=== PATIENT | female | born 1975 | race Caucasian/White ===

== ENCOUNTER 2024-08-18 19:39 | Emergency (ER) | payer OTHER, SELFPAY ==
[2024-08-18 19:45] VITALS: BP 112/77
[2024-08-18 20:19] LABS: HCG, Serum Qualitative Screen Negative
[2024-08-18 20:22] LABS: ALT (SGPT) 14 U/L (0-35); AST (SGOT) 14 U/L (14-36); Albumin 4.2 g/dl (3.5-5.0); Alkaline Phosphatase 81 U/L (38-126); Blood Urea Nitrogen 14 mg/dl (7-17); Calcium 10.4 mg/dl (8.4-10.2); Carbon Dioxide 25 mmol/L (22-30); Chloride 104 mmol/L (98-107); Glucose 113 mg/dl (70-99); Lipase 70 U/L (23-300); Potassium 5.2 mmol/L (3.5-5.1); Sodium 137 mmol/L (135-145); Total Protein 7.3 g/dl (6.3-8.2); eGFR > 60.00
[2024-08-18 20:23] LABS: Hematocrit 48.6 % (37.0-47.0); Hemoglobin 16.2 g/dL (12.0-16.0); Mean Corp Hgb Conc. 33.3 g/dL (33.0-37.0); Mean Corpuscular Volume 91.9 fL (81.0-99.0); Nucleated Red Blood Cells % 0 %; Red Cell Dist. Width 14.0 % (11.5-14.5)
[2024-08-18 20:33] LABS: Platelet Count 693 10^3/uL (130-400)
[2024-08-18 22:04] VITALS: BP 107/71
[2024-08-18 22:05] VITALS: BMI 24.9
--- NOTE | 2024-08-18 22:06 | ED.GENMED ---
History of Present Illness
<Marci Zaldivar MD, Resident - Last Filed: 08/19/24 00:48>
General
Chief Complaint: Abdominal Pain
Source: patient
Exam Limitations: none
Time Seen by Provider: 08/18/24 21:20
Nursing documentation reviewed up to this point in time: agreed with
History of Present Illness
History of Present Illness:
Mrs. Rosey Strickland is a 48-year-old female who is presenting with abdominal pain with nausea vomiting diarrhea for 2 times over 3 weeks.
The first episode was 3 weeks ago, and the second episode was 1 day ago. Both episodes had 37 seconds of pain where she felt sharp like she was being twisted inside her abdomen. Her abdominal pain yesterday was preceded by a large meal on Friday.
She endorses feeling bloated.
She did note that she ate popcorn before both episodes of abdominal pain. She states that she has a first-degree family ember with Crohn's disease. She denies hematochezia and hematemesis.
She denies history of bleeding disorders. She denies having upper respiratory symptoms, fevers, or chills.
She does not drink alcohol. She endorses smoking.
Review of Systems
<Marci Zaldivar MD, Resident - Last Filed: 08/19/24 00:48>
Review of Systems
All Other Systems: ROS reviewed and negative except as documented in HPI and ROS
Constitutional: Reports no symptoms
Respiratory: Reports no symptoms
Cardiac: Reports no symptoms
ABD/GI: Reports abdominal pain, nausea, vomiting and diarrhea
: Reports no symptoms
Phy Exam
<Marci Zaldivar MD, Resident - Last Filed: 08/19/24 00:48>
Physical Exam
Physical Exam:
GI: Tenderness to palpation in the epigastrium and suprapubic area.
Negative Zendejas sign negative, negative McBurney's point, negative Rovsing sign.
Hyperactive bowel sounds
Heart: Normal rate and rhythm. Bilateral radial pulses 2+.
Lungs clear to auscultation bilaterally
General: Dry mucous membranes
Course
<Marci Zaldivar MD, Resident - Last Filed: 08/19/24 00:48>
Orders/Labs/Results
Orders:
Orders
08/18/24 19:48
IV Insert/Care/Rem.- Treatment PRN
Test Result ONCE
08/18/24 19:56
Complete Blood Count/With Diff Urgent
Comprehensive Metabolic Panel Urgent
HCG, Serum Qualitative Screen Urgent
Comment: Notify provider if positive test present
Lactic Acid Urgent
Lipase Urgent
08/18/24 22:13
CT Abd/Pel (IV only)-DH only Stat
Comment:
Reason For Exam: epigastr pain & n/v/d x 2; high bili, wbc, lactate
08/18/24 22:15
0.9% Sodium Chloride 1000 ml [Nss] 1,000 ml IV BOLUS
08/18/24 23:27
Urinalysis Reflex To Culture Urgent
Date Specimen was Collected: 08/18/24
Time Specimen was Collected: 22:18
Urine Microscopic Reflex Cult Urgent
08/19/24 00:39
Dicyclomine [Bentyl] 20 mg PO NOW STA
08/19/24 08:00
Nicotine [Nicoderm Transdermal] 14 mg TRANSDERM DAILY
Abnormal Lab Results
08/18/24 08/18/24
19:56 23:27
WBC 15.9 H 10^3/uL
(4.8-10.8)
Hgb 16.2 H g/dL
(12.0-16.0)
Hct 48.6 H %
(37.0-47.0)
Plt Count 693 H 10^3/uL
(130-400)
Abs Immat Gran (auto) 0.1 H 10^3/uL
(0-0.05)
Absolute Neuts (auto) 12.5 H 10^3/uL
(1.4-6.5)
Absolute Monos (auto) 1.0 H 10^3/uL
(0.1-0.6)
Neutrophils % 78.5 H %
(42.2-75.2)
Lymphocytes % 14.2 L %
(20.5-51.1)
Potassium 5.2 H mmol/L
(3.5-5.1)
Glucose 113 H mg/dl
(70-99)
Lactic Acid 3.4 H mmol/L
(0.7-2.0)
Calcium 10.4 H mg/dl
(8.4-10.2)
Total Bilirubin 1.5 H mg/dl
(0.2-1.3)
Urine Ketones 3+ A
(Negative)
Ur Occult Blood Reflex 1+ A
(Negative)
Urine Albumin (Reflex) 2+ A
(Neg - Trace)
08/18/24 19:56
08/18/24 19:56
Vital Signs
Initial and Last Documented VS:
Initial Vital Signs
Temp Pulse Resp BP Pulse Ox
98.6 F 109 20 112/77 99
08/18/24 19:45 08/18/24 19:45 08/18/24 19:45 08/18/24 19:45 08/18/24 19:45
Last Documented Vital Signs
Temp Pulse Resp BP Pulse Ox
98.6 F 109 20 105/56 95
08/18/24 19:45 08/18/24 19:45 08/18/24 19:45 08/19/24 00:00 08/19/24 00:30
<Justus Duarte, DO - Last Filed: 08/19/24 01:34>
Orders/Labs/Results
Orders:
Orders
08/18/24 19:48
IV Insert/Care/Rem.- Treatment PRN
Test Result ONCE
08/18/24 19:56
Complete Blood Count/With Diff Urgent
Comprehensive Metabolic Panel Urgent
HCG, Serum Qualitative Screen Urgent
Comment: Notify provider if positive test present
Lactic Acid Urgent
Lipase Urgent
08/18/24 22:13
CT Abd/Pel (IV only)-DH only Stat
Comment:
Reason For Exam: epigastr pain & n/v/d x 2; high bili, wbc, lactate
08/18/24 22:15
0.9% Sodium Chloride 1000 ml [Nss] 1,000 ml IV BOLUS
08/18/24 23:27
Urinalysis Reflex To Culture Urgent
Date Specimen was Collected: 08/18/24
Time Specimen was Collected: 22:18
Urine Microscopic Reflex Cult Urgent
08/19/24 00:39
Dicyclomine [Bentyl] 20 mg PO NOW STA
08/19/24 08:00
Nicotine [Nicoderm Transdermal] 14 mg TRANSDERM DAILY
Abnormal Lab Results
08/18/24 08/18/24
19:56 23:27
WBC 15.9 H 10^3/uL
(4.8-10.8)
Hgb 16.2 H g/dL
(12.0-16.0)
Hct 48.6 H %
(37.0-47.0)
Plt Count 693 H 10^3/uL
(130-400)
Abs Immat Gran (auto) 0.1 H 10^3/uL
(0-0.05)
Absolute Neuts (auto) 12.5 H 10^3/uL
(1.4-6.5)
Absolute Monos (auto) 1.0 H 10^3/uL
(0.1-0.6)
Neutrophils % 78.5 H %
(42.2-75.2)
Lymphocytes % 14.2 L %
(20.5-51.1)
Potassium 5.2 H mmol/L
(3.5-5.1)
Glucose 113 H mg/dl
(70-99)
Lactic Acid 3.4 H mmol/L
(0.7-2.0)
Calcium 10.4 H mg/dl
(8.4-10.2)
Total Bilirubin 1.5 H mg/dl
(0.2-1.3)
Urine Ketones 3+ A
(Negative)
Ur Occult Blood Reflex 1+ A
(Negative)
Urine Albumin (Reflex) 2+ A
(Neg - Trace)
08/18/24 19:56
08/18/24 19:56
Vital Signs
Initial and Last Documented VS:
Initial Vital Signs
Temp Pulse Resp BP Pulse Ox
98.6 F 109 20 112/77 99
08/18/24 19:45 08/18/24 19:45 08/18/24 19:45 08/18/24 19:45 08/18/24 19:45
Last Documented Vital Signs
Temp Pulse Resp BP Pulse Ox
98.6 F 109 20 105/56 95
08/18/24 19:45 08/18/24 19:45 08/18/24 19:45 08/19/24 00:00 08/19/24 00:30
<Marci Zaldivar MD, Resident - Last Filed: 08/19/24 00:48>
MDM/Problems Addressed
Differential Diagnosis Includes:
Gallstones and/or pancreatitis
Peptic ulcer disease
UTI
Renal stone
IBD
MDM/Problems Addressed:
CT abdomen/pelvis demonstrated severe acute Crohn's disease
CBC with elevated WBCs (15.9) and platelets
IV fluids, given mild hyperkalemia and emesis
Urinalysis
Consult GI
Patients states she prefers outpatient management due to starting a new job and having 3 children to take care of.
GI can accommodate patient's preference and will call patient to schedule follow-up soon.
<Marci Zaldivar MD, Resident - Last Filed: 08/19/24 00:48>
*Pulse Oximetry
SaO2: 99
Oxygen Mode of Delivery: Room air
Patient hypoxic: no
<Justus Duarte, DO - Last Filed: 08/19/24 01:34>
*Critical Care Note
Total Time (30-74mins, 75-104mins- exclusive of procedures): Not Applicable
ED Attending Note
<Marci Zaldivar MD, Resident - Last Filed: 08/19/24 00:48>
-
Portions of this chart may have been created with voice recognition software.� Occasional wrong word or��sound alike� substitutions may have occurred due to the inherent limitations of voice recognition software.
<Justus Duarte, DO - Last Filed: 08/19/24 01:34>
ED Attending Note
Patient seen and examined by attending physician: Yes
I performed a history and physical exam of patient and discussed management with resident, I reviewed resident's note and agree with documented findings and plan of care.: Yes
ED Attending Note:
Note:
CHIEF COMPLAINT(S)
Intermittent abdominal tightness and discomfort described as feeling like an 'Lao burn' for approximately the past month.
HISTORY OF PRESENT ILLNESS
The patient is a 48-year-old female presenting with a one-month history of intermittent abdominal tightness. The tightness occurs for five to six seconds and is described by the patient as feeling like an 'Lao burn.' She states that when this
sensation occurs, it is intense enough to provoke a strong reaction, likening it to wanting to 'punch everyone in the face to get the pain off.' The episodes are not associated with any fever or continuous vomiting, although she experiences vomiting
occasionally but it resolves after about an hour and is not constant. These episodes have been increasing, leading to fear about her condition as it had become more persistent, prompting her to seek medical attention today. The last episode occurred
approximately 50 minutes ago at the time of her consultation. She expresses concern about staying in the hospital due to recently starting a new job, but is open to following medical advice, particularly in regard to potential outpatient follow-up
with gastroenterology.
SOCIAL DETERMINANTS AFFECTING HEALTH
The patient reports concerns about staying in the hospital due to having recently started a new job, indicating possible employment-related stress affecting her healthcare decisions.
Disposition:
SUMMARY OF ENCOUNTER
The patient, a 48-year-old female, presented to the emergency department with a one-month history of intermittent abdominal tightness and discomfort described as feeling like an 'Lao burn' lasting for five to six seconds. She reported occasional
vomiting resolved within an hour and increasing frequency of these episodes, leading to a concern about her health. During the consultation, she was worried about hospitalization due to recently starting a new job but was open to outpatient
follow-up with gastroenterology. After assessment and discussion with the gastroenterology team, it was determined that the patient would be discharged with close outpatient follow-up advised. The plan was reviewed and agreed upon with the resident
doctor involved in her care.
DISPOSITION
Discharge.
MANAGEMENT OF THE PATIENTS CARE WAS DISCUSSED WITH
Discussion with gastroenterology.
PLAN
The patient will be discharged home with the recommendation for close follow-up with gastroenterology. She is advised to monitor her symptoms and seek immediate medical attention if the episodes worsen or new symptoms develop.
PATIENT EDUCATION AND COUNSELING
The patient was advised on the importance of following up with a cotton weigher for further evaluation of her symptoms. She was educated on monitoring her symptoms and was informed about when to seek immediate medical care.
FOLLOW-UP INSTRUCTIONS
Close follow-up with gastroenterology is advised. The patient is encouraged to schedule an appointment promptly.
MEDICAL DECISION MAKING
-Chronic conditions affecting care: Intermittent abdominal tightness and discomfort.
-Data:
Category 1
Consultation with gastroenterology initiated to discuss patients management.
-Category 3
Discussion of management with gastroenterology was conducted, leading to a discharge plan with outpatient follow-up.
Risk: Care significantly affected by Social Determinants of Health, specifically employment-related stress due to the recent start of a new job.
DIAGNOSIS
Abdominal pain, unspecified (R10.9)
Gastroesophageal reflux disease without esophagitis (K21.9) (considered given the symptom description)
Discharge Plan
Departure
Patient Disposition: Home (Routine Discharge)
Date of Disposition: 08/19/24
Time of Disposition: 00:17
Patient with high blood pressure during this ER visit?: No
Condition: Fair
Discharge Problem:
IBD (inflammatory bowel disease)
Instructions: Inflammatory Bowel Disease (DC), Quitting smoking - ED discharge instructions
Prescriptions:
New
nicotine 14 mg/24 hr patch 24 hour
1 patch transdermal DAILY 7 Days Qty: 14 0RF
dicyclomine 20 mg tablet
20 mg PO TID Qty: 20 0RF
Referrals:
Manuela Andrew MD [Active, Gastroenterology]
UNKNOWN - PT DOES,NOT KNOW [Family Provider]
Activity Restrictions/Additional Instructions:
Dear Ms. Rosey Grimm, you came to the ED with abdominal pain, nausea, vomiting, and diarrhea. The CAT scan showed signs of Crohn's disease.
We consulted gastroenterology. Dr. Manuela Andrew's office plans to call you to schedule a follow-up appointment soon. You may call [phone] to schedule.
Please return to the ED if you develop severe abdominal pain, vomiting, or diarrhea. Prescriptions for dicyclomine for the abdominal pain as well as a nicotine patch were sent to your pharmacy. It was a pleasure to be a part of your care team
Interventions
Interventions:
*Risk Screen - Suicide Last Done: 08/18/24 19:45
*General Assessment Last Done: 08/18/24 22:07
*Neglect/Abuse Screening Last Done: 08/18/24 19:45
*ED- Fall Risk Assessment Last Done: 08/18/24 22:07
*ED COVID-19 Vaccine History Last Done: 08/18/24 22:07
*Nursing Disposition Last Done: 08/19/24 01:01
PO-Tyqkra-Xwhqwgsutz Assessment Last Done: 08/18/24 22:07
Discharge Date and Time
Discharge Date/Time: 08/19/24 01:02
Print Language: VIETNAMESE
[2024-08-18] MEDS: NSS 1000 IV (22:20)
[2024-08-18 23:00] VITALS: BP 95/65
[2024-08-18 23:49] LABS: Urine Character Clear (Clear)
[2024-08-19] VITALS: BP 105/56
[2024-08-19] MEDS: BENTYL 20 MG PO (00:58)
[2024-08-19 01:08] LABS: Urine Squamous Cell >30 /LPF (Few)
[2024-08-19 01:10] LABS: Urine Red Blood Cell 0-2 /HPF (0-2); Urine White Cell None Seen /HPF (0-5)
== END 2024-08-19 01:02 | disposition home or self-care (01) ==
LOC: EMR 19:39
PROVIDERS: EMERGENCY PHYSICIAN Student in an Organized Health Care Education/Training Program
DX: K58.9 Irritable bowel syndrome, unspecified (principal); E87.20 Acidosis, unspecified; E87.5 Hyperkalemia; F17.200 Nicotine dependence, unspecified, uncomplicated; K21.9 Gastro-esophageal reflux disease without esophagitis
CPT/HCPCS: 99284; 96360; 74177; 80053; 81003; 81015; 83605; 83690; 84703; 85025; Q9967

== ENCOUNTER 2024-09-03 06:19 | Day surgery (SDC) | payer OTHER, SELFPAY | END 2024-09-03 13:36 | disposition home or self-care (01) | LOC: GI 06:19 | PROVIDERS: ATTENDING PHYSICIAN Internal Medicine Gastroenterology | DX: R93.3 Abnormal findings on diagnostic imaging of other parts of digestive tract (principal); R19.4 Change in bowel habit; K63.89 Other specified diseases of intestine; K62.89 Other specified diseases of anus and rectum; K52.89 Other specified noninfective gastroenteritis and colitis | CPT/HCPCS: 45380; 88305 ==

== ENCOUNTER 2024-10-01 01:57 | Inpatient (IN) | payer OTHER, SELFPAY ==
[2024-09-30 16:39] VITALS: BP 110/70
[2024-09-30 17:10] LABS: Hematocrit 46.8 % (37.0-47.0); Hemoglobin 16.2 g/dL (12.0-16.0); Mean Corp Hgb Conc. 34.6 g/dL (33.0-37.0); Mean Corpuscular Volume 90.9 fL (81.0-99.0); Nucleated Red Blood Cells % 0 %; Platelet Count 693 10^3/uL (130-400); Red Cell Dist. Width 13.2 % (11.5-14.5)
[2024-09-30 17:25] LABS: ALT (SGPT) 14 U/L (0-35); AST (SGOT) 15 U/L (14-36); Albumin 3.5 g/dl (3.5-5.0); Alkaline Phosphatase 109 U/L (38-126); Blood Urea Nitrogen 14 mg/dl (7-17); Calcium 9.4 mg/dl (8.4-10.2); Carbon Dioxide 27 mmol/L (22-30); Chloride 94 mmol/L (98-107); Glucose 112 mg/dl (70-99); Lipase 247 U/L (23-300); Potassium 3.5 mmol/L (3.5-5.1); Sodium 131 mmol/L (135-145); Total Protein 6.3 g/dl (6.3-8.2); eGFR > 60.00
[2024-09-30 17:30] LABS: HCG, Serum Qualitative Screen Negative
[2024-09-30 18:00] VITALS: BP 98/65
[2024-09-30 20:08] VITALS: BMI 24.3
--- NOTE | 2024-09-30 20:17 | ED.GENMED ---
History of Present Illness
General
Chief Complaint: Abdominal Pain
Time Seen by Provider: 09/30/24 20:05
History of Present Illness
History of Present Illness:
48-year-old female presents to the emergency department for evaluation of abdominal pain and intractable vomiting for the past several days. She was seen here in early August and diagnosed with inflammatory bowel disease by scan. She underwent
colonoscopy in late August that showed significant terminal ileitis. It seems that the working diagnosis is currently Crohn's disease and she was prescribed Solimene enemas which she is tolerating well. She states she has had vomiting and pain
waxing and waning since her initial diagnosis but over the past 3 to 4 days symptoms have dramatically worsened. Denies any bloody bowel movements at this time. No prior surgeries.
Review of Systems
Review of Systems
Allergies reviewed?: Yes
All Other Systems: ROS reviewed and negative except as documented in HPI and ROS
Phy Exam
Physical Exam
Physical Exam:
GEN: Ill-appearing, visibly in pain
Eyes: PERRLA, EOMs intact, no scleral icterus
HENT: NCAT, oral mucosa moist
Lungs: CTAB, no wheezes, rales, rhonchi, normal chest wall excursion
Cardiac: Tachycardic and regular
Abdomen: Protuberant and firm, moderately tender all throughout, no rebound tenderness
Neuro: AO x 3
MSK: No gross deformity or ecchymosis. No edema. No digital clubbing
Skin: No rashes, petechiae. Normal color, no pallor or jaundice.
Psych: Calm, cooperative, proper hygiene
Course
Orders/Labs/Results
Orders:
Orders
09/30/24 16:40
Test Result ONCE
09/30/24 16:47
C-Reactive Protein Urgent
Comment: ADD ON
Complete Blood Count/With Diff Urgent
Comprehensive Metabolic Panel Urgent
HCG, Serum Qualitative Screen Urgent
Lipase Urgent
09/30/24 20:16
HYDROmorphone [Dilaudid] 0.5 mg IV NOW STA
Iohexol [Omnipaque] See Protocol PO NOW STA
Lactated Ringers [Lr] 1,000 ml IV BOLUS
Metoclopramide [Reglan] 10 mg IV NOW STA
09/30/24 20:17
Add On- LAB Urgent
Tests Added?: CRP
CT Abd/pel W Iv And Oral Contr Urgent
Comment:
Reason For Exam: abd pain, vomiting, UC flare
09/30/24 22:49
Ondansetron Injectable [Zofran] 4 mg IV NOW STA
09/30/24 23:30
Lactic Acid Urgent
09/30/24 23:33
NG Tube [GI tube insertion- Treatment] ONCE
09/30/24 23:43
Lactated Ringers [Lr] 1,000 ml IV 125 mls/hr
Abnormal Lab Results
09/30/24
16:47
WBC 24.7 H 10^3/uL
(4.8-10.8)
Hgb 16.2 H g/dL
(12.0-16.0)
MCH 31.5 H pg
(27.0-31.0)
Plt Count 693 H 10^3/uL
(130-400)
Abs Immat Gran (auto) 0.1 H 10^3/uL
(0-0.05)
Absolute Neuts (auto) 19.6 H 10^3/uL
(1.4-6.5)
Absolute Lymphs (auto) 3.7 H 10^3/uL
(1.2-3.4)
Absolute Monos (auto) 1.2 H 10^3/uL
(0.1-0.6)
Neutrophils % 79.4 H %
(42.2-75.2)
Lymphocytes % 15.1 L %
(20.5-51.1)
Sodium 131 L mmol/L
(135-145)
Chloride 94 L mmol/L
(98-107)
Glucose 112 H mg/dl
(70-99)
09/30/24 16:47
09/30/24 16:47
Vital Signs
Initial and Last Documented VS:
Initial Vital Signs
Temp Pulse Resp BP Pulse Ox
97.6 F 125 16 110/70 97
09/30/24 16:39 09/30/24 16:39 09/30/24 16:39 09/30/24 16:39 09/30/24 16:39
Last Documented Vital Signs
Temp Pulse Resp BP Pulse Ox
97.6 F 120 16 98/65 92
09/30/24 16:39 10/01/24 00:00 10/01/24 00:00 09/30/24 18:00 10/01/24 00:00
MDM/Problems Addressed
MDM/Problems Addressed:
Imaging reveals small bowel obstruction with transition point at the terminal ileum concerning for stricture related to inflammatory bowel disease. Case discussed with general surgery who agrees with plan for aggressive IV hydration and NG tube
decompression. Will admit to the hospitalist service
*Pulse Oximetry
SaO2: 98
Oxygen Mode of Delivery: Room air
Patient hypoxic: no
*Critical Care Note
Total Time (30-74mins, 75-104mins- exclusive of procedures): Not Applicable
ED Attending Note
-
Portions of this chart may have been created with voice recognition software.� Occasional wrong word or��sound alike� substitutions may have occurred due to the inherent limitations of voice recognition software.
Discharge Plan
Departure
Patient Disposition: Admit
Date of Disposition: 09/30/24
Time of Disposition: 23:42
Admit to: Med/Surg
Presentation/result/management discussed w/ accepting MD/DO: Hospitalist
Discharge Problem:
Small bowel obstruction
Prescriptions:
No Action
nicotine 14 mg/24 hr patch 24 hour
1 patch transdermal DAILY 7 Days Qty: 14 0RF
dicyclomine 20 mg tablet
20 mg PO TID Qty: 20 0RF
Referrals:
Lynda Castro MD [Family Provider, Internal Medicine]
Interventions
Interventions:
*Risk Screen - Suicide Last Done: 09/30/24 16:42
*General Assessment Last Done: 09/30/24 20:08
*Neglect/Abuse Screening Last Done: 09/30/24 16:42
*ED- Fall Risk Assessment Last Done: 09/30/24 20:08
*ED COVID-19 Vaccine History Last Done: 09/30/24 20:08
PF-Qsatte-Tswemchohs Assessment Last Done: 09/30/24 20:08
Discharge Date and Time
Print Language: WOLOF
[2024-09-30] MEDS: LR 1000 IV ×2 (20:25→23:54)
[2024-09-30] MEDS: REGLAN 10 MG IV (20:26)
[2024-09-30] MEDS: DILAUDID 0.5 MG IV (20:26)
[2024-09-30] MEDS: OMNIPAQUE 50 ML PO (20:26)
[2024-09-30 21:35] LABS: C-Reactive Protein < 5.00 mg/L (0.0-10.00)
[2024-09-30] MEDS: ZOFRAN 4 MG IV (22:55)
--- NOTE | 2024-10-01 01:53 | HPS.HSE ---
Family Physician
-
Family Physician: Lynda Castro
Chief Complaint
-
Abd Pain, N/V
History of Present Illness
Patient is a 48y F with no prior PMH who presents to ED complaining of abdominal pain with N/V/D. Patient states that she has been having episodes of abdominal pain and N/V/D about once per month since January 2024. She was seen in the ED here
in August and CT scan showed evidence for terminal ileum inflammation. Patient followed up with GI and underwent colonoscopy on 09/03/24. This showed normal appearing TI at that time but an area of patchy erythema in in sigmoid / rectum. This was
biopsied and was consistent with inflammatory bowel disease. Patient states that she was prescribed enemas; however, she has taken only one and has been dealing with insurance / pharmacy benefit issues since.
Patient states that her symptoms have been progressively worse over the past 2 weeks. She reports intermittent, burning abdominal pain in the umbilical area. She has N/V daily. She has poor appetite / PO intake.
She does continued to pass stools - light in color, at times formed and at times loose. No bloody stools. No fevers / chills.
Patient presented to the ED this evening with abdominal pain and N/V.
At the time of my examination, patient is having foul-smelling emesis despite presence of NG tube with large amount of brownish drainage already in tank.
Patient reports no history of medical issues prior to these symptoms.
Medical History
Past Medical History
Past Medical History: Reports Other
Additional Past Medical History:
IBD
Past Surgical History: Reports None
Social History
Tobacco: Smoker (Current every day smoker.)
Alcohol: Occasional
Drug: None
Family History
Family History: Other (Sister / Grandmother: Crohn's disease)
Allergies / Home Medications
Allergies reflects when Allergies were last updated in [employer].
Home Medications with original date entered in [employer]
Allergy/Medication List:
Allergies
Allergy/AdvReac Type Severity Reaction Status Date / Time
No Known Allergies Allergy Unverified 08/18/24 19:45
Home Medications
dicyclomine 20 mg tablet 20 mg PO TID #20 tabs 08/19/24
nicotine 14 mg/24 hr daily transdermal patch 1 patch transdermal DAILY 7 days #14 ea 08/19/24
Review of Systems
-
History Source: Patient
A 12 point ROS was completed and negative except as noted: Yes
Constitutional: Denies Fever or Chills
Respiratory: Denies Cough or Trouble Breathing
Cardiac: Denies Chest Pain or Palpitations
Abdomen/GI: Reports Abdominal Pain, Nausea, Vomiting, Diarrhea and Anorexia; Denies Bloody Stools or Black Stools
: Denies Dysuria or Frequency
Musculoskeletal: Denies Joint Pain or Edema
Neurological: Denies Dizzy or Headache
Physical Exam
Vital Signs
Vital Signs
Temp Pulse Resp BP Pulse Ox
97.6 F 119 22 98/65 96
09/30/24 16:39 10/01/24 01:30 10/01/24 01:30 09/30/24 18:00 10/01/24 00:30
Physical Exam
General: Other (48y F in moderate distress due to abdominal pain and nausea.)
HEENT: Moist mucous membranes and Other (NG in place with large amount of feculent appearing material in canister.)
Respiratory: Clear; No Wheezes, Rales or Rhonchi
Cardiac: S1/S2 and Tachycardia; No Murmur
GI: Other (Abdomen is softly distended. Bowel sounds are present. Pos tender in mid-abdomen.)
Musculoskeletal: No Clubbing, No Cyanosis and No Edema
Neuro: AO x 3
Laboratory Results
-
09/30/24 16:47
09/30/24 16:47
Laboratory Results
Lactic Acid 1.1 mmol/L (0.7-2.0) 09/30/24 23:30
Total Bilirubin 0.8 mg/dl (0.2-1.3) 09/30/24 16:47
AST 15 U/L (14-36) 09/30/24 16:47
ALT 14 U/L (0-35) 09/30/24 16:47
Alkaline Phosphatase 109 U/L (38-126) 09/30/24 16:47
Lipase 247 U/L (23-300) 09/30/24 16:47
Impression/Plan
-
A/P: Patient is a 48y F with PMH significant for recent diagnosis of IBD who presents to ED complaining of N/V and abdominal pain.
SBO / Partial SBO
Inflammatory Bowel Disease
- Admit for further evaluation and treatment.
- CT scan in the ED this evening with small bowel inflammation in the RLQ with associated transition point / SBO.
- NG placed for decompression.
- Continue supportive care with pain control, antiemetics, IVFs, etc.
- Surgery consulted in the ED.
- GI evaluation for additional recommendations.
- Check stool studies to rule out infection - ? course of IV steroids pending those results.
Leukocytosis
- ? infectious versus stress response. Note similar elevation in platelet count as well.
- IVF support.
- Observe off of abx for now pending culture data, GI eval, etc.
DVT Prophylaxis: SCDs
Code Status: Full
[2024-10-01] MEDS: TORADOL 15 MG IV (02:14)
[2024-10-01 03:00] VITALS: BP 98/71
[2024-10-01 03:15] VITALS: BMI 22.7
[2024-10-01] MEDS: TORADOL 10 MG IV (03:48)
[2024-10-01] MEDS: ZOFRAN 4 MG IV ×2 (03:50→15:28)
[2024-10-01] MEDS: COMPAZINE 10 MG IV (05:54)
[2024-10-01 06:14] LABS: Hematocrit 45.2 % (37.0-47.0); Hemoglobin 15.9 g/dL (12.0-16.0); Mean Corp Hgb Conc. 35.2 g/dL (33.0-37.0); Mean Corpuscular Volume 87.6 fL (81.0-99.0); Platelet Count 653 10^3/uL (130-400); Red Cell Dist. Width 13.2 % (11.5-14.5)
[2024-10-01 06:30] LABS: Blood Urea Nitrogen 26 mg/dl (7-17); Calcium 8.6 mg/dl (8.4-10.2); Carbon Dioxide 24 mmol/L (22-30); Chloride 95 mmol/L (98-107); Estimated Creatinine Clearance 65 ml/min; Glucose 121 mg/dl (70-99); Potassium 3.6 mmol/L (3.5-5.1); Sodium 133 mmol/L (135-145); eGFR > 60.00
[2024-10-01] MEDS: VALIUM INJECTION 2 MG IV (06:40)
--- NOTE | 2024-10-01 06:47 | PTCARENOTE ---
pt is AOx3, abdomen is distended, tender, skin is mottled from use of heating pad. pt is complaining of n/v, unrelieved by zofran & compazine. Complaining of muscle spasms, spoke w anel gallardo, obtained labs and prn meds. See MAR.
--- NOTE | 2024-10-01 07:01 | W.PN.GS2 ---
Addendum entered and electronically signed by Ernesto Rodriguez MD 10/01/24 12:15:
This note will need to be rewritten and consult note format.
Original Note:
Today's Communication / Plan
-
NG tube in place
I/O monitor
Ringer lactate IV bolus administered.
Assessment / Plan
-
48-year-old F with prior PMH of terminal ileitis (inflammatory bowel disease )confirmed with colonoscopy on 09/03/2024 noncompliance (prescribed enema) presented with abdominal pain
# Abdominal pain secondary to partial small bowel obstruction:
Inflammatory bowel disease
- Currently patient on n.p.o.
- Vitals BP 98/71; TX 128, Tmax 98.6.
WBC-24.3--> 17.3; (due to dehydration/ stress-induced leukocytosis/ IBD)
-Hypotension, tachycardia, hemoglobin-15.9, platelet count-653 high indicates dehydration due to vomiting, diarrhea. IV fluids of Ringer's lactate bolus was given in a rate of 1000 mL/hr.
- NG tube output 500 mL (expected output).
- CT scan abdomen 09/30 impression: Inflammatory ileitis involving a long segment of the terminal ileum in the setting of Crohn's disease. Secondary small bowel obstruction with transition at the level of the inflamed ileum.
chest x-ray on 10/01/2024 mentioned NG tube tip in the distal esophagus, proximal to the GE junction.
-Recommended at least 10 cm advance of NG tube.
- Monitor I/O
-Follow up with GI for IBD management.
Subjective Data
-
Date of Service: October 01, 2024
Patient currently experiencing abdominal pain, nausea, vomiting, fatigue comparatively improving from the time of admission. Pt does not concern for fever, chills, dysuria. She passed flatus, no bowel movement currently. NG tube placed in ED.
Objective Data
-
Intake and Output
09/30/24 10/01/24 10/02/24
06:59 06:59 06:59
Intake Total 530 / 530
Output Total 1075 / 1075
Balance -545 / -545
Intake:
IV fluids (Total) 500 / 500
Amount instilled into GI Tube ( 30 / 30
Total)
Gastrostomy 30 / 30
Output:
Emesis 575 / 575
Gastrointestinal tube output ( 500 / 500
Total)
Gastrostomy 500 / 500
Other:
Number of approximated LARGE 1
amounts of urine
Vital Signs
Temp Pulse Resp BP Pulse Ox
97.6 F 128 18 98/71 99
10/01/24 03:00 10/01/24 03:00 10/01/24 03:00 10/01/24 03:00 10/01/24 03:00
Lab Results
10/01/24 05:28
10/01/24 05:28
Calcium 8.6 mg/dl (8.4-10.2) 10/01/24 05:28
Total Bilirubin 0.8 mg/dl (0.2-1.3) 09/30/24 16:47
AST 15 U/L (14-36) 09/30/24 16:47
ALT 14 U/L (0-35) 09/30/24 16:47
Alkaline Phosphatase 109 U/L (38-126) 09/30/24 16:47
Total Protein 6.3 g/dl (6.3-8.2) 09/30/24 16:47
Albumin 3.5 g/dl (3.5-5.0) 09/30/24 16:47
Physical Exam
-
General-mild distress(due to low blood pressure, abdominal pain)
HEENT: Moist mucous membranes and Other (NG in place with biliary and blood appearing material in canister.)
Respiratory: Clear; No Wheezes, Rales or Rhonchi
Cardiac: S1/S2 and Tachycardia; No Murmur
GI: Other (Abdomen is softly distended. Bowel sounds are present. Pos tender in mid-abdomen.)
Musculoskeletal: No Clubbing, No Cyanosis and No Edema
Neuro: AO x 3
Patient has a otero catheter: No
Patient has a central line: No
[2024-10-01 07:37] LABS: Magnesium 1.9 mg/dl (1.6-2.3)
--- NOTE | 2024-10-01 07:55 | W.PN.HOSP.TC ---
Today's Communication/Plan
-
Continue NPO.
NG tube.
Start Zosyn
Assessment / Plan
Assessment / Plan
Impression:
Patient is a 48y F with PMH significant for recent diagnosis of IBD who presents to ED complaining of N/V and abdominal pain, CT scan in the ED this evening with small bowel inflammation in the RLQ with associated transition point / SBO. Seen by
surgery status post NGT
Assessment/plan:
SBO / Partial SBO
Inflammatory Bowel Disease
- Patient admitted with abdominal pain, nausea, found.
- CT scan in the ED this evening with small bowel inflammation in the RLQ with associated transition point / SBO.
- Status post NGT
- Surgery consulted.
- GI consulted.
- Keep n.p.o.
Sepsis secondary to intra-abdominal
Patient may sepsis continues leukocytosis and tachycardia
Also patient also has thrombocytosis and elevated on hemoglobin level which could be contributed with dehydration and decreased oral intake.
Leukocytosis improved to 17.3.
Will add Zosyn
Pending cultures
Mild hyponatremia.
Secondary to decreased oral intake.
Continue IVF
CODE STATUS: Full code
DVT prophylaxis: SCDs
Diet:NPO
Family communication: Discussed with at
Disposition: Continue NPO.
NG tube.
Start Zosyn
Total time spent on today's encounter was 65 minutes which included time spent in counseling the patient/family regarding diagnosis and treatment plan as listed above, goals of care, and symptom management. Case was discussed with nursing staff,
specialists, and care coordinators/case management. All labs and imaging personally reviewed by me. Remainder the time spent in detailed review of previous records, lab data, imaging, and other medical provider documentation.
Anticipated Discharge: > 48 hours
Subjective/Interval History
-
Date of Service: October 01, 2024
Patient was sleepy, interval history taken from hospital bedside.
Patient had bowel movement.
Status post NG tube.
Objective Data
-
Labs:
Laboratory Results
10/01/24
05:28
WBC 17.3 H
Hgb 15.9
Hct 45.2
Plt Count 653 H
Sodium 133 L
Potassium 3.6
Chloride 95 L
Carbon Dioxide 24
BUN 26 H
Creatinine 0.9
Glucose 121 H
Calcium 8.6
Vital Signs:
Vital Signs
Temp Pulse Resp BP Pulse Ox
97.6 F 128 18 98/71 99
10/01/24 03:00 10/01/24 03:00 10/01/24 03:00 10/01/24 03:00 10/01/24 03:00
I&O
09/30/24 10/01/24 10/02/24
06:59 06:59 06:59
Intake Total 530 / 530
Output Total 1075 / 1075
Balance -545 / -545
Physical Exam
-
General: Well Developed, Well Nourished and Comfortable
HEENT: Normocephalic, Atraumatic, Moist Mucous Membranes, No Ptosis, PERRLA, Nose Appears Normal and Other (NG-tube)
Respiratory: Clear to Auscultation and Non Labored Respirations
Cardiac: Regular Rhythm and S1/S2
Breast: Deferred by me
GI: Soft, Normal Bowel Sounds and Tender
Genito-urinary: No Costovertebral Tender
Musculoskeletal: No Clubbing, No Cyanosis and No Edema
Skin: Warm
Neuro: Awake, Alert, Oriented, AO x 3 and No Motor Deficits
Psych: Calm
Data Reviewed
-
Diagnostic Radiology: Image personally visualized and interpreted and Report Reviewed by me
CT Scan: Image personally visualized and interpreted and Report Reviewed by me
Ultrasound: Image personally visualized and interpreted and Report Reviewed by me
MRI: Image personally visualized and interpreted and Report Reviewed by me
Medical Tests (Nuc Med, Echo etc): Image personally visualized and interpreted and Report Reviewed by me
Labs: Labs Reviewed by me
Old Records: Reviewed
[2024-10-01 08:15] VITALS: BP 108/74
[2024-10-01] MEDS: PROTONIX IV 40 MG IV (09:07)
[2024-10-01] MEDS: NSS (PRESERVATIVE FREE) 10 ML IV (09:07)
[2024-10-01] MEDS: LR 1000 IV ×3 (09:14→18:05)
--- NOTE | 2024-10-01 09:47 | CON.GI ---
Addendum entered and electronically signed by Tyler Blanchard MD 10/01/24 15:44:
I saw and evaluated the patient. I reviewed the resident�s note and agree with findings and plan as documented in the resident�s note.
48yo female recently dx'd with Crohn's presents with worsening abd pain, n/v. She has had worsening abd pain, diarrhea, leading to ER visit in August and CT at that time showed severe acute Crohn's involving multiple ileal SB loops in R abdomen
by distended fluid filled loops c/w 'skip lesions.' She declined admission to hospital due to insurance and f/u with GI as outpt. She underwent colonoscopy 09/03 that showed nodularity, ulcers in rectosigmoid bx moderate focal chronic
active colitis. TI was h spring to intubate due to narrow opening and tortuous colon so only very distal TI seen and normal. She was started on mesalamine enemas but had progressive abd pain, now n/v. CT shows inflammatory ileitis involving long
segment of terminal ileum with proximal SB loops diffusely dilated up to 4.8cm. NGT placed with drainage of dark fluid. CXR showed NGT in distal esophagus. Tube was advanced 10cm by RN and pt feeling better, fluid mobile web application developer
REC:
NPO, NGT, abx
She is feeling better after NGT was advanced
Monitor NG output
If stable and improving overnight, would like to start IV steroids to manage active Crohn's flare if ok with Surgery
Will need to discuss biologics as outpt
Check Hep B, TB tests in anticipation
Original Note:
Consultation
-
Date/Time Consultation Requested: 10/01/2024 02:53
Date/Time Consultation Performed: 10/01/2024 09:30
Requesting Provider: Austin Saez DO
Performing Provider: Kaleb Wallace DO (Resident); Tyler Blanchard MD
Reason for Consultation: SBO, IBD
Medical History
Chief Complaint / HPI
Chief Complaint: Abdominal Pain, Intractable Vomiting
History of Present Illness:
Rosey Strickland is a 48F with no significant PMHx who presented to the ED last night for abdominal pain and intractable vomiting. She has been experiencing episodes of abdominal pain intermittently since January of 2024 that is usually associated
nonbloody mucoid diarrhea. The abdominal pain is described as sharp and is mainly located in the middle of the abdomen. Patient endorses that these episodes started to become more frequent, and more severe over time. She did not seek medical
attention for this until approximately 6 weeks ago. At that time, the patient was seen in the ED where CT Abd/Pelv showed findings suggestive of Crohn's dz with severe mucosal thickening and luminal narrowing in the ileum. At the time she declined
hospital admission due to an insurance issue and agreed to outpatient follow up with GI ([facility]). She was discharged on dicyclomine in the interim. Patient was evaluated by Dr. Andrew in the outpatient setting and underwent colonoscopy on 09/03.
Colonoscopy revealed a tortuous and difficult to navigate colon. The colonoscope was not able to progress to the segment of ileum that was notable on CT scan, and the distal terminal ileum appeared okay. However, there were mucosal changes found in
rectum, rectosigmoid and sigmoid which were sent for biopsy and appeared consistent with an inflammatory process on histology.
Patient presented to the ED again last night with periumbilical abdominal pain, also associated with yellow, mucoid, nonbloody diarrhea, but this time also associated with intractable vomiting. Patient endorses daily pain and daily vomiting over the
past 3 weeks. Patient states that she vomited 9 times on the day of arrival. She endorses sometimes waking from sleep to vomit, but not always. Additionally, she denies postprandial vomiting, but also says she has not had much to eat.
Patient otherwise denies fevers, rectal bleeding, joint pains, visual changes, or rash.
ED COURSE
Abdomen was protruberant and firm, WBC 24.7, CT showing SBO with transition point at the terminal ilieum c/w stricture. Patient admitted, placed on NGT for decompression, and IV hydration.
Past Medical History
Past Medical History: None
Past Surgical History: None and Other (specifically denies any abdominal surgeries)
Social History
Tobacco: Former Smoker (approx 1/2 PPD x 30 years )
Alcohol: Occasional
Drug: None
Personal:
Living: With Family
Employment: Employed
Family History
Family History: Other (Sister Crohn's Dz; Grandmother Crohn's Dz; Denies family history of colon, stomach, liver, gallbladder, pancreatic or esophageal cancers)
Allergies / Home Medications
Allergy/AdvReac Type Severity Reaction Status Date / Time
No Known Allergies Allergy Unverified 08/18/24 19:45
�Medication �Instructions �Recorded
dicyclomine 20 mg tablet 20 mg PO TID #20 tabs 08/19/24
nicotine 14 mg/24 hr daily 1 patch transdermal DAILY 7 days 08/19/24
transdermal patch #14 ea
Review of Systems
-
History Source: Patient
All other systems: A 12 pt ROS was Negative except as stated above in HPI
Vital Signs
Temp Pulse Resp BP Pulse Ox
97.8 F 125 16 108/74 96
10/01/24 08:15 10/01/24 08:15 10/01/24 08:15 10/01/24 08:15 10/01/24 08:15
Physical Exam
Exam
General: No Apparent Distress
HEENT: Normocephalic and Anicteric
GI: Soft, Non Tender, Distended and Other (hyperactive bowel sounds)
Skin: Warm
Neuro: Awake
Psych: Calm
Results
WBC 17.3 10^3/uL (4.8-10.8) H 10/01/24 05:28
Hgb 15.9 g/dL (12.0-16.0) 10/01/24 05:28
Hct 45.2 % (37.0-47.0) 10/01/24 05:28
MCV 87.6 fL (81.0-99.0) 10/01/24 05:28
Plt Count 653 10^3/uL (130-400) H 10/01/24 05:28
Absolute Neuts (auto) 19.6 10^3/uL (1.4-6.5) H 09/30/24 16:47
Sodium 133 mmol/L (135-145) L 10/01/24 05:28
Potassium 3.6 mmol/L (3.5-5.1) 10/01/24 05:28
Chloride 95 mmol/L (98-107) L 10/01/24 05:28
Carbon Dioxide 24 mmol/L (22-30) 10/01/24 05:28
BUN 26 mg/dl (7-17) H 10/01/24 05:28
Creatinine 0.9 mg/dL (0.6-1.0) 10/01/24 05:28
Calcium 8.6 mg/dl (8.4-10.2) 10/01/24 05:28
Total Bilirubin 0.8 mg/dl (0.2-1.3) 09/30/24 16:47
AST 15 U/L (14-36) 09/30/24 16:47
ALT 14 U/L (0-35) 09/30/24 16:47
Alkaline Phosphatase 109 U/L (38-126) 09/30/24 16:47
Lipase 247 U/L (23-300) 09/30/24 16:47
Diagnostic Image Results:
CT Abdomen/Pelvis IV Only (08/18/24):
1. SEVERE ACUTE CROHN'S DISEASE involving MULTIPLE ILEAL SMALL BOWEL LOOPS in the right side of the abdomen with segments of severe mucosal thickening, mucosal hyperenhancement, and luminal narrowing by a distended fluid-filled loops
consistent with 'skip lesions.'
2. Mild mesenteric lymphadenopathy.
3. SEVERE DIFFUSE HEPATIC STEATOSIS.
4. Mild hepatomegaly.
5. Small amount of pelvic ascites.
CT Abdomen/Pelvis IV and Oral (09/30/24):
Inflammatory ileitis involving a long segment of the terminal ileum in the setting of Crohn's disease. Secondary small bowel obstruction with transition at the level of the inflamed ileum.
Prior GI Procedures:
Colonoscopy (09/03/24)
- Mildly nodular and altered vascular mucosa with few apthous ulcers
in the rectum, in the recto-sigmoid colon and in the sigmoid colon.
Biopsied.
- The examined portion of the ileum was normal. Was hard to intubate
the TI the ICV opening was narrow and colon was tortuous so only the
very distal part of TI was examined and appeared normal.
- The pattern of inflammation favors active inflammatory bowel disease over a self-limited
or infectious proctocolitis.
Assessment / Plan
-
Rosey Strickland is a 48F with a PMHx of recently diagnosed Crohn's Disease with ileal and possibly sigmoid colonic involvement who is presents with abdominal pain and intractable vomiting with SBO seen on CT with a transition point in the region of
prior documented stricturing disease.
We recommend continued conservative management of SBO with NGT to LCWS with IVF. If patient can be managed nonoperatively, she may benefit from a short course of steroids during this admission to alleviate inflammation. Otherwise we will continue to
consider care home management options for this patient's inflammatory bowel disease.
- Continue Bowel Rest
- NGT to LCWS, monitor outputs
- Continue ABx
- Consider steroid if patient is to be managed nonoperatively, appreciated surgery reccs
- Discuss keno terminal operator management options
-
-
Thank you for consultation and allowing me to participate in the patient's care. Please call the banking consultant GI physician during the after hours with any questions or concerns.
--- NOTE | 2024-10-01 10:04 | CM ---
Reviewed the chart notes and spoke with the patient and spouse at the bedside. Patient currently with NGT. The patient resides with her spouse and three children in a one story home with three steps to enter. The patient reports no DME/VN/SNF in
the past. The patient confirmed her pharmacy of choice is [facility]. CM continues to be available to patient/family and is monitoring medical plan for needs at discharge.
Plan: Discharge plans will depend on the patient's progress.
[2024-10-01 11:31] VITALS: BMI 22.7
--- NOTE | 2024-10-01 12:15 | W.PN.SURGUPD ---
Surgical Update
Surgical Update
I saw and examined the patient independently. Full consult note to be written by the resident later today, but I did review her documentation which was written as progress note and agree with the note, assessment and plan except where noted below.
Comment: This is a 48-year-old female who presents with a small bowel obstruction secondary to significant terminal ileitis/IBD flare. Exam reassuring.
Will continue nonoperative management of her SBO.
NG tube to low intermittent wall suction, n.p.o., IV fluids
She still remains tachycardic and hypotensive with a significant leukocytosis concerning for persistent hypovolemia. Will give a 1 L bolus now.
X-ray confirmed poor NG tube placement, will advance 10 cm.
Appreciate GI consult for management of her IBD flare.
General surgery will continue to follow with serial abdominal exams, hopefully she will not need surgery in this acute setting.
[2024-10-01] MEDS: ZOSYN 50 IV ×3 (12:27→23:57)
--- NOTE | 2024-10-01 13:07 | CON.GS ---
Consultation
-
Date/Time Consultation Performed: 10/01/24 0800
Medical History
-
Chief Complaint: abdominal pain/nausea
History of Present Illness:
Ms Strickland is a 48 yo female recently diagnosed with IBD in August with initial CT in the ED where she presented for abdominal pain with n/v/d notable for multiple ileal small bowel loops with segments of severe mucosal thickening, mucosal
hyperenhancement, and luminal narrowing by a distended fluid-filled loops consistent with 'skip lesions' consistent with Crohn's. She has had intermittent episodes since January last year. Outpatient colonoscopy on 09/03/24 with normal
appearing distal TI but the area was unable to be intubated well as the ICV was narrowed and the colon was tortuous. At that time an area of patchy erythema in in sigmoid / rectum was noted and biopsied with consistent with inflammatory bowel
disease. She was recently on vacation and has not yet had a follow up with GI since her colonoscopy but does note she was prescribed an enema (?mesalamine) which she has not been able to obtain d/t insurance issues. She presented again through the
ED last night with worsening abdominal pain with nausea and vomiting with some diarrhea as well. On exam, she has ongoing nausea with distention and generalized abdominal discomfort. NGT was placed overnight with 500ml of blood tinged output.
Past Medical History
Past Medical History: Other (IBD dx 08/2024)
Past Surgical History: None
Social History
Tobacco: Smoker
Alcohol: Occasional
Family History
Family History: Other (sister and gm with Crohn's)
Allergies / Home Medications
Allergy/AdvReac Type Severity Reaction Status Date / Time
No Known Allergies Allergy Unverified 08/18/24 19:45
�Medication �Instructions �Recorded �Confirmed �Type
dicyclomine 20 mg tablet 20 mg PO TID #20 tabs 08/19/24 10/01/24 Rx
nicotine 14 mg/24 hr daily 1 patch transdermal DAILY 7 days 08/19/24 10/01/24 Rx
transdermal patch #14 ea
Review of Systems
-
History Source: Patient
All other systems: Negative unless noted
A 10 point review of systems was completed, and was negative except as per HPI.
Physical Exam
Vital Signs
Temp Pulse Resp BP Pulse Ox
97.8 F 125 16 108/74 96
10/01/24 08:15 10/01/24 08:15 10/01/24 08:15 10/01/24 08:15 10/01/24 08:15
09/30/24 10/01/24 10/02/24
06:59 06:59 06:59
Actual Weight 58.145 kg
Body Mass Index (BMI) 22.7
Lab Results
10/01/24 05:28
10/01/24 05:28
WBC 17.3 10^3/uL (4.8-10.8) H 10/01/24 05:28
Hgb 15.9 g/dL (12.0-16.0) 10/01/24 05:28
Hct 45.2 % (37.0-47.0) 10/01/24 05:28
Plt Count 653 10^3/uL (130-400) H 10/01/24 05:28
Abs Immat Gran (auto) 0.1 10^3/uL (0-0.05) H 09/30/24 16:47
Neutrophils % 79.4 % (42.2-75.2) H 09/30/24 16:47
Physical Exam
General: Well Developed and Well Nourished
HEENT: Moist Mucous Membranes
Respiratory: Non Labored Respirations
GI: Soft, Tender (generlaized) and Distended
Skin: Warm
Neuro: Awake, Alert and AO x 3
Psych: Calm
Data Reviewed
-
CT Scan: Image Personally Visualized and interpreted, Report Reviewed by me, Discussed with Physician, Discussed with Nurse and Discussed with Patient
Labs: Labs Reviewed by me, Discussed with Physician, Discussed with Nurse and Discussed with Family
Old Records: Reviewed
Assessment / Plan
-
48 yo female with n/v/d and abdominal pain intermittently since January who was recently diagnosed with IBD last month presents with worsening abdominal pain, nausea and vomiting.
CT imaging evaluated with inflammatory ileitis noted involving a long segment of the terminal ileum consistent with Crohn's disease causing at least a partial SBO. Suspect Crohn's exacerbation/flare vs developing stricture. Tachycardic with low
normal BP's. Suspect secondary to hypovolemia. Improved with IVF bolus. Leukocytosis present, trending down with NGT decompression. CRP and ESR WNL.
Plan:
Continue NPO with NGT decompression
NGT advanced by 10cm after CXR
Continue PPI for GI ppx
Consult to GI pending for management of IBD
Continue IVF, additional bolus given at time of exam
Start Lovenox for VTE ppx
No plans for emergent surgery today, will follow for improvement with medical management/NGT decompression
[2024-10-01 15:30] VITALS: BP 101/65
[2024-10-01] MEDS: LOVENOX 40 MG SC (18:05)
[2024-10-01] MEDS: LR IV (22:28)
[2024-10-01 23:23] VITALS: BP 98/53
[2024-10-02] MEDS: CHLORASEPTIC/SORE THROAT SPRAY 1 SPRAY PO (00:01)
[2024-10-02] MEDS: LR 1000 IV ×3 (02:15→21:16)
[2024-10-02] MEDS: ZOSYN 50 IV ×4 (05:22→23:54)
[2024-10-02 06:25] LABS: Hematocrit 38.4 % (37.0-47.0); Hemoglobin 13.2 g/dL (12.0-16.0); Mean Corp Hgb Conc. 34.4 g/dL (33.0-37.0); Mean Corpuscular Volume 89.5 fL (81.0-99.0); Platelet Count 499 10^3/uL (130-400); Red Cell Dist. Width 13.3 % (11.5-14.5)
[2024-10-02 06:32] LABS: Blood Urea Nitrogen 28 mg/dl (7-17); Calcium 7.7 mg/dl (8.4-10.2); Carbon Dioxide 32 mmol/L (22-30); Chloride 93 mmol/L (98-107); Estimated Creatinine Clearance 73 ml/min; Glucose 99 mg/dl (70-99); Potassium 2.9 mmol/L (3.5-5.1); Sodium 132 mmol/L (135-145); eGFR > 60.00
[2024-10-02] MEDS: KCL 270 MEQ IV ×2 (07:16→12:43)
[2024-10-02 07:35] VITALS: BP 95/57
[2024-10-02 08:07] LABS: Magnesium 2.0 mg/dl (1.6-2.3)
--- NOTE | 2024-10-02 09:15 | W.PN.GI.CBS2 ---
Today's Communication / Plan
-
.
Assessment / Plan
-
Rosey Strickland is a 48F with a PMHx of recently diagnosed Crohn's Disease (possibly stricturing type?) with ileal and sigmoid colonic involvement who presented with abdominal pain and intractable vomiting diagnosed with SBO as seen on CT with a
transition point in the region of prior documented stricturing disease (terminal ileum).
We recommend continued conservative management of SBO with NGT to LCWS with IVF. Consider surgical recommendations. With the patient's clinical improvement, continue to monitor Otherwise we will continue to consider half-way management options for
this patient's inflammatory bowel disease.
- Continue Bowel Rest and NGT, monitor outputs; with clinical improvement, consider removal of NG with advancement to CLD once output < 500mL/day and patient having BM/flatus.
- Continue ABx for now. WBCs downtrending.
- Hypochloremic hypokalemic metabolic alkalosis; electrolyte repletion per primary team.
- With clinical improvement, patient would benefit from steroid tx for Crohn's flare prior to initiating longer term treatments in the outpatient setting.
- Discuss parts counterman management options
- Close outpatient follow up
Total Time Spent with Patient (in minutes): 21
Subjective
Subjective
Date of Service: October 02, 2024
Patient seen and examined while resting comfortably in bed. Patient states that she is feeling much better. Notes that she has not vomited since yesterday AM. She denies abdominal pain currently. She is still hooked up to [facility], cannister was
changed approximately 12 hours ago, and contains 250mL of sales professional brown liquid when compared to yesterday. Patient currently tolerating ice chips.
Objective
Data Reviewed
Laboratory Data:
Laboratory Results
10/02/24 05:53
10/02/24 05:53
Laboratory Results
Phosphorus 3.9 mg/dl (2.5-4.5) 10/02/24 05:53
Magnesium 2.0 mg/dl (1.6-2.3) 10/02/24 05:53
Total Bilirubin 0.8 mg/dl (0.2-1.3) 09/30/24 16:47
AST 15 U/L (14-36) 09/30/24 16:47
ALT 14 U/L (0-35) 09/30/24 16:47
Alkaline Phosphatase 109 U/L (38-126) 09/30/24 16:47
Lipase 247 U/L (23-300) 09/30/24 16:47
Vital Signs and I&O:
Vital Signs
Temp Pulse Resp BP Pulse Ox
98 F 117 16 95/57 94
10/02/24 07:35 10/02/24 07:35 10/02/24 07:35 10/02/24 07:35 10/02/24 07:35
I&O
10/01/24 10/02/24 10/03/24
06:59 06:59 06:59
Intake Total 530 / 530 4530 / 4530
Output Total 1075 / 1075 1999
Balance -545 / -545 2530 / 2530
Physical Exam
Physical Exam
HEENT: Anicteric
GI: Soft, Non Distended, Non Tender and Normal Bowel Sounds
[2024-10-02] MEDS: PROTONIX IV 40 MG IV (09:18)
[2024-10-02] MEDS: NSS (PRESERVATIVE FREE) 10 ML IV (09:18)
--- NOTE | 2024-10-02 11:10 | W.PN.GI.CBS2 ---
Today's Communication / Plan
-
NGT management per Surgery. SBO resolved, passing liquid BMs
Will start IV solumedrol 20mg q8
Will need eventual initiation of biologics as outpt. Hep B/TB tests ordered in anticipation
Assessment / Plan
-
Rosey Strickland is a 48F with a PMHx of recently diagnosed Crohn's Disease (possibly stricturing type?) with ileal and sigmoid colonic involvement who presented with abdominal pain and intractable vomiting diagnosed with SBO as seen on CT with a
transition point in the region of prior documented stricturing disease (terminal ileum).
10/01/24 CT AP- Inflammatory ileitis involving a long segment of the terminal ileum in the setting of Crohn's disease. Secondary small bowel obstruction with transition at the level of the inflamed ileum.
Impression:
SBO
ileocolonic Crohn's disease
Subjective
Subjective
Date of Service: October 02, 2024
Pt passed 4 liquid stools overnight. Feels much better. Denies abd pain. NGT draining light colored bile
Objective
Data Reviewed
Laboratory Data:
Laboratory Results
10/02/24 05:53
10/02/24 05:53
Laboratory Results
Phosphorus 3.9 mg/dl (2.5-4.5) 10/02/24 05:53
Magnesium 2.0 mg/dl (1.6-2.3) 10/02/24 05:53
Total Bilirubin 0.8 mg/dl (0.2-1.3) 09/30/24 16:47
AST 15 U/L (14-36) 09/30/24 16:47
ALT 14 U/L (0-35) 09/30/24 16:47
Alkaline Phosphatase 109 U/L (38-126) 09/30/24 16:47
Lipase 247 U/L (23-300) 09/30/24 16:47
Vital Signs and I&O:
Vital Signs
Temp Pulse Resp BP Pulse Ox
98 F 117 16 95/57 94
10/02/24 07:35 10/02/24 07:35 10/02/24 07:35 10/02/24 07:35 10/02/24 07:35
I&O
10/01/24 10/02/24 10/03/24
06:59 06:59 06:59
Intake Total 530 / 530 4530 / 4530 250 / 250
Output Total 1075 / 1075 1999
Balance -545 / -545 2530 / 2530 250 / 250
Physical Exam
Physical Exam
GI: Soft, Non Distended and Non Tender
--- NOTE | 2024-10-02 11:43 | W.PN.HOSP.TC ---
Today's Communication/Plan
-
Continue NPO.
start steroid as per GI
Cont Zosyn
Assessment / Plan
Assessment / Plan
Impression:
Patient is a 48y F with PMH significant for recent diagnosis of IBD who presents to ED complaining of N/V and abdominal pain, CT scan in the ED this evening with small bowel inflammation in the RLQ with associated transition point / SBO. Seen by
surgery status post NGT
Seen by GI, started on steroid
Assessment/plan:
SBO / Partial SBO
Inflammatory Bowel Disease
- Patient admitted with abdominal pain, nausea, found.
- CT scan in the ED this evening with small bowel inflammation in the RLQ with associated transition point / SBO.
- Status post NGT
- Surgery consulted.
- GI consulted recommend to start steroid
- N.p.o., but overall abdominal pain
Sepsis secondary to intra-abdominal source
Patient may sepsis continues leukocytosis and tachycardia
Also patient also has thrombocytosis and elevated on hemoglobin level which could be contributed with dehydration and decreased oral intake.
Leukocytosis improved
Continue Zosyn
Pending cultures
Mild hyponatremia.
Secondary to decreased oral intake.
Continue IVF
CODE STATUS: Full code
DVT prophylaxis: SCDs
Diet:NPO
Family communication: Discussed with at bedside
Disposition: Continue NPO.
start steroid as per GI
Cont Zosyn
Total time spent on today's encounter was 65 minutes which included time spent in counseling the patient/family regarding diagnosis and treatment plan as listed above, goals of care, and symptom management. Case was discussed with nursing staff,
specialists, and care coordinators/case management. All labs and imaging personally reviewed by me. Remainder the time spent in detailed review of previous records, lab data, imaging, and other medical provider documentation.
Anticipated Discharge: > 48 hours
Subjective/Interval History
-
Date of Service: October 02, 2024
Patient seen and examined at bedside, overall improving, denies any chest pain or shortness of breath, NG tube.
Objective Data
-
Labs:
Laboratory Results
10/02/24
05:53
WBC 14.5 H
Hgb 13.2
Hct 38.4
Plt Count 499 H D
Sodium 132 L
Potassium 2.9 L
Chloride 93 L
Carbon Dioxide 32 H
BUN 28 H
Creatinine 0.8
Glucose 99
Calcium 7.7 L
Vital Signs:
Vital Signs
Temp Pulse Resp BP Pulse Ox
98 F 117 16 95/57 94
10/02/24 07:35 10/02/24 07:35 10/02/24 07:35 10/02/24 07:35 10/02/24 07:35
I&O
10/01/24 10/02/24 10/03/24
06:59 06:59 06:59
Intake Total 530 / 530 4530 / 4530 250 / 250
Output Total 1075 / 1075 1999 / 1999
Balance -545 / -545 2530 / 2530 250 / 250
Physical Exam
-
General: Well Developed, Well Nourished and Comfortable
HEENT: Normocephalic, Atraumatic, Moist Mucous Membranes, No Ptosis, PERRLA, Nose Appears Normal and Other (NG-tube)
Respiratory: Clear to Auscultation and Non Labored Respirations
Cardiac: Regular Rhythm and S1/S2
Breast: Deferred by me
GI: Soft, Normal Bowel Sounds and Tender
Genito-urinary: No Costovertebral Tender
Musculoskeletal: No Clubbing, No Cyanosis and No Edema
Skin: Warm
Neuro: Awake, Alert, Oriented, AO x 3 and No Motor Deficits
Psych: Calm
[2024-10-02] MEDS: SOLU-MEDROL PF 20 MG IV ×2 (12:33→20:08)
--- NOTE | 2024-10-02 15:27 | W.PN.GS2 ---
Today's Communication / Plan
-
clamp trial of NGT
Assessment / Plan
-
48 yo female with n/v/d and abdominal pain intermittently since January who was recently diagnosed with IBD last month presents with worsening abdominal pain, nausea and vomiting.
CT imaging evaluated with inflammatory ileitis noted involving a long segment of the terminal ileum consistent with Crohn's disease causing at least a partial SBO. Suspect Crohn's exacerbation/flare vs less likely a developing stricture.
Still with tachycardia and low normal BP's
Emesis last night, but currently nausea resolved. 2L NGT output over 24h
+BM early this am, feeling much better overall
Plan:
Continue NPO
Clamp trial of NGT for the next 24h, return to suction if nausea recurs
Appreciate GI eval, ok for steroids from surgical standpoint
Continue PPI for GI ppx
Continue IVF
Lovenox for VTE ppx
No plans for emergent surgery at this point, will follow for continued improvement with medical management of IBD
Subjective Data
-
Date of Service: October 02, 2024
Pt seen and examined at bedside with Dr. Montaño. Reports marked improvement today from yesterday. Had some liquid bm's and passed some flatus. Denies n/v. Denies pain.
Objective Data
-
Intake and Output
10/01/24 10/02/24 10/03/24
06:59 06:59 06:59
Intake Total 530 / 530 4530 / 4530 590 / 590
Output Total 1075 / 1075 1999 / 1999
Balance -545 / -545 2530 / 2530 590 / 590
Intake:
Oral fluids 120 / 120
IV fluids (Total) 500 / 500 4150 / 4150
IV piggybacks 200 / 200 590 / 590
Amount instilled into GI Tube ( 30 / 30 60 / 60
Total)
Gastrostomy 30 / 30
[place] Sump 60 / 60
Output:
Emesis 575 / 575
Gastrointestinal tube output ( 500 / 500 1999 / 1999
Total)
Gastrostomy 500 / 500
[place] Sump 1999
Other:
Number of approximated MODERATE 1
amounts of urine
Number of approximated LARGE 1 1 2
amounts of urine
Number of immeasurable emeses? 1
Vital Signs
Temp Pulse Resp BP Pulse Ox
98 F 117 16 95/57 94
10/02/24 07:35 10/02/24 07:35 10/02/24 07:35 10/02/24 07:35 10/02/24 07:35
Lab Results
10/02/24 05:53
10/02/24 05:53
Calcium 7.7 mg/dl (8.4-10.2) L 10/02/24 05:53
Phosphorus 3.9 mg/dl (2.5-4.5) 10/02/24 05:53
Magnesium 2.0 mg/dl (1.6-2.3) 10/02/24 05:53
Total Bilirubin 0.8 mg/dl (0.2-1.3) 09/30/24 16:47
AST 15 U/L (14-36) 09/30/24 16:47
ALT 14 U/L (0-35) 09/30/24 16:47
Alkaline Phosphatase 109 U/L (38-126) 09/30/24 16:47
Total Protein 6.3 g/dl (6.3-8.2) 09/30/24 16:47
Albumin 3.5 g/dl (3.5-5.0) 09/30/24 16:47
Physical Exam
-
NAD
ABD soft, nd, nt
NGT with light bilious outputs
[2024-10-02 15:30] VITALS: BP 102/58
[2024-10-02] MEDS: LOVENOX 40 MG SC (17:29)
[2024-10-02 20:44] LABS: Hepatitis B Surface Antigen Negative (Negative)
[2024-10-02] MEDS: SOLU-MEDROL PF IV (21:04)
[2024-10-03 00:05] VITALS: BP 87/67
[2024-10-03 00:07] VITALS: BP 85/65
--- NOTE | 2024-10-03 03:37 | PTCARENOTE ---
0010: BP automatic and manual readings reported to marv Velasco. Patient asymptomatic, no complaints. IVF LR at 150mL/hr as ordered. No new orders at this time.
[2024-10-03] MEDS: LR IV ×2 (04:38→04:39)
[2024-10-03] MEDS: LR 1000 IV ×3 (04:57→19:57)
[2024-10-03] MEDS: SOLU-MEDROL PF 20 MG IV ×3 (04:58→20:00)
[2024-10-03] MEDS: ZOSYN 50 IV (05:00)
[2024-10-03 07:28] LABS: Blood Urea Nitrogen 8 mg/dl (7-17); Calcium 7.5 mg/dl (8.4-10.2); Carbon Dioxide 27 mmol/L (22-30); Chloride 98 mmol/L (98-107); Estimated Creatinine Clearance 97 ml/min; Glucose 75 mg/dl (70-99); Magnesium 2.0 mg/dl (1.6-2.3); Potassium 3.2 mmol/L (3.5-5.1); Sodium 132 mmol/L (135-145); eGFR > 60.00
[2024-10-03 07:49] LABS: Hematocrit 30.6 % (37.0-47.0); Hemoglobin 10.4 g/dL (12.0-16.0); Mean Corp Hgb Conc. 34.0 g/dL (33.0-37.0); Mean Corpuscular Volume 92.7 fL (81.0-99.0); Platelet Count 379 10^3/uL (130-400); Red Cell Dist. Width 13.0 % (11.5-14.5)
[2024-10-03 08:00] VITALS: BP 85/52
[2024-10-03] MEDS: PROTONIX IV 40 MG IV (08:42)
[2024-10-03] MEDS: NSS (PRESERVATIVE FREE) 10 ML IV (08:43)
[2024-10-03 09:00] VITALS: BP 83/56
--- NOTE | 2024-10-03 10:44 | W.PN.HOSP.TC ---
Today's Communication/Plan
-
NG tube removed
CLD
Dc zosyn
Assessment / Plan
Assessment / Plan
Impression:
Patient is a 48y F with PMH significant for recent diagnosis of IBD who presents to ED complaining of N/V and abdominal pain, CT scan in the ED this evening with small bowel inflammation in the RLQ with associated transition point / SBO. Seen by
surgery status post NGT
Seen by GI, started on steroid
Overall improving, NG tube removed, start clear liquid
Assessment/plan:
SBO / Partial SBO
Inflammatory Bowel Disease
- Patient admitted with abdominal pain, nausea, found.
- CT scan in the ED this evening with small bowel inflammation in the RLQ with associated transition point / SBO.
- Status post NGT
- Surgery consulted.
- GI consulted recommend to start steroid
- N.p.o., but overall abdominal pain
10/03
Overall improving, NG tube removed, start clear liquid
Sepsis secondary to intra-abdominal source
Patient may sepsis continues leukocytosis and tachycardia
Also patient also has thrombocytosis and elevated on hemoglobin level which could be contributed with dehydration and decreased oral intake.
Leukocytosis improved
Continue Zosyn
10/03
Leukocytosis improved, no evidence of infection and no fever
Will watch off antibiotic
Mild hyponatremia.
Secondary to decreased oral intake.
Continue IVF
Hypokalemia.
Replace and continue to monitor
CODE STATUS: Full code
DVT prophylaxis: SCDs
Diet:clear
Family communication: Discussed with at bedside
Disposition:
NG tube removed
CLD
Dc zosyn
Total time spent on today's encounter was 65 minutes which included time spent in counseling the patient/family regarding diagnosis and treatment plan as listed above, goals of care, and symptom management. Case was discussed with nursing staff,
specialists, and care coordinators/case management. All labs and imaging personally reviewed by me. Remainder the time spent in detailed review of previous records, lab data, imaging, and other medical provider documentation.
Anticipated Discharge: Within 24 hours
Subjective/Interval History
-
Date of Service: October 03, 2024
Patient seen and examined at bedside, denies any chest pain or shortness of breath, no abdominal pain, no nausea, no vomiting, no diarrhea or constipation.
Objective Data
-
Labs:
Laboratory Results
10/03/24
06:42
WBC 8.4
Hgb 10.4 L D
Hct 30.6 L
Plt Count 379 D
Sodium 132 L
Potassium 3.2 L
Chloride 98
Carbon Dioxide 27
BUN 8
Creatinine 0.6
Glucose 75
Calcium 7.5 L
Vital Signs:
Vital Signs
Temp Pulse Resp BP Pulse Ox
98.9 F 88 18 83/56 95
10/03/24 08:00 10/03/24 09:00 10/03/24 08:00 10/03/24 09:00 10/03/24 08:00
I&O
10/02/24 10/03/24 10/04/24
06:59 06:59 06:59
Intake Total 4620 / 4620 1645 / 1645
Output Total 2450 / 2450 50 / 50
Balance 2170 / 2170 1595 / 1595
Physical Exam
-
General: Well Developed, Well Nourished and Comfortable
HEENT: Normocephalic, Atraumatic, Moist Mucous Membranes, No Ptosis, PERRLA, Nose Appears Normal and Other (NG-tube)
Respiratory: Clear to Auscultation and Non Labored Respirations
Cardiac: Regular Rhythm and S1/S2
Breast: Deferred by me
GI: Soft, Normal Bowel Sounds and Tender
Genito-urinary: No Costovertebral Tender
Musculoskeletal: No Clubbing, No Cyanosis and No Edema
Skin: Warm
Neuro: Awake, Alert, Oriented, AO x 3 and No Motor Deficits
Psych: Calm
--- NOTE | 2024-10-03 10:53 | W.PN.GI.CBS2 ---
Today's Communication / Plan
-
Clears ordered for today
Cont IV solumedrol 20mg q8
Change to Prednisone 40mg daily tomorrow
If continues to improve, advance to low residue diet tomorrow and d/c on prednisone taper
F/U with Dr Lorrie LIVINGSTON to discuss biologics
Assessment / Plan
-
Rosey Strickland is a 48F with a PMHx of recently diagnosed Crohn's Disease (possibly stricturing type?) with ileal and sigmoid colonic involvement who presented with abdominal pain and intractable vomiting diagnosed with SBO as seen on CT with a
transition point in the region of prior documented stricturing disease (terminal ileum).
10/01/24 CT AP- Inflammatory ileitis involving a long segment of the terminal ileum in the setting of Crohn's disease. Secondary small bowel obstruction with transition at the level of the inflamed ileum.
Impression:
SBO
ileocolonic Crohn's disease
Subjective
Subjective
Date of Service: October 03, 2024
Feels much better. Passing BM, mostly liquid but some form. Denies abd pain. NGT removed.
Objective
Data Reviewed
Laboratory Data:
Laboratory Results
10/03/24 06:42
10/03/24 06:42
Laboratory Results
Phosphorus 3.9 mg/dl (2.5-4.5) 10/02/24 05:53
Magnesium 2.0 mg/dl (1.6-2.3) 10/03/24 06:42
Total Bilirubin 0.8 mg/dl (0.2-1.3) 09/30/24 16:47
AST 15 U/L (14-36) 09/30/24 16:47
ALT 14 U/L (0-35) 09/30/24 16:47
Alkaline Phosphatase 109 U/L (38-126) 09/30/24 16:47
Lipase 247 U/L (23-300) 09/30/24 16:47
Vital Signs and I&O:
Vital Signs
Temp Pulse Resp BP Pulse Ox
98.9 F 88 18 83/56 95
10/03/24 08:00 10/03/24 09:00 10/03/24 08:00 10/03/24 09:00 10/03/24 10:51
I&O
10/02/24 10/03/24 10/04/24
06:59 06:59 06:59
Intake Total 4620 / 4620 1645 / 1645
Output Total 2450 / 2450 50 / 50
Balance 2170 / 2170 1595 / 1595
Physical Exam
Physical Exam
GI: Soft, Non Distended and Non Tender
[2024-10-03] MEDS: KLOR-CON 40 MEQ PO (11:40)
--- NOTE | 2024-10-03 13:10 | W.PN.GS2 ---
Addendum entered and electronically signed by Darvin Montaño MD 10/03/24 13:26:
I saw and examined the patient.
The CLUBHOUSE MANAGER's note was reviewed and I agree with the note.
Comment: Improved. Minimally distended on exam, nt. Passed clamp trial. Start cld, diet advancement per GI. Pls call with ?s
Original Note:
Today's Communication / Plan
-
d/c ngt and start clears
Assessment / Plan
-
48 yo female with n/v/d and abdominal pain intermittently since January who was recently diagnosed with IBD last month presents with worsening abdominal pain, nausea and vomiting.
CT imaging evaluated with inflammatory ileitis noted involving a long segment of the terminal ileum consistent with Crohn's disease causing at least a partial SBO. Suspect Crohn's exacerbation/flare vs less likely a developing stricture.
Tachycardia resolved, still with some low normal BP's
Emesis last night, but currently nausea resolved. 2L NGT output over 24h
+BM early this am, feeling much better overall
Plan:
Tolerated 24h clamp trial of NGT, removed at bedside
Trial of clear liquids
Appreciate GI, she is on steroid taper and improving. OP f/u for biologics
Continue PPI for GI ppx
Continue IVF
Lovenox for VTE ppx
No plans for surgery at this point, improving with steroids. Surgery to follow peripherally, please call with questions/concerns
Subjective Data
-
Date of Service: October 03, 2024
Pt seen and examined at bedside this am. Denies n/v. Feels markedly improving. Passing flatus and some liquid stools.
Objective Data
-
Intake and Output
10/02/24 10/03/24 10/04/24
06:59 06:59 06:59
Intake Total 4620 / 4620 1645 / 1645
Output Total 2450 / 2450 50 / 50
Balance 2170 / 2170 1595 / 1595
Intake:
Oral fluids 120 / 120
IV fluids (Total) 4150 / 4150 875 / 875
IV piggybacks 200 / 200 740 / 740
Amount instilled into GI Tube ( 150 / 150 30 / 30
Total)
[place] Sump 150 / 150 30 / 30
Output:
Gastrointestinal tube output ( 2450 / 2450 50 / 50
Total)
[place] Sump 2450 / 2450 50 / 50
Other:
Number of approximated MODERATE 1 1
amounts of urine
Number of approximated LARGE 1 2
amounts of urine
Number of immeasurable emeses? 1
Vital Signs
Temp Pulse Resp BP Pulse Ox
98.9 F 88 18 83/56 95
10/03/24 08:00 10/03/24 09:00 10/03/24 08:00 10/03/24 09:00 10/03/24 10:51
Lab Results
10/03/24 06:42
10/03/24 06:42
Calcium 7.5 mg/dl (8.4-10.2) L 10/03/24 06:42
Phosphorus 3.9 mg/dl (2.5-4.5) 10/02/24 05:53
Magnesium 2.0 mg/dl (1.6-2.3) 10/03/24 06:42
Total Bilirubin 0.8 mg/dl (0.2-1.3) 09/30/24 16:47
AST 15 U/L (14-36) 09/30/24 16:47
ALT 14 U/L (0-35) 09/30/24 16:47
Alkaline Phosphatase 109 U/L (38-126) 09/30/24 16:47
Total Protein 6.3 g/dl (6.3-8.2) 09/30/24 16:47
Albumin 3.5 g/dl (3.5-5.0) 09/30/24 16:47
Physical Exam
-
NAD
ABD soft, mild distention, nt
NGT clamped
[2024-10-03 16:13] VITALS: BP 89/56
[2024-10-03] MEDS: LOVENOX 40 MG SC (18:01)
[2024-10-03 23:36] VITALS: BP 85/51
[2024-10-04] MEDS: LR 1000 IV (02:55)
[2024-10-04 07:35] VITALS: BP 88/60
[2024-10-04] MEDS: DELTASONE 40 MG PO (07:50)
[2024-10-04] MEDS: PROTONIX IV 40 MG IV (07:51)
[2024-10-04] MEDS: NSS (PRESERVATIVE FREE) 10 ML IV (07:51)
[2024-10-04 08:19] LABS: Hematocrit 31.5 % (37.0-47.0); Hemoglobin 10.3 g/dL (12.0-16.0); Mean Corp Hgb Conc. 32.7 g/dL (33.0-37.0); Mean Corpuscular Volume 93.8 fL (81.0-99.0); Platelet Count 389 10^3/uL (130-400); Red Cell Dist. Width 12.9 % (11.5-14.5)
[2024-10-04 08:43] LABS: Blood Urea Nitrogen < 2 mg/dl (7-17); Calcium 7.8 mg/dl (8.4-10.2); Carbon Dioxide 29 mmol/L (22-30); Chloride 107 mmol/L (98-107); Estimated Creatinine Clearance 97 ml/min; Glucose 99 mg/dl (70-99); Potassium 3.6 mmol/L (3.5-5.1); Sodium 135 mmol/L (135-145); eGFR > 60.00
--- NOTE | 2024-10-04 08:57 | W.PN.GI.CBS2 ---
Today's Communication / Plan
-
Advance to low residue diet
If tolerates, OK for d/c
Continue prednisone taper after d/c- 40mg x 1 week, 30mg x 1 week, 20mg x 1 week, 10mg x 1 week
F/u with Dr Andrew to discuss biologics
Assessment / Plan
-
Rosey Strickland is a 48F with a PMHx of recently diagnosed Crohn's Disease (possibly stricturing type?) with ileal and sigmoid colonic involvement who presented with abdominal pain and intractable vomiting diagnosed with SBO as seen on CT with a
transition point in the region of prior documented stricturing disease (terminal ileum).
10/01/24 CT AP- Inflammatory ileitis involving a long segment of the terminal ileum in the setting of Crohn's disease. Secondary small bowel obstruction with transition at the level of the inflamed ileum.
Impression:
SBO
ileocolonic Crohn's disease
Subjective
Subjective
Date of Service: October 04, 2024
Feeling well. Denies abd pain. BMs starting to show some form
Objective
Data Reviewed
Laboratory Data:
Laboratory Results
10/04/24 07:15
10/04/24 07:15
Laboratory Results
Phosphorus 3.9 mg/dl (2.5-4.5) 10/02/24 05:53
Magnesium 2.0 mg/dl (1.6-2.3) 10/03/24 06:42
Total Bilirubin 0.8 mg/dl (0.2-1.3) 09/30/24 16:47
AST 15 U/L (14-36) 09/30/24 16:47
ALT 14 U/L (0-35) 09/30/24 16:47
Alkaline Phosphatase 109 U/L (38-126) 09/30/24 16:47
Lipase 247 U/L (23-300) 09/30/24 16:47
Vital Signs and I&O:
Vital Signs
Temp Pulse Resp BP Pulse Ox
98.1 F 64 16 88/60 98
10/04/24 07:35 10/04/24 07:35 10/04/24 07:35 10/04/24 07:35 10/04/24 07:35
I&O
10/03/24 10/04/24 10/05/24
06:59 06:59 06:59
Intake Total 1645 / 1645
Output Total 50 / 50
Balance 1595 / 1595
Physical Exam
Physical Exam
GI: Soft, Non Distended and Non Tender
[2024-10-04 12:49] VITALS: BP 88/57
--- NOTE | 2024-10-04 13:19 | W.PN.HOSP.TC ---
Today's Communication/Plan
-
Discharge planning
Assessment / Plan
Assessment / Plan
Physical exam:
General: Well Developed, Well Nourished and No Apparent Distress
HEENT: Normocephalic, Atraumatic and Moist Mucous Membranes
Respiratory: Clear to Auscultation; Negative Wheezes, Rales or Rhonchi
Cardiac: Regular Rhythm and S1/S2
GI: Soft, Nontender and Nondistended
Musculoskeletal: No Clubbing, No Cyanosis and No Edema
Neuro: Awake, Alert and Oriented
Psych: Calm
A/P:
Impression:
Patient is a 48y F with PMH significant for recent diagnosis of IBD who presents to ED complaining of N/V and abdominal pain, CT scan in the ED this evening with small bowel inflammation in the RLQ with associated transition point / SBO. Seen by
surgery status post NGT
Seen by GI, started on steroid
Overall improving, NG tube removed, start clear liquid
Assessment/plan:
SBO / Partial SBO
Inflammatory Bowel Disease
- Patient admitted with abdominal pain, nausea, found.
- CT scan in the ED this evening with small bowel inflammation in the RLQ with associated transition point / SBO.
- Status post NGT
- Surgery consulted.
- GI consulted recommend to start steroid
- N.p.o., but overall abdominal pain
10/03
Overall improving, NG tube removed, start clear liquid
10/04
Advance to low residue diet. GI cleared her for discharge. On oral steroids and follow-up with GI as outpatient
Sepsis secondary to intra-abdominal source
Patient may sepsis continues leukocytosis and tachycardia
Also patient also has thrombocytosis and elevated on hemoglobin level which could be contributed with dehydration and decreased oral intake.
Leukocytosis improved
Continue Zosyn
10/03
Leukocytosis improved, no evidence of infection and no fever
Will watch off antibiotic
Mild hyponatremia.
Secondary to decreased oral intake.
Continue IVF
Hypokalemia.
Replace and continue to monitor
CODE STATUS: Full code
DVT prophylaxis: SCDs
Anticipated Discharge: Today
Subjective/Interval History
-
Date of Service: October 04, 2024
Feeling better overall. Tolerating diet. Blood pressure low but asymptomatic and typically runs low.
Objective Data
-
Labs:
Laboratory Results
10/04/24
07:15
WBC 11.4 H
Hgb 10.3 L
Hct 31.5 L
Plt Count 389
Sodium 135
Potassium 3.6
Chloride 107
Carbon Dioxide 29
BUN < 2 L
Creatinine 0.5 L
Glucose 99
Calcium 7.8 L
Vital Signs:
Vital Signs
Temp Pulse Resp BP Pulse Ox
98.5 F 70 16 88/57 97
10/04/24 12:49 10/04/24 12:49 10/04/24 12:49 10/04/24 12:49 10/04/24 12:49
I&O
10/03/24 10/04/24 10/05/24
06:59 06:59 06:59
Intake Total 1645 / 1645 780 / 780
Output Total 50 / 50
Balance 1595 / 1595 780 / 780
--- NOTE | 2024-10-04 13:24 | W.DCSUMMARY ---
Addendum entered and electronically signed by Enoc Bhatia MD 10/13/24 14:19:
Sepsis, POA, resolved
Original Note:
Discharge Summary
Discharge Data
Date of Admission: 10/01/24
Date of Discharge: 10/04/24
Total time spent discharging patient (in min): 35
-
Pending Results: No
Hospital Course
Patient 48-year-old female with history of chron's disease came into the hospital with abdominal pain nausea and vomiting. GI and surgery consulted. Patient had evidence of small bowel obstruction or inflammatory ileitis and there were concerns
for developing strictures and she was kept n.p.o., PPI, IV fluids, NG tube. Initial concerns for sepsis so antibiotics were initiated as well but subsequently discontinued. Patient did well with conservative treatment. She was able to start diet
and tolerated well. She was on IV steroids and this was switched to oral steroids with a slow taper as outpatient with close follow-up with GI as outpatient. GI also recommended discussed with her machine sole leveler regarding biological use.
Otherwise, patient is hemodynamically stable afebrile and tolerating diet. GI and surgery cleared her for discharge. She will be discharged in stable condition today.
Discharge duration: 35 minutes
Discharge Plan
-
Patient Disposition: Home (Routine Discharge)
Discharge Diagnosis/Procedures: Small bowel obstruction. Crohn's flare.
Diet: Low Residue
Activity: As tolerated
Blood Work: Please PCP to order CBC, BMP within 1 week
Stand Alone Forms: Return to Work
Referrals:
Manuela Andrew MD [Active, Gastroenterology] - in one to two weeks
Lynda Castro MD [Family Provider, Internal Medicine]
Prescriptions:
New
prednisone 20 mg tablet
40 mg PO DAILY Qty: 35 0RF
Rx Instructions:
40 mg for 1 week, 30 mg for 1 week, 20 mg for 1 week and 10 mg for 1 week.
Continued
nicotine 14 mg/24 hr patch 24 hour
1 patch transdermal DAILY 7 Days Qty: 14 0RF
dicyclomine 20 mg tablet
20 mg PO TID
Discharge Orders:
Discharge Patient (As Directed); Ordered 10/04/24
Ordered By: Enoc Bhatia
Discharge Date and Time
Discharge Date/Time: 10/04/24 15:59
Print Language: PERSIAN
--- NOTE | 2024-10-04 14:53 | CM ---
CM reviewed chart and noted dc order
No dc needs noted
Discharge Disposition- home, no needs
[2024-10-04 15:06] VITALS: BP 94/53
--- NOTE | 2024-10-12 11:23 | PN.CDI ---
CDI
- -
CDI:
Physician Documentation Request
Admit Date: 10/01/24 01:57
Dear Doctor Jannette,
Patient admitted for SBO with Crohn's flare.
10/04 Hospitalist PN: 'Sepsis secondary to intra-abdominal source, Patient may sepsis continues leukocytosis and tachycardia'
DC Summary: 'Initial concerns for sepsis so antibiotics were initiated as well but subsequently discontinued. Patient did well with conservative treatment.'
Laboratory Tests
09/30/24
16:47
WBC 24.7 H
09/30/24
16:39 09/30/24
20:14 09/30/24
20:30
Pulse 125 167 121
09/30/24
18:00 09/30/24
21:00 09/30/24
21:30
Resp Rate 22 23 24
Please clarify which of the following most accurately describes the status of the patient's infection:
Sepsis, POA, resolved
- Systemic manifestations of infection, with 2 or more SIRS criteria which include:
- Fever >100.9 degrees F or hypothermia < 96.8 degrees F
- Leukocytosis - WBC > 12,000 or leukopenia - WBC < 4,000 or > 10% bands
- Tachycardia > 90 beats per minute
- Tachypnea - RR > 20 breaths per minute or PaCO2 , 32mmHg
Source: Merck Manual 2012
- Indicate the known or suspected organism
- Indicate the known or suspected underlying infection, such as UTI, pneumonia or cellulitis
- Indicate if a suspected bacterial infection of unknown source
- Indicate if associated with an implanted device such as a F/C, PICC line, orthopedic hardware, etc.
SIRS of noninfectious origin
Other
Unable to Determine
Use of terms such as suspected, likely, concern for, or probable (associated with a specific diagnosis that is being evaluated, monitored, or treated as if it exists) are acceptable and can be coded in the inpatient setting, when documented at the
time of discharge.
Thank you,
Rosaura Bruno RN, BSN
CDI Specialist
Available via [place] text
Please use your independent medical judgment in providing your response.
== END 2024-10-04 15:59 | disposition home or self-care (01) | DRG 872 ==
LOC: 2 SOUTH 01:57
PROVIDERS: Emergency Medicine; General Practice; Physician Assistant; Registered Nurse; ADMITTING PHYSICIAN Hospitalist; ATTENDING PHYSICIAN Hospitalist; CONSULT PHYSICIAN Specialist; CONSULT PHYSICIAN Surgery; EMERGENCY PHYSICIAN Emergency Medicine; FAMILY PHYSICIAN Internal Medicine
DX: A41.9 Sepsis, unspecified organism (principal); K50.012 Crohn's disease of small intestine with intestinal obstruction; R18.8 Other ascites; F17.200 Nicotine dependence, unspecified, uncomplicated; E86.1 Hypovolemia; Z79.899 Other long term (current) drug therapy; Z59.71 Insufficient health insurance coverage
CPT/HCPCS: 43752; 71045; 74177; 80048; 80053; 83605; 83690; 83735; 84100; 84703; 85025; 85027; 85652; 86140; 86480; 86704; 86706; 87045; 87046; 87340; 87427; 96361; 96374; 96375; 99285; Q9967

== ENCOUNTER → 2024-10-21 18:05 | Outpatient (REF) | payer OTHER, SELFPAY | LOC: WDC 18:05 | PROVIDERS: ATTENDING PHYSICIAN Hospitalist | DX: Z12.31 Encounter for screening mammogram for malignant neoplasm of breast (principal) | CPT/HCPCS: 77063; 77067 ==

== ENCOUNTER 2024-10-25 22:02 | Inpatient (IN) | payer OTHER, SELFPAY ==
[2024-10-25] VITALS (7 sets, daily range): BP systolic 85–95; BP diastolic 60–65; BMI 23.8; BMI 23.6
[2024-10-25 16:49] LABS: Hematocrit 40.5 % (37.0-47.0); Hemoglobin 14.3 g/dL (12.0-16.0); Mean Corp Hgb Conc. 35.3 g/dL (33.0-37.0); Mean Corpuscular Volume 88.0 fL (81.0-99.0); Nucleated Red Blood Cells % 0.2 %; Platelet Count 484 10^3/uL (130-400); Red Cell Dist. Width 12.7 % (11.5-14.5)
[2024-10-25 17:01] LABS: HCG, Serum Qualitative Screen Negative
--- NOTE | 2024-10-25 17:06 | ED.GENMED ---
History of Present Illness
General
Chief Complaint: Abdominal Symptoms
Source: patient
Exam Limitations: none
Time Seen by Provider: 10/25/24 16:52
Nursing documentation reviewed up to this point in time: agreed with
History of Present Illness
History of Present Illness:
Note:
CHIEF COMPLAINT(S)
Abdominal pain for one and a half months.
HISTORY OF PRESENT ILLNESS
The patient is a 48-year-old female with a significant history of ulcerative colitis. She has been experiencing abdominal pain for the last month and a half. Initially, she underwent a CT scan, which revealed ulcerations, indicative of colitis. The
pain is described as severe at times, with a sensation of hardness in the abdominal area and accompanying swelling in the feet. The patient reported using a heating pad for relief, which has potentially led to skin damage due to prolonged use. She
denies experiencing vomiting but indicates swelling in the legs and feet, which has persisted for a few days.
She mentions past experience with needing an NG tube and expresses concerns about potential bowel obstruction. The patient is currently scheduled to undergo a CT scan of the abdomen and pelvis with contrast to rule out obstruction or other
complications related to her ulcerative colitis. The patients pain has localized episodes, but she does not describe it as unbearable at present.
SOCIAL HISTORY
The patient quit consuming alcohol seven years ago upon becoming with her youngest child. She is a mother of three children, aged 17, 16, and 7.
PHYSICAL EXAM
General: Alert, no acute distress.
Skin: Warm, dry. Evidence of skin changes possibly due to heating pad use.
Head: Normocephalic, atraumatic.
Neck: Supple, trachea midline.
Eye Ears, Nose, Mouth, and Throat: Oral mucosa moist.
Cardiovascular: Normal peripheral perfusion. Presence of edema noted in lower extremities.
Respiratory: Respirations are non-labored.
Gastrointestinal: Abdomen is noted to be firm., distended, lenticular rash on abdomen, pt says from heating pad use
Back: Normal range of motion, Normal alignment.
Musculoskeletal: Normal range of motion, normal strength.
Neurological: Alert and oriented to person, place, time, and situation, No focal neurological deficit observed.
Psychiatric: Cooperative, appropriate mood and affect.
PROBLEM LIST
Acute problem:
- Abdominal pain with suspected bowel obstruction due to ulcerative colitis.
PLAN
- Schedule a CT scan of the abdomen and pelvis with contrast to assess for bowel obstruction or other complications.
- Perform laboratory tests as appropriate to evaluate the current condition.
- Monitor symptoms and provide supportive care as necessary during hospital stay.
- Educate patient on avoiding prolonged use of heat pads due to risk of skin damage and mares.
DIFFERENTIAL DIAGNOSIS
The Differential Diagnosis includes, in no particular order and is not limited to:
1. Bowel obstruction
2. Exacerbation of ulcerative colitis
3. Gastrointestinal perforation
4. Intestinal ischemia
5. Inflammatory bowel disease
6. Adhesion from previous surgeries
7. Diverticulitis
8. Gastroenteritis
9. Colonic malignancy
10. Abdominal aortic aneurysm
SUMMARY OF ENCOUNTER
The patient, a 48-year-old female, with a significant history of ulcerative colitis, presented with abdominal pain persisting for a month and a half. Initial CT scan findings suggested ulcerations, consistent with colitis, and the current symptoms
raised concerns for a bowel obstruction. She expressed a history of needing an NG tube and voiced concerns about obstruction potentially related to her condition. The patients abdominal pain was accompanied by swelling in her feet, and she utilized
a heating pad, which led to skin changes. Management included intravenous fluid administration and plans for placement of an NG tube. The severity of symptoms and clinical findings prompted admission for further evaluation and management.
DISPOSITION
Admit.
MANAGEMENT OF THE PATIENTS CARE WAS DISCUSSED WITH
Consulted with general surgery, who advised the placement of an NG tube.
PLAN
Admit the patient for continued evaluation and management of suspected small bowel obstruction and other potential complications arising from ulcerative colitis. Begin hyponatremia repletion with intravenous fluids. Monitor closely in the hospital
setting and proceed with surgical consultations as necessary.
MEDICATION RECONCILIATION
Intravenous fluids administered for repletion of hyponatremia.
MEDICAL DECISION MAKING
- Number and Complexity of Problems Addressed: Chronic conditions affecting care including a history of ulcerative colitis and symptoms suggesting a bowel obstruction. Differential diagnosis includes: bowel obstruction, exacerbation of ulcerative
colitis, gastrointestinal perforation, intestinal ischemia, inflammatory bowel disease, adhesion from previous surgeries, diverticulitis, gastroenteritis, colonic malignancy, abdominal aortic aneurysm.
- Data:
Category 1:
Radiology: Initial CT scan showed ulcerations indicative of colitis.
Category 3:
Discussion of management with general surgery regarding care and placement of NG tube.
-Risk: Hyponatremia management with intravenous fluids, and the decision to place an NG tube due to potential bowel obstruction indicate moderate to high risk of complications if not managed appropriately.
DIAGNOSIS
1. Hyponatremia (ICD-10: E87.1)
2. Small bowel obstruction (ICD-10: K56.609)
3. Crohns
Phy Exam
Physical Exam
Physical Exam:
.
Course
Orders/Labs/Results
Orders:
Orders
10/25/24 16:21
Test Result ONCE
10/25/24 16:31
Complete Blood Count/With Diff Urgent
Comprehensive Metabolic Panel Urgent
HCG, Serum Qualitative Screen Urgent
Comment: Notify provider if positive test present
Lipase Urgent
Serum Osmolality Urgent
Comment: ADD ON
10/25/24 17:05
CT Abd/pel W Iv And Oral Contr Urgent
Comment:
Reason For Exam: diffuse abd pain, distension, ulc colitis
Iohexol [Omnipaque] See Protocol PO NOW STA
10/25/24 18:00
0.9% Sodium Chloride 1000 ml [Nss] 1,000 ml IV BOLUS
10/25/24 18:20
Add On- LAB Urgent
Tests Added?: serum osmolality
10/25/24 20:22
Osmolality, Random Urine Urgent
Date Specimen was Collected: 10/25/24
Time Specimen was Collected: 20:18
Urine Sodium Urgent
Date Specimen was Collected: 10/25/24
Time Specimen was Collected: 20:18
Abnormal Lab Results
10/25/24 10/25/24
16:31 20:22
MCH 31.1 H pg
(27.0-31.0)
Plt Count 484 H 10^3/uL
(130-400)
Absolute Lymphs (auto) 4.1 H 10^3/uL
(1.2-3.4)
Sodium 124 L mmol/L
(135-145)
Potassium 3.3 L mmol/L
(3.5-5.1)
Chloride 96 L mmol/L
(98-107)
Creatinine 0.5 L mg/dL
(0.6-1.0)
Serum Osmolality 261 L mOsm/kg
(275-300)
Calcium 7.8 L mg/dl
(8.4-10.2)
AST 112 H U/L
(14-36)
ALT 214 H U/L
(0-35)
Total Protein 4.9 L g/dl
(6.3-8.2)
Albumin 2.5 L g/dl
(3.5-5.0)
Urine Osmolality 166 L mOsm/kg
(300-900)
10/25/24 16:31
10/25/24 16:31
Vital Signs
Initial and Last Documented VS:
Initial Vital Signs
Temp Pulse Resp BP Pulse Ox
98.2 F 123 18 95/63 97
10/25/24 16:18 10/25/24 16:18 10/25/24 16:18 10/25/24 16:18 10/25/24 16:18
Last Documented Vital Signs
Temp Pulse Resp BP Pulse Ox
98.2 F 97 16 87/61 100
10/25/24 16:18 10/25/24 19:00 10/25/24 19:00 10/25/24 19:00 10/25/24 19:00
*Pulse Oximetry
SaO2: 97
Patient hypoxic: no
*Critical Care Note
Total Time (30-74mins, 75-104mins- exclusive of procedures): Not Applicable
ED Attending Note
-
Portions of this chart may have been created with voice recognition software.� Occasional wrong word or��sound alike� substitutions may have occurred due to the inherent limitations of voice recognition software.
Discharge Plan
Departure
Patient Disposition: Admit
Date of Disposition: 10/25/24
Time of Disposition: 20:37
Admit to: Telemetry
Presentation/result/management discussed w/ accepting MD/DO: Hospitalist
Patient with high blood pressure during this ER visit?: No
Condition: Fair
Discharge Problem:
Small bowel obstruction, Acute hyponatremia, Crohn disease
Prescriptions:
No Action
nicotine 14 mg/24 hr patch 24 hour
1 patch transdermal DAILY 7 Days Qty: 14 0RF
dicyclomine 20 mg tablet
20 mg PO TID
prednisone 20 mg tablet
40 mg PO DAILY Qty: 35 0RF
Rx Instructions:
40 mg for 1 week, 30 mg for 1 week, 20 mg for 1 week and 10 mg for 1 week.
Referrals:
UNKNOWN - PT DOES,NOT KNOW [Unknown Provider]
Interventions
Interventions:
*Risk Screen - Suicide Last Done: 10/25/24 17:44
*General Assessment Last Done: 10/25/24 17:44
*Neglect/Abuse Screening Last Done: 10/25/24 17:44
*ED- Fall Risk Assessment Last Done: 10/25/24 17:44
*ED COVID-19 Vaccine History Last Done: 10/25/24 17:44
PF-Felmxj-Ooldppvgou Assessment Last Done: 10/25/24 18:44
Discharge Date and Time
Print Language: UZBEK
[2024-10-25 17:07] LABS: ALT (SGPT) 214 U/L (0-35); AST (SGOT) 112 U/L (14-36); Albumin 2.5 g/dl (3.5-5.0); Alkaline Phosphatase 91 U/L (38-126); Blood Urea Nitrogen 9 mg/dl (7-17); Calcium 7.8 mg/dl (8.4-10.2); Carbon Dioxide 25 mmol/L (22-30); Chloride 96 mmol/L (98-107); Glucose 98 mg/dl (70-99); Lipase 294 U/L (23-300); Potassium 3.3 mmol/L (3.5-5.1); Sodium 124 mmol/L (135-145); Total Protein 4.9 g/dl (6.3-8.2); eGFR > 60.00
[2024-10-25] MEDS: OMNIPAQUE 50 ML PO (17:42)
[2024-10-25] MEDS: NSS 1000 IV ×2 (18:08→21:04)
--- NOTE | 2024-10-25 20:50 | HPS.HSE ---
Family Physician
-
Family Physician: Felicia Cunningham MD
Chief Complaint
-
abdominal pain
History of Present Illness
Patient is a 48-year-old female with past medical history significant for Crohn's disease/ulcerative colitis who presented to [facility] ED for evaluation after seeing GI provider. Patient reports she was seeing GI for follow up post last admission and
discharge, while there her provider was concerned regarding hardened abdomen and requested she come to ED for evaluation. Patient reports that she has had abdominal pain and hard abdomen for greater than a week. She reports daily BMs, last one this
morning was soft and of normal size. She denies any fever, chills, cough, shortness of breath, chest pain, constipation, diarrhea or urinary symptoms.
Medical History
Past Medical History
Past Medical History: Reports Other
Additional Past Medical History:
Crohn's disease/ulcerative colitis
IBD
Past Surgical History: Reports None
Social History
Tobacco: Smoker (Current every day smoker. currently approximately 2 cigarettes per day)
Alcohol: Occasional
Drug: None
Family History
Family History: Other (Sister / Grandmother: Crohn's disease)
Allergies / Home Medications
Allergies reflects when Allergies were last updated in [employer].
Home Medications with original date entered in [employer]
Allergy/Medication List:
Allergies
Allergy/AdvReac Type Severity Reaction Status Date / Time
No Known Allergies Allergy Unverified 08/18/24 19:45
Home Medications
prednisone 20 mg tablet 10 mg PO DAILY 10/25/24
Review of Systems
-
History Source: Patient
Constitutional: Reports No Symptoms
EENT: Reports No Symptoms
Respiratory: Reports No Symptoms
Cardiac: Reports No Symptoms
Abdomen/GI: Reports Abdominal Pain, Nausea, Vomiting and Other (poor appetite ); Denies Diarrhea, Constipated, Bloody Stools or Black Stools
: Reports No Symptoms
Musculoskeletal: Reports No Symptoms
Skin: Reports No Symptoms
Neurological: Reports No Symptoms
Endocrine: Reports No Symptoms
Hematologic/Lymphatic: Reports No Symptoms
Psych: Reports No Symptoms
Physical Exam
Vital Signs
Vital Signs
Temp Pulse Resp BP Pulse Ox
98.2 F 97 16 87/61 100
10/25/24 16:18 10/25/24 19:00 10/25/24 19:00 10/25/24 19:00 10/25/24 19:00
Physical Exam
General: Well Developed, Well Nourished, No Apparent Distress and Conversant
HEENT: NormoCephalic, Moist mucous membranes and Atraumatic
Respiratory: Wheezes (inspiratory ) and Non Labored Respirations
Cardiac: S1/S2, Regular Rhythm and Peripheral Edema; No Murmur, Rub or Gallop
Breast: Deferred by me
GI: Tender and Distended; No Normal Bowel Sounds
Rectal: Deferred by Provider
Genito-urinary: Deferred by me
Musculoskeletal: No Clubbing and No Cyanosis
Skin: Warm; No Rash
Neuro: Awake, AO x 3 and Nonfocal/grossly intact
Hematologic/Lymphatic: No Lymphadenopathy
Psych: Calm and Intact Judgment/Insight
Laboratory Results
-
10/25/24 16:31
10/25/24 16:31
Laboratory Results
Total Bilirubin 0.7 mg/dl (0.2-1.3) 10/25/24 16:31
AST 112 U/L (14-36) H 10/25/24 16:31
ALT 214 U/L (0-35) H 10/25/24 16:31
Alkaline Phosphatase 91 U/L (38-126) 10/25/24 16:31
Lipase 294 U/L (23-300) 10/25/24 16:31
Data Reviewed
-
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
inflammatory bowel disease. Mild abdominopelvic ascites. Severe hepatic steatosis.)
Lab Data: Labs Reviewed by me (Na+ 124, K+ 3.3, serum osmo 261, Ca+ 7.8 (corrected to 8.8), AST 112, ALT 214, urine osmo 166, urine Na+ <5)
Impression/Plan
-
IMPRESSION/PLAN:
#small bowel obstruction
#Crohn's disease
#ulcerative colitis
K+ 3.3, Ca+ 7.8 (corrected to 8.8), AST 112, ALT 214,
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
known inflammatory bowel disease.
Mild abdominopelvic ascites.
Severe hepatic steatosis.
- Admit to med/surg
- Consult surgery
- Consult GI
- NGT
- NPO
- IVF D5NS 125cc/hr
#hyponatremia
Na+ 124, serum osmo 261, urine osmo 166, urine Na+ <5
- IVF
- repeat Na+ level at 2300
- Consult Nephrology
Code status: full code
DVT prophylaxis: SCDs
--- NOTE | 2024-10-25 21:32 | W.PN.UPDATE ---
Update Note
Progress Note Update
Patient seen in conjunction with [employer]. I agree with the findings and physical. I concur with assessment and plan listed otherwise.
This is a 48-year-old female with past medical history of Crohn's disease who was recently admitted to the hospital last month for small bowel obstruction that was conservatively managed with NG decompression and was started on IV steroids and
discharged on a steroid taper to follow-up with PMD when presented to the emergency department after visiting GI clinic for worsening small bowel obstruction.
Patient reports that she has been tolerating liquids and soft foods since her discharge and has continued to do so although she has minimal appetite and reports decreased oral intake. She has been sustaining himself with mostly clear liquids. She
reports that she has daily or almost daily bowel movements that are semiformed to solid but no large stools. She has not had any nausea or vomiting. She reports increasing abdominal distention and some abdominal discomfort but denies any sharp
pain. She has not noticed any bloody bowel movements, mucus containing bowel movements or diarrhea. She was seen in GI clinic today and noticed to have significantly firm abdomen with concern for worsening bowel obstruction and so was sent to the
ED.
Patient herself denies any other complaints.
In the ED she was afebrile blood pressure was 86/60 with a pulse of 99 and she was satting 98% on room air. CBC was unremarkable. Electrolytes notable for a sodium of 124 potassium of 3.3. Serum was hyposmolar. Urine sodium was less than 5,
urine osmolarity was 160. CT scan shows a high-grade small bowel obstruction secondary to a long segment of narrowing of the terminal ileum most suggestive of stricture from chronic inflammatory ileitis.
Assessment and plan
Patient with recurrent small bowel obstruction likely on the basis of small bowel terminal ileitis and stricture secondary to inflammatory bowel disease. She is hemodynamically stable although generally has low blood pressures. Picture complicated
by hyponatremia and hypokalemia.
- Admit to MedSurg
- N.p.o.
- Pain control and antiemetics
- NG tube decompression
- GI consultation
- surgery consultation
Hyponatremia - Hypovolemic hyponatremia suspected given presentation and labs.
- 2 L NS in E D
- continue d5 NS + potassium supplementation
- repeat serum sodium in 4 hours
- nephrology consulted and notified
DVT PPX - lovenox sq
Code status - Full Code
[2024-10-25] MEDS: D5/0.9% with KCL 40 MEQ 1000 IV (23:38)
[2024-10-26 00:53] LABS: Sodium 128 mmol/L (135-145)
[2024-10-26 03:00] VITALS: BP 98/64
--- NOTE | 2024-10-26 03:07 | TRANSFER ---
Pt transferred to 3W from ED via stretcher. Pt ambulated to hospital bed. AAOx3, oriented to room, call dunn within reach, plan of care ongoing.
[2024-10-26] MEDS: ZOFRAN 4 MG IV (05:36)
[2024-10-26 07:15] VITALS: BP 95/64
[2024-10-26] MEDS: D5/0.9% with KCL 40 MEQ 1000 IV (09:13)
[2024-10-26 09:21] LABS: Hematocrit 40.0 % (37.0-47.0); Hemoglobin 13.6 g/dL (12.0-16.0); Mean Corp Hgb Conc. 34.0 g/dL (33.0-37.0); Mean Corpuscular Volume 89.1 fL (81.0-99.0); Platelet Count 452 10^3/uL (130-400); Red Cell Dist. Width 12.8 % (11.5-14.5)
[2024-10-26 09:52] LABS: Blood Urea Nitrogen 11 mg/dl (7-17); Calcium 7.9 mg/dl (8.4-10.2); Carbon Dioxide 25 mmol/L (22-30); Chloride 102 mmol/L (98-107); Estimated Creatinine Clearance 97 ml/min; Glucose 90 mg/dl (70-99); Potassium 3.8 mmol/L (3.5-5.1); Sodium 129 mmol/L (135-145); eGFR > 60.00
--- NOTE | 2024-10-26 09:59 | CON.GS ---
Medical History
-
Chief Complaint: Abdominal pain, nausea
History of Present Illness:
Patient is a 48 yo F with a PMH notable for recently diagnosed Crohn's who presents with worsening abdominal pain and nausea. As noted in prior documentation she has had intermittent episodes of abdominal discomfort and nausea dating back to
January 2024. She was evaluated as an outpatient by GI and underwent a colonoscopy in 08/2024 which was concerning for IBD. She was then admitted to from 09/30 to 10/04 for management of a partial SBO related to a Crohn's flare. She was treated
with steroids at that time with improvement in her symptoms. Approximately 1 week after discharge she was advanced to a low residue diet which she had been tolerating. She is currently on a steroid taper, and has yet to start any further biologic
medication. She recently saw GI as an outpatient. She reports abdominal discomfort and nausea developing over the past week. No episodes of vomiting. She notes improvement after placement of the NGT. She reports passing flatus and last bowel
movement yesterday.
Past Medical History
Past Medical History: Other (Crohn's disease)
Past Surgical History: None
Social History
Tobacco: Smoker
Alcohol: Occasional
Drug: None
Personal:
Living: With Family
Employment: Employed
Family History
Family History: Other (Sister and grandmother with IBD)
Allergies / Home Medications
Allergy/AdvReac Type Severity Reaction Status Date / Time
No Known Allergies Allergy Unverified 08/18/24 19:45
�Medication �Instructions �Recorded �Confirmed �Type
prednisone 20 mg tablet 10 mg PO DAILY Anti-Inflammatory 10/25/24 10/25/24 History
Review of Systems
-
A 10 point review of systems was completed, and was negative except as per HPI.
Physical Exam
Vital Signs
Temp Pulse Resp BP Pulse Ox
98.5 F 60 15 95/64 100
10/26/24 07:15 10/26/24 07:15 10/26/24 07:15 10/26/24 07:15 10/26/24 07:15
10/25/24 10/26/24 10/27/24
06:59 06:59 06:59
Actual Weight 60.441 kg
Body Mass Index (BMI) 23.6
Lab Results
10/26/24 08:41
10/26/24 08:41
WBC 9.4 10^3/uL (4.8-10.8) 10/26/24 08:41
Hgb 13.6 g/dL (12.0-16.0) 10/26/24 08:41
Hct 40.0 % (37.0-47.0) 10/26/24 08:41
Plt Count 452 10^3/uL (130-400) H 10/26/24 08:41
Abs Immat Gran (auto) 0.0 10^3/uL (0-0.05) 10/25/24 16:31
Neutrophils % 47.7 % (42.2-75.2) 10/25/24 16:31
Physical Exam
General: Well Developed, Well Nourished and No Apparent Distress
HEENT: Normocephalic, Anicteric and Other (NGT with echevarria output)
GI: Soft, Tender (Mild diffusely), Distended (Tympanitic) and Other (Non-peritoneal)
Musculoskeletal: No Edema
Skin: Warm and Dry
Neuro: Nonfocal/Grossly Intact
Data Reviewed
-
CT Scan: Image Personally Visualized and interpreted and Report Reviewed by me
Labs: Labs Reviewed by me
Old Records: Reviewed
Assessment / Plan
-
Patient is a 48 yo F p/w Crohn's related SBO
Symptoms worsen while tapering down on steroids and off of any biologic medication. Recommend GI consult for further evaluation and management. Indication for surgical intervention for this episode pending GI evaluation. Role of surgical
intervention for IBD was reviewed - patient well versed given her sisters history. Recommend continued NGT decompression. Plan for a abdominal x-ray today to assess small bowel dilation as well as potential passage of contrast. All questions
answered.
-- NPO, NGT decompression
-- GI consult
-- X-ray abdomen
-- Role/indication for surgical intervention pending above
--- NOTE | 2024-10-26 10:37 | CON.GI ---
Addendum entered and electronically signed by Tyler Blanchard MD 10/26/24 14:02:
I saw and examined the patient.
The PLATE FINISHER or PA's note was reviewed and I agree with the note.
Comment: 48yo female recently dx'd with SB/colonic Crohn's and admitted last month with SBO. Treated with NGT decompression and steroids and dc'd on taper. Did OK until last week or two when she dropped down to 20mg dose. Having bloating and mild
discomfort. Saw Dr Andrew in office yesterday and sent to ER. CT shows SBO with long segment of narrowing TI suggestive of chornic inflammatory ileitis. Had colonoscopy, unable to deeply cannulate TI, mild disease in colon. Was being set up
for biologics prior to this admission
REC:
Start IV solumedrol 20mg IV q8
Continue NGT decompression - about 500cc bilious fluid drained and she is feeling better
Await bowel function
Surgery following. If fails medical rx, discuss OR
If responding, can consider starting remicade while in hospital vs skyrizi as outpt (original plan)
Will follow
Addendum entered and electronically signed by BRENDEN Lugo 10/26/24 11:52:
Pt also with elevated LFT's and albumin 2.5 will repeat LFT's on todays labs
Original Note:
Consultation
-
Date/Time Consultation Requested: 10/25/24 2130
Date/Time Consultation Performed: 10/25/24 1030
Requesting Provider: BRENDEN Cormier
Performing Provider: BRENDEN Soto, Tyler Blanchard MD
Reason for Consultation: abdominal pain
Medical History
Chief Complaint / HPI
Chief Complaint: abdominal pain
History of Present Illness:
Rosey is a 48-year-old female with family history of Crohn's disease-sister and grandmom, infectious ileitis vs Crohns ileitis 08/2024, PSBO 09/2024 with office follow up 10/[address] Escobar. Per office noted she initially had symptoms of
abdominal pain and diarrhea with nausea vomiting in August went to the emergency room and was diagnosed with ileitis and was recommended admission but she decided to go home and follow-up as outpatient and was seen her in consultation in August and
she subsequently had a colonoscopy on 09/03/2024 which showed a few aphthous ulcers in the rectosigmoid colon and also TI was hard to intubate but the examined part of the terminal ileum appeared normal and the plan was to repeat imaging in 2 to 3
months with CTE or MRE and if she still had persistent inflammation or if she had ongoing symptoms to start her on Biologics. At that point of time her symptoms had resolved after course of antibiotics. She then started having symptoms of abdominal
pain with nausea vomiting and was admitted in September and was diagnosed with ileitis with small bowel obstruction and was treated with IV steroids and NGT decompression and� was also given antibiotics which were stopped and pt was treated with
steroid taper. She states she was feeling well but when waters tapered from Prednisone 40mg to 30mg for the past 1 week she is starting to have abdominal pain again and abdominal distention and has been able to have soft diet but has had minimal oral
intake for the past few days prior to admission. On admission repeat CT with concern for high grade obstruction with long segment of narrowing at TI. 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
hepatic steatosis.
In review with patient she admits to feeling better with NGT placement with 500+ since admission to 3rd floor. She admits to abdominal distention, wt loss over last few weeks and increased GERD but denies issue with diarrhea, rectal bleeding.
or feeling of constipation with stools daily. Recent hepatitis and TB testing were noted negative, CRP <5, ESR 8 in September. Pt was also on Rowasa prior to admission.
Past Medical History
Past Medical History: Other (newly diagnosed crohn's disease )
Social History
Tobacco: Smoker
Alcohol: None
Drug: None
Personal:
Living: With Family
Employment: Employed
Family History
Family History: Other (sister and grandmother with crohns disease )
Allergies / Home Medications
Allergy/AdvReac Type Severity Reaction Status Date / Time
No Known Allergies Allergy Unverified 08/18/24 19:45
�Medication �Instructions �Recorded
prednisone 20 mg tablet 10 mg PO DAILY Anti-Inflammatory 10/25/24
Review of Systems
-
History Source: Patient
Constitutional: Reports Weight Loss
EENT: Reports No Symptoms
Respiratory: Reports No Symptoms
Abdomen/GI: Reports Nausea and Other (bloating with distention, abdominal rash from prior use of heating pad )
: Reports No Symptoms
Musculoskeletal: Reports No Symptoms
Skin: Reports Rash (abdominal with prior use of heating pad )
Neurological: Reports Weakness
Endocrine: Reports No Symptoms
Hematologic/Lymphatic: Reports No Symptoms
Vital Signs
Temp Pulse Resp BP Pulse Ox
98.5 F 60 15 95/64 100
10/26/24 07:15 10/26/24 07:15 10/26/24 07:15 10/26/24 07:15 10/26/24 07:15
Physical Exam
Exam
General: Well Developed, Well Nourished and No Apparent Distress
HEENT: Normocephalic
Respiratory: Clear
Cardiac: Regular Rhythm
GI: Soft, Tender (minimal ) and Distended (with some tympanic )
Musculoskeletal: No Clubbing and No Cyanosis
Skin: Warm, Dry and Rash (abdominal rash from ? heating pad in past )
Neuro: Alert and AO x 3
Psych: Calm
Results
WBC 9.4 10^3/uL (4.8-10.8) 10/26/24 08:41
Hgb 13.6 g/dL (12.0-16.0) 10/26/24 08:41
Hct 40.0 % (37.0-47.0) 10/26/24 08:41
MCV 89.1 fL (81.0-99.0) 10/26/24 08:41
Plt Count 452 10^3/uL (130-400) H 10/26/24 08:41
Absolute Neuts (auto) 4.4 10^3/uL (1.4-6.5) 10/25/24 16:31
Sodium 129 mmol/L (135-145) L 10/26/24 08:41
Potassium 3.8 mmol/L (3.5-5.1) 10/26/24 08:41
Chloride 102 mmol/L (98-107) 10/26/24 08:41
Carbon Dioxide 25 mmol/L (22-30) 10/26/24 08:41
BUN 11 mg/dl (7-17) 10/26/24 08:41
Creatinine 0.5 mg/dL (0.6-1.0) L 10/26/24 08:41
Calcium 7.9 mg/dl (8.4-10.2) L 10/26/24 08:41
Total Bilirubin 0.7 mg/dl (0.2-1.3) 10/25/24 16:31
AST 112 U/L (14-36) H 10/25/24 16:31
ALT 214 U/L (0-35) H 10/25/24 16:31
Alkaline Phosphatase 91 U/L (38-126) 10/25/24 16:31
Lipase 294 U/L (23-300) 10/25/24 16:31
Diagnostic Image Results:
09/30/2024 CT abdomen and pelvis inflammatory ileitis involving a long segment of the TI in the setting of Crohn's disease with secondary small bowel obstruction with transition at the level of the inflamed ileum
08/18/2024 CT abdomen and pelvis with IV contrast severe possible acute Crohn's disease involving multiple ileal small bowel loops in the right side of the abdomen with segments of severe mucosal thickening mucosal hyperenhancement and luminal
narrowing by distended fluid-filled loops consistent with skip lesions, mild mesenteric lymphadenopathy, severe diffuse hepatic steatosis, mild hepatomegaly, small amount of pelvic ascites.
Prior GI Procedures:
EGD: none
09/03/2024 colonoscopy few aphthous ulcers in the rectum,�rectosigmoid colon and sigmoid colon - biopsies focal chronic active colitis moderate no dysplasia favors IBD, hard to intubate the TI so limited exam but the distal most part of the TI
appeared normal
Assessment / Plan
-
Rosey is a 48-year-old female with family history of Crohn's disease-sister and grandmom, infectious ileitis vs Crohns ileitis 08/2024, PSBO 09/2024 with office follow up 10/[address] Escobar. Per office noted she initially had symptoms of
abdominal pain and diarrhea with nausea vomiting in August went to the emergency room and was diagnosed with ileitis and was recommended admission but she decided to go home and follow-up as outpatient and was seen her in consultation in August and
she subsequently had a colonoscopy on 09/03/2024 which showed a few aphthous ulcers in the rectosigmoid colon and also TI was hard to intubate but the examined part of the terminal ileum appeared normal and the plan was to repeat imaging in 2 to 3
months with CTE or MRE and if she still had persistent inflammation or if she had ongoing symptoms to start her on Biologics. At that point of time her symptoms had resolved after course of antibiotics. She then started having symptoms of abdominal
pain with nausea vomiting and was admitted in September and was diagnosed with ileitis with small bowel obstruction and was treated with IV steroids and NGT decompression and� was also given antibiotics which were stopped and pt was treated with
steroid taper. She states she was feeling well but when waters tapered from Prednisone 40mg to 30mg for the past 1 week she is starting to have abdominal pain again and abdominal distention and has been able to have soft diet but has had minimal oral
intake for the past few days prior to admission. On admission repeat CT with concern for high grade obstruction with long segment of narrowing at TI. 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
hepatic steatosis.
-recurrent admission for concern for long segment of narrowing at TI with concern for stricture from inflammatory ileitis
-hx crohns disease- newly diagnosed noted TI disease and also rectal aphthous ulcer on rowasa prior to admission
-family hx IBD sister and grandmother
-tobacco abuse
-abdominal rash- ? from prior use of heating pad in past
-thrombocytosis
PLAN:
etiology of distention with concern for recurrent obstruction on basis crohns with stricturing disease vs other
appreciate surgical input await reading of repeat X ray but appears with continued distention
cont NGT decompression - has drained 500 + since admission to 3 rd floor
ok for ice chips and I asked nursing to deduct from total output
will review with Dr. Blanchard and Dr. Farias for adding steroids -- pt with some improvement initially on high dose but recurrent symptoms with taper
pt was on Rowasa prior to admission with rectal ulceration may need to restart pending surgical plan
eventual start of biologic therapy recent TB and hepatitis neg
will add Lovenox as high risk for DVT with active IBD
office was working on [employer] approval
-
-
Thank you for consultation and allowing me to participate in the patient's care. Please call the director of collections and archives GI physician during the after hours with any questions or concerns.
[2024-10-26 11:00] VITALS: BP 84/55
--- NOTE | 2024-10-26 11:31 | W.PN.HOSP.TC ---
Today's Communication/Plan
-
Continue with NG tube decompression and IV fluids.
Serial abdominal x-rays and abdominal exam.
Await GI input. Surgery following.
Assessment / Plan
Assessment / Plan
Assessment and plan
Abdominal pain with distension
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 No
transition point noted. Abdominal pain is resolved and feeling better. Still with abdominal distention and plain x-ray showing bowel distention-official report pending.
Patient with recurrent small bowel obstruction likely on the basis of small bowel terminal ileitis and stricture secondary to inflammatory bowel disease. .
- Continue with NG tube decompression.
- Continue with pain control and antiemetics. Continue with IV fluids.
- NG tube decompression
- GI and surgery consulted.
Hyponatremia - Hypovolemic hyponatremia suspected given presentation and labs.
- urine sodium less than 5 suggestive of prerenal state. Continue with IV fluids. Improving sodium noted.
DVT PPX - lovenox sq
Code status - Full Code
Anticipated Discharge: > 48 hours
Subjective/Interval History
-
Date of Service: October 26, 2024
Abdominal pain is resolved. She still feels distended with her abdomen. No nausea. In fact she feels hungry. Has not passed any gas. NG tube in place.
Denies fever chills.
Denies any shortness of breath.
Objective Data
-
Labs:
Laboratory Results
10/26/24 10/26/24
00:20 08:41
WBC 9.4
Hgb 13.6
Hct 40.0
Plt Count 452 H
Sodium 128 L 129 L
Potassium 3.8
Chloride 102
Carbon Dioxide 25
BUN 11
Creatinine 0.5 L
Glucose 90
Calcium 7.9 L
Vital Signs:
Vital Signs
Temp Pulse Resp BP Pulse Ox
98.3 F 99 15 84/55 99
10/26/24 11:00 10/26/24 11:00 10/26/24 11:00 10/26/24 11:00 10/26/24 11:00
Physical Exam
-
General: Comfortable
Respiratory: Non Labored Respirations; Negative Accessory Resp Muscle Use
Cardiac: Regular Rhythm, S1/S2 and Tachycardic
GI: Soft, Tender and Distended; Negative Normal Bowel Sounds (Hyperactive)
Neuro: AO x 3
Psych: Calm
Data Reviewed
-
Labs: Labs Reviewed by me
[2024-10-26] MEDS: D5/0.45%NSS with KCL 10 MEQ 1000 IV (12:17)
--- NOTE | 2024-10-26 12:28 | PTCARENOTE ---
Pt noted with persistent hypotension - the last being 84/55. Pt is asymptomatic. Denies dizziness upon standing. MD notified and aware at this time. Plan of care ongoing.
[2024-10-26 13:05] LABS: ALT (SGPT) 198 U/L (0-35); AST (SGOT) 78 U/L (14-36); Albumin 2.2 g/dl (3.5-5.0); Alkaline Phosphatase 83 U/L (38-126); Total Protein 4.5 g/dl (6.3-8.2)
[2024-10-26 13:07] LABS: C-Reactive Protein < 5.00 mg/L (0.0-10.00)
[2024-10-26] MEDS: SOLU-MEDROL PF 20 MG IV ×2 (14:01→21:39)
--- NOTE | 2024-10-26 14:11 | W.CON.NEPH ---
Consultation
-
Date/Time Consultation Requested: October 25, 2024 at 1700
Date/Time Consultation Performed: October 26, 2024 at 2 PM
Requesting Provider: Dennis Lay
Performing Provider: Dr. Osborne
Reason for Consultation: Hyponatremia
Medical History
-
Chief Complaint: Hyponatremia
History of Present Illness:
48 yo F with a PMH notable for recently diagnosed Crohn's who presents with worsening abdominal pain and nausea.
She was evaluated as an outpatient by GI and underwent a colonoscopy in 08/2024 which was concerning for IBD. She was then admitted to from 09/30 to 10/04 for management of a partial SBO related to a Crohn's flare. She was treated with steroids at
that time with improvement in her symptoms.
She reports abdominal discomfort and nausea developing over the past week. She is found to have SBO with NG tube placed currently with improvement
Renal consultation for sodium of 124 urine sodium less than 5
Social History
Tobacco: Smoker
Family History
Family History: Not Pertinent
Allergies / Home Medications
Allergy/AdvReac Type Severity Reaction Status Date / Time
No Known Allergies Allergy Unverified 08/18/24 19:45
�Medication �Instructions �Recorded �Confirmed �Type
prednisone 20 mg tablet 10 mg PO DAILY Anti-Inflammatory 10/25/24 10/25/24 History
Review of Systems
-
Abdominal discomfort nausea no vomiting
All other systems: Negative unless noted
Physical Exam
Vital Signs
Vital Signs
Temp Pulse Resp BP Pulse Ox
98.3 F 99 15 84/55 99
10/26/24 11:00 10/26/24 11:00 10/26/24 11:00 10/26/24 11:00 10/26/24 11:00
Lab Results
WBC 9.4 10^3/uL (4.8-10.8) 10/26/24 08:41
RBC 4.49 10^6/uL (4.20-5.40) 10/26/24 08:41
Hgb 13.6 g/dL (12.0-16.0) 10/26/24 08:41
Hct 40.0 % (37.0-47.0) 10/26/24 08:41
Plt Count 452 10^3/uL (130-400) H 10/26/24 08:41
Sodium 129 mmol/L (135-145) L 10/26/24 08:41
Potassium 3.8 mmol/L (3.5-5.1) 10/26/24 08:41
Chloride 102 mmol/L (98-107) 10/26/24 08:41
Carbon Dioxide 25 mmol/L (22-30) 10/26/24 08:41
BUN 11 mg/dl (7-17) 10/26/24 08:41
Creatinine 0.5 mg/dL (0.6-1.0) L 10/26/24 08:41
eGFR > 60.00 10/26/24 08:41
Glucose 90 mg/dl (70-99) 10/26/24 08:41
Calcium 7.9 mg/dl (8.4-10.2) L 10/26/24 08:41
Albumin 2.2 g/dl (3.5-5.0) L 10/26/24 08:41
Physical Exam
General no acute distress
HEENT no cephalic atraumatic extraocular muscle intact no scleral icterus no JVD neck supple
lungs clear to auscultation bilateral
heart regular S1-S2 positive
abdomen decreased breath
extremities no edema pulses present bilateral
Neurologically nonfocal alert and oriented x 3
Skin no lesions no abrasions no petechiae
Psych normal affect no bizarre behavior
Data Reviewed
-
Radiology: Image Personally Visualized and interpreted
CT Scan: Image Personally Visualized and interpreted
Labs: Labs Reviewed by me, Discussed with Physician, Discussed with Nurse, Discussed with Patient and Discussed with Family
Assessment/Plan
-
48 yo F with a PMH notable for recently diagnosed Crohn's who presents with worsening abdominal pain and nausea.
She was evaluated as an outpatient by GI and underwent a colonoscopy in 08/2024 which was concerning for IBD. She was then admitted to from 09/30 to 10/04 for management of a partial SBO related to a Crohn's flare. She was treated with steroids at
that time with improvement in her symptoms.
She reports abdominal discomfort and nausea developing over the past week. She is found to have SBO with NG tube placed currently with improvement
Renal consultation for sodium of 124 urine sodium less than 5
Impression
Hyponatremia 124 hypovolemic secondary to SBO nausea vomit
Crohn disease with SBO
Hypokalemia
Plan
Sodium improved to 129 with IV fluid
NG tube decompression
Surgery and GI noted
IV steroids
Will change half-normal saline to normal saline at 75 cc
Potassium stable at 3.8. Can supplement with riders as needed
[2024-10-26] MEDS: NSS 1000 IV (14:39)
[2024-10-26 15:22] VITALS: BP 85/54
--- NOTE | 2024-10-26 16:22 | CM ---
CM met with pt bedside
Pt resides with her spouse and 3 children ( 7, 16, 17 y/o) in [facility] with 3 [address]
Pt is indep withe deepthi ADLs, denies use of DMEs, works remotely from home
Denies financial insecurities
Rx coverage through her [employer] health insurance plan
PCP- Felicia Cunningham
Rx- [facility]
SBO/NGT decompression
Surgery and GI following currently for medical management
CM will continue to follow for dc planning
Discharge Disposition- anticipate, home no needs
[2024-10-26 16:41] VITALS: BMI 23.6
[2024-10-26] MEDS: LOVENOX 40 MG SC (17:14)
[2024-10-26 19:49] VITALS: BP 85/55
[2024-10-26 23:11] VITALS: BP 102/63
[2024-10-27] MEDS: NSS 1000 IV ×2 (02:44→13:19)
--- NOTE | 2024-10-27 03:17 | DOWNTIME ---
There was a [employer] Downtime on 10/27/2024 from 0100 to 10/27/2024 at 0215. Downtime documentation of patient's care, including medication administrations, has been reconciled in the electronic record per guidelines. Refer to the
patient's paper chart under the miscellaneous tab to see printed paper medication records and downtime forms.
[2024-10-27] MEDS: ZOFRAN 4 MG IV (05:18)
[2024-10-27] MEDS: SOLU-MEDROL PF 20 MG IV ×3 (05:18→21:40)
[2024-10-27 07:08] VITALS: BP 99/65
[2024-10-27 08:15] LABS: Hematocrit 36.7 % (37.0-47.0); Hemoglobin 12.8 g/dL (12.0-16.0); Mean Corp Hgb Conc. 34.9 g/dL (33.0-37.0); Mean Corpuscular Volume 90.0 fL (81.0-99.0); Platelet Count 429 10^3/uL (130-400); Red Cell Dist. Width 12.8 % (11.5-14.5)
[2024-10-27 09:08] LABS: Blood Urea Nitrogen 13 mg/dl (7-17); Calcium 7.5 mg/dl (8.4-10.2); Carbon Dioxide 26 mmol/L (22-30); Chloride 101 mmol/L (98-107); Estimated Creatinine Clearance 97 ml/min; Glucose 83 mg/dl (70-99); Potassium 3.7 mmol/L (3.5-5.1); Sodium 130 mmol/L (135-145); eGFR > 60.00
[2024-10-27 10:45] VITALS: BP 88/58
--- NOTE | 2024-10-27 11:01 | W.PN.GS2 ---
Today's Communication / Plan
-
Clamp trial
Assessment / Plan
-
48F with SBO 2/2 Crohn's flare, resolving
Clinically improved with less pain and passing liquid stools
Plan for NGT clamp trial today
All other care as per primary team
Subjective Data
-
Date of Service: October 27, 2024
Feeling much better, passing loose stools, denies n/v
Objective Data
-
Intake and Output
10/26/24 10/27/24 10/28/24
06:59 06:59 06:59
Intake Total 1680 / 1680
Output Total 1820 / 1820
Balance -140 / -140
Intake:
Oral fluids 1680 / 1680
Output:
Gastrointestinal tube output ( 1020 / 1020
Total)
[place] Sump 1020 / 1020
Urine, Voided 800 / 800
Other:
Number of approximated MODERATE 1
amounts of urine
Vital Signs
Temp Pulse Resp BP Pulse Ox
97.9 F 105 16 88/58 96
10/27/24 07:08 10/27/24 10:45 10/27/24 07:08 10/27/24 10:45 10/27/24 09:10
Lab Results
10/27/24 07:35
10/27/24 07:35
Calcium 7.5 mg/dl (8.4-10.2) L 10/27/24 07:35
Total Bilirubin 0.6 mg/dl (0.2-1.3) 10/26/24 08:41
Direct Bilirubin 0.3 mg/dl (0.0-0.4) 10/26/24 08:41
AST 78 U/L (14-36) H 10/26/24 08:41
ALT 198 U/L (0-35) H 10/26/24 08:41
Alkaline Phosphatase 83 U/L (38-126) 10/26/24 08:41
Total Protein 4.5 g/dl (6.3-8.2) L 10/26/24 08:41
Albumin 2.2 g/dl (3.5-5.0) L 10/26/24 08:41
Physical Exam
-
Gen: NAD
Abd: soft, mildly distended, nt
Patient has a otero catheter: No
Patient has a central line: No
--- NOTE | 2024-10-27 11:11 | CM ---
Met with patient at bedside
per note Plan for NGT clamp trial today
PLAN: home, no needs anticipated when stable
--- NOTE | 2024-10-27 12:04 | W.PN.GI.CBS2 ---
Today's Communication / Plan
-
Continue IV steroids- solumedrol 20mg IV q8
NGT clamping trial
Advance diet as able
If does well, can d/c on slower steroid taper until Skyrizi can be started
If improving but slowly, could consider inpt remicade instead of skyrizi
If fails to improve, surgery
Sed rate amd CRP are normal. Her stricture may be chronic and may not respond to medical therapy. We will see.
Assessment / Plan
-
Rosey is a 48-year-old female with family history of Crohn's disease-sister and grandmom, infectious ileitis vs Crohns ileitis 08/2024, PSBO 09/2024 with office follow up 10/[address] Escobar. Per office noted she initially had symptoms of
abdominal pain and diarrhea with nausea vomiting in August went to the emergency room and was diagnosed with ileitis and was recommended admission but she decided to go home and follow-up as outpatient and was seen her in consultation in August and
she subsequently had a colonoscopy on 09/03/2024 which showed a few aphthous ulcers in the rectosigmoid colon and also TI was hard to intubate but the examined part of the terminal ileum appeared normal and the plan was to repeat imaging in 2 to 3
months with CTE or MRE and if she still had persistent inflammation or if she had ongoing symptoms to start her on Biologics. At that point of time her symptoms had resolved after course of antibiotics. She then started having symptoms of abdominal
pain with nausea vomiting and was admitted in September and was diagnosed with ileitis with small bowel obstruction and was treated with IV steroids and NGT decompression and� was also given antibiotics which were stopped and pt was treated with
steroid taper. She states she was feeling well but when waters tapered from Prednisone 40mg to 30mg for the past 1 week she is starting to have abdominal pain again and abdominal distention and has been able to have soft diet but has had minimal oral
intake for the past few days prior to admission. On admission repeat CT with concern for high grade obstruction with long segment of narrowing at TI. 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
hepatic steatosis.
Impression:
SBO due to ileal Crohns with inflammatory stricture in distal ileum
-recurrent admission for concern for long segment of narrowing at TI with concern for stricture from inflammatory ileitis
-hx crohns disease- newly diagnosed noted TI disease and also rectal aphthous ulcer on rowasa prior to admission
-family hx IBD sister and grandmother
-tobacco abuse
-abdominal rash- ? from prior use of heating pad in past
-thrombocytosis
PLAN:
Subjective
Subjective
Date of Service: October 27, 2024
NGT clamped this am by Surgery. Tolerating. Passing liquid stools. Denies abd pain. Still distended but improved
Objective
Data Reviewed
Laboratory Data:
Laboratory Results
10/27/24 07:35
10/27/24 07:35
Laboratory Results
Total Bilirubin 0.6 mg/dl (0.2-1.3) 10/26/24 08:41
AST 78 U/L (14-36) H 10/26/24 08:41
ALT 198 U/L (0-35) H 10/26/24 08:41
Alkaline Phosphatase 83 U/L (38-126) 10/26/24 08:41
Lipase 294 U/L (23-300) 10/25/24 16:31
Vital Signs and I&O:
Vital Signs
Temp Pulse Resp BP Pulse Ox
97.9 F 105 16 88/58 96
10/27/24 07:08 10/27/24 10:45 10/27/24 07:08 10/27/24 10:45 10/27/24 09:10
I&O
10/26/24 10/27/24 10/28/24
06:59 06:59 06:59
Intake Total 1680 / 1680
Output Total 1820 / 1820
Balance -140 / -140
Physical Exam
Physical Exam
GI: Soft, Distended (mild) and Non Tender
--- NOTE | 2024-10-27 12:57 | W.PN.HOSP.TC ---
Today's Communication/Plan
-
Continue with IV steroids.
Fluid bolus*1
Assessment / Plan
Assessment / Plan
Assessment and plan
Abdominal pain with distension
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 No
transition point noted. Abdominal pain is resolved and feeling better. Still with abdominal distention and plain x-ray showing bowel distention-official report pending.
Patient with recurrent small bowel obstruction likely on the basis of small bowel terminal ileitis and stricture secondary to inflammatory bowel disease. .
- Continue with NG tube clamping trail
- Continue with pain control and antiemetics. Continue with IV fluids.
- GI and surgery input noted - started on high dose steroids
Hyponatremia - Hypovolemic hyponatremia suspected given presentation and labs.
- urine sodium less than 5 suggestive of prerenal state. Continue with IV fluids. Improving sodium noted. Renal following
Hypotension - BP reading below SBP<90's at times -asymptomatic-will give a bolus fluid and see blood pressure changes. Doubt adrenal insufficiency as she is on high-dose of steroids. Check a TSH.
DVT PPX - lovenox sq
Code status - Full Code
Anticipated Discharge: > 48 hours
Subjective/Interval History
-
Date of Service: October 27, 2024
Feeling hungry.
Denies nausea vomiting.
Abdominal feels less bloated but no pain.
Having loose stools.
No fever or chills.
Objective Data
-
Labs:
Laboratory Results
10/27/24
07:35
WBC 8.5
Hgb 12.8
Hct 36.7 L
Plt Count 429 H
Sodium 130 L
Potassium 3.7
Chloride 101
Carbon Dioxide 26
BUN 13
Creatinine 0.5 L
Glucose 83
Calcium 7.5 L
Vital Signs:
Vital Signs
Temp Pulse Resp BP Pulse Ox
97.9 F 105 16 88/58 96
10/27/24 07:08 10/27/24 10:45 10/27/24 07:08 10/27/24 10:45 10/27/24 09:10
I&O
10/26/24 10/27/24 10/28/24
06:59 06:59 06:59
Intake Total 1680 / 1680
Output Total 1820 / 1820
Balance -140 / -140
Physical Exam
-
General: Comfortable
Respiratory: Non Labored Respirations; Negative Accessory Resp Muscle Use
Cardiac: Regular Rhythm and S1/S2; Negative Tachycardic
GI: Soft, Nontender and Distended (mild); Negative Normal Bowel Sounds (hypoactive)
Neuro: AO x 3
Psych: Calm
Data Reviewed
-
Labs: Labs Reviewed by me
[2024-10-27] MEDS: NSS 250 IV (13:19)
[2024-10-27 13:25] VITALS: BP 95/61
[2024-10-27 14:25] VITALS: BP 100/61
--- NOTE | 2024-10-27 15:07 | W.PN.NEPH.PH ---
Today's Communication / Plan
-
IVF
Assessment/Plan
-
48 yo F with a PMH notable for recently diagnosed Crohn's who presents with worsening abdominal pain and nausea.
She was evaluated as an outpatient by GI and underwent a colonoscopy in 08/2024 which was concerning for IBD. She was then admitted to from 09/30 to 10/04 for management of a partial SBO related to a Crohn's flare. She was treated with steroids at
that time with improvement in her symptoms.
She reports abdominal discomfort and nausea developing over the past week. She is found to have SBO with NG tube placed currently with improvement
Renal consultation for sodium of 124 urine sodium less than 5
Impression
Hyponatremia 124 hypovolemic secondary to SBO nausea vomit
Crohn disease with SBO
Hypokalemia
Plan
follow BMP
continue iVF, increase rate, isotonic
-
-
Date of Service: October 27, 2024
CC / HPI / ROS
-
Chief Complaint:
hyponatremia
History of Present Illness:
Na up to 130
BP stable
some diarrhea
NGT capped
Review of Sytems:
no CP/SOB
Labs
-
Labs:
WBC 8.5 10^3/uL (4.8-10.8) 10/27/24 07:35
RBC 4.08 10^6/uL (4.20-5.40) L 10/27/24 07:35
Hgb 12.8 g/dL (12.0-16.0) 10/27/24 07:35
Hct 36.7 % (37.0-47.0) L 10/27/24 07:35
Plt Count 429 10^3/uL (130-400) H 10/27/24 07:35
Sodium 130 mmol/L (135-145) L 10/27/24 07:35
Potassium 3.7 mmol/L (3.5-5.1) 10/27/24 07:35
Chloride 101 mmol/L (98-107) 10/27/24 07:35
Carbon Dioxide 26 mmol/L (22-30) 10/27/24 07:35
BUN 13 mg/dl (7-17) 10/27/24 07:35
Creatinine 0.5 mg/dL (0.6-1.0) L 10/27/24 07:35
eGFR > 60.00 10/27/24 07:35
Glucose 83 mg/dl (70-99) 10/27/24 07:35
Calcium 7.5 mg/dl (8.4-10.2) L 10/27/24 07:35
Albumin 2.2 g/dl (3.5-5.0) L 10/26/24 08:41
Physical Exam
-
Vital Signs:
Vital Signs
Temp Pulse Resp BP Pulse Ox
98.1 F 104 16 100/61 99
10/27/24 14:25 10/27/24 14:25 10/27/24 14:25 10/27/24 14:25 10/27/24 14:25
Cardiovascular:: Regular rate and rhythm
Respiratory:: Bilateral: Coarse
Lung Excursion:: Normal
Abdomen:: Nontender and Soft
Bowel Sounds:: Normal
Extremity Edema:: None: Bilateral:
--- NOTE | 2024-10-27 16:17 | PTCARENOTE ---
New order received this AM for NG tube clamp trial to pull back on tube for residual at 1600. Pull tube if residual <100 cc. Residual 25 cc at 1600. Findings reported to Surgery with recommendations to pull NG tube and start CLD. Tube pulled at
1615. Clear liquid diet init. Pt reports no nausea all shift. No pain or nausea after tube discontinuation. Plan of care ongoing.
[2024-10-27] MEDS: LOVENOX 40 MG SC (17:16)
--- NOTE | 2024-10-27 17:58 | PTCARENOTE ---
Patient currently tolerating clear liquid diet. No nausea/vomiting reported. Plan of care ongoing.
[2024-10-27] MEDS: NSS (PRESERVATIVE FREE) 8 ML IV (21:38)
[2024-10-27] MEDS: PEPCID 20 MG IV (21:40)
[2024-10-27 23:00] VITALS: BP 91/57
[2024-10-28] VITALS (7 sets, daily range): BP systolic 73–90; BP diastolic 33–64; PULSE 98–114
[2024-10-28] MEDS: NSS 1000 IV ×3 (01:24→20:16)
[2024-10-28] MEDS: SOLU-MEDROL PF 20 MG IV ×2 (06:10→15:29)
[2024-10-28 07:36] LABS: Blood Urea Nitrogen 10 mg/dl (7-17); Calcium 7.4 mg/dl (8.4-10.2); Carbon Dioxide 24 mmol/L (22-30); Chloride 106 mmol/L (98-107); Estimated Creatinine Clearance 97 ml/min; Glucose 75 mg/dl (70-99); Potassium 3.8 mmol/L (3.5-5.1); Sodium 130 mmol/L (135-145); eGFR > 60.00
[2024-10-28 08:30] LABS: TSH 1.88 uIU/ml (0.47-4.68)
--- NOTE | 2024-10-28 09:26 | W.PN.GS2 ---
Today's Communication / Plan
-
`
Assessment / Plan
-
Assessment: 48-year-old female admitted with small bowel obstruction in the setting of recent diagnosis of Crohn's disease and tapering steroids
Subjective improvement with NGT decompression and bowel rest on admission with returning GI function
There is still significant distention on examination
Agree with GI in the setting of normal CRP, ESR and normal white blood cell count without shift this may be more of a fibrotic than inflammatory stricture
Albumin 2.5 on admission
Plan: Okay to continue with liquid diet today to allow for more potential improvement with anti-inflammatory effects of acute steroids, but cautioned patient to go slow with small portions scattered throughout the day.
Okay for Ensure supplement as well.
Image with small bowel follow-through tomorrow, 10/29/2024 for evaluation of small bowel transit time
If there are persistent signs of high-grade obstruction on SBFT then will have further discussions regarding consideration of surgical management
Discussed treatment plan with patient, any of her questions were addressed
Discussed with hospitalist and agile qa tester
Subjective Data
-
Date of Service: October 28, 2024
Patient seen and examined.
She states that she is feeling better with relief of abdominal pain and pressure since admission.
Passing flatus on occasion and has had some loose bowel movements.
Tolerating clear liquids without nausea or vomiting but still feels intermittent gas cramps.
Objective Data
-
Intake and Output
10/27/24 10/28/24 10/29/24
06:59 06:59 06:59
Intake Total 1680 / 1680 960 / 960
Output Total 1820 / 1820
Balance -140 / -140 960 / 960
Intake:
Oral fluids 1680 / 1680 960 / 960
Output:
Gastrointestinal tube output ( 1020 / 1020
Total)
Bloomer Sump 1020 / 1020
Urine, Voided 800 / 800
Other:
Number of approximated MODERATE 1 4
amounts of urine
Vital Signs
Temp Pulse Resp BP Pulse Ox
98.0 F 98 18 88/62 96
10/28/24 07:00 10/28/24 07:00 10/28/24 07:00 10/28/24 07:40 10/28/24 07:00
Lab Results
10/27/24 07:35
10/28/24 06:48
Calcium 7.4 mg/dl (8.4-10.2) L 10/28/24 06:48
Total Bilirubin 0.6 mg/dl (0.2-1.3) 10/26/24 08:41
Direct Bilirubin 0.3 mg/dl (0.0-0.4) 10/26/24 08:41
AST 78 U/L (14-36) H 10/26/24 08:41
ALT 198 U/L (0-35) H 10/26/24 08:41
Alkaline Phosphatase 83 U/L (38-126) 10/26/24 08:41
Total Protein 4.5 g/dl (6.3-8.2) L 10/26/24 08:41
Albumin 2.2 g/dl (3.5-5.0) L 10/26/24 08:41
Physical Exam
-
NAD AAO x 3
Abdomen is soft but quite distended. Tympany on percussion. Minimal tenderness on palpation. No rebound rigidity or guarding.
borborygmi noted during examination
--- NOTE | 2024-10-28 10:01 | W.PN.NEPH.PH ---
Today's Communication / Plan
-
IVF
Assessment/Plan
-
48 yo F with a PMH notable for recently diagnosed Crohn's who presents with worsening abdominal pain and nausea.
She was evaluated as an outpatient by GI and underwent a colonoscopy in 08/2024 which was concerning for IBD. She was then admitted to from 09/30 to 10/04 for management of a partial SBO related to a Crohn's flare. She was treated with steroids at
that time with improvement in her symptoms.
She reports abdominal discomfort and nausea developing over the past week. She is found to have SBO with NG tube placed currently with improvement
Renal consultation for sodium of 124 urine sodium less than 5
Impression
Crohn disease with SBO
Hypokalemia
hyponatremia
Plan
follow BMP
continue IVF 100ml/hr
check orthostatics
-
-
Date of Service: October 28, 2024
CC / HPI / ROS
-
Chief Complaint:
hyponatremia
History of Present Illness:
Na up to 130 stable
BP stable but low
some diarrhea still
eating clears
Review of Sytems:
no CP/SOB
Labs
-
Labs:
WBC 8.5 10^3/uL (4.8-10.8) 10/27/24 07:35
RBC 4.08 10^6/uL (4.20-5.40) L 10/27/24 07:35
Hgb 12.8 g/dL (12.0-16.0) 10/27/24 07:35
Hct 36.7 % (37.0-47.0) L 10/27/24 07:35
Plt Count 429 10^3/uL (130-400) H 10/27/24 07:35
Sodium 130 mmol/L (135-145) L 10/28/24 06:48
Potassium 3.8 mmol/L (3.5-5.1) 10/28/24 06:48
Chloride 106 mmol/L (98-107) 10/28/24 06:48
Carbon Dioxide 24 mmol/L (22-30) 10/28/24 06:48
BUN 10 mg/dl (7-17) 10/28/24 06:48
Creatinine 0.5 mg/dL (0.6-1.0) L 10/28/24 06:48
eGFR > 60.00 10/28/24 06:48
Glucose 75 mg/dl (70-99) 10/28/24 06:48
Calcium 7.4 mg/dl (8.4-10.2) L 10/28/24 06:48
Albumin 2.2 g/dl (3.5-5.0) L 10/26/24 08:41
Physical Exam
-
Vital Signs:
Vital Signs
Temp Pulse Resp BP Pulse Ox
98.0 F 98 18 88/62 96
10/28/24 07:00 10/28/24 07:00 10/28/24 07:00 10/28/24 07:40 10/28/24 07:00
Cardiovascular:: Regular rate and rhythm
Respiratory:: Bilateral: CTA
Lung Excursion:: Normal
Abdomen:: Nontender and Soft
Bowel Sounds:: Normal
Extremity Edema:: None: Bilateral:
--- NOTE | 2024-10-28 10:11 | W.PN.HOSP.TC ---
Today's Communication/Plan
-
Continue with liquid diet and follow tolerance. Small bowel follow-through tentatively in the next day or so.
Continue with IV fluids
Assessment / Plan
Assessment / Plan
Assessment and plan
Abdominal pain with distension
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 No
transition point noted. Abdominal pain is resolved and feeling better.
Patient with recurrent small bowel obstruction likely on the basis of small bowel terminal ileitis and stricture secondary to inflammatory bowel disease. .
- NG tube is out and she is on full liquid diet. Will follow oral intake tolerance and likely get a small bowel follow-through study depending.
- Continue with pain control and antiemetics. Continue with IV fluids.
- GI and surgery input noted - started on high dose steroids
Hyponatremia - Hypovolemic hyponatremia suspected given presentation and labs.
- urine sodium less than 5 suggestive of prerenal state. Continue with IV fluids. Improving sodium noted. Renal following
Hypotension - BP reading below SBP<90's at times -asymptomatic-Doubt adrenal insufficiency as she is on high-dose of steroids. Normal TSH. Blood pressure did go up yesterday afternoon to systolic 100s with a fluid bolus. I see large output from NG
tube yesterday. Continue with IV fluids consider increasing dose. Check urine sodium again.
DVT PPX - lovenox sq
Discussed with the general surgery and GI today.
Code status - Full Code
Anticipated Discharge: > 48 hours
Subjective/Interval History
-
Date of Service: October 28, 2024
No abdominal pain or nausea. Tolerating liquid diet. She feels a knot like sensation in her epigastric area.
Denies shortness of breath. No fever or chills. No lightheadedness.
Did not see much difference with herself with a fluid bolus yesterday.
Objective Data
-
Labs:
Laboratory Results
10/28/24
06:48
Sodium 130 L
Potassium 3.8
Chloride 106
Carbon Dioxide 24
BUN 10
Creatinine 0.5 L
Glucose 75
Calcium 7.4 L
Vital Signs:
Vital Signs
Temp Pulse Resp BP Pulse Ox
98.0 F 98 18 88/62 96
10/28/24 07:00 10/28/24 07:00 10/28/24 07:00 10/28/24 07:40 10/28/24 07:00
I&O
10/27/24 10/28/24 10/29/24
06:59 06:59 06:59
Intake Total 1680 / 1680 960 / 960
Output Total 1820 / 1820
Balance -140 / -140 960 / 960
Physical Exam
-
General: Comfortable
Respiratory: Non Labored Respirations; Negative Accessory Resp Muscle Use
Cardiac: Regular Rhythm, S1/S2 and Tachycardic
GI: Soft, Nontender, Normal Bowel Sounds and Distended
Neuro: AO x 3
Data Reviewed
-
Labs: Labs Reviewed by me
--- NOTE | 2024-10-28 10:19 | W.PN.GI.CBS2 ---
Addendum entered and electronically signed by Tyler Blanchard MD 10/28/24 11:03:
I saw and examined the patient.
The TRUCK HEADLIGHT ASSEMBLER or PA's note was reviewed and I agree with the note.
Comment: NGT removed. Passing liquid stools with some small formed
ABD softly distended, nontender
REC:
Continue IV steroids- solumedrol 20mg IV q8
Agree with Surgical recommendation for SBFT for more objective assessment of response to medical rx
If responding, then plan biologics- either Skyrizi as outpt after d/c vs Remicade inpatient. Our office has submitted for Skyrizi, awaiting approval
If not respponding, then may need to proceed with surgery. Her normal sed rate and CRP may suggest chronic stricture rather than acute inflammatory stricture
Original Note:
Today's Communication / Plan
-
Etiology of distention with concern for SBO from newly diagnosed crohns disease-- inflammatory vs stricturing disease
inflammatory markers normal
appreciate surgical recommendations
NGT out 10/27
tolerating clear diet this am and no vomiting overnight
cont clear diet then NPO in AM for SBFT
pending SB results discussed need for low residue diet on discharge if surgical intervention not needed
reviewed with GI office pt awaiting approval from [facility] infusion for Skyrizi vs can consider IP Remicade if surgery not needed this admission
discussed IBD preventative clinic with patient for family member
Assessment / Plan
-
Rosey is a 48-year-old female with family history of Crohn's disease-sister and grandmom, infectious ileitis vs Crohns ileitis 08/2024, PSBO 09/2024 with office follow up 10/[address] Escobar. Per office noted she initially had symptoms of
abdominal pain and diarrhea with nausea vomiting in August went to the emergency room and was diagnosed with ileitis and was recommended admission but she decided to go home and follow-up as outpatient and was seen her in consultation in August and
she subsequently had a colonoscopy on 09/03/2024 which showed a few aphthous ulcers in the rectosigmoid colon and also TI was hard to intubate but the examined part of the terminal ileum appeared normal and the plan was to repeat imaging in 2 to 3
months with CTE or MRE and if she still had persistent inflammation or if she had ongoing symptoms to start her on Biologics. At that point of time her symptoms had resolved after course of antibiotics. She then started having symptoms of abdominal
pain with nausea vomiting and was admitted in September and was diagnosed with ileitis with small bowel obstruction and was treated with IV steroids and NGT decompression and� was also given antibiotics which were stopped and pt was treated with
steroid taper. She states she was feeling well but when waters tapered from Prednisone 40mg to 30mg for the past 1 week she is starting to have abdominal pain again and abdominal distention and has been able to have soft diet but has had minimal oral
intake for the past few days prior to admission. On admission repeat CT with concern for high grade obstruction with long segment of narrowing at TI. 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
hepatic steatosis.
Impression:
SBO due to ileal Crohns with inflammatory stricture in distal ileum
-recurrent admission for concern for long segment of narrowing at TI with concern for stricture from inflammatory ileitis
-hx crohns disease- newly diagnosed noted TI disease and also rectal aphthous ulcer on rowasa prior to admission
-family hx IBD sister and grandmother
-tobacco abuse
-abdominal rash- ? from prior use of heating pad in past
-thrombocytosis
PLAN:
Etiology of distention with concern for SBO from newly diagnosed crohns disease-- inflammatory vs stricturing disease
inflammatory markers normal
appreciate surgical recommendations
NGT out 10/27
tolerating clear diet this am and no vomiting overnight
cont clear diet then NPO in AM for SBFT
pending SB results discussed need for low residue diet on discharge if surgical intervention not needed
reviewed with GI office pt awaiting approval from [facility] infusion for Skyrizi vs can consider IP Remicade if surgery not needed this admission
discussed IBD preventative clinic with patient for family member
Subjective
Subjective
Date of Service: October 28, 2024
10/27 brown stools tolerating liquid diet since NGT out yesterday
Objective
Data Reviewed
Laboratory Data:
Laboratory Results
10/27/24 07:35
10/28/24 06:48
Laboratory Results
Total Bilirubin 0.6 mg/dl (0.2-1.3) 10/26/24 08:41
AST 78 U/L (14-36) H 10/26/24 08:41
ALT 198 U/L (0-35) H 10/26/24 08:41
Alkaline Phosphatase 83 U/L (38-126) 10/26/24 08:41
Lipase 294 U/L (23-300) 10/25/24 16:31
Vital Signs and I&O:
Vital Signs
Temp Pulse Resp BP Pulse Ox
98.0 F 98 18 88/62 96
10/28/24 07:00 10/28/24 07:00 10/28/24 07:00 10/28/24 07:40 10/28/24 07:00
I&O
10/27/24 10/28/24 10/29/24
06:59 06:59 06:59
Intake Total 1680 / 1680 960 / 960
Output Total 1820 / 1820
Balance -140 / -140 960 / 960
Physical Exam
Physical Exam
HEENT: Anicteric and Moist mucous membranes
Cardiology: Normal Sinus Rhythm
Pulmonary: Clear
GI: Soft, Distended and Non Tender
Extremities: No Edema
Neuro: Non Focal
--- NOTE | 2024-10-28 11:07 | CM ---
Patient seen at bedside
NGT out
recommendation for SBFT
PLAN: home, no needs anticipated, CM to continue to follow
[2024-10-28] MEDS: ZOFRAN 4 MG IV (17:26)
[2024-10-28] MEDS: LOVENOX 40 MG SC (17:27)
--- NOTE | 2024-10-28 19:16 | W.PN.UPDATE ---
Addendum entered and electronically signed by Fabián Conway MD 10/28/24 20:33:
Mottled appearance abd evolving during examination
Original Note:
Update Note
Progress Note Update
Cross Coverage Update:
48F hx Crohn's here for SBO, patient was doing well NG tube recently removed
Cross coverage Called to patient's bedside d/t severe abd pain nausea lightheadedness after starting liquid diet
Abd distended, absent bowel sounds, diffusely tender, during assessment abd becoming increasingly mottled appearance, patient tachy, worsening mental status, hypotensive systolic 90s
Concern for Evolving Septic shock d/t Bowel Perforation
Rapid Response called patient to be transferred to ICU, Drying Oven Tender Marielena requested
Strict NPO
once IV Dilaudid 0.5 mg and once IV Compazine given for pain and nausea, not much improvement noted
IVF bolus 500 cc
Levophed prn MAP<65
NGT re-ordered for decompression
repeat lab work including lactic acid
Empiric Zosyn, two sets blood cultures
Stat Abd X-ray obtained, imaging results texted to publication designer surgeon and case reviewed, patient planned for Urgent OR surgical exploration
discussed with patient, patient's HUMBERTO Landry, Rapid Response Team, publication designer Surgeon, and Drying Oven Tender
[2024-10-28] MEDS: DILAUDID 0.5 MG IV ×2 (19:25→19:49)
[2024-10-28] MEDS: NSS 500 IV (19:25)
[2024-10-28] MEDS: COMPAZINE 5 MG IV (19:27)
[2024-10-28 19:32] LABS: Glucose - Point of Care 127 mg/dl (70-99)
[2024-10-28 19:55] LABS: Hematocrit 39.5 % (37.0-47.0); Hemoglobin 13.3 g/dL (12.0-16.0); Mean Corp Hgb Conc. 33.7 g/dL (33.0-37.0); Mean Corpuscular Volume 91.2 fL (81.0-99.0); Platelet Count 362 10^3/uL (130-400); Red Cell Dist. Width 13.0 % (11.5-14.5)
--- NOTE | 2024-10-28 19:59 | RR ---
Pt began having severe abdominal pain and screaming out. Pt needed assistance from bathroom to bed. Pt explained pain as severe and sharp throughout her abdomen. Dr. Conway made aware via TT. Upon exam by MD, patient began to have more severe pain
not relieved by IV pain medication. At this point, a rapid response was called. 500 NS bolus and Compazine given in addition to pain medication.
[2024-10-28 20:03] LABS: INR 1.09; PT 14.6 Sec (11.4-14.6)
[2024-10-28] MEDS: ZOSYN 50 IV (20:05)
[2024-10-28 20:12] LABS: ALT (SGPT) 144 U/L (0-35); AST (SGOT) 74 U/L (14-36); Albumin 2.0 g/dl (3.5-5.0); Alkaline Phosphatase 67 U/L (38-126); Blood Urea Nitrogen 6 mg/dl (7-17); Calcium 7.9 mg/dl (8.4-10.2); Carbon Dioxide 17 mmol/L (22-30); Chloride 107 mmol/L (98-107); Estimated Creatinine Clearance 97 ml/min; Glucose 142 mg/dl (70-99); Potassium 4.1 mmol/L (3.5-5.1); Sodium 129 mmol/L (135-145); Total Protein 4.5 g/dl (6.3-8.2); eGFR > 60.00
[2024-10-28] MEDS: PEPCID 20 MG IV (20:13)
[2024-10-28] MEDS: NSS (PRESERVATIVE FREE) 8 ML IV (20:13)
[2024-10-28] MEDS: LEVOPHED 250 IV (20:14)
[2024-10-28 20:16] LABS: Troponin I < 0.012 ng/ml
--- NOTE | 2024-10-28 20:30 | W.SUR.PREOP ---
Pre-Operative Surgical Note
-
I have examined this patient prior to the performance of the scheduled procedure.
The patient's condition is unchanged from the time of the current History and
Physical and the patient is able to undergo the scheduled procedure.
--- NOTE | 2024-10-28 20:51 | PTCARENOTE ---
Patient having severe abdominal pain start of shift with spouse by bedside. Rapid Response was called. Patient had NG tube placed, report given to OR. Surgeon in to see patient. Patient transferred to OR by ICU nurses off unit approximately 2042.
Patient remained alert and oriented throughout rapid response.
--- NOTE | 2024-10-28 21:20 | RR ---
A Rapid Response was called on this patient, please see Rapid Response form.
--- NOTE | 2024-10-28 22:29 | W.PN.SURGUPD ---
Surgical Update
Surgical Update
This is a 48-year-old female known to the surgical service for longstanding terminal ileitis since subsequent small bowel obstructions secondary to Crohn disease and fibrotic stricture. I was paged by hospitalist regarding acute change in clinical
status with worsening abdominal pain, tachycardia and hypotension as well as mottling of her abdominal wall.
X-ray reviewed with hyperenhancement of the small bowel concerning for free air.
I mobilized the OR team and had the care team placed an NG tube. We also informed the ICU about the patient's likely arrival postoperatively.
N.p.o., IV fluids, IV antibiotics.
When I arrived the patient was an extremis with peritonitis and guarding the NG tube was in place with minimal output.
Patient to OR for urgent exploration, possible small bowel resection, likely open abdomen, prolonged ventilation. Cody updated as well.
Risks/Benefits/Alternatives, expected postoperative course and possible complications (bleeding, infection, injury to surrounding structures, acute/chronic pain) discussed at length. Patient wishes to proceed with surgery. All questions answered.
Consent obtained.
[2024-10-28 22:32] LABS: APTT 28.3 Sec (23.4-35.0)
--- NOTE | 2024-10-28 22:34 | W.IMMPOSTOP ---
Surgical Immed Post Op Note
-
Primary Surgeon: Ernesto Rodriguez MD
Assisting Surgeon: None
Pre-op Diagnosis: Perforated viscus
Post-op Diagnosis: Same
Procedure Performed:
1. Exploratory laparotomy
2. Abdominal washout
3. Small bowel resection, left in discontinuity
4. Open abdomen, ABThera VAC placed
Anesthesia Type: General
Specimen / Cultures: Small bowel
Estimated Blood Loss: 11 cc
Complications: None
Operative Findings: The patient was laid supine on the operating table, due to the urgency of the case before induction, an atrial line was placed as well as a Post catheter. General endotracheal intubation was achieved and the abdomen was prepped
and draped in the usual fashion. A vertical periumbilical midline incision was made and the abdomen was entered safely. She had a prior supraumbilical hernia which was used as our entry point. We encountered significant amount of succus
immediately as well as a perforation of the small bowel which was controlled with Kellys both proximally and distally. A large Johnson wound retractor was placed to protect the skin and the abdomen was thoroughly suctioned. There was roughly 2 L of
enteric succus in the abdomen in all 4 quadrants. The bowel appeared purple and dusky consistent with a patient on high-dose pressors thus I elected not to perform small bowel anastomosis at this time. Mesenteric defects were made in the small
bowel mesentery surrounding the perforation and a limited small bowel resection was performed. This was passed off as specimen. The intervening mesentery was taken with LigaSure device however there was still bleeding from the cut edges which was
oversewn with 2-0 Vicryl sutures. I did run the bowel both proximally and distally and found no other pathology other than some severe tortuosity in the terminal ileum consistent with her known fibrotic stricture. The abdomen was thoroughly washed
out with 4 L of warm saline in all 4 quadrants until clear. The NG tube was noted to be in good position. An ABThera wound VAC was introduced and cut to size and secured in place in the usual fashion. This concluded the procedure. Counts were
correct x 2
POST OP PLAN:
Imaging: None
Labs: Routine AM
Diet: N.p.o., given the likelihood of prolonged ileus will consider TPN once the patient stabilizes from a hemodynamic perspective
Analgesia: Per ICU
Neuro/vascular checks: Per unit protocol
AC/AP: Hold Therapeutic AC, Ok for DVT PPx
Activity: N/A
Wound/Incisions/Drains: ABThera VAC to -125 mg Hg
Abx: Zosyn will plan a 7-day course.
Dispo: ICU. Will plan to take the patient back in 24 to 48 hours pending hemodynamic stability for possible anastomosis. Given her fibrotic stricture in the terminal ileum she will likely need an ileocecectomy at least.
Cody updated in person in the ICU waiting area. All questions answered. He understands that her prognosis is quite guarded at this time.
[2024-10-28 22:39] LABS: Glucose - Point of Care 153 mg/dl (70-99)
[2024-10-28 22:50] LABS: B.E. -8.0 mmol/L; HCO3 16.9 mmol/L (21-28); O2 Saturation % 96.3 % (94-98); PCO2 32 mmHg (32-35); PO2 109 mmHg (83-108); Potassium 3.1 mMOL/L (3.5-5.1); Sodium 128 mMOL/L (136-145)
[2024-10-28 22:57] LABS: Magnesium 1.7 mg/dl (1.6-2.3)
[2024-10-28] MEDS: LR 500 IV (22:58)
[2024-10-28] MEDS: ALBUMIN 5% 250 IV (22:59)
[2024-10-28] MEDS: SOLU-MEDROL PF IV (23:00)
[2024-10-28] MEDS: SODIUM BICARBONATE 50 MEQ IV ×2 (23:01→23:38)
[2024-10-28] MEDS: LR 1000 IV (23:01)
[2024-10-28 23:03] LABS: APTT 35.6 Sec (23.4-35.0)
[2024-10-28] MEDS: CALCIUM CHLORIDE 10% SYRINGE 60 MG IV (23:11)
[2024-10-28] MEDS: KCL 100 IV (23:12)
[2024-10-28 23:13] LABS: Hematocrit 34.4 % (37.0-47.0); Hemoglobin 11.5 g/dL (12.0-16.0); Mean Corp Hgb Conc. 33.4 g/dL (33.0-37.0); Mean Corpuscular Volume 92.0 fL (81.0-99.0); Platelet Count 223 10^3/uL (130-400); Red Cell Dist. Width 13.0 % (11.5-14.5)
[2024-10-28] MEDS: SUBLIMAZE 25 MCG IV ×2 (23:20→23:37)
[2024-10-28 23:21] LABS: ALT (SGPT) 82 U/L (0-35); AST (SGOT) 62 U/L (14-36); Albumin 1.1 g/dl (3.5-5.0); Alkaline Phosphatase 69 U/L (38-126); Blood Urea Nitrogen 7 mg/dl (7-17); Calcium 7.4 mg/dl (8.4-10.2); Carbon Dioxide 17 mmol/L (22-30); Chloride 108 mmol/L (98-107); Estimated Creatinine Clearance 97 ml/min; Glucose 154 mg/dl (70-99); Magnesium 2.2 mg/dl (1.6-2.3); Potassium 3.3 mmol/L (3.5-5.1); Sodium 129 mmol/L (135-145); Total Protein 2.8 g/dl (6.3-8.2); eGFR > 60.00
[2024-10-28] MEDS: SUBLIMAZE 100 IV (23:44)
[2024-10-28] MEDS: SODIUM BICARBONATE 1150 MEQ IV (23:54)
[2024-10-29] VITALS (13 sets, daily range): BP systolic 84–97; BP diastolic 27–66; BMI 27.6
[2024-10-29] MEDS: DIPRIVAN 100 IV ×4 (00:12→19:18)
[2024-10-29 01:01] LABS: Fibrinogen 116 MG/DL (199-459)
[2024-10-29 01:04] LABS: B.E. -6.2 mmol/L; HCO3 17.9 mmol/L (21-28); O2 Saturation % 96.6 % (94-98); PCO2 31 mmHg (32-35); PO2 108 mmHg (83-108); Potassium 3.5 mMOL/L (3.5-5.1); Sodium 128 mMOL/L (136-145)
[2024-10-29] MEDS: LEVOPHED 250 IV ×2 (01:14→03:41)
[2024-10-29] MEDS: PITRESSIN 100 IV ×3 (01:15→19:19)
[2024-10-29] MEDS: ZOSYN 50 IV ×4 (01:37→19:19)
[2024-10-29 01:39] LABS: Triglycerides 47 mg/dl (10-149)
[2024-10-29] MEDS: ALBUMIN 5% 250 IV (02:28)
[2024-10-29] MEDS: NEO-SYNEPHRINE 250 IV ×2 (03:41→10:44)
[2024-10-29 04:31] LABS: Hematocrit 35.3 % (37.0-47.0); Hemoglobin 11.9 g/dL (12.0-16.0); Mean Corp Hgb Conc. 33.7 g/dL (33.0-37.0); Mean Corpuscular Volume 90.5 fL (81.0-99.0); Platelet Count 195 10^3/uL (130-400); Red Cell Dist. Width 13.0 % (11.5-14.5)
[2024-10-29 04:33] LABS: Glucose - Point of Care 177 mg/dl (70-99)
--- NOTE | 2024-10-29 04:44 | PTCARENOTE ---
This RN responded to rapid response on 3W around 7pm. Patient with acute excruciating pain 10/10 rigid abdomen and guarding. Abdomen distended, mottled, pain untouched by dilaudid. Labs were sent and resulted. SBP 70s. Levophed started, abdominal
xray confirmed 'free air'. NGT placed and patient taken STAT to OR for exlap. Spouse updated.
Post Op remained intubated in ICU. Immediate post op, SBP 50-60 on 3 pressors. Epi attempted to wean off by adding Avtar 2/2 heart rate 140s. Epi off for majority of shift. Pt remains on levo/vaso/avtar titrating to MAP goal 65. Pt also received Bicarb
pushes along with bicarb gtt, calcium chloride, KCl, albuminX2, 1L LR bolus.
Pt currently intubated/sedated on propofol/fentanyl. Pt arouses to voice, follows commands, easily redirected.Afebrile, 97.[address] 117, MAP goals achieved with 3 pressors, currently titrating down avtar. Art line zero'd. AM labs sent and pending,
trending lactics. #7 ETT 24@lip (right). AC 40%/20/450/5. 100% sat, clear to auscultation. #18 [place] to right nare, LIWS draining light pink minimal output overnight. Abdomen open, in discontinuity with abthera vac placed to -125mmHg intra-op. 800CC
serosang output since application. Post for critical I&Os, dark yellow adequate urine. Abdomen remains mottled, soft. Will monitor closely. Mom and spouse updated.
[2024-10-29] MEDS: LR 500 IV (05:13)
[2024-10-29] MEDS: LEVOPHED 258 MG IV ×5 (05:14→23:35)
[2024-10-29 05:30] LABS: Blood Urea Nitrogen 8 mg/dl (7-17); Calcium 7.8 mg/dl (8.4-10.2); Carbon Dioxide 18 mmol/L (22-30); Chloride 106 mmol/L (98-107); Estimated Creatinine Clearance 97 ml/min; Glucose 178 mg/dl (70-99); Potassium 3.9 mmol/L (3.5-5.1); Sodium 130 mmol/L (135-145); eGFR > 60.00
[2024-10-29 05:40] LABS: Magnesium 1.9 mg/dl (1.6-2.3)
[2024-10-29] MEDS: LR 1000 IV ×2 (05:52→19:18)
[2024-10-29] MEDS: NOVOLOG FLEXPEN-LOW RESISTANCE 1 UNITS SC (06:07)
[2024-10-29] MEDS: KCL 50 IV (06:12)
[2024-10-29 06:17] LABS: Glucose - Point of Care 170 mg/dl (70-99)
[2024-10-29] MEDS: SOLU-CORTEF 1 MG IV ×2 (06:28→11:13)
[2024-10-29] MEDS: FLEXBUMIN 100 IV ×3 (06:35→22:58)
--- NOTE | 2024-10-29 07:23 | CON.INTV ---
Addendum entered and electronically signed by Erika Wright MD 10/29/24 16:38:
Follow-up ABG reviewed, developing respiratory alkalosis
- Bicarb fluids have since been discontinued
-Low respiratory rate to 16 from 20, continue current tidal volume. Recheck arterial blood gas in about an hour.
Original Note:
Consultation
Consultation Request
Date/Time Consultation Requested: 10/28/2024
Date/Time Consultation Performed: 10/29/2024
Medical History
-
Chief Complaint: Abdominal pain
History of Present Illness:
Patient is a 48-year-old female who is critically ill and currently intubated, sedated and mechanically ventilated. History primarily obtained from records as well as discussion with other providers. Reportedly patient has history of Crohn's
disease with terminal ileitis with recurrent small bowel obstruction in the past. She was admitted to the hospital on 10/25 with similar complaints of abdominal pain concerning for small bowel obstruction. Patient was evaluated by GI and general
surgery service and currently was being managed conservatively. On 10/28, patient developed worsening abdominal pain and reported mottling of abdominal skin. Patient also developed hypotension. Stat abdominal x-ray was concerning for perforation
with intraperitoneal air. General surgery reviewed the films and patient was emergently taken to OR and had a laparotomy. Patient noted to have small bowel perforation. Patient had abdominal washout, small bowel resection and then was transferred
to ICU with open abdomen with VAC in place. Patient had been in severe shock on mechanical ventilation, multiple pressors. Ball Shagger consult was requested for further input.
Past Medical History
Past Medical History: Reports Other
Additional Past Medical History:
Crohn's disease/ulcerative colitis
IBD
Past Surgical History: Reports None
Social History
Tobacco: Smoker (Current every day smoker. currently approximately 2 cigarettes per day)
Alcohol: Occasional
Drug: None
Family History
Family History: Other (Sister / Grandmother: Crohn's disease)
Allergies / Home Medications
Allergies
Allergy/AdvReac Type Severity Reaction Status Date / Time
No Known Allergies Allergy Unverified 08/18/24 19:45
Home Medications
�Medication �Instructions �Recorded �Confirmed �Last Taken �Type
prednisone 20 mg tablet 10 mg PO .TAPER Anti-Inflammatory 10/25/24 10/28/24 Unknown History
Review of Systems
-
Unable to Obtain full review of systems at this time due to: Patient Intubation
Vitals / Labs / Diagnostic Testing
Vital Signs
Temp Pulse Resp BP Pulse Ox
97.6 F 113 20 91/39 100
10/29/24 04:00 10/29/24 06:30 10/29/24 06:30 10/29/24 06:00 10/29/24 04:00
Lab Data
10/29/24 04:08
Laboratory Results
10/28/24 10/28/24 10/28/24
19:46 22:25 22:42
PT 14.6 Cancelled
INR 1.09 Cancelled
APTT 28.3 35.6 H
pH 7.33 L
pCO2 32
pO2 109 H
HCO3 16.9 L
O2 Delivery Level
10/29/24 10/29/24
00:49 09:00
PT
INR
APTT
pH 7.37 Cancelled
pCO2 31 L Cancelled
pO2 108 Cancelled
HCO3 17.9 L Cancelled
O2 Delivery Level Cancelled
Diagnostic Testing:
Physical Exam
-
HEENT: Other (Pale conjunctiva)
Cardiovascular: S1/S2 (Tachycardia)
Respiratory: Non-Labored Respirations
GI: Other (Wound VAC in place, distended but not rigid abdomen)
Neurology: Other (Currently sedated)
Skin: Warm
General: Comfortable
Assessment
-
#1. Shock, septic in the setting of perforated gut
- Patient is critically ill, currently on 3 pressors vasopressin, norepinephrine and phenylephrine
- S/p 5 L fluid resuscitation over last 24 hours, continue bicarb drip, s/p bicarb pushes
- Continue broad-spectrum antibiotics vancomycin and Zosyn, continue stress dose steroids hydrocortisone 50 mg IV every 6 hours
- Give additional albumin, 50 g total, 25% in the setting of severe hypoalbuminemia and persistent shock with suspected intravascular hypovolemia
- Continue mechanical ventilation, follow-up serial lactate, check ABG and CMP every 6 hours
#2. Lactic acidosis
- Related to severe shock and perforated gut
- S/p expiratory laparotomy 10/28, currently open abdomen
- Continue volume resuscitation, pressor support, steroids and albumin, serial ABGs and lactate
- Continue bicarb containing fluids for now
- Follow-up lactate still above 5, discussed with nephrology service. Will continue to follow lab work closely, might need renal replacement therapy
#3. Acute surgical abdomen with small bowel perforation (10/28)
- S/p exploratory laparotomy, abdominal washout, small bowel resection, currently open abdomen, VAC in place
- Surgery service on case
- Patient continues to be critically ill
#4. Acute respiratory failure, ventilator dependent
- Related to severe underlying metabolic acidosis and postop
- Continue mechanical ventilation, volume assist-control. 450/20/40%/5, current pO2 of 108, PF ratio more than 200.
- Continue sedation with propofol and fentanyl, daily x-ray, serial ABG
#5. H/o Crohn's disease with terminal ileitis, fibrotic stricture
- Initial presentation with small bowel obstruction due to inflammatory strictures in distal ileum
- Had been on Solu-Medrol IV, currently on hydrocortisone stress dose 50 mg IV every 6 hours
- Gastroenterology and GI service on case
#6. Hyponatemia
- Mild, continue to monitor for now
Other medical diagnoses:
- Rectal aphthous ulcer
- H/o Smoking
- Hepatic steatosis
DVT prophylaxis. Subcu Lovenox
GI prophylaxis. IV Protonix
Updated family at bedside
Critical Care time 68 mins -- The patient is admitted for acute critical illness for the treatment of vital organ failure and/or prevention of further life-threatening conditions. Total care includes time spent in review of history, physical exam,
medications, hemodynamic/ventilator parameters, laboratory data, imaging and discussion with house staff, pharmacy, respiratory therapy, departmental secretary, and nursing.
Data:
KUB 10/2024: Concern for intraperitoneal free air, but limited by the portable supine technique.
CT A/P 10/2024: High-grade small bowel obstruction secondary to a long segment of narrowing of the terminal ileum, most suggestive of a stricture from a chronic inflammatory ileitis in the setting of the patient's known inflammatory bowel disease.
Mild abdominopelvic ascites.
Severe hepatic steatosis.
Colonoscopy 08/2024: Mildly nodular and altered vascular mucosa with few apthous ulcers
in the rectum, in the recto-sigmoid colon and in the sigmoid colon.
Biopsied.
- The examined portion of the ileum was normal. Was hard to intubate
the TI the ICV opening was narrow and colon was tortuous so only the
very distal part of TI was examined and appeared normal.
[2024-10-29] MEDS: PROTONIX IV 40 MG IV (08:26)
[2024-10-29] MEDS: NSS (PRESERVATIVE FREE) IV (08:27)
[2024-10-29] MEDS: NSS (PRESERVATIVE FREE) 10 ML IV (08:27)
[2024-10-29] MEDS: PEPCID IV (08:35)
[2024-10-29] MEDS: SUBLIMAZE 100 IV ×2 (09:00→18:03)
--- NOTE | 2024-10-29 09:11 | W.PN.HOSP.TC ---
Today's Communication/Plan
-
Continue with IV Zosyn
Consult ID for the need of antifungal coverage
Consult hematology for possible DIC, abdominal purpura
Continue with vasopressors.
Continue with vent support.
Assessment / Plan
Assessment / Plan
Intestinal perforation secondary to stricturing ileal disease from Crohn's disease
Patient admitted with small bowel obstructive symptoms and last night progressed to bowel perforation.
Status post emergent abdominal surgery including excision of perforated segment, abdominal washout. Abdomen open for staged procedure. Abdominal VAC in situ.
Admission CT A/P High-grade small bowel obstruction secondary to a long segment of narrowing of the terminal ileum, most suggestive of a stricture from a chronic inflammatory ileitis in the setting of the patient's known inflammatory bowel disease.
No transition point noted.
-Continue postop care per general surgery. Follow-up further intestinal resection and closure of abdomen pending
- Currently NPO. Would probably require TPN.
- Continue with IV fluids.
- Continue with empirical antibiotic Zosyn. Will discuss with ID re: antifungal coverage which probably is not required as this is small bowel perforation. Consult ID
- Continue the pain regimen
- Hold therapeutic doses of steroids. Continue with stress dose steroids.
- IBD treatments after recovery per GI
Clinical shock with lactic acidosis-suspect septic . Continue with pressors and wean as able for MAP more than equal to 65. Follow I&O's and urine output.
Low fibrinogen levels-probably represents acute DIC. No thrombocytopenia noted. H&H is stable. No obvious external bleeding. Treat the underlying cause that sepsis and follow-up. But will obtain hematology evaluation due to the acute skin
changes noted on abdomen yesterday. She still has some faint purpuric changes on the abdomen.? Check protein C levels
Transaminitis acute mild elevation noted-continue to follow for now.
Hyponatremia - Hypovolemic hyponatremia suspected given presentation and labs.
- urine sodium less than 5 suggestive of prerenal state. Continue with IV fluids. Improving sodium noted. Renal following
DVT PPX -subcu heparin when okay from surgical standpoint
Discussed with the and mother at bedside-with perforation, sepsis, shock on multiple pressors prognosis is guarded.
Discussed with OFFICE WORKFORCE PLANNER
Code status - Full Code
Total Critical Care Time____40_ minutes. I was immediately available to the patient and staff. I personally examined, reviewed labs, diagnostic images/reports, interpretations, treatment plans, discussed patient care with other providers and
family or caregivers (if patient is unable to make decisions), entered orders as appropriate and documented the medical record.
Portions of this chart may have been created with voice recognition software. Occasional wrong word or 'sound alike' substitutions may have occurred due to the inherent limitations of voice recognition software.
Anticipated Discharge: > 48 hours
Subjective/Interval History
-
Date of Service: October 29, 2024
Last night events noted.
Patient had acute abdomen with a bowel perforation needing emergent surgery. Currently in ICU, sedated and vented.
Occasionally opens eyes. Family at bedside including and mother.
Requiring multiple pressors.
Objective Data
-
Labs:
Laboratory Results
10/28/24 10/28/24 10/28/24
19:46 22:25 22:42
WBC 3.3 L
Hgb 11.5 L
Hct 34.4 L
Plt Count 223 D
PT Cancelled
INR Cancelled
APTT 28.3 35.6 H
HCO3 16.9 L
Sodium 129 L
Potassium 3.3 L
Chloride 108 H
Carbon Dioxide 17 L
BUN 7
Creatinine 0.5 L
Glucose 154 H
Calcium 7.4 L
Total Bilirubin 1.0
AST 62 H
ALT 82 H
Alkaline Phosphatase 69
10/29/24 10/29/24 10/29/24
00:49 04:08 09:00
WBC 5.2
Hgb 11.9 L
Hct 35.3 L
Plt Count 195
PT
INR
APTT
HCO3 17.9 L Cancelled
Sodium 130 L
Potassium 3.9
Chloride 106
Carbon Dioxide 18 L
BUN 8
Creatinine 0.6
Glucose 178 H
Calcium 7.8 L
Total Bilirubin
AST
ALT
Alkaline Phosphatase
10/29/24 10/29/24 10/29/24
10:00 16:00 22:00
WBC
Hgb
Hct
Plt Count
PT
INR
APTT
HCO3 Pending Pending Pending
Sodium Pending Pending Pending
Potassium Pending Pending Pending
Chloride Pending Pending Pending
Carbon Dioxide Pending Pending Pending
BUN Pending Pending Pending
Creatinine Pending Pending Pending
Glucose Pending Pending Pending
Calcium Pending Pending Pending
Total Bilirubin Pending Pending Pending
AST Pending Pending Pending
ALT Pending Pending Pending
Alkaline Phosphatase Pending Pending Pending
Vital Signs:
Vital Signs
Temp Pulse Resp BP Pulse Ox
98.3 F 117 20 86/55 100
10/29/24 07:24 10/29/24 08:00 10/29/24 08:00 10/29/24 08:00 10/29/24 08:00
I&O
10/28/24 10/29/24 10/30/24
06:59 06:59 06:59
Intake Total 960 / 960 5705.9 / 5900.1 544.4 / 544.4
Output Total 2125 / 2162.5 75.0 / 75.0
Balance 960 / 960 3580.9 / 3737.6 469.4 / 469.4
Physical Exam
-
General: No Apparent Distress and Intubated
Respiratory: Clear to Auscultation (Anteriorly) and Non Labored Respirations; Negative Accessory Resp Muscle Use
Cardiac: Regular Rhythm, S1/S2 and Tachycardic
GI: Soft and Other (wound VAC on open abdomen noted); Negative Normal Bowel Sounds
Neuro: Sedated
Psych: Calm
Data Reviewed
-
Labs: Labs Reviewed by me
--- NOTE | 2024-10-29 09:18 | PTCARENOTE ---
Rec'd care of patient at 0700. Patient intubated and sedated on Fent/Prop gtts. Patient opening eyes and nodding head appropriately. PERRLA; +2mm. MAEx4. ST on tele. Rate in the 100-120's. Levo/Vaso/Avtar infusing through RIJ TLC for MAP>65. Right
radial colton leveled and zeroed. Correlating with bp cuff. Trace anasarca. +doppler pulses. #7.0 ett, 24 cm @ the lip. Vent settings: A/C 20/450/5/40%. Lung sounds cta. Absent BS. Abdomen distended. Wound vac in place. NGT to LIWS. Post in place
for critical I/O. Urine output slowing down; systems software engineer notified. Additional bag of Albumin ordered and infusing. Repeat labs ordered for 1000. Patient's and mother at bedside.
--- NOTE | 2024-10-29 09:39 | W.PN.ANS.POP ---
Anesthesia Post Operative
- Anesthesia Post Op Note
Vital Signs Stable-See Nursing Note: Yes
Airway Patent: Yes
Adequate Pain Control: Yes
Change in Mental Status: No
Current Postoperative Nausea & Vomiting: No
Anesthesia Complications: No
General Anesthetic Recall: No
Unplanned Admission: No
Post Op Hydration Adequate: Yes
[2024-10-29 10:16] LABS: B.E. -2.9 mmol/L; HCO3 19.4 mmol/L (21-28); O2 Saturation % 97.2 % (94-98); PCO2 26 mmHg (32-35); PO2 181 mmHg (83-108)
[2024-10-29] MEDS: SUBLIMAZE 50 MCG IV ×4 (10:18→21:23)
[2024-10-29 10:25] LABS: AST (SGOT) 28 U/L (14-36); Albumin 2.2 g/dl (3.5-5.0); Alkaline Phosphatase 30 U/L (38-126); Blood Urea Nitrogen 9 mg/dl (7-17); Calcium 8.0 mg/dl (8.4-10.2); Carbon Dioxide 21 mmol/L (22-30); Chloride 106 mmol/L (98-107); Estimated Creatinine Clearance 97 ml/min; Glucose 118 mg/dl (70-99); Potassium 3.8 mmol/L (3.5-5.1); Sodium 131 mmol/L (135-145); Total Protein 3.6 g/dl (6.3-8.2); eGFR > 60.00
--- NOTE | 2024-10-29 10:28 | W.PN.NEPH.PH ---
Today's Communication / Plan
-
Continue supportive care pending blood work likely will need PRECISION DEVICES INSPECTOR/TESTER today
Assessment/Plan
-
48 yo F with a PMH notable for recently diagnosed Crohn's who presents with worsening abdominal pain and nausea.
She was evaluated as an outpatient by GI and underwent a colonoscopy in 08/2024 which was concerning for IBD. She was then admitted to from 09/30 to 10/04 for management of a partial SBO related to a Crohn's flare. She was treated with steroids at
that time with improvement in her symptoms.
She reports abdominal discomfort and nausea developing over the past week. She is found to have SBO with NG tube placed currently with improvement
Renal consultation for sodium of 124 urine sodium less than 5
Impression
Crohn disease with SBO
Hypokalemia
hyponatremia
Perforated viscus acute septic shock
Plan
Pressor support
Patient is oliguric
Mechanical ventilation
Status post SBO resection 10/28 for acute abdominal pain and perforated viscus
Discussed with family and critical care team
Prognosis guarded as patient may require renal replacement therapy in the form of CVVHD
Will await repeat blood work and reevaluate

75 minutes total critical care time
-
-
Date of Service: October 29, 2024
CC / HPI / ROS
-
Chief Complaint:
hyponatremia
History of Present Illness:
Na up to 130 stable
Status post SBO resection perforated viscus
Septic shock
Review of Sytems:
Intubated
Oliguric
Labs
-
Labs:
WBC 5.2 10^3/uL (4.8-10.8) 10/29/24 04:08
RBC 3.90 10^6/uL (4.20-5.40) L 10/29/24 04:08
Hgb 11.9 g/dL (12.0-16.0) L 10/29/24 04:08
Hct 35.3 % (37.0-47.0) L 10/29/24 04:08
Plt Count 195 10^3/uL (130-400) 10/29/24 04:08
eGFR > 60.00 10/29/24 09:57
Phosphorus 2.9 mg/dl (2.5-4.5) 10/29/24 00:49
Physical Exam
-
Vital Signs:
Vital Signs
Temp Pulse Resp BP Pulse Ox
98.3 F 99 20 91/65 100
10/29/24 07:24 10/29/24 10:00 10/29/24 10:00 10/29/24 10:00 10/29/24 08:00
[2024-10-29 10:31] LABS: INR 1.78; PT 20.9 Sec (11.4-14.6)
[2024-10-29 10:32] LABS: APTT 50.0 Sec (23.4-35.0)
[2024-10-29 10:34] LABS: D-Dimer 0.82 ug/mlFEU (0.00-0.50)
[2024-10-29 10:37] LABS: ALT (SGPT) 49 U/L (0-35); Fibrinogen 161 MG/DL (199-459)
--- NOTE | 2024-10-29 10:44 | W.PN.GS2 ---
Today's Communication / Plan
-
`
Assessment / Plan
-
Assessment: 48-year-old female admitted with recurrent small bowel obstruction in the setting of recent diagnosis of Crohn's disease and tapering steroids
Postop day #1 emergent ex lap, washout, small bowel resection and placement of ABThera temporary abdominal closure device
For perforated ileum proximal to site of obstruction/Crohn's disease
Perforated viscus with septic shock and multisystem organ failure
Plan: Continue ongoing IV fluid resuscitation and vasopressors for blood pressure support
N.p.o., NG tube decompression (no medications via NG tube)
ABThera temporary abdominal closure device in place and functioning
Zosyn for empiric coverage of small bowel perforation
Nephrology following for possible need of CRRT
Reviewed operative procedure with patient's mother at bedside. We discussed the need for reoperation likely over the course of the next 24 to 48 hours as secondary to the severity of the patient's acute illness small bowel is in discontinuity with
stapled off ends. Timing of next operative procedure pending patient's stability. May require more than 1 preoperative procedure as well.
Multiple specialist assistance with postoperative care appreciated
Subjective Data
-
Date of Service: October 29, 2024
Patient seen and examined. Mother at bedside.
Nursing at bedside.
Patient remains intubated, sedated but appropriately responsive
Objective Data
-
Intake and Output
10/28/24 10/29/24 10/30/24
06:59 06:59 06:59
Intake Total 960 / 960 5705.9 / 5900.1 953.2 / 953.2
Output Total 2125 / 2162.5 135.0 / 135.0
Balance 960 / 960 3580.9 / 3737.6 818.2 / 818.2
Intake:
Oral fluids 960 / 960 1200 / 1200 0 / 0
IV fluids (Total) 2205.9 / 2400.1 803.2 / 803.2
BICARB GTT 525 / 600 300 / 300
EPINEPHRINE 37.5 / 37.5
FENTANYL 72.5 / 82.5 40 / 40
LEVOPHED 1017 / 1073.3 225.2 / 225.2
ANTHONY (PHENYLEPHRINE) 366 / 396 150 / 150
PROPOFOL 79.9 / 90.8 40.0 / 40.0
VASOPRESSIN 108 / 120 48 / 48
IV piggybacks 2300 / 2300 50 / 50
Blood Products 100 / 100
Albumin 25% 100 / 100
Output:
Drain Output (Total) 1000 / 1000
Middle Abdomen Wound Vac 1000 / 1000
Gastrointestinal tube output ( 75 / 75
Total)
[place] Sump 75 / 75
Urine, Otero 1050 / 1087.5 135.0 / 135.0
Other:
How many times incontinent 5
MODERATE amount urine
Number of approximated MODERATE 4
amounts of urine
Vital Signs
Temp Pulse Resp BP Pulse Ox
98.3 F 99 20 91/65 100
10/29/24 07:24 10/29/24 10:00 10/29/24 10:00 10/29/24 10:00 10/29/24 08:00
Lab Results
10/29/24 04:08
Calcium 8.0 mg/dl (8.4-10.2) L 10/29/24 09:57
Phosphorus 2.9 mg/dl (2.5-4.5) 10/29/24 00:49
Magnesium 1.9 mg/dl (1.6-2.3) 10/29/24 00:49
Total Bilirubin 1.3 mg/dl (0.2-1.3) 10/29/24 09:57
Direct Bilirubin 0.9 mg/dl (0.0-0.4) H 10/28/24 22:42
AST 28 U/L (14-36) 10/29/24 09:57
ALT 49 U/L (0-35) H 10/29/24 09:57
Alkaline Phosphatase 30 U/L (38-126) L 10/29/24 09:57
Total Protein 3.6 g/dl (6.3-8.2) L D 10/29/24 09:57
Albumin 2.2 g/dl (3.5-5.0) L 10/29/24 09:57
Physical Exam
-
Intubated, sedated
Abdomen: Softly distended, ABThera wound VAC in place, mild tenderness on palpation
NG tube
Otero
Patient has a otero catheter: Yes
Patient has a central line: Yes
--- NOTE | 2024-10-29 10:48 | CON.ONC ---
Documented by User: BRENDEN Blair 10/29/24 12:18
Consultation
-
Date Consultation Requested: 10/29/24
Date Consultation Performed: 10/29/24
Requesting Provider: Dr. Paco Bains
Performing Provider: Dr. Lonnie Berg
Reason for Consultation: hypofibrinogen
Impression
Impression
a/w laparotomy, washout, small bowel resection for perforation
hypofibrinogenemia -unlikely DIC with normal platlets
SBO
Crohns
mild normocytic anemia
Plan
Plan
critically ill in ICU VDRF, on pressors -management per critical care
transfuse cryo If bleeding with a fibrinogen <150 discussed with critical care
continue to monitor DIC panel
monitor for bleeding
Patient History
History of Present Illness
48 yo F with Crohn's who presented 10/25/2024 with worsening abdominal pain and nausea. She was evaluated as an outpatient by GI and underwent a colonoscopy in 08/2024 which was concerning for IBD. She was then admitted to from 09/30 to 10/04 for
management of a partial SBO related to a Crohn's flare. She was treated with steroids at that time with improvement in her symptoms. She reports abdominal discomfort and nausea developing over the past week. She is found to have SBO with NG tube
placed currently with improvement. She was readmitted and underwent urgent laparotomy, washout, small bowel resection for perforation.
VDRF, hypotensive, afebrile
Past-Medical/Surgical History
PMH IBS, crohns
PSH laparotomy, washout, small bowel resection
Social current every day smoker, denies etoh or recreational drugs.
Family sister/grandmother crohns disease
Patient Medication
�Medication �Instructions �Recorded �Confirmed �Last Taken �Type
prednisone 20 mg tablet 10 mg PO .TAPER Anti-Inflammatory 10/25/24 10/28/24 Unknown History
Active Medications
Generic Name Dose Route Start Last Admin
Trade Name Freq PRN Reason Stop Dose Admin
Dextrose 12.5 grams 10/29/24 10:00
Dextrose 50% (0.5 Grams/Ml) 50 Ml Syringe IV 11/26/24 09:59
[id number] PRN
hypoglycemia
Protocol
Fentanyl Citrate 50 mcg 10/28/24 22:29 10/29/24 10:18
Fentanyl (50 Mcg/Ml) 100 Mcg/2 Ml Ampul IV 11/11/24 22:28 50 mcg
[id number] PRN Administration
see protocol
Protocol
Glucagon 1 mg 10/29/24 10:00
Glucagon 1 Mg Vial IM 11/26/24 09:59
PRN PRN
hypoglycemia - no IV access
Protocol
Heparin Sodium 5,000 units 10/29/24 16:00
Heparin 5,000 Units/Ml 1 Ml Vial SC 11/26/24 15:59
Q8 TOMASZ
Piperacillin Sod/Tazobactam Sod 3.375 gram in 50 mls @ 100 mls/hr 10/28/24 20:00 10/29/24 08:20
Zosyn IV 50 mls
Q6H TOMASZ Administration
Phenylephrine HCl 50 mg in 250 mls @ 0 mls/hr 10/28/24 22:45 10/29/24 10:44
Avtar-Synephrine IV 250 mls
PER PROTOCOL TOMASZ Administration
Protocol
Per Protocol
Vasopressin 20 units in 100 mls @ 0 mls/hr 10/28/24 23:15 10/29/24 01:15
Pitressin IV 100 mls
PER PROTOCOL TOMASZ Administration
Protocol
Per Protocol
Fentanyl Citrate 1,000 mcg in 100 mls @ 0 mls/hr 10/28/24 23:45 10/29/24 09:00
Sublimaze IV 100 mls
PER PROTOCOL TOMASZ Administration
Protocol
Per Protocol
Sodium Bicarbonate 150 meq/ 1,150 mls @ 75 mls/hr 10/28/24 23:45 10/28/24 23:54
Sterile Water IV 10/29/24 15:04 1,150 mls
.[id number] TOMASZ Administration
Propofol 1,000,000 mcg in 100 mls @ 0 mls/hr 10/29/24 00:15 10/29/24 05:52
Diprivan IV 100 mls
PER PROTOCOL TOMASZ Administration
Protocol
Per Protocol
Norepinephrine Bitartrate 8 mg 258 mls @ 0 mls/hr 10/29/24 04:15 10/29/24 10:44
/ Sodium Chloride IV 258 mls
PER PROTOCOL TOMASZ Administration
Protocol
Per Protocol
Lactated Ringer's 1,000 mls @ 100 mls/hr 10/29/24 06:00 10/29/24 05:52
Lr IV 1,000 mls
.Q10H TOMASZ Administration
Hydrocortisone Sodium 1 mls @ 120 mls/hr 10/29/24 06:00 10/29/24 06:28
Succinate 50 mg/ Device IV 11/26/24 05:59 1 mls
Q6 TOMASZ Administration
As Directed
Insulin Aspart 0 units 10/29/24 06:00 10/29/24 06:07
Insulin Aspart Low Resistance 300 Units/3 Ml Pen.Injctr SC 11/26/24 05:59 1 units
Q6 TOMASZ Administration
Protocol
Ketorolac Tromethamine 15 mg 10/28/24 19:13
Ketorolac 15 Mg/Ml Injection IV 11/02/24 19:12
Q6HPRN PRN
moderate severe pain
Methylprednisolone Sodium Succinate 20 mg 10/26/24 14:00 10/28/24 23:00
Methylprednisolone Pf 40 Mg/Ml Vial IV 11/23/24 13:59 Not Given
On Hold: 10/29/24 05:18 Q8H TOMASZ
Ondansetron HCl 4 mg 10/28/24 16:53 10/28/24 17:26
Ondansetron 4 Mg/2 Ml Vial IV 11/25/24 16:52 4 mg
Q6HPRN PRN Administration
nausea/vomiting
Ondansetron HCl 4 mg 10/28/24 20:54
Ondansetron 4 Mg/2 Ml Vial IV 10/29/24 20:54
PACU-ONCEPRN PRN
nausea/vomiting
Pantoprazole Sodium 40 mg 10/29/24 08:00 10/29/24 08:26
Pantoprazole Sodium 40 Mg/10 Ml Vial IV 11/26/24 07:59 40 mg
DAILY TOMASZ Administration
Polyethylene Glycol 17 grams 10/29/24 08:00
Polyethylene Glycol Powder 17 Grams Packet TUBE 11/26/24 07:59
On Hold: 10/29/24 08:00 DAILY TOMASZ
Prochlorperazine Edisylate 5 mg 10/28/24 20:54
Prochlorperazine 10 Mg/2 Ml Vial IV 10/29/24 20:54
PACU-ONCEPRN PRN
nausea/vomiting
Sodium Chloride 0 flush 10/25/24 23:00
Sodium Chloride 0.9% (Flush) Syringe IV 11/22/24 22:59
PER PROTOCOL TOMASZ
Sodium Chloride 8 ml 10/28/24 20:00 10/29/24 08:27
Nss 8 Ml IV 11/25/24 19:59 Not Given
BID TOMASZ
Sodium Chloride 10 ml 10/29/24 08:00 10/29/24 08:27
Sodium Chloride 0.9% (Preservative Free) 10 Ml Vial IV 11/26/24 07:59 10 ml
DAILY TOMASZ Administration
Review of Systems
-
Unable to obtain full review of systems at this time due to: Patient Intubation
Physical Exam
-
HEENT: Moist Mucous Membranes; Negative Jaundice
Pulmonary: Other (VDRF)
GI: Other (abdomen open with wound vac -gross blood noted in wound vac)
Extremities: Pulses Present; Negative Edema
Skin: Warm
Labs
Lab Results
WBC 5.2 10^3/uL (4.8-10.8) 10/29/24 04:08
RBC 3.90 10^6/uL (4.20-5.40) L 10/29/24 04:08
Hgb 11.9 g/dL (12.0-16.0) L 10/29/24 04:08
Hct 35.3 % (37.0-47.0) L 10/29/24 04:08
MCV 90.5 fL (81.0-99.0) 10/29/24 04:08
MCH 30.5 pg (27.0-31.0) 10/29/24 04:08
MCHC 33.7 g/dL (33.0-37.0) 10/29/24 04:08
RDW 13.0 % (11.5-14.5) 10/29/24 04:08
Plt Count 195 10^3/uL (130-400) 10/29/24 04:08
MPV 10.5 fL (7.4-10.4) H 10/29/24 04:08
Abs Immat Gran (auto) 0.0 10^3/uL (0-0.05) 10/25/24 16:31
Absolute Neuts (auto) 4.4 10^3/uL (1.4-6.5) 10/25/24 16:31
Absolute Lymphs (auto) 4.1 10^3/uL (1.2-3.4) H 10/25/24 16:31
Absolute Monos (auto) 0.6 10^3/uL (0.1-0.6) 10/25/24 16:31
Absolute Eos (auto) 0.1 10^3/uL (0-0.7) 10/25/24 16:31
Absolute Basos (auto) 0.0 10^3/uL (0-0.2) 10/25/24 16:31
Immature Gran % 0.3 % (0-0.5) 10/25/24 16:31
Neutrophils % 47.7 % (42.2-75.2) 10/25/24 16:31
Lymphocytes % 44.1 % (20.5-51.1) 10/25/24 16:31
Monocytes % 6.1 % (1.7-9.3) 10/25/24 16:31
Eosinophils % 1.5 % (0-6) 10/25/24 16:31
Basophils % 0.3 % (0-2) 10/25/24 16:31
Creatinine 0.6 mg/dL (0.6-1.0) 10/29/24 09:57
Vital Signs
Vital Signs
Temp Pulse Resp BP Pulse Ox
98.3 F 99 20 91/65 100
10/29/24 07:24 10/29/24 10:00 10/29/24 10:00 10/29/24 10:00 10/29/24 08:00

Documented by User: Lonnie Berg MD 10/29/24 14:13
Plan
Plan
critically ill in ICU VDRF, on pressors -management per critical care
transfuse cryo If bleeding with a fibrinogen <150 discussed with critical care
continue to monitor DIC panel
monitor for bleeding
Hematology Addendum:
Patient seen and evaluated and agree w/ SUPERVISOR [employer] note and plan as outlined
-bleeding in ICU - w/ hypofibrinogenemia
-repeat fibrinogen 161 today
-consider cryoprecipitate if fibrinogen drops below 150 and bleeding persists
-follow coags/ CBC
will continue to follow with you
[2024-10-29] MEDS: NOVOLOG FLEXPEN-LOW RESISTANCE SC ×3 (11:25→23:34)
[2024-10-29 11:37] LABS: Glucose - Point of Care 107 mg/dl (70-99)
--- NOTE | 2024-10-29 11:39 | PTCARENOTE ---
Patient anxious; seeking husbands attention and thrashing arms. Dyssynchronous with ventilator. Propofol increased. Patient resting comfortably. Urine output <30 cc/hr. Possible CRRT per Denitrator. Abdominal vac container filled; changed. No
other changes. Fent/Prop/Levo/Vaso/Avtar/Bicarb/LR infusing.
--- NOTE | 2024-10-29 13:03 | W.PN.GI.CBS2 ---
Today's Communication / Plan
-
supportive care
Assessment / Plan
-
Pt with high grade obstruction/perforation from SB stricture
plan:
supportive care
antibiotics
surgery following
hold steroids (have been on hold)
Subjective
Subjective
Date of Service: October 29, 2024
Pt on vent, sedated s/p urgent ex-lap, washout/surgery for bowel perf
Objective
Data Reviewed
Laboratory Data:
Laboratory Results
10/29/24 04:08
Laboratory Results
PT 20.9 Sec (11.4-14.6) H 10/29/24 09:57
INR 1.78 10/29/24 09:57
APTT 50.0 Sec (23.4-35.0) H 10/29/24 09:57
Phosphorus 2.9 mg/dl (2.5-4.5) 10/29/24 00:49
Magnesium 1.9 mg/dl (1.6-2.3) 10/29/24 00:49
Total Bilirubin 1.3 mg/dl (0.2-1.3) 10/29/24 09:57
AST 28 U/L (14-36) 10/29/24 09:57
ALT 49 U/L (0-35) H 10/29/24 09:57
Alkaline Phosphatase 30 U/L (38-126) L 10/29/24 09:57
Lipase 294 U/L (23-300) 10/25/24 16:31
Vital Signs and I&O:
Vital Signs
Temp Pulse Resp BP Pulse Ox
98.6 F 108 20 90/59 100
10/29/24 11:31 10/29/24 12:15 10/29/24 12:15 10/29/24 12:00 10/29/24 12:00
I&O
10/28/24 10/29/24 10/30/24
06:59 06:59 06:59
Intake Total 960 / 960 5705.9 / 5900.1 1566.3 / 1566.3
Output Total 2125 / 2162.5 1095.0 / 1095.0
Balance 960 / 960 3580.9 / 3737.6 471.3 / 471.3
Physical Exam
Physical Exam
GI: Other (mottled skin (noted prior), abd closure vac)
Neuro: Other (sedated)
--- NOTE | 2024-10-29 13:34 | CON.ID ---
Consultation
-
Date/Time Consultation Requested: October 29, 2024 0929
Date/Time Consultation Performed: October 29, 2024 1335
Requesting Provider: Dr. Paco Bains
Performing Provider: Dr. Patricia Issa
Reason for Consultation: Perforated bowel; ?need for antifungal
Chief Complaint / Past History
Chief Complaint
Abdominal pain
History of Present Illness
48-year-old female with newly diagnosed Crohn's disease complicated by ileal stricture and small bowel obstruction which was conservatively managed last month who presented to the ED From GI office on October 25 complaining of several days of
abdominal pain and increase firm abdominal distention. In ED, CT a/p showed high grade SBO due to long stricture of terminal ileum. She was initially managed conservatively with NGT. 10/28 NGT removed and she was started on liquid diet. Later in
the afternoon, she c/o severe abd pain with mottling on abdomen. Patient hypotensive. AXR showed free air. She was taken to the OR emergently s/p ex-lap abdominal washout of succus, small bowel resection without anastomosis. Post-op patient
remains intubated, in septic shock on 3 pressors. Lactic acid 5.8. Blood culture with E. coli. Currently on Zosyn.
Past History
Additional Past Medical History:
Crohn's disease
Allergy History:
No Known Allergies Allergy (Unverified 08/18/24 19:45)
Medications Reviewed: Yes
Current Antibiotics:
Zosyn d2
Social History
Tobacco: Smoker
Alcohol: None
Drug: None
Personal:
Living: With Family
Family History
Family History: Other (Crohn's disease)
Review of Systems
Review of Systems
Unable to obtain as patient currently intubated.
Vital Signs
Temp Pulse Resp BP Pulse Ox
98.6 F 105 20 90/59 100
10/29/24 11:31 10/29/24 13:15 10/29/24 13:15 10/29/24 12:00 10/29/24 12:00
Physical Exam
Physical Exam
Constitutional: Acutely Ill
Eyes: No Conjunctival Hemorrhage and Sclera Anicteric
Cardiovascular: S1/S2 (Tachycardic)
Pulmonary: Clear
Gastrointestinal: Soft, Tender and Decreased Bowel Sounds
Genito-Urinary: Post and Clear Urine
Extremities: Negative Edema
Skin: Negative Rash
Lab / Diagnostic Study Results
10/29/24 04:08
Abs Immat Gran (auto) 0.0 10^3/uL (0-0.05) 10/25/24 16:31
Absolute Neuts (auto) 4.4 10^3/uL (1.4-6.5) 10/25/24 16:31
Absolute Lymphs (auto) 4.1 10^3/uL (1.2-3.4) H 10/25/24 16:31
Absolute Monos (auto) 0.6 10^3/uL (0.1-0.6) 10/25/24 16:31
Absolute Basos (auto) 0.0 10^3/uL (0-0.2) 10/25/24 16:31
Immature Gran % 0.3 % (0-0.5) 10/25/24 16:31
Neutrophils % 47.7 % (42.2-75.2) 10/25/24 16:31
Lymphocytes % 44.1 % (20.5-51.1) 10/25/24 16:31
Monocytes % 6.1 % (1.7-9.3) 10/25/24 16:
Eosinophils % 1.5 % (0-6) 10/25/24 16:31
Basophils % 0.3 % (0-2) 10/25/24 16:31
ESR 11 mm/hour (0-20) 10/26/24 08:41
PT 20.9 Sec (11.4-14.6) H 10/29/24 09:57
INR 1.78 10/29/24 09:57
Lactic Acid 4.6 mmol/L (0.7-2.0) H* 10/29/24 09:57
C-Reactive Protein < 5.00 mg/L (0.0-10.00) 10/26/24 08:41
Microbiology Results
Micro:
10/28/24 20:16 Blood Culture - Preliminary
Blood/Venous Escherichia coli
Gram Stain - Preliminary
10/28/24 AXR: Concern for intraperitoneal free air, but limited by the portable supine technique.
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
Assessment / Plan
# Recent new dx Crohn's with long ileal stricture and SBO
# Perforated small bowel with peritonitis
# E. coli bacteremia from abd source
# Septic shock on 3 pressors
# VDRF
- 10/28 s/p ex-lap abd washout, SBR wo anastomosis
- Continue Zosyn (d2).
- Empiric antifungal therapy is not indicated at this time.
- Continue ICU support.
--- NOTE | 2024-10-29 14:41 | CM ---
Intubated and sedated, S/P emergency explor lap with washout, will need additional surgery, IV/steroids, AB and Vasopressin, Possibly will need CRRT. Discharge POC: TBD.
[2024-10-29] MEDS: HEPARIN 5000 UNITS SC ×2 (15:31→23:30)
--- NOTE | 2024-10-29 15:40 | PTCARENOTE ---
Echo in progress.
--- NOTE | 2024-10-29 15:42 | W.PN.UPDATE ---
Update Note
Progress Note Update
updated at bedside of renal prognosis stating there is some improvement with urine output and pressor needs. No solar photovoltaic crew lead needed at this time. all questions answered. spoke with ICU team in follow up. agree with LR and serial labs
[2024-10-29 16:22] LABS: B.E. -2.5 mmol/L; HCO3 19.2 mmol/L (21-28); O2 Saturation % 97.3 % (94-98); PCO2 24 mmHg (32-35); PO2 164 mmHg (83-108)
[2024-10-29 16:29] LABS: Hematocrit 30.9 % (37.0-47.0); Hemoglobin 10.7 g/dL (12.0-16.0); Mean Corp Hgb Conc. 34.6 g/dL (33.0-37.0); Mean Corpuscular Volume 89.0 fL (81.0-99.0); Platelet Count 116 10^3/uL (130-400); Red Cell Dist. Width 13.0 % (11.5-14.5)
--- NOTE | 2024-10-29 16:44 | PTCARENOTE ---
Systems reviewed. Sedation and pain medication titrated for RASS/CPOT (see worklist). Weaning Avtar as tolerated. +1 anasarca. Lung sounds coarse throughout. ABG resulted; rate decreased to 16. Abdomen more distended than prior assessments;
Behavioral Health Rn aware. Abdominal closure device remains to suction with serosanguineous output. NGT remains to LIWS with scant output. Urine output 30-50 cc/hr. CHG bath provided. Sacrum blanchable red; protective foam applied. No other changes.
[2024-10-29 16:59] LABS: ALT (SGPT) 40 U/L (0-35); AST (SGOT) 32 U/L (14-36); Albumin 2.1 g/dl (3.5-5.0); Alkaline Phosphatase 28 U/L (38-126); Blood Urea Nitrogen 8 mg/dl (7-17); Calcium 7.4 mg/dl (8.4-10.2); Carbon Dioxide 21 mmol/L (22-30); Chloride 106 mmol/L (98-107); Estimated Creatinine Clearance 83 ml/min; Glucose 87 mg/dl (70-99); Potassium 3.5 mmol/L (3.5-5.1); Sodium 130 mmol/L (135-145); Total Protein 3.4 g/dl (6.3-8.2); eGFR > 60.00
[2024-10-29] MEDS: SOLU-CORTEF 50 MG IV ×2 (17:27→23:32)
[2024-10-29 17:46] LABS: Nucleated Red Blood Cells % 0.1 %
[2024-10-29 17:49] LABS: Glucose - Point of Care 79 mg/dl (70-99)
[2024-10-29 17:54] LABS: B.E. -2.9 mmol/L; HCO3 19.9 mmol/L (21-28); O2 Saturation % 97.1 % (94-98); PCO2 28 mmHg (32-35); PO2 172 mmHg (83-108)
--- NOTE | 2024-10-29 20:00 | PTCARENOTE ---
assumed care, pt intubated and sedated,follows commands, nods head appropriately @ x's, PERRLA 2, B/L wrist restraints, anxious c oral care nodding that she didn't want it done, Sinus tach on the monitor, weak pulses, +2 GA and +2 LE, B/L scds, #7
ETT 22cm @ the lip, RT @ bedside and adjusted to 24cm, diminished c no secretions when suctioned, AC 16/420/5/40%, no BS, abd distended, mottled and soft to touch, wound vac dressing dry and intact c serosanguineous output, R NGT 55cm to LIS c clear
pink output, Post c anisa output, skin per worklist, R TL IJ, 20G RAC, 20G L hand, Levo, vaso, avtar, fent and prop gtts per worklist, Avtar weaned off @ 2100, LR 100ml/hr, @ bedside updated and emotional support provided, safe environment
maintained, otherwise refer to documentation.
[2024-10-29 20:40] LABS: Absolute Neutrophils -Man Diff 12.7 10^3/uL (1.4-6.5)
[2024-10-29 20:41] LABS: Platelets Checked Yes
[2024-10-29 20:44] LABS: Normal RBC Morphology No
[2024-10-29 20:45] LABS: Acanthocytes 3+; Hypochromasia 1+; Total Cells Counted 100
[2024-10-29] MEDS: NSS 1000 IV (21:02)
[2024-10-29 22:01] LABS: B.E. -5.4 mmol/L; HCO3 18.4 mmol/L (21-28); O2 Saturation % 96.5 % (94-98); PCO2 29 mmHg (32-35); PO2 199 mmHg (83-108)
[2024-10-29 22:05] LABS: O2 Therapy %Oxygen/Room Air Ven
[2024-10-29 22:25] LABS: ALT (SGPT) 41 U/L (0-35); AST (SGOT) 37 U/L (14-36); Albumin 1.6 g/dl (3.5-5.0); Alkaline Phosphatase 22 U/L (38-126); Blood Urea Nitrogen 8 mg/dl (7-17); Calcium 6.5 mg/dl (8.4-10.2); Carbon Dioxide 20 mmol/L (22-30); Chloride 108 mmol/L (98-107); Estimated Creatinine Clearance 95 ml/min; Glucose 62 mg/dl (70-99); Potassium 3.5 mmol/L (3.5-5.1); Sodium 130 mmol/L (135-145); Total Protein 2.9 g/dl (6.3-8.2); eGFR > 60.00
[2024-10-29] MEDS: DEXTROSE 50% SYRINGE 25 GRAMS IV (22:50)
[2024-10-29] MEDS: CALCIUM GLUCONATE 290 MG IV (23:02)
[2024-10-29 23:20] LABS: Glucose - Point of Care 149 mg/dl (70-99)
[2024-10-30] VITALS (20 sets, daily range): BP systolic 87–112; BP diastolic 55–66; BMI 28.1
--- NOTE | 2024-10-30 00:17 | PTCARENOTE ---
systems reviewed, oliguric ASSISTANT FOOTBALL COACH notified and liter bolus of NS given, labs sent BG 62 ASSISTANT FOOTBALL COACH notified, amp of dextrose given per order, 15 min recheck BG 149 protocol followed, Calcium and albumin repleted, gtts per worklist, RT called to bedside ETT
migrated to 22cm, RT advanced back to 24cm, pt maintained volumes and sats 100%, otherwise refer to documentation.
[2024-10-30] MEDS: ZOSYN 50 IV ×4 (01:06→20:30)
[2024-10-30] MEDS: SUBLIMAZE 100 IV ×4 (01:10→22:50)
[2024-10-30 01:19] LABS: Glucose - Point of Care 92 mg/dl (70-99)
[2024-10-30] MEDS: LR 1000 IV (02:52)
[2024-10-30] MEDS: PITRESSIN 100 IV ×3 (02:52→22:51)
[2024-10-30] MEDS: DIPRIVAN 100 IV ×3 (02:53→16:46)
[2024-10-30 03:02] LABS: Glucose - Point of Care 82 mg/dl (70-99)
[2024-10-30 04:04] LABS: B.E. -5.9 mmol/L; HCO3 18.0 mmol/L (21-28); O2 Saturation % 97.4 % (94-98); PCO2 29 mmHg (32-35); PO2 192 mmHg (83-108)
--- NOTE | 2024-10-30 04:10 | PTCARENOTE ---
systems reviewed, labs sent, CHG bath, ABTHERA vac changed, weight obtained, NEEDLE LOOM OPERATOR HELPER made aware of sugars trending down, gtts per worklist, otherwise refer to documentation.
[2024-10-30 04:25] LABS: INR 2.43; PT 26.5 Sec (11.4-14.6)
[2024-10-30 04:26] LABS: APTT 57.8 Sec (23.4-35.0); Fibrinogen 268 MG/DL (199-459)
[2024-10-30 04:39] LABS: ALT (SGPT) 41 U/L (0-35); AST (SGOT) 35 U/L (14-36); Albumin 2.2 g/dl (3.5-5.0); Alkaline Phosphatase 28 U/L (38-126); Blood Urea Nitrogen 8 mg/dl (7-17); Calcium 7.9 mg/dl (8.4-10.2); Carbon Dioxide 20 mmol/L (22-30); Chloride 106 mmol/L (98-107); Estimated Creatinine Clearance 95 ml/min; Glucose 79 mg/dl (70-99); Magnesium 1.5 mg/dl (1.6-2.3); Potassium 3.7 mmol/L (3.5-5.1); Sodium 132 mmol/L (135-145); Total Protein 3.5 g/dl (6.3-8.2); eGFR > 60.00
[2024-10-30 04:42] LABS: Hematocrit 28.0 % (37.0-47.0); Hemoglobin 9.6 g/dL (12.0-16.0); Mean Corp Hgb Conc. 34.3 g/dL (33.0-37.0); Mean Corpuscular Volume 90.3 fL (81.0-99.0); Platelet Count 68 10^3/uL (130-400); Red Cell Dist. Width 13.2 % (11.5-14.5)
[2024-10-30] MEDS: NOVOLOG FLEXPEN-LOW RESISTANCE SC ×4 (05:08→23:13)
[2024-10-30] MEDS: SOLU-CORTEF 50 MG IV ×4 (05:08→23:13)
[2024-10-30 05:17] LABS: Glucose - Point of Care 74 mg/dl (70-99)
[2024-10-30] MEDS: FLEXBUMIN 100 IV (05:17)
[2024-10-30] MEDS: MAGNESIUM SULFATE 50 IV ×2 (05:18→13:13)
[2024-10-30] MEDS: KCL 160 MEQ IV (05:21)
[2024-10-30] MEDS: LEVOPHED 258 MG IV ×3 (05:23→22:51)
[2024-10-30] MEDS: NSS (PRESERVATIVE FREE) 10 ML IV (07:23)
[2024-10-30] MEDS: HEPARIN 5000 UNITS SC (07:23)
[2024-10-30] MEDS: PROTONIX IV 40 MG IV (07:24)
--- NOTE | 2024-10-30 07:38 | PTCARENOTE ---
Rec'd care of patient at 0700. Patient remains intubated and sedated on Fent/Prop. Patient arousable to verbal stimuli. Pupils equal and reactive; +2mm. MAEx4. Anxious; music turned on and emotional support provided. NSR/ST, rate in the 80-100's.
Leov/Vaso infusing through RIJ for MAP>65. Right radial colton zeroed; correlating with bp cuff. +3 anasarca. #7.0 ett, 24 cm @ the lip. A/C 16/420/5/40%. Lung sounds coarse/diminished. Absent BS. Abdomen soft, distended. Abdominal closure device
intact; serosanguineous output. NGT to DYLAN. Sejal in place for critical I/O. Anu output. at bedside. All questions answered. See worklist for full assessment and care.
--- NOTE | 2024-10-30 08:06 | W.PN.INTV ---
Today's Communication / Plan
Recommendations
- Lower vasopressin 0.03
- Discontinue LR, monitor input and output closely
- Additional 50 g albumin given, replacing calcium, magnesium and potassium
- Serial labs, platelet count
- Vitamin K 10 mg IV x 1
- Follow-up coagulation panel in a.m.
Assessment
-
Patient is a 48-year-old female who is critically ill and currently intubated, sedated and mechanically ventilated. History primarily obtained from records as well as discussion with other providers. Reportedly patient has history of Crohn's
disease with terminal ileitis with recurrent small bowel obstruction in the past. She was admitted to the hospital on 10/25 with similar complaints of abdominal pain concerning for small bowel obstruction. Patient was evaluated by GI and general
surgery service and currently was being managed conservatively. On 10/28, patient developed worsening abdominal pain and reported mottling of abdominal skin. Patient also developed hypotension. Stat abdominal x-ray was concerning for perforation
with intraperitoneal air. General surgery reviewed the films and patient was emergently taken to OR and had a laparotomy. Patient noted to have small bowel perforation. Patient had abdominal washout, small bowel resection and then was transferred
to ICU with open abdomen with VAC in place. Patient had been in severe shock on mechanical ventilation, multiple pressors. Alarm Field Technician consult was requested for further input.
10/30 overview: Patient currently intubated, sedated and mechanically ventilated. Current infusions propofol at 30, fentanyl at 150, LR running at 100, vasopressin 0.04, Levophed down to 20. Patient is off phenylephrine now. ABG 7.40/29/192 on
volume control 420/16/40%/5. Current MAP of 79, saturating 96%. Increasing anasarca, decreasing pressor requirement.
#1. Shock, septic in the setting of perforated gut
- Patient continues to be critically ill, gradually improving. Decreasing pressor requirement, down to 2 pressors now.
- Off bicarb infusion now, developing anasarca, discontinue Ringer lactate infusion
- Continue broad-spectrum antibiotics vancomycin and Zosyn, continue stress dose steroids hydrocortisone 50 mg IV every 6 hours
- S/p additional albumin 50 g, 25%
- Continue mechanical ventilation, follow-up serial lactate, check ABG and CMP every 8 hours
#2. Lactic acidosis
- Related to severe shock and perforated gut
- S/p expiratory laparotomy 10/28, currently open abdomen
- Continue volume resuscitation, pressor support, steroids and albumin, serial ABGs and lactate
- Considering improving lactate and decreasing acidosis, bicarb infusion has been stopped
#3. Acute surgical abdomen with small bowel perforation (10/28)
- S/p exploratory laparotomy, abdominal washout, small bowel resection, currently open abdomen, VAC in place
- Surgery service on case
- Anticipate return to OR in next 24 hours
#4. Acute respiratory failure, ventilator dependent
- Related to severe underlying metabolic acidosis and postop
- Continue mechanical ventilation, volume assist-control. 420/16/40%/5, blood gas 7.40/29/192
- Continue sedation with propofol and fentanyl, daily x-ray, serial ABG
#5. H/o Crohn's disease with terminal ileitis, fibrotic stricture
- Initial presentation with small bowel obstruction due to inflammatory strictures in distal ileum
- Had been on Solu-Medrol IV, currently on hydrocortisone stress dose 50 mg IV every 6 hours
- Gastroenterology and GI service on case
#6. Hyponatemia
- Mild, continue to monitor for now
- Replaced IV magnesium, IV calcium and IV potassium. Serial labs
#7. Coagulopathy
- Platelet count drifting down, INR up. Fibrinogen has been stable, not consistent with DIC
- Vitamin K 10 mg IV x 1. Continue to monitor platelet count
- If platelet count drops below 50, will hold heparin, patient at high risk of DVT with underlying IBD
- Serial blood count
Other medical diagnoses:
- Rectal aphthous ulcer
- H/o Smoking
- Hepatic steatosis
DVT prophylaxis. Subcu Lovenox
GI prophylaxis. IV Protonix
Updated family at bedside
Critical Care time 68 mins -- The patient is admitted for acute critical illness for the treatment of vital organ failure and/or prevention of further life-threatening conditions. Total care includes time spent in review of history, physical exam,
medications, hemodynamic/ventilator parameters, laboratory data, imaging and discussion with house staff, pharmacy, respiratory therapy, health support specialist, and nursing.
Data:
KUB 10/2024: Concern for intraperitoneal free air, but limited by the portable supine technique.
CT A/P 10/2024: High-grade small bowel obstruction secondary to a long segment of narrowing of the terminal ileum, most suggestive of a stricture from a chronic inflammatory ileitis in the setting of the patient's known inflammatory bowel disease.
Mild abdominopelvic ascites.
Severe hepatic steatosis.
Colonoscopy 08/2024: Mildly nodular and altered vascular mucosa with few apthous ulcers
in the rectum, in the recto-sigmoid colon and in the sigmoid colon.
Biopsied.
- The examined portion of the ileum was normal. Was hard to intubate
the TI the ICV opening was narrow and colon was tortuous so only the
very distal part of TI was examined and appeared normal.
Subjective Dataa
Subjective Data
Date of Service:
Date of Service: October 30, 2024
Subjective:
Patient currently intubated, mechanically ventilated and sedated
Review of Systems
General: Unobtainable - Sedation
Objective Data
Data Reviewed
Vital Signs / I&O / Oxygen:
Vital Signs
Temp Pulse Resp BP Pulse Ox
97.7 F 99 16 100/59 100
10/30/24 03:53 10/30/24 07:08 10/30/24 07:08 10/30/24 07:08 10/30/24 08:00
Intake and Output
10/29/24 10/30/24 10/31/24
06:59 06:59 06:59
Intake Total 5705.9 / 5900.1 7270.5 / 7525.9 255.4 / 255.4
Output Total 2125 / 2162.5 2658.0 / 2718.0 60 / 60
Balance 3580.9 / 3737.6 4612.5 / 4807.9 195.4 / 195.4
SaO2 [A/C] 100
SaO2 100
Physical Exam
General: Comfortable and Other
HEENT: Other (Mild conjunctival pallor)
Cardiovascular: S1-S2 and Peripheral Edema
Respiratory: Clear and Non-Labored Respirations
GI: Distended
Neurology: Other (Sedated, wakes up with little stimulation)
Skin: Warm
Labs/Micro/Reports
Lab Data
10/30/24 03:57
Laboratory Results
10/29/24 10/29/24 10/29/24
09:57 09:57 09:57
PT 20.9 H Cancelled
INR 1.78 Cancelled
APTT 50.0 H
pH
pCO2
pO2
HCO3
O2 Delivery Level
10/29/24 10/29/24 10/29/24
09:57 16:14 17:38
PT
INR
APTT Cancelled
pH 7.48 H 7.51 H 7.46 H
pCO2 26 L 24 L 28 L
pO2 181 H 164 H 172 H
HCO3 19.4 L 19.2 L 19.9 L
O2 Delivery Level
10/29/24 10/30/24 10/30/24
21:53 03:57 04:00
PT 26.5 H
INR 2.43
APTT 57.8 H
pH 7.41 7.40 Cancelled
pCO2 29 L 29 L Cancelled
pO2 199 H 192 H Cancelled
HCO3 18.4 L 18.0 L Cancelled
O2 Delivery Level %oxygen/room air michela Cancelled
Microbiology
10/28/24 20:16 Blood/Venous Blood Culture - Preliminary
Positive culture in progress
10/28/24 20:16 Blood/Venous Gram Stain - Preliminary
10/28/24 20:16 Blood/Venous Blood Culture - Preliminary
Escherichia coli
10/28/24 20:16 Blood/Venous Gram Stain - Preliminary
--- NOTE | 2024-10-30 08:07 | W.PN.ID1 ---
Date of Service
Date of Service: October 30, 2024
Today's Communication
Continue antibiotics.
Assessment / Plan
# Recent new dx Crohn's with long ileal stricture and SBO
# Perforated small bowel with peritonitis
# E. coli bacteremia from abd source
# Septic shock on 3 pressors
# VDRF
# Leukocytosis
# Thrombocytopenia; likely secondary to sepsis
# Lactic acidosis
Recommendations:
- 10/28 s/p ex-lap abd washout, SBR w/o anastomosis, placement of temporary ABThera closure
- Continue Zosyn (d#3).
- Empiric antifungal therapy is not indicated at this time.
- Await further susceptibility data from positive blood culture
- Continue ICU support.
Patient remains critically ill, on multiple pressors, vent dependent in ICU.
����������������������������������������������������������
Chief Complaint
-: Clinical Sepsis
Subjective / Review of Systems
Patient seen and examined. Remains on vent at this time. Remains on pressors, although being weaned.
Vital Signs / Physical Exam
Vital Signs
Vital Signs
Temp Pulse Resp BP Pulse Ox
97.7 F 90 16 100/59 100
10/30/24 03:53 10/30/24 08:00 10/30/24 08:00 10/30/24 07:08 10/30/24 08:00
Physical Exam
Constitutional: Acutely Ill and Toxic
Head: Normocephalic and Other (ET tube in place. NG tube in place)
Eyes: Sclera Anicteric
Cardiovascular: S1/S2; Negative S3/S4
Pulmonary: Other (On vent)
Gastrointestinal: Soft, Distended and Decreased Bowel Sounds
Extremities: Edema; Negative Cyanosis or Erythema
Wound: Other (Abdominal wound with ABThera temporary abdominal closure device in place.)
Neurological: Other (Responsive to voice and touch. Somnolent)
Psychological: Calm
Objective Data
Lab Data
Lab Results
10/30/24 03:57
ESR 11 mm/hour (0-20) 10/26/24 08:41
PT 26.5 Sec (11.4-14.6) H 10/30/24 03:57
INR 2.43 10/30/24 03:57
APTT 57.8 Sec (23.4-35.0) H 10/30/24 03:57
Estimated Creat Clear Cancelled 10/30/24 04:00
Lactic Acid 3.1 mmol/L (0.7-2.0) H 10/30/24 03:59
Total Bilirubin Cancelled 10/30/24 04:00
AST Cancelled 10/30/24 04:00
ALT Cancelled 10/30/24 04:00
Alkaline Phosphatase Cancelled 10/30/24 04:00
C-Reactive Protein < 5.00 mg/L (0.0-10.00) 10/26/24 08:41
Most recent labs reviewed.
Micro Results:
10/28/24 20:16 Blood Culture - Preliminary
Blood/Venous Positive culture in progress
Gram Stain - Preliminary
10/28/24 20:16 Blood Culture - Preliminary
Blood/Venous Escherichia coli
Gram Stain - Preliminary
10/28/24 AXR: Concern for intraperitoneal free air, but limited by the portable supine technique.
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
Care Review
Plan reviewed with: Physician (Critical Care)
[2024-10-30] MEDS: DEXTROSE 50% SYRINGE 12.5 GRAMS IV (08:30)
[2024-10-30 08:39] LABS: Glucose - Point of Care 52 mg/dl (70-99)
--- NOTE | 2024-10-30 08:41 | PTCARENOTE ---
Addendum entered by Vanita Wright RN 10/30/24 08:57:
Repeat level- 107.
Addendum entered by Vanita Wright RN 10/30/24 08:53:
D10W*
Original Note:
Patient's glucose level observed to be trending down. Glucose level 52. Timber Appraiser notified. Amp of D50 administered. Orders for D5W placed.
--- NOTE | 2024-10-30 08:47 | W.PN.HOSP.TC ---
Today's Communication/Plan
-
Continue with vasopressors and wean as able
Continue with empirical antibiotics
Follow coagulation profile- If plans were over would consider FFP; patient's status post vitamin K.
Check hepatitis B DNA levels
Assessment / Plan
Assessment / Plan
Intestinal perforation secondary to stricturing ileal disease from Crohn's disease
Patient admitted with small bowel obstructive symptoms and progressed to bowel perforation.
Status post emergent abdominal surgery including excision of perforated segment, abdominal washout. Abdomen open for staged procedure. Abdominal VAC in situ.
Admission CT A/P High-grade small bowel obstruction secondary to a long segment of narrowing of the terminal ileum, most suggestive of a stricture from a chronic inflammatory ileitis in the setting of the patient's known inflammatory bowel disease.
No transition point noted.
-Continue postop care per general surgery. Follow-up further intestinal resection and closure of abdomen pending-tentatively today
- Currently NPO. Would probably require TPN.
- Continue with IV fluids.
- Continue with empirical antibiotic Zosyn. ID following
- Continue the pain regimen
- Hold therapeutic doses of steroids. Continue with stress dose steroids.
- IBD treatments after recovery per GI
Clinical shock with lactic acidosis-suspect septic . Continue with pressors and wean as able for MAP more than equal to 65. Follow I&O's and urine output. Wean pressors as able
E. coli bacteremia from abdominal source-continue with Zosyn
Low fibrinogen levels-felt less likely DIC per hematology with normal platelets at onset. Hematology input noted. Fibrinogen level normal today.
Abdominal wall discoloration-apparently this was noted before. Discussed with GI PSYCHOLOGY TECHNICIAN who has documented this in the chart apparently patient was using heat pad and noticed skin changes after that at home. Not a case of purpura.
Coagulopathy-elevated INR and PTT noted. Fibrinogen normal. Status post vitamin K. Follow INR and PTT.
Thrombocytopenia-drop in platelets noted-patient currently septic which could be 1 of explanation. Continue to follow closely. If less than 50,000 will hold Lovenox and do sequential teds.
Transaminitis acute mild elevation noted-continue to follow for now.
Positive total anti-HBc-no anti-HBs or anti-HBc Ag noted. Would normally suggest chronic HBV but also could be false positive. Check hepatitis B DNA levels
Hyponatremia - Hypovolemic hyponatremia suspected on admission given presentation and labs.
Continue with IV fluids and follow
Hypomagnesemia-replete
Hypocalcemia-replete
DVT PPX -subcu heparin when okay from surgical standpoint
Discussed with the and mother at bedside-with perforation, sepsis, shock on multiple pressors prognosis is guarded.
Discussed with DIGITAL MARKETING PROGRAM MANAGER
Code status - Full Code
Total Critical Care Time____35_ minutes. I was immediately available to the patient and staff. I personally examined, reviewed labs, diagnostic images/reports, interpretations, treatment plans, discussed patient care with other providers and
family or caregivers (if patient is unable to make decisions), entered orders as appropriate and documented the medical record.
Portions of this chart may have been created with voice recognition software. Occasional wrong word or 'sound alike' substitutions may have occurred due to the inherent limitations of voice recognition software.
Anticipated Discharge: > 48 hours
Subjective/Interval History
-
Date of Service: October 30, 2024
Sedated on vent.
RN at bedside-coming down on pressors. Tentatively for OR today.
Objective Data
-
Labs:
Laboratory Results
10/29/24 10/29/24 10/30/24
09:57 21:53 03:57
WBC 23.5 H
Hgb 9.6 L
Hct 28.0 L
Plt Count 68 L D
PT Cancelled 26.5 H
INR Cancelled 2.43
APTT Cancelled 57.8 H
HCO3 18.4 L 18.0 L
Sodium 130 L 132 L
Potassium 3.5 3.7
Chloride 108 H 106
Carbon Dioxide 20 L 20 L
BUN 8 8
Creatinine 0.7 0.7
Glucose 62 L 79
Calcium 6.5 L* 7.9 L
Total Bilirubin 1.3 1.8 H
AST 37 H 35
ALT 41 H 41 H
Alkaline Phosphatase 22 L 28 L
10/30/24 10/30/24 10/30/24
04:00 12:00 12:00
WBC
Hgb
Hct
Plt Count
PT
INR
APTT
HCO3 Cancelled Cancelled Pending
Sodium Cancelled Cancelled
Potassium Cancelled
Chloride Cancelled
Carbon Dioxide Cancelled
BUN Cancelled
Creatinine Cancelled
Glucose Cancelled
Calcium Cancelled
Total Bilirubin Cancelled
AST Cancelled
ALT Cancelled
Alkaline Phosphatase Cancelled
10/30/24 10/30/24 10/30/24
12: 12:00 12:00
WBC
Hgb
Hct
Plt Count
PT
INR
APTT
HCO3
Sodium Pending
Potassium Cancelled Pending
Chloride Cancelled Pending
Carbon Dioxide Cancelled
BUN
Creatinine
Glucose
Calcium
Total Bilirubin
AST
ALT
Alkaline Phosphatase
10/30/24 10/30/24 10/30/24
12: 12:00 12:00
WBC
Hgb
Hct
Plt Count
PT
INR
APTT
HCO3
Sodium
Potassium
Chloride
Carbon Dioxide Pending
BUN Cancelled Pending
Creatinine Cancelled Pending
Glucose Cancelled
Calcium
Total Bilirubin
AST
ALT
Alkaline Phosphatase
10/30/24 10/30/24 10/30/24
12: 12:00 18:00
WBC
Hgb
Hct
Plt Count
PT
INR
APTT
HCO3 Cancelled
Sodium Cancelled
Potassium Cancelled
Chloride Cancelled
Carbon Dioxide Cancelled
BUN Cancelled
Creatinine Cancelled
Glucose Pending Cancelled
Calcium Cancelled Pending Cancelled
Total Bilirubin Pending
AST Pending
ALT Pending
Alkaline Phosphatase Pending
10/30/24
20:00
WBC Pending
Hgb Pending
Hct Pending
Plt Count Pending
PT
INR
APTT
HCO3 Pending
Sodium Pending
Potassium Pending
Chloride Pending
Carbon Dioxide Pending
BUN Pending
Creatinine Pending
Glucose Pending
Calcium Pending
Total Bilirubin Pending
AST Pending
ALT Pending
Alkaline Phosphatase Pending
Vital Signs:
Vital Signs
Temp Pulse Resp BP Pulse Ox
98.8 F 90 16 100/59 100
10/30/24 08:21 10/30/24 08:00 10/30/24 08:00 10/30/24 07:08 10/30/24 08:10
I&O
10/29/24 10/30/24 10/31/24
06:59 06:59 06:59
Intake Total 5705.9 / 5900.1 7270.5 / 7525.9 327.8 / 327.8
Output Total 2125 / 2162.5 2658.0 / 2718.0 160 / 160
Balance 3580.9 / 3737.6 4612.5 / 4807.9 167.8 / 167.8
Review of Systems
-
Unable to obtain full review of systems at this time due to: Patient Intubation
Physical Exam
-
General: No Apparent Distress
Respiratory: Clear to Auscultation (Anteriorly) and Non Labored Respirations; Negative Accessory Resp Muscle Use
Cardiac: Regular Rhythm, S1/S2 and Tachycardic
GI: Soft and Other (Abdominal VAC in place); Negative Normal Bowel Sounds
Musculoskeletal: No Edema
Neuro: Sedated
Psych: Calm
Data Reviewed
-
Labs: Labs Reviewed by me
[2024-10-30 09:08] LABS: Glucose - Point of Care 107 mg/dl (70-99)
[2024-10-30] MEDS: D10W 500 IV ×2 (09:12→23:09)
[2024-10-30] MEDS: AQUAMEPHYTON 51 MG IV (09:13)
--- NOTE | 2024-10-30 09:37 | PTCARENOTE ---
Vitamin K administered as ordered.
[2024-10-30 11:48] LABS: Glucose - Point of Care 133 mg/dl (70-99)
--- NOTE | 2024-10-30 11:52 | PTCARENOTE ---
Systems reviewed. No major changes from prior assessment. Weaning Levophed as tolerated. Repeat labs sent.
[2024-10-30 11:55] LABS: B.E. -2.5 mmol/L; HCO3 20.9 mmol/L (21-28); O2 Saturation % 96.8 % (94-98); PCO2 30 mmHg (32-35); PO2 182 mmHg (83-108)
[2024-10-30 11:57] LABS: O2 Therapy VENT
[2024-10-30 12:08] LABS: ALT (SGPT) 36 U/L (0-35); AST (SGOT) 26 U/L (14-36); Albumin 2.2 g/dl (3.5-5.0); Alkaline Phosphatase 29 U/L (38-126); Blood Urea Nitrogen 6 mg/dl (7-17); Calcium 7.5 mg/dl (8.4-10.2); Carbon Dioxide 22 mmol/L (22-30); Chloride 107 mmol/L (98-107); Estimated Creatinine Clearance 95 ml/min; Glucose 119 mg/dl (70-99); Magnesium 1.8 mg/dl (1.6-2.3); Potassium 3.2 mmol/L (3.5-5.1); Sodium 132 mmol/L (135-145); Total Protein 3.4 g/dl (6.3-8.2); eGFR > 60.00
--- NOTE | 2024-10-30 12:20 | W.PN.ONC ---
Today's Communication / Plan
-
Clinical picture is c/w DIC in the setting of sepsis/bacteremia/bowel perf/surgery
Would give FFP if going to OR; Vit K unlikely to correct coags
Transfuse platelets to goal >50K if going to OR, >10K otherwise
Monitor coags, fibrinogen (would give cryoppt if fibringogen < 150)
Recs shared w/ security screener and on-call surgeon via [employer]
Impression
Impression
sepsis
SB perf, s/p, washout, small bowel resection for perforation
E coli bacteremia
coagulopathy, thrombocytopenia -- c/w DIC
VDRF
Crohns
mild normocytic anemia
Plan
Plan
Clinical picture is c/w DIC in the setting of sepsis/bacteremia/bowel perf/surgery
Would give FFP if going to OR; Vit K unlikely to correct coags
Transfuse platelets to goal >50K if going to OR, >10K otherwise
Monitor coags, fibrinogen (would give cryoppt if fibringogen < 150)
Recs shared w/ security screener and on-call surgeon via [employer]
Subjective/Objective
Subjective/Objective
Patient sedated, intubated. Per RN, doing much better today, pressors are being weaned.
Vital Signs:
Vital Signs
Temp Pulse Resp BP Pulse Ox
98.7 F 79 16 87/62 100
10/30/24 11:19 10/30/24 12:00 10/30/24 12:00 10/30/24 12:00 10/30/24 12:00
Lab Results:
Laboratory Data
WBC 23.5 10^3/uL (4.8-10.8) H 10/30/24 03:57
Hgb 9.6 g/dL (12.0-16.0) L 10/30/24 03:57
Plt Count 68 10^3/uL (130-400) L D 10/30/24 03:57
PT 26.5 Sec (11.4-14.6) H 10/30/24 03:57
INR 2.43 10/30/24 03:57
APTT 57.8 Sec (23.4-35.0) H 10/30/24 03:57
eGFR Cancelled 10/30/24 18:00
--- NOTE | 2024-10-30 12:22 | W.PN.GS2 ---
Today's Communication / Plan
-
OR scheduled for tomorrow
-- Continue ongoing IV fluid resuscitation and vasopressors for blood pressure support. She continues on 2 pressors although they are being weaned.
-- N.p.o., NG tube decompression (no medications via NG tube)
-- Continue antibiotics
-- Thrombocytopenia - continue to monitor and hold heparin. Might need platelet transfusion for surgery.
-- Fibrinogen stable but INR is increasing. Will give FFP today and repeat labs in preparation for surgery in am.
I called and reviewed with her , all questions answered.
Assessment / Plan
-
Assessment: 48-year-old female admitted with recurrent small bowel obstruction in the setting of recent diagnosis of Crohn's disease and tapering steroids
Postop day #2 emergent ex lap, washout, small bowel resection and placement of ABThera temporary abdominal closure device
For perforated ileum proximal to site of obstruction/Crohn's disease
Perforated viscus with septic shock and multisystem organ failure
Plan: Continue ongoing IV fluid resuscitation and vasopressors for blood pressure support. She continues on 2 pressors although they are being weaned.
N.p.o., NG tube decompression (no medications via NG tube)
ABThera temporary abdominal closure device in place and functioning
Zosyn for empiric coverage of small bowel perforation
Nephrology following for possible need of CRRT
Thrombocytopenia - continue to monitor and hold heparin. Might need platelet transfusion for surgery.
Fibrinogen stable but INR is increasing. Will give FFP today and repeat labs in preparation for surgery in am.
I reviewed her care with her and the plan is for surgery tomorrow am depending upon her stability. I reviewed the case with Dr. Wiley.
Multiple specialist assistance with postoperative care appreciated
Subjective Data
-
Date of Service: October 30, 2024
Patient seen and examined. and nursting at bedside.
Patient remains intubated, sedated but appropriately responsive
Objective Data
-
Intake and Output
10/29/24 10/30/24 10/31/24
06:59 06:59 06:59
Intake Total 5705.9 / 5900.1 7270.5 / 7525.9 786.6 / 786.6
Output Total 2125 / 2162.5 2658.0 / 2718.0 450 / 450
Balance 3580.9 / 3737.6 4612.5 / 4807.9 336.6 / 336.6
Intake:
Oral fluids 1200 / 1200 0 / 0 0 / 0
IV fluids (Total) 2205.9 / 2400.1 6120.5 / 6295.9 625.6 / 625.6
BICARB GTT 525 / 600 525 / 525
D10w 500 ml @ 30 mls/hr IV . 120 / 120
[id number] TOMASZ Rx#:[id number]
EPINEPHRINE 37.5 / 37.5
FENTANYL 72.5 / 82.5 325.0 / 340.0 90 / 90
LEVOPHED 1017 / 1073.3 1268.5 / 1306.0 193.2 / 193.2
Lr 1,000 ml @ 100 mls/hr IV . 1999 100 / 100
Q10H TOMASZ Rx#:[id number]
ANTHONY (PHENYLEPHRINE) 366 / 396 420 / 420
NS bolus 1000 / 1000
PROPOFOL 79.9 / 90.8 294.0 / 304.9 65.4 / 65.4
VASOPRESSIN 108 / 120 288 / 300 57 / 57
IV piggybacks 2300 / 2300 700 / 750 101 / 101
Amount instilled into GI Tube ( 150 / 180 60 / 60
Total)
Letcher Sump 150 / 180 60 / 60
Blood Products 300 / 300
Albumin 25% 300 / 300
Output:
Drain Output (Total) 1000 / 1000 1900 / 1900
Middle Abdomen Wound Vac 1000 / 1000 1900 / 190
Gastrointestinal tube output ( 75 / 75 50 / 50
Total)
Letcher Sump 75 / 75 50 / 50
Urine, Otero 1050 / 1087.5 708.0 / 768.0 450 / 450
Other:
How many times incontinent 5
MODERATE amount urine
Vital Signs
Temp Pulse Resp BP Pulse Ox
98.7 F 79 16 87/62 100
10/30/24 11:19 10/30/24 12:00 10/30/24 12:00 10/30/24 12:00 10/30/24 12:00
Calcium Cancelled 10/30/24 18:00
Phosphorus 2.9 mg/dl (2.5-4.5) 10/29/24 00:49
Magnesium 1.8 mg/dl (1.6-2.3) 10/30/24 11:36
Total Bilirubin 2.0 mg/dl (0.2-1.3) H 10/30/24 11:36
Direct Bilirubin 0.9 mg/dl (0.0-0.4) H 10/28/24 22:42
AST 26 U/L (14-36) 10/30/24 11:36
ALT 36 U/L (0-35) H 10/30/24 11:36
Alkaline Phosphatase 29 U/L (38-126) L 10/30/24 11:36
Total Protein 3.4 g/dl (6.3-8.2) L 10/30/24 11:36
Albumin 2.2 g/dl (3.5-5.0) L 10/30/24 11:36
Physical Exam
-
Patient has a otero catheter: Yes
Patient has a central line: Yes
[2024-10-30] MEDS: KCL 100 IV ×2 (12:51→21:42)
--- NOTE | 2024-10-30 12:54 | PTCARENOTE ---
Lab results discussed with Organ Fixer. KCl and Mag repletion ordered. FFP orders placed in preparation for OR in am.
--- NOTE | 2024-10-30 14:43 | PTCARENOTE ---
1st unit of FFP transfusing. VSS.
[2024-10-30] MEDS: HEPARIN SC ×2 (15:07→23:12)
--- NOTE | 2024-10-30 16:00 | W.PN.NEPH.PH ---
Today's Communication / Plan
-
Continue albumin urine supportive care
Assessment/Plan
-
48 yo F with a PMH notable for recently diagnosed Crohn's who presents with worsening abdominal pain and nausea.
She was evaluated as an outpatient by GI and underwent a colonoscopy in 08/2024 which was concerning for IBD. She was then admitted to from 09/30 to 10/04 for management of a partial SBO related to a Crohn's flare. She was treated with steroids at
that time with improvement in her symptoms.
She reports abdominal discomfort and nausea developing over the past week. She is found to have SBO with NG tube placed currently with improvement
Renal consultation for sodium of 124 urine sodium less than 5
Impression
Crohn disease with SBO
Hypokalemia
hyponatremia
Perforated viscus acute septic shock
Plan
Mechanical ventilation
Status post SBO resection 10/28 for acute abdominal pain and perforated viscus
Kidney function remained stable she is nonoliguric
Remains on pressor support
IV fluids on hold
she is anasarcic with hypoalbuminemia but will hold on
Any diuresis at this time as she has very low intravascular volume and agree with continuing albumin

33minutes total critical care time
-
-
Date of Service: October 30, 2024
CC / HPI / ROS
-
Chief Complaint:
hyponatremia
History of Present Illness:
Na up to 130 stable
Status post SBO resection perforated viscus
Septic shock
Review of Sytems:
Intubated
Oliguric
Labs
-
Labs:
eGFR Cancelled 10/30/24 18:00
Phosphorus 2.9 mg/dl (2.5-4.5) 10/29/24 00:49
Physical Exam
-
Vital Signs:
Vital Signs
Temp Pulse Resp BP Pulse Ox
98.2 F 71 16 98/58 100
10/30/24 15:36 10/30/24 15:36 10/30/24 15:36 10/30/24 15:36 10/30/24 15:36
Respiratory:: Bilateral: Coarse
Lung Excursion:: Normal
Bowel Sounds:: Normal
Extremity Edema:: +3: Bilateral:
Post Catheter: Yes
[2024-10-30 17:28] LABS: Glucose - Point of Care 133 mg/dl (70-99)
--- NOTE | 2024-10-30 20:00 | PTCARENOTE ---
assumed care, pt intubated and sedated, follows commands, nods head appropriately, denies pain, RASS -2, PERRLA 2, B/L wrist restraints, Sinus on the monitor, weak pulses, +3 GA and +3 LE, B/L scds, #7 ETT 22cm @ the lip, RT notified, diminished and
coarse throughout, AC 16/420/5/40%, no BS, abd distended, mottled and soft to touch, wound vac dressing dry and intact c serous output, R NGT 55cm to LIS c clear output, Post c anisa output, skin per worklist, R TL IJ, 20G RAC, 20G L hand, Levo,
vaso, fent and prop gtts per worklist, D10W 30ml/hr, @ bedside updated and emotional support provided, safe environment maintained, otherwise refer to documentation.
[2024-10-30 20:13] LABS: B.E. -0.8 mmol/L; HCO3 22.1 mmol/L (21-28); O2 Saturation % 97.3 % (94-98); PCO2 29 mmHg (32-35); PO2 168 mmHg (83-108)
[2024-10-30 20:23] LABS: INR 1.27; PT 16.2 Sec (11.4-14.6)
[2024-10-30 20:28] LABS: ALT (SGPT) 32 U/L (0-35); AST (SGOT) 24 U/L (14-36); Albumin 2.5 g/dl (3.5-5.0); Alkaline Phosphatase 57 U/L (38-126); Blood Urea Nitrogen 7 mg/dl (7-17); Calcium 8.0 mg/dl (8.4-10.2); Carbon Dioxide 22 mmol/L (22-30); Chloride 106 mmol/L (98-107); Estimated Creatinine Clearance 111 ml/min; Glucose 129 mg/dl (70-99); Potassium 3.3 mmol/L (3.5-5.1); Sodium 132 mmol/L (135-145); Total Protein 4.2 g/dl (6.3-8.2); eGFR > 60.00
[2024-10-30 20:42] LABS: Hematocrit 23.2 % (37.0-47.0); Hemoglobin 8.0 g/dL (12.0-16.0); Mean Corp Hgb Conc. 34.5 g/dL (33.0-37.0); Mean Corpuscular Volume 89.6 fL (81.0-99.0); Nucleated Red Blood Cells % 0 %; Platelet Count 37 10^3/uL (130-400); Red Cell Dist. Width 13.4 % (11.5-14.5)
--- NOTE | 2024-10-30 22:04 | PTCARENOTE ---
Labs sent, TT and communicated concerns to CARDIOPULMONARY SUPERVISOR, plts 38 CARDIOPULMONARY SUPERVISOR ordered a unit of plts transfused per TAR, 2 units also ordered by CARDIOPULMONARY SUPERVISOR by request of Dr. Ramirez to be held for OR tomorrow, K repleted, otherwise refer to documentation.
[2024-10-30 23:28] LABS: Glucose - Point of Care 136 mg/dl (70-99)
--- NOTE | 2024-10-31 | PTCARENOTE ---
systems reviewed, Heparin held per MD order, gtts per worklist, ETT migrated to 22cm, RT called and advanced to 24cm, otherwise refer to documentation.
[2024-10-31] MEDS: ZOSYN 50 IV ×2 (01:29→07:35)
[2024-10-31] MEDS: DIPRIVAN 100 IV ×3 (01:35→20:33)
[2024-10-31] MEDS: NSS 500 IV (02:30)
[2024-10-31] MEDS: SUBLIMAZE 50 MCG IV (03:47)
[2024-10-31 04:04] LABS: B.E. -4.0 mmol/L; HCO3 20.7 mmol/L (21-28); O2 Saturation % 95.5 % (94-98); PCO2 35 mmHg (32-35); PO2 72 mmHg (83-108)
[2024-10-31 04:12] VITALS: BMI 29.4
--- NOTE | 2024-10-31 04:13 | PTCARENOTE ---
systems reviewed, labs sent, chg bath, during turn SpO2 dropped to low 80's, 100% on vent and pt sats quickly recovered, thick echevarria secretions from ETT, CPOT 3 treated per APR, with oral care pt biting down on tube, weight obtained, with turn abthera
vac output changed to a serosanguineous from previously documented output, canister changed on wound vac, pt oliguric 15ml/hr EYEGLASS LENS GENERATOR notified 500ml NS bolus per order, otherwise refer to documentation
[2024-10-31 04:15] LABS: INR 1.23; PT 15.8 Sec (11.4-14.6)
[2024-10-31 04:16] LABS: APTT 37.9 Sec (23.4-35.0); Fibrinogen 416 MG/DL (199-459)
[2024-10-31 04:29] LABS: Hematocrit 24.9 % (37.0-47.0); Hemoglobin 8.4 g/dL (12.0-16.0); Mean Corp Hgb Conc. 33.7 g/dL (33.0-37.0); Mean Corpuscular Volume 91.2 fL (81.0-99.0); Nucleated Red Blood Cells % 0 %; Platelet Count 44 10^3/uL (130-400); Red Cell Dist. Width 13.6 % (11.5-14.5)
[2024-10-31 04:36] LABS: ALT (SGPT) 30 U/L (0-35); AST (SGOT) 20 U/L (14-36); Albumin 2.3 g/dl (3.5-5.0); Alkaline Phosphatase 71 U/L (38-126); Blood Urea Nitrogen 8 mg/dl (7-17); Calcium 7.4 mg/dl (8.4-10.2); Carbon Dioxide 23 mmol/L (22-30); Chloride 107 mmol/L (98-107); Estimated Creatinine Clearance 114 ml/min; Glucose 113 mg/dl (70-99); Potassium 3.6 mmol/L (3.5-5.1); Sodium 133 mmol/L (135-145); Total Protein 3.9 g/dl (6.3-8.2); eGFR > 60.00
[2024-10-31 04:37] LABS: Magnesium 1.9 mg/dl (1.6-2.3)
[2024-10-31 05:27] LABS: Glucose - Point of Care 115 mg/dl (70-99)
[2024-10-31] MEDS: SOLU-CORTEF 50 MG IV ×4 (05:30→22:56)
[2024-10-31] MEDS: NOVOLOG FLEXPEN-LOW RESISTANCE SC ×4 (05:30→23:46)
[2024-10-31] MEDS: FLEXBUMIN 100 IV (05:37)
[2024-10-31] MEDS: POTASSIUM PHOSPHATE 259.0909 MEQ IV (05:40)
[2024-10-31 05:58] VITALS: BP 104/58
[2024-10-31] MEDS: SUBLIMAZE 100 IV ×3 (06:13→22:59)
[2024-10-31 06:21] VITALS: BP 102/60
[2024-10-31 06:35] VITALS: BP 103/61
[2024-10-31] MEDS: HEPARIN SC (07:00)
[2024-10-31 07:13] VITALS: BP 100/67
[2024-10-31] MEDS: NSS (PRESERVATIVE FREE) 10 ML IV (07:35)
[2024-10-31] MEDS: PROTONIX IV 40 MG IV (07:36)
--- NOTE | 2024-10-31 07:55 | W.PN.ID1 ---
Date of Service
Date of Service: October 31, 2024
Today's Communication
Continue antibiotics. Broaden empirically to meropenem while further cultures are pending.
Assessment / Plan
# Recent new dx Crohn's with long ileal stricture and SBO
# Perforated small bowel with peritonitis
# E. coli bacteremia from abd source
# Septic shock on pressors
# VDRF
# Leukocytosis
- trending up
# Thrombocytopenia
- likely secondary to sepsis
# Lactic acidosis
Recommendations:
- 10/28 s/p ex-lap abd washout, SBR w/o anastomosis, placement of temporary ABThera closure
- Broaden antibiotics empirically to meropenem while further cultures and susceptibility are pending.
- Repeat blood cultures today. Check intraoperative cultures if possible.
- Await further susceptibility data from positive blood culture
- Continue ICU support.
- Patient for return to the OR this a.m.
Patient remains critically ill, on multiple pressors, vent dependent in ICU.
����������������������������������������������������������
Chief Complaint
-: Clinical Sepsis and Other (Perforated viscus)
Subjective / Review of Systems
Patient seen and examined. Remains critically ill in intensive care unit at this time. Pressors being weaned and now down to 2. For OR this morning.
Vital Signs / Physical Exam
Vital Signs
Vital Signs
Temp Pulse Resp BP Pulse Ox
98.3 F 73 16 100/67 100
10/31/24 07:28 10/31/24 07:30 10/31/24 07:30 10/31/24 07:13 10/31/24 07:30
Physical Exam
Constitutional: Acutely Ill and Toxic
Head: Normocephalic and Other (ET tube in place. NG tube in place)
Eyes: Sclera Anicteric
Cardiovascular: S1/S2; Negative S3/S4
Pulmonary: Other (On vent)
Gastrointestinal: Soft, Distended and Decreased Bowel Sounds
Extremities: Edema; Negative Cyanosis or Erythema
Wound: Other (Abdominal wound with ABThera temporary abdominal closure device in place.)
Neurological: Other (Sedated.)
Objective Data
Lab Data
Lab Results
10/31/24 03:57
10/31/24 03:57
ESR 11 mm/hour (0-20) 10/26/24 08:41
PT 15.8 Sec (11.4-14.6) H 10/31/24 03:57
INR 1.23 10/31/24 03:57
APTT 37.9 Sec (23.4-35.0) H 10/31/24 03:57
Estimated Creat Clear 114 ml/min 10/31/24 03:57
Lactic Acid 2.1 mmol/L (0.7-2.0) H 10/30/24 20:06
Total Bilirubin 2.1 mg/dl (0.2-1.3) H 10/31/24 03:57
AST 20 U/L (14-36) 10/31/24 03:57
ALT 30 U/L (0-35) 10/31/24 03:57
Alkaline Phosphatase 71 U/L (38-126) 10/31/24 03:57
C-Reactive Protein < 5.00 mg/L (0.0-10.00) 10/26/24 08:41
Most recent labs reviewed.
Micro Results:
10/28/24 20:16 Blood Culture - Preliminary
Blood/Venous Positive culture in progress
Gram Stain - Preliminary
10/28/24 20:16 Blood Culture - Preliminary
Blood/Venous Escherichia coli
Gram Stain - Preliminary
Imaging:
10/28/24 AXR: Concern for intraperitoneal free air, but limited by the portable supine technique.
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
Care Review
Plan reviewed with: Physician (Critical Care)
--- NOTE | 2024-10-31 08:37 | PTCARENOTE ---
Rec'd care of patient at 0700. Intubated and sedated on Fent/Prop. Arousable to verbal stimuli. Pupils equal and reactive; +2mm. MAEx4. NSR; rate in the 70-80's. Right radial colton zeroed and correlating with bp cuff. Levo and Vaso infusing through
RIJ. Generalized anasarca. +Doppler pulses. #7.0 ett, 24cm @ lip. A/C 16/420/5/40%. Pulse ox 96%. Lung sounds coarse, rhonchi. Diminished in b/l base. Thick, echevarria secretions suctioned from ett. Absent BS. Abdomen distended, mottled in appearance.
Abdominal closure intact on and functioning. NGT to LIWS. Clear output. Post in place for critical I/O. Output improved; 30-45 cc/hr. Per Dr Wilkes, 2 units PRBCs, 2 units FFP and 1 unit Plts placed on hold for OR. HIT panel sent.
Patient transported to OR at 0830.
Per request of ID, Meropenem dose obtained and sent to OR.
--- NOTE | 2024-10-31 10:04 | W.PN.INTV ---
Today's Communication / Plan
Recommendations
- Hold subcu heparin when platelet count below 50,000
- Follow-up ABG and serial electrolytes
- SAT/SBT beginning on 11/01
- Follow-up chest x-ray in a.m
- Consideration for TPN in coming days if enteral nutrition not started
Assessment
-
Patient is a 48-year-old female who is critically ill and currently intubated, sedated and mechanically ventilated. History primarily obtained from records as well as discussion with other providers. Reportedly patient has history of Crohn's
disease with terminal ileitis with recurrent small bowel obstruction in the past. She was admitted to the hospital on 10/25 with similar complaints of abdominal pain concerning for small bowel obstruction. Patient was evaluated by GI and general
surgery service and currently was being managed conservatively. On 10/28, patient developed worsening abdominal pain and reported mottling of abdominal skin. Patient also developed hypotension. Stat abdominal x-ray was concerning for perforation
with intraperitoneal air. General surgery reviewed the films and patient was emergently taken to OR and had a laparotomy. Patient noted to have small bowel perforation. Patient had abdominal washout, small bowel resection and then was transferred
to ICU with open abdomen with VAC in place. Patient had been in severe shock on mechanical ventilation, multiple pressors. Cell Repairer consult was requested for further input.
10/31 overview: Patient currently intubated, sedated and mechanically ventilated. 7.30 8/35/72, on volume assist-control 420/16/40%/5. Current MAP of 85%, saturating 100%. Current infusions Levophed at 10, vasopressin at 0.03. Propofol and
fentanyl infusing. Also infusing D10. NG currently to suction. Worsening anasarca noted.
#1. Shock, septic in the setting of perforated gut
- Patient continues to be critically ill, gradually improving. Decreasing pressor requirement, down to 2 pressors now, Levophed at 10 and vasopressin at 0.03
- Off bicarb infusion now, developing anasarca, off Ringer lactate infusion
- Continue broad-spectrum antibiotic. Had been on vancomycin and Zosyn, now switched to meropenem, continue stress dose steroids hydrocortisone 50 mg IV every 6 hours
- 10/30 S/p additional albumin 50 g, 25%
- Continue mechanical ventilation, follow-up serial ABG
#2. Lactic acidosis
- Related to severe shock and perforated gut
- S/p expiratory laparotomy 10/28, currently open abdomen
- Responded to volume resuscitation, pressor support, steroids and IV albumin. Lactate down to 2.1 now
- Off bicarb infusion now considering improved acidosis and lactate
#3. Acute surgical abdomen with small bowel perforation (10/28)
- S/p exploratory laparotomy, abdominal washout, small bowel resection, currently open abdomen, VAC in place
- Surgery service on case
- Returning to the OR on 10/31.
#4. Acute respiratory failure, ventilator dependent
- Related to severe underlying metabolic acidosis and postop
- Continue mechanical ventilation, volume assist-control. 420/16/40%/5
- Continue sedation with propofol and fentanyl, daily x-ray, serial ABG
#5. H/o Crohn's disease with terminal ileitis, fibrotic stricture
- Initial presentation with small bowel obstruction due to inflammatory strictures in distal ileum
- Had been on Solu-Medrol IV, currently on hydrocortisone stress dose 50 mg IV every 6 hours now
- Gastroenterology and GI service on case
- If enteral nutrition not started in coming days, will consider TPN
#6. Hyponatemia
- Mild, continue to monitor for now
- Replaced IV magnesium, IV calcium and IV potassium. Serial labs
#7. Coagulopathy
- Platelet count drifting down, INR up. Fibrinogen has been stable
- S/p vitamin K, platelet infusions, fresh frozen plasma.
- Check HIT panel, hold subcu heparin considering platelet count is below 50,000
Other medical diagnoses:
- Rectal aphthous ulcer
- H/o Smoking
- Hepatic steatosis
DVT prophylaxis. Subcu Lovenox
GI prophylaxis. IV Protonix
Updated family at bedside
Critical Care time 48 mins -- The patient is admitted for acute critical illness for the treatment of vital organ failure and/or prevention of further life-threatening conditions. Total care includes time spent in review of history, physical exam,
medications, hemodynamic/ventilator parameters, laboratory data, imaging and discussion with house staff, pharmacy, respiratory therapy, fish cutter, and nursing.
Data:
KUB 10/2024: Concern for intraperitoneal free air, but limited by the portable supine technique.
CT A/P 10/2024: High-grade small bowel obstruction secondary to a long segment of narrowing of the terminal ileum, most suggestive of a stricture from a chronic inflammatory ileitis in the setting of the patient's known inflammatory bowel disease.
Mild abdominopelvic ascites.
Severe hepatic steatosis.
Colonoscopy 08/2024: Mildly nodular and altered vascular mucosa with few apthous ulcers
in the rectum, in the recto-sigmoid colon and in the sigmoid colon.
Biopsied.
- The examined portion of the ileum was normal. Was hard to intubate
the TI the ICV opening was narrow and colon was tortuous so only the
very distal part of TI was examined and appeared normal.
Subjective Dataa
Subjective Data
Date of Service:
Date of Service: October 31, 2024
Subjective:
Patient currently intubated, mechanically ventilated and sedated.
Review of Systems
General: Unobtainable - Sedation
Objective Data
Data Reviewed
Vital Signs / I&O / Oxygen:
Vital Signs
Temp Pulse Resp BP Pulse Ox
98.3 F 77 15 100/67 100
10/31/24 07:28 10/31/24 08:30 10/31/24 08:30 10/31/24 07:13 10/31/24 08:30
Intake and Output
10/30/24 10/31/24 11/01/24
06:59 06:59 06:59
Intake Total 7270.5 / 7525.9 5667.7 / 5996.4 527.4 / 527.4
Output Total 2658.0 / 2718.0 1175 / 1220 75 / 75
Balance 4612.5 / 4807.9 4492.7 / 4776.4 452.4 / 452.4
SaO2 [A/C] 98
SaO2 100
Physical Exam
General: Comfortable and Other
HEENT: Other (Mild conjunctival pallor)
Cardiovascular: S1-S2 and Peripheral Edema (Worsening pedal edema, 3+ bilaterally now)
Respiratory: Clear and Non-Labored Respirations
GI: Distended
Neurology: Other (Sedated, wakes up with little stimulation)
Skin: Warm
Labs/Micro/Reports
Lab Data
10/31/24 03:57
10/31/24 03:57
Laboratory Results
10/30/24 10/30/24 10/31/24
11:36 20:06 03:57
PT 16.2 H 15.8 H
INR 1.27 1.23
APTT 37.9 H
pH 7.45 7.49 H 7.38
pCO2 30 L 29 L 35
pO2 182 H 168 H 72 L
HCO3 20.9 L 22.1 20.7 L
O2 Delivery Level Vent
Microbiology
10/28/24 20:16 Blood/Venous Blood Culture - Preliminary
Escherichia coli
10/28/24 20:16 Blood/Venous Gram Stain - Preliminary
10/28/24 20:16 Blood/Venous Blood Culture - Preliminary
Positive culture in progress
10/28/24 20:16 Blood/Venous Gram Stain - Preliminary
--- NOTE | 2024-10-31 10:20 | W.IMMPOSTOP ---
Surgical Immed Post Op Note
-
Primary Surgeon: Ernesto Rodriguez MD
Assisting Surgeon: Sahil Fong MD
Pre-op Diagnosis: Perforated viscus, bowel in discontinuity
Post-op Diagnosis: Perforated viscus, bowel in discontinuity, ischemic bowel
Procedure Performed:
1. Exploratory laparotomy
2. Intra-abdominal washout
3. Small bowel resection
4. End ileostomy
Anesthesia Type: General
Specimen / Cultures:
1. Abdominal fluid for culture
2. Small bowel
Estimated Blood Loss: 23 cc
Complications: None
Operative Findings: ABThera VAC removed. There was some murky fluid in the pelvis which was sent for culture. The abdomen was washed out with 2 L of saline but there was no significant residual contamination. Inspection of the bowel
redemonstrated her terminal ileum is quite inflamed and tortuous leading to a fairly normal colon. This end of the staple line was oversewn with a running 3-0 silk. We then turned our attention to the proximal bowel which looked partially ischemic
for about 25 cm which was resected with a single fire of a 80 purple staple load on the WILLEM. The intervening mesentery was divided using a LigaSure device. There was additional bleeding from the base of the mesentery due to its thickness which was
oversewn with Vicryl sutures. Patient was noted to be fairly coagulopathic during procedure but received 2 units of platelets preoperatively, 1 unit of platelets as well as 1 unit of PRBCs and 2 units of FFP intraoperatively. Though the mesentery
was slightly foreshortened we are able to bring it through an aperture in the left upper quadrant without tension. The ostomy was wrapped with Seprafilm and 2 pieces were placed in the abdomen to prevent adhesions. After confirming hemostasis,
which certainly improved after blood product infusion the abdomen was closed with a running 0 PDS suture on a CT 2 needle anchored at each apex and run towards the middle and tied together. The skin was then loosely approximated and covered with a
Mepilex dressing. The ostomy was then matured/brooked in the usual fashion. Overall the patient tolerated the procedure well and her pressor requirements decreased throughout the course of the case. She was transported back to the ICU intubated
and sedated, her prognosis still remains guarded. Dr. Fong provided invaluable assistance during the case providing tension counter tension, helping expose the abdomen as well as maturing the ostomy all in a timely fashion in this critically ill
and coagulopathic patient.
POST OP PLAN:
Imaging: None
Labs: Routine AM
Diet: N.p.o., NG tube to low intermittent wall suction. Expected ileus. Will start TPN.
Analgesia: Tylenol 650mg q6 Kurt, Dilaudid 0.5mg q2h PRN
Neuro/vascular checks: Per unit protocol
AC/AP: Hold Therapeutic AC, Ok for DVT PPx, SCDs
Activity: Per ICU
Wound/Incisions/Drains: Routine stoma care
Abx: Continue antibiotics per ID. Follow-up abdominal fluid cultures
Dispo: ICU. updated.
[2024-10-31 11:15] VITALS: BP 100/69
[2024-10-31] MEDS: MERREM IV (11:21)
[2024-10-31] MEDS: PITRESSIN 100 IV (11:23)
--- NOTE | 2024-10-31 11:37 | PTCARENOTE ---
Rec'd patient directly from OR. Patient remains intubated. Sedated on Fent/Prop. VSS. Afebrile. NSR on tele. Rate in the 60's. Levo/Vaso infusing. Levophed weaned to 4mcg/min in OR. Right radial colton transduced and zeroed. Inspiratory wheeze
auscultated. RT aware. Large amount of thick, echevarria secretions suctioned from ett. Vent settings unchanged. Abdominal dressing c/d/i. Ileostomy with scant serosanguineous drainage. Coloring and distention improved from assessment prior to OR.
[2024-10-31 11:45] LABS: Glucose - Point of Care 129 mg/dl (70-99)
--- NOTE | 2024-10-31 12:49 | PTCARENOTE ---
Chief Information Security Officer at bedside. Plan discussed. Vaso off. Repeat labs at 1600.
--- NOTE | 2024-10-31 12:51 | W.PN.NEPH.PH ---
Today's Communication / Plan
-
Continue supportive care
Considering diuretics in the next 24 hours
Assessment/Plan
-
48 yo F with a PMH notable for recently diagnosed Crohn's who presents with worsening abdominal pain and nausea.
She was evaluated as an outpatient by GI and underwent a colonoscopy in 08/2024 which was concerning for IBD. She was then admitted to from 09/30 to 10/04 for management of a partial SBO related to a Crohn's flare. She was treated with steroids at
that time with improvement in her symptoms.
She reports abdominal discomfort and nausea developing over the past week. She is found to have SBO with NG tube placed currently with improvement
Renal consultation for sodium of 124 urine sodium less than 5
Impression
Crohn disease with SBO
Hypokalemia
hyponatremia
Perforated viscus acute septic shock
DIC
Plan
Mechanical ventilation
Status post SBO resection 10/28 for acute abdominal pain and perforated viscus
10/31 status post washout and ileostomy creation
Kidney function remained stable she is nonoliguric
Remains on pressor support but last
she is anasarcic with hypoalbuminemia but will hold on
Any diuresis at this time as she has very low intravascular volume
Gained 15 kg since admission so we will need to start diuresing in the next 24 or 48 hours
Discussed with family at bedside

33minutes total critical care time
-
-
Date of Service: October 31, 2024
CC / HPI / ROS
-
Chief Complaint:
hyponatremia
History of Present Illness:
Na up to 130 stable
Status post SBO resection perforated viscus
Septic shock
Review of Sytems:
Intubated
Oliguric
Labs
-
Labs:
eGFR > 60.00 10/31/24 03:57
Phosphorus 2.0 mg/dl (2.5-4.5) L 10/31/24 03:57
Physical Exam
-
Vital Signs:
Vital Signs
Temp Pulse Resp BP Pulse Ox
97.4 F 64 16 100/69 100
10/31/24 11:33 10/31/24 12:45 10/31/24 12:45 10/31/24 11:15 10/31/24 12:25
[2024-10-31] MEDS: LEVOPHED 258 MG IV (13:50)
[2024-10-31] MEDS: MERREM 100 MG IV ×2 (15:57→22:56)
--- NOTE | 2024-10-31 16:08 | PTCARENOTE ---
Sedation weaned. Patient resting calmly. RASS -1 to 0. Urine output 825 over past two hours. Output clear, yellow. No other changes. Vaso remains off. Levophed @ 5mcg/min.
[2024-10-31 16:31] LABS: B.E. 1.8 mmol/L; HCO3 25.6 mmol/L (21-28); O2 Saturation % 96.7 % (94-98); PCO2 36 mmHg (32-35); PO2 86 mmHg (83-108)
[2024-10-31 16:46] LABS: Hematocrit 25.4 % (37.0-47.0); Hemoglobin 8.6 g/dL (12.0-16.0); Mean Corp Hgb Conc. 33.9 g/dL (33.0-37.0); Mean Corpuscular Volume 89.4 fL (81.0-99.0); Platelet Count 46 10^3/uL (130-400); Red Cell Dist. Width 13.9 % (11.5-14.5)
[2024-10-31 16:49] LABS: ALT (SGPT) 25 U/L (0-35); AST (SGOT) 17 U/L (14-36); Albumin 2.4 g/dl (3.5-5.0); Alkaline Phosphatase 61 U/L (38-126); Blood Urea Nitrogen 7 mg/dl (7-17); Calcium 7.4 mg/dl (8.4-10.2); Carbon Dioxide 24 mmol/L (22-30); Chloride 110 mmol/L (98-107); Estimated Creatinine Clearance 114 ml/min; Glucose 112 mg/dl (70-99); Potassium 3.1 mmol/L (3.5-5.1); Sodium 137 mmol/L (135-145); Total Protein 4.2 g/dl (6.3-8.2); eGFR > 60.00
[2024-10-31] MEDS: KCL 100 IV (17:23)
--- NOTE | 2024-10-31 17:35 | W.PN.HOSP.TC ---
Today's Communication/Plan
-
Wean pressors as able
Continue with empirical antibiotics
Continue with IV fluids.
Follow coagulation profile
Assessment / Plan
Assessment / Plan
Intestinal perforation secondary to stricturing ileal disease from Crohn's disease
Patient admitted with small bowel obstructive symptoms and progressed to bowel perforation.
Status post emergent abdominal surgery including excision of perforated segment, abdominal washout.
Status post OR today-had a washout, bowel resection and end ileostomy.
-Continue postop care per general surgery.
- Currently NPO. Would probably require TPN.
- Continue with IV fluids.
- Continue with empirical antibiotic Zosyn. ID following
- Continue the pain regimen
- Hold therapeutic doses of steroids. Continue with stress dose steroids.
- IBD treatments after recovery per GI
Clinical shock with lactic acidosis-suspect septic . Continue with pressors and wean as able for MAP more than equal to 65. Improved urine output. Currently on 1 pressor.
E. coli bacteremia from abdominal source-continue with Zosyn
Vent dependent respiratory failure-
Intubated at the time of bowel perforation and emergent surgery.
Stable on 40% FiO2.
Wean protocol once hemodynamically stable.
Low fibrinogen levels-felt likely DIC per hematologyet. Hematology input noted. Fibrinogen level normal now. Status post FFP.
Abdominal wall discoloration-apparently this was noted before. Discussed with GI LEAD GENERATION REPRESENTATIVE who has documented this in the chart apparently patient was using heat pad and noticed skin changes after that at home. Not a case of purpura.
Coagulopathy-elevated INR and PTT noted. Fibrinogen normal. Status post vitamin K. Follow INR and PTT.
Thrombocytopenia-low but stable postop. Continue to follow.
Transaminitis acute mild elevation noted-continue to follow for now.
Positive total anti-HBc-no anti-HBs or anti-HBc Ag noted. Would normally suggest chronic HBV but also could be false positive. Check hepatitis B DNA levels
Hyponatremia - Hypovolemic hyponatremia-normalized
Hypomagnesemia-replete
Hypocalcemia-replete
DVT PPX -subcu heparin when okay from surgical standpoint
Discussed with the and mother at bedside-with perforation, sepsis, shock on multiple pressors prognosis is guarded.
Discussed with BOARD OF EDUCATION SECRETARY
Code status - Full Code
Discussed with at bedside
Total time spent on today's encounter was 52 minutes which included time spent in counseling the patient/family regarding diagnosis and treatment plan as listed above, goals of care, and symptom management. Case was discussed with nursing staff,
specialists, and care coordinators/case management. All labs and imaging personally reviewed by me. Remainder the time spent in detailed review of previous records, lab data, imaging, and other medical provider documentation.
Portions of this chart may have been created with voice recognition software. Occasional wrong word or 'sound alike' substitutions may have occurred due to the inherent limitations of voice recognition software.
Anticipated Discharge: > 48 hours
Subjective/Interval History
-
Date of Service: October 31, 2024
Back from OR now has ileostomy
Patient on sedation. Eyes slightly open but does not follow commands.
Improving urine output and now just on 1 pressor
Objective Data
-
Labs:
Laboratory Results
10/31/24
16:24
WBC 21.0 H
Hgb 8.6 L
Hct 25.4 L
Plt Count 46 L
HCO3 25.6
Sodium 137
Potassium 3.1 L
Chloride 110 H
Carbon Dioxide 24
BUN 7
Creatinine 0.4 L
Glucose 112 H
Calcium 7.4 L
Total Bilirubin 2.2 H
AST 17
ALT 25
Alkaline Phosphatase 61
Vital Signs:
Vital Signs
Temp Pulse Resp BP Pulse Ox
98.1 F 89 16 100/69 99
10/31/24 16:42 10/31/24 17:30 10/31/24 17:30 10/31/24 11:15 10/31/24 17:30
I&O
10/30/24 10/31/24 11/01/24
06:59 06:59 06:59
Intake Total 7270.5 / 7525.9 5667.7 / 5996.4 1022.2 / 1022.2
Output Total 2658.0 / 2718.0 1175 / 1220 1610 / 1610
Balance 4612.5 / 4807.9 4492.7 / 4776.4 -587.8 / -587.8
Review of Systems
-
Unable to obtain full review of systems at this time due to: Patient Intubation
Physical Exam
-
General: No Apparent Distress
Respiratory: Clear to Auscultation (Anteriorly) and Non Labored Respirations; Negative Accessory Resp Muscle Use
Cardiac: Regular Rhythm and S1/S2; Negative Tachycardic
GI: Soft and Ostomy; Negative Normal Bowel Sounds
Neuro: Sedated
Psych: Calm
Data Reviewed
-
Labs: Labs Reviewed by me
[2024-10-31 17:40] LABS: Nucleated Red Blood Cells % 0 %
[2024-10-31 17:41] LABS: Glucose - Point of Care 109 mg/dl (70-99)
--- NOTE | 2024-10-31 17:43 | PTCARENOTE ---
K 3.1; orders for repletion obtained.
--- NOTE | 2024-10-31 20:00 | PTCARENOTE ---
Rec'd pt intubated/sedated on Fent/Prop gtts titrating to clinical endpoints. Pt arouses to verbal stimuli, follows commands, DE PAZ, pupils equal/reactive, protective reflexes intact. Afebrile, NSR on monitor. BP goals met with Levophed. D10 infusion
for previous low blood sugars, currently WNL. Monitoring q6h. K repletion infusing, will repeat labs at midnight. Pulses via doppler, +3 anasarca. IV lines flushed/patent, arterial line zeroed. #7 ett 24 at lip. AC 40%/16/420/5 lungs diminished, sat
98%. Suctioning for thin echevarria secretions. Mouth care done. NGT right nare LIWS, draining clear green output. Abdomen soft/edematous. Closed in OR on previous shift, post op dressing saturated with serous fluid. MANIFEST CLERK [place] at bedside. Dressing
removed, wet to dry over 2 open areas, otherwise cosmo covered in clean dry gauze & medipore tape. Will continue to keep area dry. Abdomen remains mildly mottled, with noted improvement over last few shifts. Ileostomy on left with red budded
stoma, minimal output. Post for critical I&Os, no urimeter. Pt autodiuresing, 250-300 clear yellow urine hourly. Skin as documented. Will monitor. updated on plan of care.
[2024-10-31 20:23] VITALS: BP 88/66
[2024-10-31] MEDS: D10W 500 IV (23:01)
[2024-10-31 23:35] LABS: Glucose - Point of Care 110 mg/dl (70-99)
[2024-10-31 23:55] LABS: Blood Urea Nitrogen 6 mg/dl (7-17); Calcium 8.0 mg/dl (8.4-10.2); Carbon Dioxide 25 mmol/L (22-30); Chloride 115 mmol/L (98-107); Estimated Creatinine Clearance 114 ml/min; Glucose 110 mg/dl (70-99); Potassium 3.6 mmol/L (3.5-5.1); Sodium 142 mmol/L (135-145); eGFR > 60.00
[2024-11-01] VITALS (40 sets, daily range): BP systolic 72–113; BP diastolic 52–90; BMI 28.8
--- NOTE | 2024-11-01 00:05 | PTCARENOTE ---
Assessment overall unchanged. 0 drainage noted to NGT to LIWS at this time. Labs resulted, new order noted to repleat potassium. Patient observed with comfort at this time. Will continue to monitor patient closely.
[2024-11-01] MEDS: KCL 100 IV ×2 (00:15→06:16)
--- NOTE | 2024-11-01 03:19 | PTCARENOTE ---
Patient continues with Levo, Fentanyl, D10W gtts. Hygiene provided, patient tolerated well. Post cath continues to drain moderate to large amounts of clear, yellow urine. Midline drsg c/d/i. Will continue to monitor patient closely.
[2024-11-01 04:56] LABS: Glucose - Point of Care 111 mg/dl (70-99)
[2024-11-01] MEDS: DIPRIVAN 100 IV (05:06)
[2024-11-01] MEDS: SOLU-CORTEF 50 MG IV ×3 (05:06→18:04)
[2024-11-01] MEDS: NOVOLOG FLEXPEN-LOW RESISTANCE SC ×3 (05:06→18:04)
[2024-11-01 05:11] LABS: B.E. 1.9 mmol/L; HCO3 24.7 mmol/L (21-28); O2 Saturation % 96.9 % (94-98); PCO2 31 mmHg (32-35); PO2 98 mmHg (83-108)
[2024-11-01 05:18] LABS: Hematocrit 26.6 % (37.0-47.0); Hemoglobin 9.1 g/dL (12.0-16.0); Mean Corp Hgb Conc. 34.2 g/dL (33.0-37.0); Mean Corpuscular Volume 89.3 fL (81.0-99.0); Red Cell Dist. Width 14.1 % (11.5-14.5)
[2024-11-01 05:19] LABS: INR 1.06; PT 14.1 Sec (11.4-14.6)
[2024-11-01 05:20] LABS: APTT 30.4 Sec (23.4-35.0)
[2024-11-01 05:42] LABS: Nucleated Red Blood Cells % 0 %; Platelet Count 32 10^3/uL (130-400)
[2024-11-01 05:52] LABS: ALT (SGPT) 24 U/L (0-35); AST (SGOT) 15 U/L (14-36); Albumin 2.3 g/dl (3.5-5.0); Alkaline Phosphatase 73 U/L (38-126); Blood Urea Nitrogen 5 mg/dl (7-17); Calcium 7.8 mg/dl (8.4-10.2); Carbon Dioxide 25 mmol/L (22-30); Chloride 116 mmol/L (98-107); Estimated Creatinine Clearance 114 ml/min; Glucose 113 mg/dl (70-99); Magnesium 1.9 mg/dl (1.6-2.3); Potassium 3.8 mmol/L (3.5-5.1); Sodium 143 mmol/L (135-145); Total Protein 4.1 g/dl (6.3-8.2); Triglycerides 147 mg/dl (10-149); eGFR > 60.00
--- NOTE | 2024-11-01 07:20 | W.PN.HOSP.TC ---
Today's Communication/Plan
-
IV antibiotics and antifungals. Postop care. TPN
Assessment / Plan
Assessment / Plan
Physical exam:
General: Acutely ill
HEENT: Normocephalic, Atraumatic and dry mucous Membranes
Respiratory: Clear to Auscultation; Negative Wheezes, Rales or Rhonchi
Cardiac: Regular Rhythm and S1/S2
GI: Postop findings. Ostomy in place.
Musculoskeletal: No Clubbing, No Cyanosis and No Edema
Neuro: Lethargic, respond to verbal stimuli, generalized weakness.
A/P:
Septic shock due to perforated small bowel with peritonitis and E. coli bacteremia in the setting of Chron's:
Continue IV meropenem
Added IV micafungin
Yeast growing in cultures
Continue pressors and wean as tolerated
On stress doses of steroids, hydrocortisone 50 mg every 6 hours
TPN initiated
Coagulopathy due to DIC from sepsis:
Hold NSAIDs
Consider cryoprecipitate if bleeding and fibrinogen less than 15
Consider platelet transfusion if platelet count in the 10K range
Other medical problems:
Acute respiratory failure, status post extubated
Hyponatremia, resolved
Leukocytosis
Anemia
Thrombocytopenia
Hypoalbuminemia
Hypophosphatemia
Hyperbilirubinemia
Chronic hypotension
Elevated LFTs
Hepatic steatosis
Lactic acidosis
DVT prophylaxis:
SCDs
CODE STATUS:
Full code
Total Critical Care Time__45___ minutes. I was immediately available to the patient and staff. I personally examined, reviewed labs, diagnostic images/reports, interpretations, treatment plans, discussed patient care with other providers and
family or caregivers (if patient is unable to make decisions), entered orders as appropriate and documented the medical record.
Anticipated Discharge: > 48 hours
Subjective/Interval History
-
Date of Service: November 01, 2024
Patient extubated today. Remains critically ill. Patient seen and examined.
Objective Data
-
Labs:
Laboratory Results
10/31/24 11/01/24 11/01/24
23:26 04:57 12:00
WBC 22.9 H
Hgb 9.1 L
Hct 26.6 L
Plt Count 32 L D
PT 14.1
INR 1.06
APTT 30.4
HCO3 24.7
Sodium 142 143 Pending
Potassium 3.6 3.8 Pending
Chloride 115 H 116 H Pending
Carbon Dioxide 25 25 Pending
BUN 6 L 5 L Pending
Creatinine 0.3 L 0.3 L Pending
Glucose 110 H 113 H Pending
Calcium 8.0 L 7.8 L Pending
Total Bilirubin 2.2 H
AST 15
ALT 24
Alkaline Phosphatase 73
Vital Signs:
Vital Signs
Temp Pulse Resp BP Pulse Ox
98.5 F 77 16 86/60 99
11/01/24 07:19 11/01/24 06:30 11/01/24 06:30 11/01/24 01:22 11/01/24 06:30
I&O
10/31/24 11/01/24 11/02/24
06:59 06:59 06:59
Intake Total 5667.7 / 5996.4 1621.6 / 1667.0 45.4 / 45.4
Output Total 1175 / 1220 4315 / 4375 60 / 60
Balance 4492.7 / 4776.4 -2693.4 / -2708.0 -14.6 / -14.6
--- NOTE | 2024-11-01 07:23 | PTCARENOTE ---
assumed care 0700.
Remains intubated/sedated --> see flow sheets for further titration details.
Hemodynamically stable, monitoring devices zero'd/ in place.
updated bedside.
See assessment flowsheet for further details.
--- NOTE | 2024-11-01 08:09 | W.PN.NEPH.PH ---
Today's Communication / Plan
-
lytes and GFR stable
We will sign off
Assessment/Plan
-
48 yo F with a H notable for recently diagnosed Crohn's who presents with worsening abdominal pain and nausea.
She was evaluated as an outpatient by GI and underwent a colonoscopy in 08/2024 which was concerning for IBD. She was then admitted to from 09/30 to 10/04 for management of a partial SBO related to a Crohn's flare. She was treated with steroids at
that time with improvement in her symptoms.
She reports abdominal discomfort and nausea developing over the past week. She is found to have SBO with NG tube placed currently with improvement
Renal consultation for sodium of 124 urine sodium less than 5
Impression
Crohn disease with SBO
Hypokalemia
hyponatremia
Perforated viscus acute septic shock
DIC
Plan
Mechanical ventilation
Status post SBO resection 10/28 for acute abdominal pain and perforated viscus
10/31 status post washout and ileostomy creation
Kidney function remained stable she is nonoliguric
Remains on pressor support but last
lytes stable
she is anasarcic with hypoalbuminemia but will hold on
Any diuresis at this time as she has very low intravascular volume
No new recommendation
Will sign off

33minutes total critical care time
-
-
Date of Service: November 01, 2024
CC / HPI / ROS
-
Chief Complaint:
hyponatremia
History of Present Illness:
Na up to 143 stable
Status post SBO resection perforated viscus
Septic shock
Hemodynamically unstable
Review of Sytems:
Intubated
Nonoliguric 4 L via Post
Labs
-
Labs:
WBC 22.9 10^3/uL (4.8-10.8) H 11/01/24 04:57
RBC 2.98 10^6/uL (4.20-5.40) L 11/01/24 04:57
Hgb 9.1 g/dL (12.0-16.0) L 11/01/24 04:57
Hct 26.6 % (37.0-47.0) L 11/01/24 04:57
Plt Count 32 10^3/uL (130-400) L D 11/01/24 04:57
eGFR > 60.00 11/01/24 04:57
Phosphorus 1.7 mg/dl (2.5-4.5) L 11/01/24 04:57
Albumin 2.3 g/dl (3.5-5.0) L 11/01/24 04:57
Physical Exam
-
Vital Signs:
Vital Signs
Temp Pulse Resp BP Pulse Ox
98.5 F 77 16 86/60 100
11/01/24 07:19 11/01/24 06:30 11/01/24 06:30 11/01/24 01:22 11/01/24 08:00
Cardiovascular:: Regular rate and rhythm (tachy)
Respiratory:: Bilateral: Coarse
Lung Excursion:: Normal
Abdomen:: Tender
Bowel Sounds:: Decreased
Extremity Edema:: +1: Bilateral:
Post Catheter: Yes
[2024-11-01] MEDS: MERREM 100 MG IV ×2 (08:14→16:53)
[2024-11-01] MEDS: NSS (PRESERVATIVE FREE) 10 ML IV (08:14)
[2024-11-01] MEDS: PROTONIX IV 40 MG IV (08:15)
--- NOTE | 2024-11-01 08:18 | W.PN.ONC2 ---
Today's Communication / Plan
-
critically ill, management per ICU
signicant other at bedside during visit provided updates and questions answered
Impression
Impression
sepsis
SB perf, s/p, washout, small bowel resection for perforation
E coli bacteremia
coagulopathy, thrombocytopenia -- c/w DIC
VDRF
Crohns
mild normocytic anemia
Plan
Plan
Clinical picture is c/w DIC in the setting of sepsis/bacteremia/bowel perf/surgery
Vit K unlikely to correct coags
Transfuse platelets to goal >50K if going to OR, >10K otherwise
Monitor coags, fibrinogen (would give cryoppt if fibringogen < 150)
Subjective/Objective
Subjective
critically ill
Vital Signs:
Vital Signs
Temp Pulse Resp BP Pulse Ox
98.5 F 77 16 86/60 100
11/01/24 07:19 11/01/24 06:30 11/01/24 06:30 11/01/24 01:22 11/01/24 08:00
Lab Results:
Laboratory Data
WBC 22.9 10^3/uL (4.8-10.8) H 11/01/24 04:57
Hgb 9.1 g/dL (12.0-16.0) L 11/01/24 04:57
Plt Count 32 10^3/uL (130-400) L D 11/01/24 04:57
PT 14.1 Sec (11.4-14.6) 11/01/24 04:57
INR 1.06 11/01/24 04:57
APTT 30.4 Sec (23.4-35.0) 11/01/24 04:57
eGFR > 60.00 11/01/24 04:57
Physical Exam
HEENT: Moist Mucous Membranes; Negative Jaundice
Pulmonary: (VDRF)
GI: abdomen with gauze dressing CDI
Extremities: Pulses Present
Skin: Warm
--- NOTE | 2024-11-01 08:27 | W.PN.INTV ---
Today's Communication / Plan
Recommendations
Extubated today to nasal cannula
Starting TPN
Postoperative management as per surgery
Recheck lactate tomorrow to assure it is <2 mmol/L
Continue weaning down Levophed while keeping MAP >65
Aspiration precautions
Goal SpO2 >90-94%
Monitor platelet count and hold HSQ until plt levels >50k
Daily CXR --> may need additional diuresis as small bilateral pleural effusions with mild pulmonary edema seen on bedside US today (11/01/2024)
Assessment
-
Patient is a 48-year-old female who is critically ill and currently intubated, sedated and mechanically ventilated. History primarily obtained from records as well as discussion with other providers. Reportedly patient has history of Crohn's
disease with terminal ileitis with recurrent small bowel obstruction in the past. She was admitted to the hospital on 10/25 with similar complaints of abdominal pain concerning for small bowel obstruction. Patient was evaluated by GI and general
surgery service and currently was being managed conservatively. On 10/28, patient developed worsening abdominal pain and reported mottling of abdominal skin. Patient also developed hypotension. Stat abdominal x-ray was concerning for perforation
with intraperitoneal air. General surgery reviewed the films and patient was emergently taken to OR and had a laparotomy. Patient noted to have small bowel perforation. Patient had abdominal washout, small bowel resection and then was transferred
to ICU with open abdomen with VAC in place. Patient had been in severe shock on mechanical ventilation, multiple pressors. Accounts Payable Technician consult was requested for further input.
#1. Shock, septic in the setting of perforated gut
- Patient continues to be critically ill, gradually improving.
- Continue weaning down levophed, keeping MAP>65
- Continue stress dose steroids, adjusting to 50 mg IV q8hr tomorrow
- Off bicarb infusion now, developing anasarca, off Ringer lactate infusion
- Diuresed this AM prior toe extubation --> continue to diurese over next few days
- Continue broad-spectrum antibiotics per ID --> currently on meropenem; ID to add micafungin today
#2. Lactic acidosis
- Related to severe shock and perforated gut
- s/p ex lap with abdominal washout and small bowel resection, initially left in discontinuity with open abdomen on 10/28/2024 --> ex lap with repeat abdominal washout with small bowel resection and end ileostomy performed on 10/31/2024 and abdomen
closed
- Continue trending lactate levels until <2 mmol/L
- Trend serum HCO3 levels --> now normalized as of 10/30
#3. Acute surgical abdomen with small bowel perforation (10/28)
- s/p ex lap with abdominal washout and small bowel resection, initially left in discontinuity with open abdomen on 10/28/2024 --> ex lap with repeat abdominal washout with small bowel resection and end ileostomy performed on 10/31/2024 and abdomen
closed
- Continue with postoperative management as per surgery
- Keep NPO
- Start TPN today
- While patient is NPO, continue to monitor blood sugars with goal 140�180; patient is currently on D10 W given recent hypoglycemia; currently D10W is at 15 cc/hour; will try to wean this off today
#4. Acute respiratory failure, ventilator dependent --> extubated today (11/01/2024)
- Extubated to nasal cannula; patient was diuresed prior to extubation
- Serial imaging with repeat CXR tomorrow
- Continue diuresis if needed
- Titrate supplemental O2 flow rate as needed to keep SpO2 >90-94%
- Aspiration precautions, keeping HOB >30-45�
#5. H/o Crohn's disease with terminal ileitis, fibrotic stricture
- Initial presentation with small bowel obstruction due to inflammatory strictures in distal ileum
- Had been on Solu-Medrol IV, currently on hydrocortisone stress dose 50 mg IV every 6 hours now --> weaning down steroids tomorrow to 50mg IV q8hr
- Gastroenterology and GI service on case
- Starting TPN
- Pt will likely need a biologic to be started by GI as an outpatient
#6. Hyponatremia --> now resolved
- Continue to monitor BMP daily
#7. Coagulopathy
- Platelet count drifting down, INR up. Fibrinogen has been stable
- S/p vitamin K on 10/30/2024, s/p platelet infusions, fresh frozen plasma.
- Check HIT panel (pending), hold subcu heparin considering platelet count is below 50,000
Other medical diagnoses:
- Rectal aphthous ulcer
- H/o Smoking
- Hepatic steatosis
DVT prophylaxis. SCDs
GI prophylaxis. IV Protonix
Updated family at bedside
Continue with ICU level of care for this critically ill patient
Critical care statement: A total of 38 minutes of critical care time was provided for this patient today. This includes management of unstable vital signs, evaluation of the patient at bedside, reviewing the patient�s pertinent medical records
including radiographs, microbiology, laboratory evaluations, and��discussion with primary team, consultants, pharmacy, nutrition, physical therapy, case management, charge nurse, critical care nursing, and respiratory therapy.
Data:
KUB 10/2024: Concern for intraperitoneal free air, but limited by the portable supine technique.
CT A/P 10/2024: High-grade small bowel obstruction secondary to a long segment of narrowing of the terminal ileum, most suggestive of a stricture from a chronic inflammatory ileitis in the setting of the patient's known inflammatory bowel disease.
Mild abdominopelvic ascites.
Severe hepatic steatosis.
Colonoscopy 08/2024: Mildly nodular and altered vascular mucosa with few apthous ulcers
in the rectum, in the recto-sigmoid colon and in the sigmoid colon.
Biopsied.
- The examined portion of the ileum was normal. Was hard to intubate
the TI the ICV opening was narrow and colon was tortuous so only the
very distal part of TI was examined and appeared normal.
Subjective Dataa
Subjective Data
Date of Service:
Date of Service: November 01, 2024
Chief Complaint: Accounts Payable Technician Follow Up
Subjective:
Patient seen and evaluated this morning. Placed onto an SBT wean, tolerated well. Diuresed given small bilateral pleural effusions. Bedside US performed by me showing small bilateral pleural effusions (R>L) with mild pulmonary edema. Pt
extubated and is doing well - current heart rate 116 with SpO2 98% on 2 L/min. BP 101/79 on levophed at 4mcg/min. Patient's is at bedside. All questions were answered. On D10 W at 15cc/hr.
Review of Systems
General: Other (Negative unless mentioned above)
Objective Data
Data Reviewed
Vital Signs / I&O / Oxygen:
Vital Signs
Temp Pulse Resp BP Pulse Ox
98.5 F 101 13 104/79 99
11/01/24 07:19 11/01/24 08:31 11/01/24 08:31 11/01/24 08:30 11/01/24 08:31
Intake and Output
10/31/24 11/01/24 11/02/24
06:59 06:59 06:59
Intake Total 5667.7 / 5996.4 1621.6 / 1667.0 198.0 / 198.0
Output Total 1175 / 1220 4315 / 4375 200 / 200
Balance 4492.7 / 4776.4 -2693.4 / -2708.0 -2.0 / -2.0
SaO2 [CPAP] 99
SaO2 [A/C] 100
SaO2 99
Physical Exam
General: Respiratory Distress and Comfortable
HEENT: Normocephalic, Anicteric and Other (Mild conjunctival pallor)
Cardiovascular: S1-S2 and Peripheral Edema (+3 lower extremity pitting edema bilaterally)
Respiratory: Wheeze (negative), Crackles (bibasilar), Rhonchi (negative), Non-Labored Respirations and Stridor (negative)
GI: Soft, Distended and Tender (Diffusely tender (mild) upon palpation)
Neurology: Awake and Alert
Skin: Warm, Dry and Cyanosis (negative)
Labs/Micro/Reports
Lab Data
11/01/24 04:57
Laboratory Results
10/31/24 11/01/24
16:24 04:57
PT 14.1
INR 1.06
APTT 30.4
pH 7.46 H 7.51 H
pCO2 36 H 31 L
pO2 86 98
HCO3 25.6 24.7
O2 Delivery Level
Microbiology
10/28/24 20:16 Blood/Venous Blood Culture - Preliminary
Positive culture in progress
10/28/24 20:16 Blood/Venous Gram Stain - Preliminary
10/31/24 09:20 Abdomen Gram Stain - Preliminary
10/28/24 20:16 Blood/Venous Blood Culture - Preliminary
Escherichia coli
10/28/24 20:16 Blood/Venous Gram Stain - Preliminary
--- NOTE | 2024-11-01 08:28 | W.PN.GI.CBS2 ---
Addendum entered and electronically signed by Mary Bauer MD 11/01/24 13:36:
I saw and examined the patient.
The CLIENT STRATEGIST or PA's note was reviewed and I agree with the note.
Comment:
Pt s/p surgery yesterday with James Alcala. coming down only on 1 pressor
arousable, extubated
impression:
SB perforation from high grade stricture in setting of crohns
plan:
management per surgery
antibiotics/TPN
treatment for crohns will be made after acute surgical issues resolved
Dr. Andrew aware of clinical course and should be notified when pt is stable for d/c
stress dose steroids can be weaned per surgery.
no inpatient treatment at this point will sign off.
Addendum entered and electronically signed by BRENDEN Lugo 11/01/24 09:03:
Pt remain on hydrocortisone 50mg Q6 hours. Reviewed with surgical team ok to continued as needed but will need wean. Will review with Dr. Bauer.
Original Note:
Today's Communication / Plan
-
Pt with high grade obstruction/perforation from SB stricture
cont supportive care per medical and surgical team
antibiotics per ID/pressors as needed
return to OR 10/31 as noted
GI plan for eventual OP biologic therapy when recovered -- updated GI staff working on biologic coverage
support given to patient and spouse at bedside-- all questions answered
Assessment / Plan
-
Rosey is a 48-year-old female with family history of Crohn's disease-sister and grandmom, infectious ileitis vs Crohns ileitis 08/2024, PSBO 09/2024 with office follow up 10/[address] Andrew. colonoscopy on 09/03/2024 which showed a few aphthous
ulcers in the rectosigmoid colon and also TI was hard to intubate but the examined part of the terminal ileum appeared normal and the plan was to repeat imaging in 2 to 3 months with CTE or MRE and if she still had persistent inflammation or if she
had ongoing symptoms to start her on Biologics. She was in process of setting up OP biologic therapy and presents back to [place] 10/25 from GI office with worsening distention with steroid wean from prednisone 40mg to 30mg. On admission repeat
CT with concern for high grade obstruction with long segment of narrowing at TI. suggest stricture from inflammatory ileitis with IBD, mild abdominopelvic ascites and severe hepatic steatosis. She was treated with IV steroid and NGT decompression
and with surgical team follow. Night prior to SBFT testing pt developed increased pain, tachycardia and follow up imaging with free air. 10/28 s/p emergent ex lap, washout, small bowel resection and placement of ABThera temporary abdominal closure
deviceFor perforated ileum proximal to site of obstruction/Crohn's disease. She returned to OR 10/31 with exp lap, abd wash out, SB resection and end ileostomy. She continued to recover in ER.
Impression:
Intestinal perforation 10/28 secondary to stricturing ileal disease from Crohn's disease
recurrent SBO due to ileal Crohns with inflammatory stricture in distal ileum
leukocytosis/sepsis with perforation/ecoli bacteremia
lactic acidosis
coagulopathy-thrombocytopenia
hypotension requiring pressors
VDRF
-hx crohns disease- newly diagnosed noted TI disease and also rectal aphthous ulcer on rowasa prior to admission
-family hx IBD sister and grandmother
-tobacco abuse
-abdominal rash- ? from prior use of heating pad in past
-hyponatremia on admission
steatosis per imaging
PLAN:
Pt with high grade obstruction/perforation from SB stricture
cont supportive care per medical and surgical team
antibiotics per ID/pressors as needed
return to OR 10/31 as noted
GI plan for eventual OP biologic therapy when recovered -- updated GI staff working on biologic coverage
support given to patient and spouse at bedside-- all questions answered
Subjective
Subjective
Date of Service: November 01, 2024
dark stool with some dark blood in ostomy, NPO some eye opening and occasionl nod to questions, spouse at bedside for support
Objective
Data Reviewed
Laboratory Data:
Laboratory Results
11/01/24 04:57
Laboratory Results
PT 14.1 Sec (11.4-14.6) 11/01/24 04:57
INR 1.06 11/01/24 04:57
APTT 30.4 Sec (23.4-35.0) 11/01/24 04:57
Phosphorus 1.7 mg/dl (2.5-4.5) L 11/01/24 04:57
Magnesium 1.9 mg/dl (1.6-2.3) 11/01/24 04:57
Total Bilirubin 2.2 mg/dl (0.2-1.3) H 11/01/24 04:57
AST 15 U/L (14-36) 11/01/24 04:57
ALT 24 U/L (0-35) 11/01/24 04:57
Alkaline Phosphatase 73 U/L (38-126) 11/01/24 04:57
Lipase 294 U/L (23-300) 10/25/24 16:31
Vital Signs and I&O:
Vital Signs
Temp Pulse Resp BP Pulse Ox
98.5 F 77 16 86/60 100
11/01/24 07:19 11/01/24 06:30 11/01/24 06:30 11/01/24 01:22 11/01/24 08:00
I&O
10/31/24 11/01/24 11/02/24
06:59 06:59 06:59
Intake Total 5667.7 / 5996.4 1621.6 / 1667.0 45.4 / 45.4
Output Total 1175 / 1220 4315 / 4375 60 / 60
Balance 4492.7 / 4776.4 -2693.4 / -2708.0 -14.6 / -14.6
Physical Exam
Physical Exam
HEENT: Other (minimal jaundice )
Cardiology: Normal Sinus Rhythm
Pulmonary: Clear
GI: Soft, Distended, Tender (minimal with limited exam with sedation) and Other (abdominal dressing dry and intact, stool and dark blood in ostomy )
Neuro: Other (sedated with eye opening )
[2024-11-01] MEDS: LASIX 20 MG IV (09:45)
[2024-11-01] MEDS: MYCAMINE 105 MG IV (11:02)
[2024-11-01] MEDS: LEVOPHED 258 MG IV (11:03)
--- NOTE | 2024-11-01 11:15 | PTCARENOTE ---
round notes
- Extubated successfully.
- Arterial line removed.
- Discussion w. Surg to add TPN. --> rec's to be placed by dietary.
- Heparin DVT on hold.
- D10 trial off.
- Attempt to get OOB.
-Rplt phos.
[2024-11-01 11:52] LABS: Glucose - Point of Care 130 mg/dl (70-99)
[2024-11-01] MEDS: OFIRMEV 100 IV ×2 (11:53→18:05)
[2024-11-01] MEDS: SODIUM PHOSPHATE 255 MEQ IV (11:54)
[2024-11-01 12:03] LABS: ALT (SGPT) 26 U/L (0-35); AST (SGOT) 15 U/L (14-36); Albumin 2.3 g/dl (3.5-5.0); Alkaline Phosphatase 85 U/L (38-126); Blood Urea Nitrogen 6 mg/dl (7-17); Calcium 8.1 mg/dl (8.4-10.2); Carbon Dioxide 28 mmol/L (22-30); Chloride 116 mmol/L (98-107); Estimated Creatinine Clearance 113 ml/min; Glucose 124 mg/dl (70-99); Magnesium 1.8 mg/dl (1.6-2.3); Potassium 3.8 mmol/L (3.5-5.1); Sodium 144 mmol/L (135-145); Total Protein 4.3 g/dl (6.3-8.2); Triglycerides 144 mg/dl (10-149); eGFR > 60.00
--- NOTE | 2024-11-01 12:12 | W.PN.ONC2 ---
Today's Communication / Plan
-
Management per ICU
Monitor coags
Impression
Impression
# Sepsis
# SB perf, s/p, washout, small bowel resection for perforation
# E coli bacteremia
# coagulopathy, thrombocytopenia-consistent with DIC. Platelet count 32, which decreased to 46 yesterday -likely due to medications including micafungin and meropenem.
Crohns disease
Mild normocytic anemia
Plan
Plan
Clinical picture is consistent with DIC in the setting of sepsis/bacteremia/bowel perf/surgery
Vitamin K unlikely to correct coags
Transfuse platelets to goal >50K if going to OR, >10K otherwise
Monitor coags, fibrinogen (would give cryoppt if fibringogen < 150)
Subjective/Objective
Subjective
Patient extubated today. She makes a 'thumbs up' when asked how she is feeling. states she is doing better than before. There was slight bleeding coming from the IV site, but states it is likely due to her moving around after being
extubated. No other bleeding.
Vital Signs:
Vital Signs
Temp Pulse Resp BP Pulse Ox
98.8 F 115 16 97/79 98
11/01/24 11:35 11/01/24 11:00 11/01/24 11:00 11/01/24 11:00 11/01/24 11:00
Lab Results:
Laboratory Data
WBC 22.9 10^3/uL (4.8-10.8) H 11/01/24 04:57
Hgb 9.1 g/dL (12.0-16.0) L 11/01/24 04:57
Plt Count 32 10^3/uL (130-400) L D 11/01/24 04:57
PT 14.1 Sec (11.4-14.6) 11/01/24 04:57
INR 1.06 11/01/24 04:57
APTT 30.4 Sec (23.4-35.0) 11/01/24 04:57
eGFR > 60.00 11/01/24 11:28
Physical Exam
HEENT: Moist Mucous Membranes
Cardiology: Normal Sinus Rhythm
Pulmonary: Clear
GI: Soft, Distended and No Organomegaly
Extremities: Pulses Present
Neuro: Other (Slightly sedated)
--- NOTE | 2024-11-01 12:48 | W.PN.ID1 ---
Date of Service
Date of Service: November 01, 2024
Today's Communication
Add micafungin to meropenem.
Assessment / Plan
# Recent new dx Crohn's with long ileal stricture and SBO
# Perforated small bowel with peritonitis
# E. coli bacteremia from abd source
# Septic shock weaning pressor
# VDRF
# Leukocytosis - trending up, on steroid
# Thrombocytopenia - likely secondary to sepsis/DIC
Recommendations:
-Repeat bcx pending
- 10/28 s/p ex-lap abd washout, SBR w/o anastomosis, placement of temporary ABThera closure
- 10/31 s/p ex-lap abd washout, SBR, end ileosotmy
OR cx yeast
- Add [id number] IV q24.
- Continue meropenem pending final OR cx data
- Continue ICU support.
Patient remains critically ill, on multiple pressors, vent dependent in ICU.
����������������������������������������������������������
Chief Complaint
-: Clinical Sepsis and Other (Perforated viscus)
Subjective / Review of Systems
at bedside.
Pt reports no pain today.
Vital Signs / Physical Exam
Vital Signs
Vital Signs
Temp Pulse Resp BP Pulse Ox
98.8 F 115 16 97/79 98
11/01/24 11:35 11/01/24 11:00 11/01/24 11:00 11/01/24 11:00 11/01/24 11:00
Physical Exam
Constitutional: No Acute Distress and Comfortable
Eyes: Sclera Anicteric
Cardiovascular: S1/S2 (Tachycardic)
Pulmonary: Clear (anteriorly)
Gastrointestinal: Soft and Non Distended
Genito-Urinary: Post and Clear Urine
Extremities: Negative Edema
Neurological: Awake
Objective Data
Lab Data
Lab Results
11/01/24 04:57
ESR 11 mm/hour (0-20) 10/26/24 08:41
PT 14.1 Sec (11.4-14.6) 11/01/24 04:57
INR 1.06 11/01/24 04:57
APTT 30.4 Sec (23.4-35.0) 11/01/24 04:57
Estimated Creat Clear 113 ml/min 11/01/24 11:28
Lactic Acid 2.1 mmol/L (0.7-2.0) H 10/30/24 20:06
Total Bilirubin 2.4 mg/dl (0.2-1.3) H 11/01/24 11:28
AST 15 U/L (14-36) 11/01/24 11:28
ALT 26 U/L (0-35) 11/01/24 11:28
Alkaline Phosphatase 85 U/L (38-126) 11/01/24 11:28
C-Reactive Protein < 5.00 mg/L (0.0-10.00) 10/26/24 08:41
Most recent labs reviewed.
Micro Results:
10/28/24 20:16 Blood Culture - Preliminary
Blood/Venous Positive culture in progress
Gram Stain - Preliminary
10/31/24 09:20 Wound Culture - Preliminary
Abdomen Yeast
Gram Stain - Preliminary
10/31/24 12:45 Blood Culture - Pending
Blood/Venous
10/31/24 12:45 Blood Culture - Pending
Blood/Venous
10/31/24 09:00 Anaerobic Culture - Pending
Abdomen
10/28/24 20:16 Blood Culture - Preliminary
Blood/Venous Escherichia coli
Gram Stain - Preliminary
Imaging:
10/28/24 AXR: Concern for intraperitoneal free air, but limited by the portable supine technique.
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
--- NOTE | 2024-11-01 13:35 | WOUNDNOTE ---
[facility] RN note: Patient's stoma pink. Ostomy appliance intact. s/p bowel surgery yesterday with end Ileostomy. Skin on heels blanchable red. Sacrum dull red, blanchable. Sacral shaped silicone border foam changed on sacrum. Protective heel foam
dressings changed. Ostomy supplies left at bedside (Berta wafer # [id number], Maikel seals and [place] pouch # [id number]). visits daily and is interested in learning ostomy care. Will plan appliance change or Friday. Heels off bed with
pillows. Patient turned to R semi side lying position with help from HUMBERTO Lopez.
--- NOTE | 2024-11-01 15:02 | WOUNDNOTE ---
[facility] RN note: Notified [employer] via [employer] of vac [employer] rental pump stop bill date as of 10/31/24 and garbage pick up man (work order #[id number]).
--- NOTE | 2024-11-01 15:23 | PTCARENOTE ---
No change in patient assessment.
--- NOTE | 2024-11-01 15:55 | CM ---
POD#1 explor lap, intra-abdominal washout, Small bowel resection, ileostomy. IV/steroids/AB, TPN. Discharge POC: TBD.
--- NOTE | 2024-11-01 16:01 | CM ---
POD#1 explor lap, intra-abdominal washout, Small bowel resection, ileostomy. IV/steroids/AB, Parenteral nutrition. Discharge POC: TBD.
--- NOTE | 2024-11-01 16:26 | PTCARENOTE ---
Attempted to get pt. OOB, HR 170s, returned to bed patient sitter aware.
[2024-11-01 17:28] LABS: Glucose - Point of Care 121 mg/dl (70-99)
--- NOTE | 2024-11-01 17:35 | W.PN.GS2 ---
Today's Communication / Plan
-
Will start TPN today, expect a very prolonged ileus
Assessment / Plan
-
Assessment: 48-year-old female admitted with recurrent small bowel obstruction in the setting of recent diagnosis of Crohn's disease and tapering steroids. Her hospital course was complicated by septic shock and multiorgan failure secondary to a
perforated viscus for which she was taken emergently to the OR on 10/28/2024 for a small bowel resection, washout and left in discontinuity. She was taken back on 10/31/2024 for an ex lap, further small bowel resection and end ileostomy with
abdominal wall closure.
Plan:
Wean pressors as able
Coagulopathy/DIC picture, platelets low. Transfuse as necessary, H and H stable
Okay for stress dose steroids
N.p.o., NG tube to low intermittent wall suction. Okay for meds via NG tube.
Will start TPN today, expect a very prolonged ileus
Routine ostomy care
Dressing to come down on postoperative day 5
Continue empiric antibiotics, follow-up intraoperative cultures. Micafungin added. She is at high risk for a surgical site infection
SCDs
PT OT, out of bed and ambulate as able.
PPI
Keep Otero, strict I's and O's
Appreciate GI, ID, heme, nephrology and radio electrician services
Time Spent
Total Time Spent with Patient (in minutes): 20
Subjective Data
-
Date of Service: November 01, 2024
Patient extubated. Responding appropriately to commands. Appears uncomfortable.
Objective Data
-
Intake and Output
10/31/24 11/01/24 11/02/24
06:59 06:59 06:59
Intake Total 5667.7 / 5996.4 1621.6 / 1667.0 442.0 / 442.0
Output Total 1175 / 1220 4315 / 4375 3810 / 3810
Balance 4492.7 / 4776.4 -2693.4 / -2708.0 -3368.0 / -3368.0
Intake:
Oral fluids 0 / 0 0 / 0 0 / 0
IV fluids (Total) 2599.7 / 2668.4 1021.6 / 1067.0 142.0 / 142.0
D10w 500 ml @ 15 mls/hr IV . 540 / 555 330 / 345 60 / 60
Q24H TOMASZ Rx#:[id number]
FENTANYL 360 / 375 245 / 255 10 / 10
LEVOPHED 619.1 / 637.9 253.3 / 264.6 62.9 / 62.9
Lr 1,000 ml @ 100 mls/hr IV . 100 / 100
Q10H TOMASZ Rx#:[id number]
NS bolus 500 / 500
PROPOFOL 261.6 / 272.5 157.3 / 166.4 9.1 / 9.1
VASOPRESSIN 219 / 228 36 / 36
IV piggybacks 451 / 711 510 / 510 300 / 300
Amount instilled into GI Tube ( 150 / 150 90 / 90
Total)
Dav[place] Sump 150 / 150 90 / 90
Blood Products 898 / 898
Albumin 25% 100 / 100
Fresh frozen plasma 218 / 218
Platelets 580 / 580
Blood Product Amount Infused ( 1569 / 1569
mL)
Ffp24 Divided Unit Part 1 Unit 218 /
[id number]
Ffp24 Divided Unit Part 2 Unit 218 / 218
[id number]
Ffp24 Divided Unit Part 2 Unit 220 / 220
[id number]
Fresh Frozen Plasma 24 Hours 333 / 333
Unit [id number]
Pathogen Redu Plt Leukored 378 / 378
Unit [id number]
Pathogen Redu Plt Leukored 202 / 202
Unit [id number]
Output:
Gastrointestinal tube output ( 200 / 200 75 / 75
Total)
Davy Sump 200 / 200 75 / 75
Urine, Otero 975 / 1020 4240 / 4300 3800 / 3800
Vital Signs
Temp Pulse Resp BP Pulse Ox
97.7 F 133 24 104/81 96
11/01/24 15:11 11/01/24 16:30 11/01/24 16:30 11/01/24 16:30 11/01/24 16:00
Lab Results
11/01/24 04:57
Calcium 8.1 mg/dl (8.4-10.2) L 11/01/24 11:28
Phosphorus 1.9 mg/dl (2.5-4.5) L 11/01/24 11:28
Magnesium 1.8 mg/dl (1.6-2.3) 11/01/24 11:28
Total Bilirubin 2.4 mg/dl (0.2-1.3) H 11/01/24 11:28
Direct Bilirubin 0.9 mg/dl (0.0-0.4) H 10/28/24 22:42
AST 15 U/L (14-36) 11/01/24 11:28
ALT 26 U/L (0-35) 11/01/24 11:28
Alkaline Phosphatase 85 U/L (38-126) 11/01/24 11:28
Total Protein 4.3 g/dl (6.3-8.2) L 11/01/24 11:28
Albumin 2.3 g/dl (3.5-5.0) L 11/01/24 11:28
Physical Exam
-
GENERAL/NEURO: Awake, Alert, looks uncomfortable
CHEST: Unlabored breathing on nasal cannula
ABDOMEN: Soft, Non-Tender, Non-Distended, ostomy is pink patent and productive of dark bloody output. Incisional dressing in place
EXTREMITIES: warm, well perfused, no jaundice, no cyanosis, no edema
Patient has a otero catheter: Yes
Patient has a central line: Yes
[2024-11-01] MEDS: Parenteral Nutrition, Central 920 IV (21:51)
--- NOTE | 2024-11-01 23:02 | PTCARENOTE ---
Late entry: assumed care of pt at 1900. Pt is A/O x1-2 to person and intermittently to place, needs to be reoriented to time and situation. Able to follow commands. Soft spoken speech noted. No c/o pain or nausea. Received pt on 2mcg/min of Levophed
which was turned off at 2145, so far pt has been maintaining MAP >65. TPN started this evening. At around 2145 pt noted to have inadvertently pulled out her NGT. [place] Text sent to Dr. Rodriguez to make him aware, ok to keep NGT out for now. ST 110s on
monitor, maintaining SpO2 93-94% on RA. Assessment as documented in nursing shift assessment flowsheet. CHG cloth bath done and linens changed.
[2024-11-01 23:14] LABS: Blood Urea Nitrogen 9 mg/dl (7-17); Calcium 7.6 mg/dl (8.4-10.2); Carbon Dioxide 29 mmol/L (22-30); Chloride 114 mmol/L (98-107); Estimated Creatinine Clearance 113 ml/min; Glucose 116 mg/dl (70-99); Potassium 3.4 mmol/L (3.5-5.1); Sodium 143 mmol/L (135-145); eGFR > 60.00
[2024-11-02] VITALS (25 sets, daily range): BP systolic 88–121; BP diastolic 66–86; PULSE 107–128; O2SAT 97; BMI 28.3
[2024-11-02] MEDS: NOVOLOG FLEXPEN-LOW RESISTANCE SC ×3 (00:07→17:28)
[2024-11-02 00:08] LABS: Glucose - Point of Care 128 mg/dl (70-99)
[2024-11-02] MEDS: OFIRMEV 100 IV ×2 (00:11→05:58)
[2024-11-02] MEDS: MERREM 100 MG IV ×4 (00:11→23:45)
[2024-11-02] MEDS: KCL 100 IV (00:12)
[2024-11-02] MEDS: SOLU-CORTEF 50 MG IV ×4 (00:12→23:46)
--- NOTE | 2024-11-02 00:41 | PTCARENOTE ---
Addendum entered by Soco Joseph RN 11/02/24 00:46:
K+ 3.4 on labs drawn at 2235, 40mEq rider ordered/administered, see EMAR.
Original Note:
Midnight assessment unchanged. Remains off Levophed. ST 110s on monitor. Ileostomy putting out brown liquid stool. Abd dressing C/D/I. Pt resting with eyes closed, went home for the night.
[2024-11-02 05:02] LABS: Hematocrit 26.3 % (37.0-47.0); Hemoglobin 8.9 g/dL (12.0-16.0); Mean Corp Hgb Conc. 33.8 g/dL (33.0-37.0); Mean Corpuscular Volume 92.0 fL (81.0-99.0); Platelet Count 23 10^3/uL (130-400); Red Cell Dist. Width 14.2 % (11.5-14.5)
[2024-11-02 05:05] LABS: APTT 30.4 Sec (23.4-35.0); INR 1.16; PT 15.1 Sec (11.4-14.6)
[2024-11-02 05:06] LABS: Fibrinogen 306 MG/DL (199-459)
[2024-11-02 05:08] LABS: Blood Urea Nitrogen 10 mg/dl (7-17); Calcium 7.8 mg/dl (8.4-10.2); Carbon Dioxide 30 mmol/L (22-30); Chloride 115 mmol/L (98-107); Estimated Creatinine Clearance 112 ml/min; Glucose 143 mg/dl (70-99); Magnesium 1.9 mg/dl (1.6-2.3); Potassium 4.0 mmol/L (3.5-5.1); Sodium 144 mmol/L (135-145); eGFR > 60.00
--- NOTE | 2024-11-02 05:13 | PTCARENOTE ---
[address] 100s-110s on monitor. Remains off pressors.
--- NOTE | 2024-11-02 06:15 | PTCARENOTE ---
I.S. given to patient, instructed her how to use, pt unable to move the indicator on the I.S./get any amount of volume. Had patient demonstrate the slow inhalation without the I.S. and she did it correctly but at this point was too weak to do the
I.S. effectively. Left on bedside table, encouraged pt to use throughout the day while she is awake, 10x per hour ideally.
--- NOTE | 2024-11-02 07:41 | W.PN.INTV ---
Today's Communication / Plan
Recommendations
Diurese
Serial CXR
Continue TPN
Defer diet to surgery
MAP >65
Aspiration precautions
Goal SpO2 >90-94%
Monitor platelet count and transfuse if needed to keep >10-20k; if bleeding or procedure pending then would transfuse to keep >50k
Patient is stable for downgrade out of ICU to IMU. Pulmonary service will continue to follow along.
Assessment
-
Patient is a 48-year-old female who is critically ill and currently intubated, sedated and mechanically ventilated. History primarily obtained from records as well as discussion with other providers. Reportedly patient has history of Crohn's
disease with terminal ileitis with recurrent small bowel obstruction in the past. She was admitted to the hospital on 10/25 with similar complaints of abdominal pain concerning for small bowel obstruction. Patient was evaluated by GI and general
surgery service and currently was being managed conservatively. On 10/28, patient developed worsening abdominal pain and reported mottling of abdominal skin. Patient also developed hypotension. Stat abdominal x-ray was concerning for perforation
with intraperitoneal air. General surgery reviewed the films and patient was emergently taken to OR and had a laparotomy. Patient noted to have small bowel perforation. Patient had abdominal washout, small bowel resection and then was transferred
to ICU with open abdomen with VAC in place. Patient had been in severe shock on mechanical ventilation, multiple pressors. Teletype Telegrapher consult was requested for further input.
#1. Shock, septic in the setting of perforated gut - shock state resolved since 11/01/2024
- Patient has made marked improvements, now extubated and off vasopressors
- Keep MAP>65
- Continue weaning down stress dose steroids with goal to off in next few days
- Off bicarb infusion now, developed anasarca, off Ringer lactate infusion
- Diuresed yesterday AM prior to extubation --> continue to diurese over next few days
- Serial CXR and check/trend BNP
- Continue broad-spectrum antibiotics per ID --> currently on meropenem and ID added micafungin on 11/01
#2. Lactic acidosis
- Now normalized
- Was previously elevated due to severe shock and perforated gut
- s/p ex lap with abdominal washout and small bowel resection, initially left in discontinuity with open abdomen on 10/28/2024 --> ex lap with repeat abdominal washout with small bowel resection and end ileostomy performed on 10/31/2024 and abdomen
closed
#3. Acute surgical abdomen with small bowel perforation (10/28)
- s/p ex lap with abdominal washout and small bowel resection, initially left in discontinuity with open abdomen on 10/28/2024 --> ex lap with repeat abdominal washout with small bowel resection and end ileostomy performed on 10/31/2024 and abdomen
closed
- Continue with postoperative management as per surgery
- Diet as per surgery
- Started TPN on 11/01
- Monitor blood sugars with goal 140�180; patient previously required D10W due to hypoglycemia ---> D10W weaned off on 11/01
#4. Acute respiratory failure, ventilator dependent --> extubated on 11/01/2024
- Extubated to nasal cannula; patient was diuresed prior to extubation
- Serial imaging
- Continue diuresis if needed
- Keep SpO2 >90-94%
- Aspiration precautions, keeping HOB >30-45�
- Encourage incentive spirometer use q1hr while awake
- PT/OT will be needed as pt becomes tachycardic to 130-140s with physical exertion (i.e., getting out of bed and standing up to walk)
#5. H/o Crohn's disease with terminal ileitis, fibrotic stricture
- Initial presentation with small bowel obstruction due to inflammatory strictures in distal ileum
- Had been on Solu-Medrol IV, currently on hydrocortisone stress dose --> being weaned to off over next few days
- Gastroenterology and GI service on case
- TPN
- Pt will likely need a biologic to be started by GI as an outpatient
#6. Hyponatremia --> now resolved
- Continue to monitor BMP daily
#7. Coagulopathy
- Due to sepsis
- Transfuse if needed to keep plt>10-20k; if going to OR then need to keep >50k; if bleeding then needs to be >50k
- Fibrinogen has been stable
- s/p vitamin K on 10/30/2024, s/p platelet infusions, fresh frozen plasma.
- Check HIT panel (pending), hold subcu heparin considering platelet count is below 50,000
Other medical diagnoses:
- Rectal aphthous ulcer
- H/o Smoking
- Hepatic steatosis
DVT prophylaxis. SCDs
GI prophylaxis. IV Protonix
Updated family at bedside
Patient is stable for downgrade out of ICU to IMU. Pulmonary service will continue to follow along.
Data:
KUB 10/2024: Concern for intraperitoneal free air, but limited by the portable supine technique.
CXR 11/01/2024: Likely small/moderate bilateral pleural effusions with adjacent airspace opacities, similar to prior on 10/31/[address]24
CT A/P 10/2024: High-grade small bowel obstruction secondary to a long segment of narrowing of the terminal ileum, most suggestive of a stricture from a chronic inflammatory ileitis in the setting of the patient's known inflammatory bowel disease.
Mild abdominopelvic ascites.
Severe hepatic steatosis.
Colonoscopy 08/2024: Mildly nodular and altered vascular mucosa with few apthous ulcers
in the rectum, in the recto-sigmoid colon and in the sigmoid colon.
Biopsied.
- The examined portion of the ileum was normal. Was hard to intubate
the TI the ICV opening was narrow and colon was tortuous so only the
very distal part of TI was examined and appeared normal.
Total time spent today was 76 minutes for this encounter. Time includes reviewing laboratory test/imaging results, reviewing pertinent medical records, obtaining and reviewing medical history, performing an appropriate exam, ordering medications,
tests and procedures. Time also includes documentation of this encounter, coordinating patient care and communicating with other healthcare professionals. Total time does not include separately billed tests performed on this date of service.
Subjective Dataa
Subjective Data
Date of Service:
Date of Service: November 02, 2024
Chief Complaint: Teletype Telegrapher Follow Up
Subjective:
Pt was seen and evaluated this AM. HR 112, BP 100/77, and saturating 95% on room air. Off levophed since yesterday. Started on TPN yesterday. Became tachycardic to 170s yesterday upon standing. Patient's is at bedside and all questions
were answered.
Review of Systems
General: Other (Negative unless mentioned above)
Objective Data
Data Reviewed
Vital Signs / I&O / Oxygen:
Vital Signs
Temp Pulse Resp BP Pulse Ox
98.2 F 110 22 97/72 95
11/02/24 01:02 11/02/24 04:15 11/02/24 04:15 11/02/24 04:00 11/02/24 04:15
Intake and Output
10/31/24 11/01/24 11/02/24
06:59 06:59 06:59
Intake Total 5667.7 / 5996.4 1621.6 / 1667.0 1258.2 / 1258.2
Output Total 1175 / 1220 4315 / 4375 4435 / 4435
Balance 4492.7 / 4776.4 -2693.4 / -2708.0 -3176.8 / -3176.8
SaO2 [CPAP] 99
SaO2 [A/C] 100
SaO2 95
Nasal Cannula flow liters per 2
minute
Physical Exam
General: Respiratory Distress (negative), Comfortable, Chills (negative) and Sweats (negative)
HEENT: Normocephalic, Anicteric and Other (Mild conjunctival pallor)
Cardiovascular: S1-S2 and Peripheral Edema (+3 lower extremity pitting edema bilaterally)
Respiratory: Wheeze (negative), Crackles (bibasilar), Rhonchi (negative), Non-Labored Respirations and Stridor (negative)
GI: Soft, Distended, Tender (Diffusely tender (mild) upon palpation) and Other (LLQ ostomy with dark stool + air inside bag)
Neurology: Awake, Alert, Tremors (negative) and Other (Drowsy at times)
Skin: Warm, Dry and Cyanosis (negative)
Labs/Micro/Reports
Lab Data
11/02/24 04:30
11/02/24 04:30
Laboratory Results
11/02/24
04:30
PT 15.1 H
INR 1.16
APTT 30.4
Microbiology
10/31/24 09:00 Abdomen Anaerobic Culture - Preliminary
Culture pending. Anaerobic cultures are examined after 3
days incubation. Additional information to follow.
10/28/24 20:16 Blood/Venous Blood Culture - Preliminary
Anaerobic gram neg bacilli
10/28/24 20:16 Blood/Venous Gram Stain - Preliminary
10/31/24 12:45 Blood/Venous Blood Culture - Preliminary
No Growth in 24 hours- Final report to follow
10/31/24 12:45 Blood/Venous Blood Culture - Preliminary
No Growth in 24 hours- Final report to follow
10/31/24 09:20 Abdomen Wound Culture - Preliminary
Yeast
10/31/24 09:20 Abdomen Gram Stain - Preliminary
10/28/24 20:16 Blood/Venous Blood Culture - Preliminary
Escherichia coli
10/28/24 20:16 Blood/Venous Gram Stain - Preliminary
[2024-11-02] MEDS: MORPHINE SULFATE 2 MG IV ×3 (07:43→23:45)
[2024-11-02] MEDS: ZOFRAN 4 MG IV (07:44)
[2024-11-02] MEDS: PROTONIX IV 40 MG IV (07:48)
[2024-11-02] MEDS: NSS (PRESERVATIVE FREE) 10 ML IV (07:49)
[2024-11-02] MEDS: FLUSH (NSS) 4 FLUSH IV (07:58)
[2024-11-02 08:01] LABS: Glucose - Point of Care 128 mg/dl (70-99)
--- NOTE | 2024-11-02 08:33 | PTCARENOTE ---
report received, assessments per work list. patient confused@times, forgetful. found to have pulled and partially removed central line dressing during walking rounds. c/o pain and nausea. see prn administration. generalized weakness. sinus
tachycardia. triple lie with good blood returnsX3 ports. pitting anasarca extended to trunk. lungs clear. using IS with cueing, able to expectorate thick creamy white yellow sputum, orally suctions with Yankauer. abdomen distended. hypoactive bowel
sounds. ileostomy intact, budded with small amount liquid stool. otero draining anisa urine. spouse arrived, reviewed patient status and plan of care. call dunn in reach. patient demonstrates proper usage. safe environment maintained
[2024-11-02] MEDS: SODIUM PHOSPHATE 260 MEQ IV (08:49)
[2024-11-02] MEDS: MYCAMINE 105 MG IV (09:31)
[2024-11-02] MEDS: LASIX 40 MG IV (10:46)
--- NOTE | 2024-11-02 10:58 | W.PN.ONC ---
Today's Communication / Plan
-
She is improving
Clinical picture is/was consistent with DIC in the setting of sepsis/bacteremia/bowel perf/surgery
Fibrinogen and coags have improved
Anticipate platelet count will recover as she improves clinically
Transfuse platelets to goal >50K if going to OR, >10K otherwise
Impression
Impression
# Sepsis
# SB perf, s/p, washout, small bowel resection for perforation
# E coli bacteremia
# coagulopathy, thrombocytopenia-consistent with DIC. Platelet count 32, which decreased to 46 yesterday -likely due to medications including micafungin and meropenem.
Crohns disease
Mild normocytic anemia
Plan
Plan
She is improving
Clinical picture is/was consistent with DIC in the setting of sepsis/bacteremia/bowel perf/surgery
Fibrinogen and coags have improved
Anticipate platelet count will recover as she improves clinically
Transfuse platelets to goal >50K if going to OR, >10K otherwise
Subjective/Objective
Subjective/Objective
extubated yesterday, tolerating water ice in small bites
TPN infusing
no bleeding per patient/RN
Vital Signs:
Vital Signs
Temp Pulse Resp BP Pulse Ox
97.9 F 118 22 103/75 96
11/02/24 08:06 11/02/24 10:46 11/02/24 10:00 11/02/24 10:46 11/02/24 10:00
Lab Results:
Laboratory Data
WBC 17.8 10^3/uL (4.8-10.8) H 11/02/24 04:30
Hgb 8.9 g/dL (12.0-16.0) L 11/02/24 04:30
Plt Count 23 10^3/uL (130-400) L* D 11/02/24 04:30
PT 15.1 Sec (11.4-14.6) H 11/02/24 04:30
INR 1.16 11/02/24 04:30
APTT 30.4 Sec (23.4-35.0) 11/02/24 04:30
eGFR > 60.00 11/02/24 04:30
--- NOTE | 2024-11-02 11:00 | W.PN.GS2 ---
Today's Communication / Plan
-
TPN reordered
Assessment / Plan
-
Assessment: 48-year-old female admitted with recurrent small bowel obstruction in the setting of recent diagnosis of Crohn's disease and tapering steroids. Her hospital course was complicated by septic shock and multiorgan failure secondary to a
perforated viscus for which she was taken emergently to the OR on 10/28/2024 for a small bowel resection, washout and left in discontinuity. She was taken back on 10/31/2024 for an ex lap, further small bowel resection and end ileostomy with
abdominal wall closure.
Plan:
Coagulopathy/DIC picture, platelets still falling now 32K. Hematology recommending transfusion if less than 10K
H&H stable
Okay for stress dose steroids, would taper as able
Okay for clears, I told the patient to go slow as an ileus is expected.
Will continue TPN until on a more robust diet
Routine ostomy care
Change midline dressing frequently/as needed
Continue empiric antibiotics, follow-up intraoperative cultures. Micafungin added. She is at high risk for a surgical site infection
SCDs
PT OT, out of bed and ambulate as able.
PPI
Keep Otero, strict I's and O's
Appreciate GI, ID, heme, nephrology and real estate broker services
Time Spent
Total Time Spent with Patient (in minutes): 20
Subjective Data
-
Date of Service: November 02, 2024
Interval Events:
Off pressors, extubated. Patient pulled the NG tube out last night. Pain Controlled. Denies Nausea/Vomiting, +bowel function.
Objective Data
-
Intake and Output
11/01/24 11/02/24 11/03/24
06:59 06:59 06:59
Intake Total 1621.6 / 1667.0 1258.2 / 1296.2 483 / 483
Output Total 4315 / 4375 4435 / 4435 100 / 100
Balance -2693.4 / -2708.0 -3176.8 / -3138.8 383 / 383
Intake:
Oral fluids 0 / 0 0 / 0
IV fluids (Total) 1021.6 / 1067.0 164.2 / 164.2
D10w 500 ml @ 15 mls/hr IV . 330 / 345 60 / 60
Q24H TOMASZ Rx#:[id number]
FENTANYL 245 / 255 10 / 10
LEVOPHED 253.3 / 264.6 85.1 / 85.1
PROPOFOL 157.3 / 166.4 9.1 / 9.1
VASOPRESSIN 36 / 36
IV piggybacks 510 / 510 790 / 790 331 / 331
TPN/PPN 304 / 342 152 / 152
Amount instilled into GI Tube ( 90 /
Total)
[place] Sump 90 / 90
Output:
Liquid stool amount 125 / 125
Ileostomy 125 / 125
Gastrointestinal tube output ( 75 / 75 10 10
Total)
[place] Sump 75 / 75 10 10
Urine, Otero 4240 / 4300 4300 / 4300 100 / 100
Vital Signs
Temp Pulse Resp BP Pulse Ox
97.9 F 118 22 103/75 96
11/02/24 08:06 11/02/24 10:46 11/02/24 10:00 11/02/24 10:46 11/02/24 10:00
Lab Results
11/02/24 04:30
Calcium 7.8 mg/dl (8.4-10.2) L 11/02/24 04:30
Phosphorus 1.8 mg/dl (2.5-4.5) L 11/02/24 04:30
Magnesium 1.9 mg/dl (1.6-2.3) 11/02/24 04:30
Total Bilirubin 2.4 mg/dl (0.2-1.3) H 11/01/24 11:28
Direct Bilirubin 0.9 mg/dl (0.0-0.4) H 10/28/24 22:42
AST 15 U/L (14-36) 11/01/24 11:28
ALT 26 U/L (0-35) 11/01/24 11:28
Alkaline Phosphatase 85 U/L (38-126) 11/01/24 11:
Total Protein 4.3 g/dl (6.3-8.2) L 11/01/24 11:28
Albumin 2.3 g/dl (3.5-5.0) L 11/01/24 11:28
Physical Exam
-
GENERAL/NEURO: Awake, Alert, no distress
CHEST: Unlabored breathing on RA
ABDOMEN: Soft, appropriately tender, mildly distended, ostomy is pink patent and productive of both gas and green-brown output.
Extremities: Anasarca and edema noted, slightly improved from yesterday.
Patient has a otero catheter: Yes
Patient has a central line: No
--- NOTE | 2024-11-02 11:09 | W.PN.ID1 ---
Date of Service
Date of Service: November 02, 2024
Today's Communication
Continue micafugin and meropenem.
Assessment / Plan
# Recent new dx Crohn's with long ileal stricture and SBO
# Perforated small bowel with peritonitis
# E. coli and anaerobe bacteremia from abd source
# s/p Septic shock weaning pressor
# s/p VDRF
# Leukocytosis - trending down, on steroid
# Thrombocytopenia - likely secondary to sepsis/DIC
Recommendations:
-Repeat bcx neg to bhavik
- 10/28 s/p ex-lap abd washout, SBR w/o anastomosis, placement of temporary ABThera closure
- 10/31 s/p ex-lap abd washout, SBR, end ileosotmy
OR cx yeast
- Continue [id number] IV q24 (d20
- Continue meropenem for now.
����������������������������������������������������������
Chief Complaint
-: Clinical Sepsis and Other (Perforated viscus)
Subjective / Review of Systems
Pain under control.
Vital Signs / Physical Exam
Vital Signs
Vital Signs
Temp Pulse Resp BP Pulse Ox
97.9 F 118 22 103/75 96
11/02/24 08:06 11/02/24 10:46 11/02/24 10:00 11/02/24 10:46 11/02/24 10:00
Physical Exam
Constitutional: Acutely Ill
Eyes: Sclera Anicteric
Cardiovascular: S1/S2 (Tachycardic)
Pulmonary: Clear (anteriorly)
Gastrointestinal: Soft and Non Distended
Genito-Urinary: Post and Clear Urine
Extremities: Negative Edema
Neurological: AO x 3
Objective Data
Lab Data
Lab Results
11/02/24 04:30
ESR 11 mm/hour (0-20) 10/26/24 08:41
PT 15.1 Sec (11.4-14.6) H 11/02/24 04:30
INR 1.16 11/02/24 04:30
APTT 30.4 Sec (23.4-35.0) 11/02/24 04:30
Estimated Creat Clear 112 ml/min 11/02/24 04:30
Lactic Acid 1.3 mmol/L (0.7-2.0) 11/02/24 04:30
Total Bilirubin 2.4 mg/dl (0.2-1.3) H 11/01/24 11:28
AST 15 U/L (14-36) 11/01/24 11:28
ALT 26 U/L (0-35) 11/01/24 11:28
Alkaline Phosphatase 85 U/L (38-126) 11/01/24 11:28
C-Reactive Protein < 5.00 mg/L (0.0-10.00) 10/26/24 08:41
Most recent labs reviewed.
Micro Results:
10/31/24 09:20 Wound Culture - Preliminary
Abdomen Yeast
Gram Stain - Preliminary
10/31/24 09:00 Anaerobic Culture - Preliminary
Abdomen Culture pending. Anaerobic cultures are examined after 3
days incubation. Additional information to follow.
10/28/24 20:16 Blood Culture - Preliminary
Blood/Venous Anaerobic gram neg bacilli
Gram Stain - Preliminary
10/31/24 12:45 Blood Culture - Preliminary
Blood/Venous No Growth in 24 hours- Final report to follow
10/31/24 12:45 Blood Culture - Preliminary
Blood/Venous No Growth in 24 hours- Final report to follow
10/28/24 20:16 Blood Culture - Preliminary
Blood/Venous Escherichia coli
Gram Stain - Preliminary
Imaging:
10/28/24 AXR: Concern for intraperitoneal free air, but limited by the portable supine technique.
9/15/25 CT a/p:High-grade small bowel obstruction secondary to a long segment of narrowing of the terminal ileum, most suggestive of a stricture from a chronic inflammatory ileitis in the setting of the patient's known inflammatory bowel disease.
[2024-11-02 11:43] LABS: Glucose - Point of Care 209 mg/dl (70-99)
[2024-11-02] MEDS: NOVOLOG FLEXPEN-LOW RESISTANCE 2 UNITS SC ×2 (11:43→23:46)
--- NOTE | 2024-11-02 11:47 | PTCARENOTE ---
patient assisted to dangle at bedside. heart rate 120-130. took two steps up to head of head with max assist. lungs clear. weak cough. diuresing post lasix, tolerating sips clear liquids without nausea. large amount flatus from ostomy, stool liquid
dark green black in color. heme positive. Hemo Onc MD Dr Harper updated by tiger text. call dunn in hand
--- NOTE | 2024-11-02 11:58 | W.PN.HOSP.TC ---
Addendum entered and electronically signed by Enoc Bhatia MD 11/02/24 13:47:
Acute hypoxic respiratory failure
Original Note:
Today's Communication/Plan
-
IV antibiotics. TPN.
Assessment / Plan
Assessment / Plan
Physical exam:
General: Acutely ill
HEENT: Normocephalic, Atraumatic and dry mucous Membranes
Respiratory: Clear to Auscultation; Negative Wheezes, Rales or Rhonchi
Cardiac: Regular Rhythm and S1/S2
GI: Postop findings. Ostomy in place.
Musculoskeletal: No Clubbing, No Cyanosis and No Edema
Neuro: Lethargic, respond to verbal stimuli, generalized weakness.
A/P:
Septic shock due to perforated small bowel with peritonitis and E. coli bacteremia in the setting of Chron's:
Continue IV meropenem and micafungin
Yeast growing in cultures
Pressors-wean as tolerated
On stress doses of steroids, IV hydrocortisone 50 mg every 6 hours--> down to every 8 hours
TPN continued by surgery and started on clear liquid diet
Discussed with at bedside
Coagulopathy due to DIC from sepsis:
Hold NSAIDs
Consider cryoprecipitate if bleeding and fibrinogen less than 150
Consider platelet transfusion if platelet count in the 10K range
Other medical problems:
Acute respiratory failure, status post extubated
Hyponatremia, resolved
Leukocytosis
Anemia
Thrombocytopenia
Hypoalbuminemia
Hypophosphatemia
Hyperbilirubinemia
Chronic hypotension
Elevated LFTs
Hepatic steatosis
Lactic acidosis
DVT prophylaxis:
SCDs
CODE STATUS:
Full code
Total time spent on today's encounter was 55 minutes which included time spent in counseling the patient/family regarding diagnosis and treatment plan as listed above, goals of care, and symptom management. Case was discussed with nursing staff,
specialists, and care coordinators/case management. All labs and imaging personally reviewed by me. Remainder the time spent in detailed review of previous records, lab data, imaging, and other medical provider documentation.
Anticipated Discharge: > 48 hours
Subjective/Interval History
-
Date of Service: November 02, 2024
Patient is alert today. Reports no significant pain. No chest pain or shortness of breath. Afebrile
Objective Data
-
Labs:
Laboratory Results
11/02/24 11/02/24
04:30 17:00
WBC 17.8 H
Hgb 8.9 L
Hct 26.3 L
Plt Count 23 L* D
PT 15.1 H
INR 1.16
APTT 30.4
Sodium 144 Pending
Potassium 4.0 Pending
Chloride 115 H Pending
Carbon Dioxide 30 Pending
BUN 10 Pending
Creatinine 0.3 L Pending
Glucose 143 H Pending
Calcium 7.8 L Pending
Vital Signs:
Vital Signs
Temp Pulse Resp BP Pulse Ox
98.5 F 118 22 103/75 96
11/02/24 11:54 11/02/24 10:46 11/02/24 10:00 11/02/24 10:46 11/02/24 10:00
I&O
11/01/24 11/02/24 11/03/24
06:59 06:59 06:59
Intake Total 1621.6 / 1667.0 1258.2 / 1296.2 584 / 584
Output Total 4315 / 4375 4435 / 4435 450 / 450
Balance -2693.4 / -2708.0 -3176.8 / -3138.8 134 / 134
--- NOTE | 2024-11-02 13:40 | PN.CDI ---
CDI
- -
CDI:
Physician Documentation Request
Admit Date: 10/25/24 22:02
Dear Doctor Jannette,
Progress notes state 'Acute respiratory failure, status post extubated'
Please clarify which of the following accurately represents the patient's respiratory failure:
Please indicate type if known
Hypoxic
Hypercapnic
Hypoxic and Hypercapnic
other
Use of terms such as suspected, likely, concern for, or probable (associated with a specific diagnosis that is being evaluated, monitored, or treated as if it exists) are acceptable and can be coded in the inpatient setting, when documented at the
time of discharge.
Thank you,
Jerilyn Alberto RN, BSN
CDI Specialist
tiger text
Please use your independent medical judgment in providing your response.
--- NOTE | 2024-11-02 14:25 | OR.RPT ---
Operative Report
Operative Report
Patient Name: Rosey Strickland
: 1975
Date of Operation: 10/28/2024
Preoperative Diagnosis: Perforated viscus, septic shock
Postoperative Diagnosis: Same
Procedure(s):
1. Exploratory laparotomy, abdominal washout
2. Small bowel resection, left in discontinuity
3. Open abdomen, ABThera VAC placed.
Surgeon(s):
Dr. Rodriguez
Guard Rail Installer(s):
None
Anesthesia: General
Estimated Blood Loss: 11 cc
Urine Output: See anesthesia record
Drains/Lines/Implants: ABThera VAC
Specimens: Small bowel
Indication for surgery:
This is a 48-year-old female known to the surgical service for longstanding terminal ileitis with subsequent small bowel obstructions secondary to Crohn disease and fibrotic stricture. Overall she been progressing clinically well until this
afternoon when she clinically decompensated and an x-ray demonstrated hyperenhancement of the small bowel concerning for free air. An NG tube was placed on the floor and the patient was consented for emergency exploration after discussion of risk
benefits and alternatives.
Operative Findings: The patient was laid supine on the operating table, due to the urgency of the case before induction, an atrial line was placed as well as a Post catheter. General endotracheal intubation was achieved and the abdomen was prepped
and draped in the usual fashion. A vertical periumbilical midline incision was made and the abdomen was entered safely. She had a prior supraumbilical hernia which was used as our entry point. We encountered significant amount of succus
immediately as well as a perforation of the small bowel which was controlled with Kellys both proximally and distally. A large Johnson wound retractor was placed to protect the skin and the abdomen was thoroughly suctioned. There was roughly 2 L of
enteric succus in the abdomen in all 4 quadrants. The bowel appeared purple and dusky consistent with a patient on high-dose pressors thus I elected not to perform small bowel anastomosis at this time. Mesenteric defects were made in the small
bowel mesentery surrounding the perforation and a limited small bowel resection was performed. This was passed off as specimen. The intervening mesentery was taken with LigaSure device however there was still bleeding from the cut edges which was
oversewn with 2-0 Vicryl sutures. I did run the bowel both proximally and distally and found no other pathology other than some severe tortuosity in the terminal ileum consistent with her known fibrotic stricture. The abdomen was thoroughly washed
out with 4 L of warm saline in all 4 quadrants until clear. The NG tube was noted to be in good position. An PlaceFirsta wound VAC was introduced and cut to size and secured in place in the usual fashion. This concluded the procedure. Counts were
correct x 2
Details of the operation:
The patient was brought to the operating room and positioned supine on the operating table. Due to the patient's poor clinical status an A-line and 16 Kinyarwanda Post catheter were placed prior to induction of anesthesia. Following successful
endotracheal intubation, the abdomen was prepped and draped in the usual fashion. A vertical periumbilical midline incision was made and the abdomen was entered safely. She had a prior supraumbilical hernia which was uses in our entry point. We
immediately encountered significant amount of succus and then very quickly identified the perforation in the small bowel which was controlled with Kellys both proximal and distal to this perforation. A large Johnson was used to protect the skin in
the enteric succus/contamination the abdomen was thoroughly suctioned out. Roughly 2 L of succus was evacuated. I did run the bowel and no other overt pathology was identified. Overall the bowel looked somewhat pale consistent with the patient on
high-dose pressors but no other hina areas of ischemia or necrosis. The distal terminal ileum was noted to be somewhat serpentine and adherent on itself with a very thickened terminal ileum leading up to a normal-appearing colon and. Given the
severity of the patient's clinical status I elected not to perform an anastomosis and plan for a second look planned operation once we stabilized the patient. The perforated bowel was resected using 2 fires of a WILLEM stapler. The intervening
mesentery was divided using a bipolar energy device however there was still pinpoint bleeding from the mesentery which was oversewn with 2-0 Vicryl sutures. The abdomen was then copiously irrigated and suctioned until clear in all 4 quadrants with
over 4 L of warm saline. The NG tube was noted to be in good position. An ABThera wound VAC was introduced and cut to size and secured in place in the usual fashion with good suction seal at the end. This concluded the procedure. Counts were
correct x 2. The patient was then transported the ICU intubated and sedated with a very guarded prognosis.
I was the attending physician and performed the procedure with no assistance. I was present for all portions of the case.
Ernesto Rodriguez MD
--- NOTE | 2024-11-02 14:35 | PTCARENOTE ---
shanna removed@1415, pure wick applied. due to void by 2014. medicated with morphine per prn order. weak cough,able to expectorate moderate amount thick white echevarria sputum. tolerating sips clear liquids
--- NOTE | 2024-11-02 15:12 | OR.RPT ---
Operative Report
Operative Report
Patient Name: Rosey Strickland
: 1975
Date of Operation: 10/31/2024
Preoperative Diagnosis: Perforated viscus, bowel in discontinuity
Postoperative Diagnosis: Perforated viscus, bowel in discontinuity, ischemic bowel
Procedure(s):
1. Exploratory laparotomy, washout
2. Small bowel resection
3. End ileostomy
Surgeon(s):
Dr. Ernesto Rodriguez
Medical Concierge(s):
Dr. Sahil Fong
Anesthesia: General
Estimated Blood Loss: 23 cc
Urine Output: See anesthesia records
Drains/Lines/Implants: None
Specimens: Small bowel
Indication for surgery:
This is a 48-year-old female status post exploratory laparotomy and washout with small bowel resection for perforated small bowel in the setting of Crohn's disease, known fibrotic stricture left in discontinuity. After allowing for 48 hours for the
patient to defervesce, she was deemed stable enough to return to the OR for exploration and possible anastomosis versus end ileostomy. Risk benefits and alternatives were discussed with the patient's who consented for surgery.
Operative Findings: ABThera VAC removed. There was some murky fluid in the pelvis which was sent for culture. The abdomen was washed out with 2 L of saline but there was no significant residual contamination. Inspection of the bowel
redemonstrated her terminal ileum is quite inflamed and tortuous leading to a fairly normal colon. This end of the staple line was oversewn with a running 3-0 silk. We then turned our attention to the proximal bowel which looked partially ischemic
for about 25 cm which was resected with a single fire of a 80 purple staple load on the WILLEM. The intervening mesentery was divided using a LigaSure device. There was additional bleeding from the base of the mesentery due to its thickness which was
oversewn with Vicryl sutures. Patient was noted to be fairly coagulopathic during procedure but received 2 units of platelets preoperatively, 1 unit of platelets as well as 1 unit of PRBCs and 2 units of FFP intraoperatively. Though the mesentery
was slightly foreshortened we are able to bring it through an aperture in the left upper quadrant without tension. The ostomy was wrapped with Seprafilm and 2 pieces were placed in the abdomen to prevent adhesions. After confirming hemostasis,
which certainly improved after blood product infusion the abdomen was closed with a running 0 PDS suture on a CT 2 needle anchored at each apex and run towards the middle and tied together. The skin was then loosely approximated and covered with a
Mepilex dressing. The ostomy was then matured/brooked in the usual fashion. Overall the patient tolerated the procedure well and her pressor requirements decreased throughout the course of the case. She was transported back to the ICU intubated
and sedated, her prognosis still remains guarded. Dr. Fong provided invaluable assistance during the case providing tension counter tension, helping expose the abdomen as well as maturing the ostomy all in a timely fashion in this critically ill
and coagulopathic patient.
Details of the operation:
The patient was brought to the operating room and positioned supine on the operating table. General anesthesia was induced. The abdomen was prepped and draped in the usual fashion. After performing a timeout the ABThera VAC was removed. There was
some murky fluid in the pelvis which was sent for culture. Otherwise the abdomen appeared fairly clean and was washed out with an additional 2 L of warm saline without any significant residual contamination. Inspection of the bowel redemonstrated
very inflamed terminal ileum with a tortuous thickened mesentery leading to a fairly normal colon. The small bowel was quite edematous and given that she was still on significant pressors we elected to perform an end ileostomy. The distal and of
the small bowel staple line was oversewn with a running 3-0 silk to prevent any stump blowout. We then turned our attention to the proximal portion of the bowel which looked partially ischemic for about 25 cm with a clear demarcation along the
bowel wall from dusky purple to engine dynamometer tester pink thus the ischemic bowel was resected with a single fire of an 80 purple staple load on the WILLEM and the intervening mesentery was divided using a LigaSure device. This was passed off as specimen. There
was additional bleeding from the base of the mesentery due to its thickness which was oversewn with Vicryl sutures. Overall the patient was noted be fairly coagulopathic during the procedure and received 2 units of platelets preoperatively.
Intraoperatively the patient received 1 unit of packed red blood cells, 1 unit of platelets and 2 units of FFP. The mesentery was a little foreshortened it did reach the anterior abdominal wall without any undue tension so an aperture was made in
the left upper quadrant and the small bowel was delivered through it. We then closed her fascia with 0 PDS suture anchored at each apex and run towards the middle and tied together. The midline was washed out and loosely approximated with skin
cosmo and covered with a dressing. The ostomy was then matured in the usual fashion using 3-0 Vicryl sutures and an ostomy appliance was applied. Overall the patient tolerated the procedure very well and her pressor requirements decreased fairly
significantly during the course of the procedure. The patient was then transported back to the ICU intubated and sedated for further hemodynamic monitoring and recovery.
I was the attending physician and performed the procedure with assistance of Dr. Fong who provided tension and counter tension and help expose the abdomen as well as maturing the ostomy all in a very timely fashion in this critically ill and
coagulopathic patient. I was present for all portions of the case.
Ernesto Rodriguez MD
--- NOTE | 2024-11-02 16:30 | PTCARENOTE ---
OOB to chairX1 hour. worked with PT/OT. weak cough, anterior coarse rhonchi bilaterally. diminished bases. tubular breath sounds. assisted with IS, christelle suction for thick echevarria white sputum. call dunn in reach. remains forgetful. [email or web address].
[2024-11-02 17:28] LABS: Glucose - Point of Care 149 mg/dl (70-99)
[2024-11-02 17:42] LABS: Blood Urea Nitrogen 11 mg/dl (7-17); Calcium 7.9 mg/dl (8.4-10.2); Carbon Dioxide 33 mmol/L (22-30); Chloride 110 mmol/L (98-107); Estimated Creatinine Clearance 112 ml/min; Glucose 152 mg/dl (70-99); Magnesium 1.7 mg/dl (1.6-2.3); Potassium 2.9 mmol/L (3.5-5.1); Sodium 144 mmol/L (135-145); eGFR > 60.00
[2024-11-02] MEDS: MAGNESIUM SULFATE 50 IV (18:01)
[2024-11-02] MEDS: KCL 270 MEQ IV ×2 (18:25→22:56)
--- NOTE | 2024-11-02 20:24 | PTCARENOTE ---
Rec'd pt resting in bed, needs a lot of encouragement to do things, oriented flat affect, DE PAZ weakly, ST, bp stable, weak distal pulses, + anasarca, RA, lungs decr, poor insp effort, enc to use IS- reaches 500ml, enc to use accapella, moist cough,
sat 94, hypo bowel sounds, ileostoy w/ brown/greenliquid, no n/v, keyonna sips clears, abd tender to palpation, purewick in place, bladder scanned for 288ml
[2024-11-02] MEDS: Parenteral Nutrition, Central 1310 IV (20:40)
[2024-11-02 22:19] LABS: Calprotectin, Fecal 666 ug/g (<=49)
[2024-11-02 23:26] LABS: Glucose - Point of Care 219 mg/dl (70-99)
[2024-11-03] VITALS (14 sets, daily range): BP systolic 96–131; BP diastolic 59–90; PULSE 111; BMI 27.9
--- NOTE | 2024-11-03 | PTCARENOTE ---
sys reviewed, 2 liters nc added for sat on RA 91, lungs decr, coarse, bladder scanned for 365, str cath for 400ml yellow urine, morphine 2mg iv given for pain, CHG bath done, linens changed
--- NOTE | 2024-11-03 04:31 | PTCARENOTE ---
sys reviewed, changes noted
[2024-11-03 04:58] LABS: Hematocrit 25.8 % (37.0-47.0); Hemoglobin 8.5 g/dL (12.0-16.0); Mean Corp Hgb Conc. 32.9 g/dL (33.0-37.0); Mean Corpuscular Volume 93.1 fL (81.0-99.0); Red Cell Dist. Width 14.1 % (11.5-14.5)
--- NOTE | 2024-11-03 05:00 | PTCARENOTE ---
Addendum entered by Wilma Harrison RN 11/03/24 05:59:
morphine 2mg iv given for pain
Original Note:
11/03- sats dropped to high 70's, NRB applied, enc to cough- very weak, unable to bring anything up, suctioned for mod amt thick echevarria, pneumatic percussion done by therapist, sat incr to 100-changed to 6 liters nc
[2024-11-03 05:05] LABS: Blood Urea Nitrogen 13 mg/dl (7-17); Calcium 7.7 mg/dl (8.4-10.2); Carbon Dioxide 32 mmol/L (22-30); Chloride 112 mmol/L (98-107); Estimated Creatinine Clearance 111 ml/min; Glucose 202 mg/dl (70-99); Magnesium 2.0 mg/dl (1.6-2.3); Potassium 4.1 mmol/L (3.5-5.1); Sodium 142 mmol/L (135-145); eGFR > 60.00
[2024-11-03] MEDS: MORPHINE SULFATE 2 MG IV (05:06)
[2024-11-03 05:43] LABS: Platelet Count 26 10^3/uL (130-400)
--- NOTE | 2024-11-03 05:53 | PTCARENOTE ---
bladder scanned for 178ml, sat 97 on 6 liters nc
[2024-11-03 06:00] LABS: Glucose - Point of Care 233 mg/dl (70-99)
[2024-11-03] MEDS: NOVOLOG FLEXPEN-LOW RESISTANCE 2 UNITS SC ×2 (06:01→12:26)
[2024-11-03] MEDS: SOLU-CORTEF 50 MG IV ×2 (08:07→20:08)
[2024-11-03] MEDS: MERREM 100 MG IV (08:07)
[2024-11-03] MEDS: NSS (PRESERVATIVE FREE) 10 ML IV (08:08)
[2024-11-03] MEDS: PROTONIX IV 40 MG IV (08:08)
[2024-11-03] MEDS: SODIUM PHOSPHATE 260 MEQ IV (08:45)
--- NOTE | 2024-11-03 09:50 | W.PN.PUL3 ---
Today's Communication / Plan
-
Diurese
Serial CXR
Continue TPN
Defer diet to surgery
MAP >65
Aspiration precautions
Goal SpO2 >90-94%
Monitor platelet count and transfuse if needed to keep >10-20k; if bleeding or procedure pending then would transfuse to keep >50k
Assessment
-
Patient is a 48-year-old female who is critically ill and currently intubated, sedated and mechanically ventilated. History primarily obtained from records as well as discussion with other providers. Reportedly patient has history of Crohn's
disease with terminal ileitis with recurrent small bowel obstruction in the past. She was admitted to the hospital on 10/25 with similar complaints of abdominal pain concerning for small bowel obstruction. Patient was evaluated by GI and general
surgery service and currently was being managed conservatively. On 10/28, patient developed worsening abdominal pain and reported mottling of abdominal skin. Patient also developed hypotension. Stat abdominal x-ray was concerning for perforation
with intraperitoneal air. General surgery reviewed the films and patient was emergently taken to OR and had a laparotomy. Patient noted to have small bowel perforation. Patient had abdominal washout, small bowel resection and then was transferred
to ICU with open abdomen with VAC in place. Patient had been in severe shock on mechanical ventilation, multiple pressors. Fire Protection Inspector consult was requested for further input.
#1. Shock, septic in the setting of perforated gut - shock state resolved since 11/01/2024
- Patient has made marked improvements, now extubated and off vasopressors
- Keep MAP>65
- Continue weaning down stress dose steroids with goal to off in next few days
- Off bicarb infusion now, developed anasarca, off IVF as well and we are diuresing
- Serial CXR and trend BNP
- Continue broad-spectrum antibiotics per ID --> currently on meropenem and ID added micafungin on 11/01
#2. Lactic acidosis
- Now normalized
- Was previously elevated due to severe shock and perforated gut
- s/p ex lap with abdominal washout and small bowel resection, initially left in discontinuity with open abdomen on 10/28/2024 --> ex lap with repeat abdominal washout with small bowel resection and end ileostomy performed on 10/31/2024 and abdomen
closed
#3. Acute surgical abdomen with small bowel perforation (10/28)
- s/p ex lap with abdominal washout and small bowel resection, initially left in discontinuity with open abdomen on 10/28/2024 --> ex lap with repeat abdominal washout with small bowel resection and end ileostomy performed on 10/31/2024 and abdomen
closed
- Continue with postoperative management as per surgery
- Diet as per surgery
- Started TPN on 11/01
- Monitor blood sugars with goal 140�180; patient previously required D10W due to hypoglycemia ---> D10W weaned off on 11/01
#4. Acute respiratory failure, ventilator dependent --> extubated on 11/01/2024
- Extubated to nasal cannula; patient was diuresed prior to extubation
- Serial imaging
- Continue diuresis if needed given continued bilateral pleural effusions seen on CXR
- Keep SpO2 >90-94%
- Aspiration precautions, keeping HOB >30-45�
- Encourage incentive spirometer use q1hr while awake
- PT/OT will be needed as pt becomes tachycardic to 130-140s with physical exertion (i.e., getting out of bed and standing up to walk)
- Mucinex with oropharyngeal suctioning if needed; start nebulized 3% with albuterol/atrovent for pulmonary toilet purposes
#5. H/o Crohn's disease with terminal ileitis, fibrotic stricture
- Initial presentation with small bowel obstruction due to inflammatory strictures in distal ileum
- Had been on Solu-Medrol IV, currently on hydrocortisone stress dose --> being weaned to off over next few days
- Gastroenterology and GI service on case
- TPN
- Pt will likely need a biologic to be started by GI as an outpatient
#6. Hyponatremia --> now resolved
- Continue to monitor BMP daily
#7. Coagulopathy
- Due to sepsis
- Transfuse if needed to keep plt>10-20k; if going to OR then need to keep >50k; if bleeding then needs to be >50k
- Fibrinogen has been stable
- s/p vitamin K on 10/30/2024, s/p platelet infusions, fresh frozen plasma.
- HIT panel negative, hold subcu heparin considering platelet count is below 50,000
Other medical diagnoses:
- Rectal aphthous ulcer
- H/o Smoking
- Hepatic steatosis
DVT prophylaxis. SCDs
GI prophylaxis. IV Protonix
Updated at bedside
Pulmonary service will continue to follow along.
Data:
KUB 10/2024: Concern for intraperitoneal free air, but limited by the portable supine technique.
CXR 11/01/2024: Likely small/moderate bilateral pleural effusions with adjacent airspace opacities, similar to prior on 10/31/[address] A/P 10/2024: High-grade small bowel obstruction secondary to a long segment of narrowing of the terminal ileum, most suggestive of a stricture from a chronic inflammatory ileitis in the setting of the patient's known inflammatory bowel disease.
Mild abdominopelvic ascites.
Severe hepatic steatosis.
Colonoscopy 08/2024: Mildly nodular and altered vascular mucosa with few apthous ulcers
in the rectum, in the recto-sigmoid colon and in the sigmoid colon.
Biopsied.
- The examined portion of the ileum was normal. Was hard to intubate
the TI the ICV opening was narrow and colon was tortuous so only the
very distal part of TI was examined and appeared normal.
Total time spent today was 38 minutes for this encounter. Time includes reviewing laboratory test/imaging results, reviewing pertinent medical records, obtaining and reviewing medical history, performing an appropriate exam, ordering medications,
tests and procedures. Time also includes documentation of this encounter, coordinating patient care and communicating with other healthcare professionals. Total time does not include separately billed tests performed on this date of service.
Subjective Data
-
Date of Service:
Date of Service: November 03, 2024
Chief Complaint: Pulmonary Follow Up
Subjective:
Pt seen and evaluated this AM. Became hypoxic overnight and required suctioning by RT with suspected mucous plugging as a moderate amount of thoick, echevarria secretions were obtained. Saturations then incrwased to 100% and NRB changed to 6L/min.She
remains on 6L/min this AM.
Review of Systems
General: Other (negative unless mentioned above)
Objective Data
Data Reviewed
Vital Signs / I&O / Oxygen:
Vital Signs
Temp Pulse Resp BP Pulse Ox
97.9 F 88 21 100/74 97
11/03/24 07:30 11/03/24 09:00 11/03/24 09:00 11/03/24 08:00 11/03/24 09:00
Intake and Output
11/02/24 11/03/24 11/04/24
06:59 06:59 06:59
Intake Total 1258.2 / 1296.2 2757.0 / 2812.0 632.4 / 632.4
Output Total 4435 / 4435 3500 / 3500
Balance -3176.8 / -3138.8 -743.0 / -688.0 632.4 / 632.4
SaO2 [CPAP] 99
SaO2 [A/C] 100
SaO2 97
Nasal Cannula flow liters per 3
minute
Physical Exam
General: Respiratory Distress (negative), Comfortable, Chills (negative) and Sweats (negative)
HEENT: Normocephalic and Anicteric
Cardiovascular: S1-S2, Rub (negative) and Peripheral Edema (+3 lower extremity pitting edema bilaterally)
Respiratory: Wheeze (negative), Crackles (bibasilar), Rhonchi (negative), Non-Labored Respirations, Stridor (negative) and Other (Diminished breath sounds bilaterally (R >L))
GI: Soft, Non Distended, Non Tender and Other (hypoactive bowel sounds)
Neurology: Awake, Alert and Tremors (negative)
Skin: Warm, Dry, Cyanosis (negative) and Jaundice (negative)
Labs/Micro/Reports
Lab Data
11/03/24 04:19
11/03/24 04:19
Microbiology
10/31/24 12:45 Blood/Venous Blood Culture - Preliminary
No Growth in 48 hours- Final report to follow
10/31/24 12:45 Blood/Venous Blood Culture - Preliminary
No Growth in 48 hours- Final report to follow
10/31/24 09:20 Abdomen Wound Culture - Preliminary
Yeast
10/31/24 09:20 Abdomen Gram Stain - Preliminary
10/31/24 09:00 Abdomen Anaerobic Culture - Preliminary
Culture pending. Anaerobic cultures are examined after 3
days incubation. Additional information to follow.
10/28/24 20:16 Blood/Venous Blood Culture - Preliminary
Anaerobic gram neg bacilli
10/28/24 20:16 Blood/Venous Gram Stain - Preliminary
10/28/24 20:16 Blood/Venous Blood Culture - Preliminary
Escherichia coli
10/28/24 20:16 Blood/Venous Gram Stain - Preliminary
--- NOTE | 2024-11-03 10:16 | W.PN.ID1 ---
Date of Service
Date of Service: November 03, 2024
Today's Communication
De-escalate meropenem with Unasyn.
Assessment / Plan
# Recent new dx Crohn's with long ileal stricture and SBO
# Perforated small bowel with peritonitis
# E. coli and anaerobe bacteremia from abd source
# Leukocytosis - trending down, on steroid
# Thrombocytopenia continues to decline
# s/p Septic shock
# s/p VDRF
Recommendations:
-Repeat bcx's neg.
- 10/28 s/p ex-lap abd washout, SBR w/o anastomosis, placement of temporary ABThera closure
- 10/31 s/p ex-lap abd washout, SBR, end ileostomy
OR cx yeast (on Zosyn at the time)
- Continue [id number] IV q24 (d3)
- DC meropenem, in case contributing to thrombocytopenia
- Replace meropenem with Unasyn 3g IV q6.
- Trend wbc, plt.
����������������������������������������������������������
Chief Complaint
-: Clinical Sepsis and Other (Perforated viscus)
Subjective / Review of Systems
No new complaints.
Vital Signs / Physical Exam
Vital Signs
Vital Signs
Temp Pulse Resp BP Pulse Ox
97.9 F 88 21 100/74 97
11/03/24 07:30 11/03/24 09:00 11/03/24 09:00 11/03/24 08:00 11/03/24 09:00
Physical Exam
Constitutional: Acutely Ill
Eyes: Sclera Anicteric
Cardiovascular: S1/S2 (Tachycardic)
Pulmonary: Clear (anteriorly)
Gastrointestinal: Soft and Non Distended
Genito-Urinary: Post and Clear Urine
Extremities: Negative Edema
Neurological: AO x 3
Objective Data
Lab Data
Lab Results
11/03/24 04:19
11/03/24 04:19
ESR 11 mm/hour (0-20) 10/26/24 08:41
PT 15.1 Sec (11.4-14.6) H 11/02/24 04:30
INR 1.16 11/02/24 04:30
APTT 30.4 Sec (23.4-35.0) 11/02/24 04:30
Estimated Creat Clear 111 ml/min 11/03/24 04:19
Lactic Acid 1.3 mmol/L (0.7-2.0) 11/02/24 04:30
Total Bilirubin 2.4 mg/dl (0.2-1.3) H 11/01/24 11:28
AST 15 U/L (14-36) 11/01/24 11:28
ALT 26 U/L (0-35) 11/01/24 11:28
Alkaline Phosphatase 85 U/L (38-126) 11/01/24 11:28
C-Reactive Protein < 5.00 mg/L (0.0-10.00) 10/26/24 08:41
Most recent labs reviewed.
Micro Results:
10/31/24 12:45 Blood Culture - Preliminary
Blood/Venous No Growth in 48 hours- Final report to follow
10/31/24 12:45 Blood Culture - Preliminary
Blood/Venous No Growth in 48 hours- Final report to follow
10/31/24 09:20 Wound Culture - Preliminary
Abdomen Yeast
Gram Stain - Preliminary
10/31/24 09:00 Anaerobic Culture - Preliminary
Abdomen Culture pending. Anaerobic cultures are examined after 3
days incubation. Additional information to follow.
10/28/24 20:16 Blood Culture - Preliminary
Blood/Venous Anaerobic gram neg bacilli
Gram Stain - Preliminary
10/28/24 20:16 Blood Culture - Preliminary
Blood/Venous Escherichia coli
Gram Stain - Preliminary
Imaging:
10/28/24 AXR: Concern for intraperitoneal free air, but limited by the portable supine technique.
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
[2024-11-03] MEDS: MUCINEX 600 MG PO ×2 (10:23→20:08)
[2024-11-03] MEDS: MYCAMINE 105 MG IV (10:23)
[2024-11-03] MEDS: LASIX 40 MG IV (10:23)
--- NOTE | 2024-11-03 10:49 | W.PN.ONC2 ---
Today's Communication / Plan
-
Patient clinically improving, coags/fibrinogen improved.
Monitor fibrinogen.
Goal platelet count > 10K, > 50K if going to OR.
Impression
Impression
# Sepsis
# SB perf, s/p, washout, small bowel resection for perforation
# E coli bacteremia
# Coagulopathy, thrombocytopenia-consistent with DIC.
#Crohns disease
# Mild normocytic anemia
Plan
Plan
- Platelet count 26, which increased from 23 yesterday. Patient improving clinically- anticipate platelet count to increase as patient continues to improve.
- Coagulation and fibrinogen have stabilized - PT 15.1, APTT 30.4.
- Fibrinogen on 05/31 was 416. Order fibrinogen level for tomorrow.
- Goal platelet count is >10K; if going to OR, then >50K
Subjective/Objective
Subjective
Patient states she feels better today. She is able to sit up from the bed and in the chair today. No new complaints.
Vital Signs:
Vital Signs
Temp Pulse Resp BP Pulse Ox
97.9 F 104 31 122/81 91
11/03/24 07:30 11/03/24 10:23 11/03/24 10:22 11/03/24 10:23 11/03/24 10:22
Lab Results:
Laboratory Data
WBC 16.3 10^3/uL (4.8-10.8) H 11/03/24 04:19
Hgb 8.5 g/dL (12.0-16.0) L 11/03/24 04:19
Plt Count 26 10^3/uL (130-400) L* 11/03/24 04:19
PT 15.1 Sec (11.4-14.6) H 11/02/24 04:30
INR 1.16 11/02/24 04:30
APTT 30.4 Sec (23.4-35.0) 11/02/24 04:30
eGFR > 60.00 11/03/24 04:19
Physical Exam
HEENT: Moist Mucous Membranes
Cardiology: Normal Sinus Rhythm, S1 and S2
Pulmonary: Clear
GI: Soft, Normal Bowel Sounds and No Organomegaly
--- NOTE | 2024-11-03 10:59 | PTCARENOTE ---
Rec'd care of patient at 0700. Patient drowsy. Oriented x2; disoriented to time. Easily reoriented. MAEx4. Generalized weakness. NSR/ST, rate in the 80-100's. BP 100-120/70-80's. +2 anasarca; +3 pitting in b/l LE. Palpable pulses. Lung sounds
shallow, diminished throughout (right>left). Frequent moist, nonproductive cough. Patient utilizing IS appropriately. Mucinex initiated by Hospitalist. Pulse ox 98% on 6L nc. Weaned to 3L nc. Hypo BS. Abdomen soft/round/tender to palpation.
Abdominal dressing c/d/i. Ileostomy with liquid brown output. Frequent flatus. Patient tolerating sipping on clears. TPN infusing through RIJ TLC. Patient straight cath'd overnight. Patient stating no urge to void. Assisted oob to BSC and encouraged
to try and void. Patient immediately able to void 475 cc's of dark anisa urine. 40mg IV Lasix ordered and administered. OOB in chair at 1000.
--- NOTE | 2024-11-03 11:35 | W.PN.HOSP.TC ---
Today's Communication/Plan
-
IV Lasix. Antibiotics and antifungal. Postop care
Assessment / Plan
Assessment / Plan
Physical exam:
General: Acutely ill
HEENT: Normocephalic, Atraumatic and dry mucous Membranes
Respiratory: Clear to Auscultation; Negative Wheezes, Rales or Rhonchi
Cardiac: Regular Rhythm and S1/S2
GI: Postop findings. Ostomy in place.
Musculoskeletal: No Clubbing, No Cyanosis and No Edema
Neuro: Lethargic, respond to verbal stimuli, generalized weakness.
A/P:
Septic shock due to perforated small bowel with peritonitis and E. coli bacteremia in the setting of Chron's:
ID changing IV meropenem to IV Unasyn and continuing with micafungin
Yeast growing in cultures
Off pressors
On stress doses of steroids, IV hydrocortisone 50 mg every 6 hours then every 8--> down to every 12 hours
TPN continued by surgery and started on clear liquid diet
Discussed with at bedside again today on 11/03
Discussed with attending RN
Bilateral pleural effusions with volume overload:
IV Lasix
Monitor ins and outs and daily weight
Continue diuretics as much as she can tolerate
Coagulopathy due to DIC from sepsis:
Hold NSAIDs
Consider cryoprecipitate if bleeding and fibrinogen less than 150
Consider platelet transfusion if platelet count in the 10K range
Hyperphosphatemia:
Replete and trend
Other medical problems:
Acute respiratory failure, status post extubated
Hyponatremia, resolved
Leukocytosis
Anemia
Thrombocytopenia
Hypoalbuminemia
Hypophosphatemia
Hyperbilirubinemia
Chronic hypotension
Elevated LFTs
Hepatic steatosis
Lactic acidosis
DVT prophylaxis:
SCDs
CODE STATUS:
Full code
Total time spent on today's encounter was 55 minutes which included time spent in counseling the patient/family regarding diagnosis and treatment plan as listed above, goals of care, and symptom management. Case was discussed with nursing staff,
specialists, and care coordinators/case management. All labs and imaging personally reviewed by me. Remainder the time spent in detailed review of previous records, lab data, imaging, and other medical provider documentation.
Anticipated Discharge: > 48 hours
Subjective/Interval History
-
Date of Service: November 03, 2024
Patient alert but relatively sleepy today. More short of breath overall. Significant anasarca. Issues with handling secretions. Postop soreness. Afebrile.
Objective Data
-
Labs:
Laboratory Results
11/03/24
04:19
WBC 16.3 H
Hgb 8.5 L
Hct 25.8 L
Plt Count 26 L*
Sodium 142
Potassium 4.1 D
Chloride 112 H
Carbon Dioxide 32 H
BUN 13
Creatinine 0.2 L
Glucose 202 H
Calcium 7.7 L
Vital Signs:
Vital Signs
Temp Pulse Resp BP Pulse Ox
98.2 F 104 31 122/81 91
11/03/24 11:33 11/03/24 10:23 11/03/24 10:22 11/03/24 10:23 11/03/24 10:22
I&O
11/02/24 11/03/24 11/04/24
06:59 06:59 06:59
Intake Total 1258.2 / 1296.2 2757.0 / 2812.0 911.1 / 911.1
Output Total 4435 / 4435 3500 / 3500 725 / 725
Balance -3176.8 / -3138.8 -743.0 / -688.0 186.1 / 186.1
[2024-11-03] MEDS: UNASYN IV ×3 (12:23→23:48)
[2024-11-03 12:38] LABS: Glucose - Point of Care 230 mg/dl (70-99)
--- NOTE | 2024-11-03 13:05 | W.PN.GS2 ---
Today's Communication / Plan
-
TPN reordered
Out of bed and ambulate as able.
Assessment / Plan
-
Assessment: 48-year-old female admitted with recurrent small bowel obstruction in the setting of recent diagnosis of Crohn's disease and tapering steroids. Her hospital course was complicated by septic shock and multiorgan failure secondary to a
perforated viscus for which she was taken emergently to the OR on 10/28/2024 for a small bowel resection, washout and left in discontinuity. She was taken back on 10/31/2024 for an ex lap, further small bowel resection and end ileostomy with
abdominal wall closure.
Plan:
Coagulopathy/DIC picture, platelets stable at 26K. Hematology recommending transfusion if less than 10K
H&H stable 8.5
Taper steroids as able.
Okay for clears, will continue to go slow as an ileus is expected, though her ostomy is working.
Will continue TPN until on a more robust diet
Routine ostomy care
Change midline dressing frequently/as needed
Continue empiric antibiotics, follow-up intraoperative cultures. Micafungin added. She is at high risk for a surgical site infection
SCDs
PT OT, out of bed and ambulate as able.
PPI
Otero out, had to be straight cath x 1 follow-up trial of void
Appreciate GI, ID, heme, nephrology and jewel hole rough opener services
Time Spent
Total Time Spent with Patient (in minutes): 20
Subjective Data
-
Date of Service: November 03, 2024
Interval Events:
No acute events overnight. Slept well. Pain Controlled. Denies Nausea/Vomiting, +bowel function. Tolerating clear liquid diet.
Objective Data
-
Intake and Output
11/02/24 11/03/24 11/04/24
06:59 06:59 06:59
Intake Total 1258.2 / 1296.2 2757.0 / 2812.0 1204.8 / 1204.8
Output Total 4435 / 4435 3500 / 3500 2250 / 2250
Balance -3176.8 / -3138.8 -743.0 / -688.0 -1045.2 / -1045.2
Intake:
Oral fluids 0 / 0 510 / 510 240 / 240
IV fluids (Total) 164.2 / 164.2 270.0 / 270.0 254.8 / 254.8
D10w 500 ml @ 15 mls/hr IV . 60 / 60
Q24H TOMASZ Rx#:[id number]
FENTANYL 10 10
KCL 270.0 / 270.0
LEVOPHED 85.1 / 85.1
NaPhos 254.8 / 254.8
PROPOFOL 9.1 / 9.1
IV piggybacks 790 / 790 912 / 912 325 / 325
TPN/PPN 304 / 342 1065 / 1120 385 / 385
Output:
Liquid stool amount 125 / 125 850 / 850 250 / 250
Ileostomy 125 / 125 850 / 850 250 / 250
Gastrointestinal tube output (
Total)
[place] Sump
Urine, Otero 4300 / 4300 2250 / 2250
Urine, Voided 0 / 0 1999 / 1999
Straight cath output 400 / 400
Other:
How many times incontinent 1
SMALL amount urine
Vital Signs
Temp Pulse Resp BP Pulse Ox
98.2 F 103 19 113/86 95
11/03/24 11:33 11/03/24 12:21 11/03/24 12:21 11/03/24 12:21 11/03/24 12:43
Lab Results
11/03/24 04:19
11/03/24 04:19
Calcium 7.7 mg/dl (8.4-10.2) L 11/03/24 04:19
Phosphorus 2.2 mg/dl (2.5-4.5) L 11/03/24 04:19
Magnesium 2.0 mg/dl (1.6-2.3) 11/03/24 04:19
Total Bilirubin 2.4 mg/dl (0.2-1.3) H 11/01/24 11:28
Direct Bilirubin 0.9 mg/dl (0.0-0.4) H 10/28/24 22:42
AST 15 U/L (14-36) 11/01/24 11:28
ALT 26 U/L (0-35) 11/01/24 11:28
Alkaline Phosphatase 85 U/L (38-126) 11/01/24 11:28
Total Protein 4.3 g/dl (6.3-8.2) L 11/01/24 11:28
Albumin 2.3 g/dl (3.5-5.0) L 11/01/24 11:28
Physical Exam
-
GENERAL/NEURO: Awake, Alert, no distress
CHEST: Unlabored breathing on RA
ABDOMEN: Soft, appropriately tender, mildly distended, ostomy is pink patent and productive of both gas and green output.
Extremities: Anasarca and edema noted, slightly improved from yesterday.
Patient has a otero catheter: No
Patient has a central line: Yes
--- NOTE | 2024-11-03 13:19 | PTCARENOTE ---
Patient weaned to RA. Pulse ox 93-94%.
[2024-11-03] MEDS: ANESTHETIC LOZENGE 1 LOZENGE PO (14:16)
--- NOTE | 2024-11-03 16:41 | CM ---
POD#3 explor lap, intra-abdominal washout, Small bowel resection, ileostomy. IV/steroids/AB, TPN. Discharge POC: Therapy rec for acute rehab. Will get preferences.
[2024-11-03] MEDS: NOVOLOG FLEXPEN-LOW RESISTANCE 1 UNITS SC ×2 (17:27→23:59)
[2024-11-03] MEDS: NOVOLOG FLEXPEN 3 UNITS SC (17:28)
[2024-11-03 17:37] LABS: Glucose - Point of Care 183 mg/dl (70-99)
[2024-11-03] MEDS: ZOFRAN 4 MG IV (20:09)
[2024-11-03] MEDS: VENTOLIN NEBULES 1.25 MG INH (20:10)
[2024-11-03] MEDS: ATROVENT NEBULES 0.5 MG INH (20:10)
--- NOTE | 2024-11-03 20:24 | PTCARENOTE ---
Pt Aox3, VSS, ST w/ BBB on monitor, +2 anasarca, +3 pitting edema to B/L LE. Lungs are coarse, wet voice with soft weak cough, remains on room air at 99%. IS encouraged. Respiratory performed percussion with neb treatment. C/o nausea after eating
PRN Zofran given. Belly is soft and tender, Midline incision, dressing CDI. SCDs are on. Q2 turns. Patient offers no other complaints at this time.
[2024-11-03] MEDS: Parenteral Nutrition, Central 1310 IV (20:37)
[2024-11-03 23:14] LABS: Glucose - Point of Care 154 mg/dl (70-99)
[2024-11-04] VITALS (15 sets, daily range): BP systolic 90–133; BP diastolic 56–85; PULSE 97; BMI 27.9
--- NOTE | 2024-11-04 | PTCARENOTE ---
received care around 0000, pt OOB x2 with walker to commode to void, pt back in bed, call dunn in reach no complaints at this time
[2024-11-04] MEDS: NOVOLOG FLEXPEN 3 UNITS SC ×4 (00:02→18:38)
[2024-11-04 04:20] LABS: Fibrinogen 356 MG/DL (199-459)
[2024-11-04 04:27] LABS: Hematocrit 25.4 % (37.0-47.0); Hemoglobin 8.6 g/dL (12.0-16.0); Mean Corp Hgb Conc. 33.9 g/dL (33.0-37.0); Mean Corpuscular Volume 93.4 fL (81.0-99.0); Platelet Count 41 10^3/uL (130-400); Red Cell Dist. Width 13.9 % (11.5-14.5)
[2024-11-04 04:35] LABS: Blood Urea Nitrogen 15 mg/dl (7-17); Calcium 7.4 mg/dl (8.4-10.2); Carbon Dioxide 36 mmol/L (22-30); Chloride 106 mmol/L (98-107); Estimated Creatinine Clearance 111 ml/min; Glucose 157 mg/dl (70-99); Magnesium 1.8 mg/dl (1.6-2.3); Potassium 3.1 mmol/L (3.5-5.1); Sodium 141 mmol/L (135-145); eGFR > 60.00
--- NOTE | 2024-11-04 05:02 | PTCARENOTE ---
WHARF TENDER notified of morning labs
[2024-11-04 05:18] LABS: Glucose - Point of Care 170 mg/dl (70-99)
[2024-11-04] MEDS: UNASYN IV ×3 (05:35→18:39)
[2024-11-04] MEDS: NOVOLOG FLEXPEN-LOW RESISTANCE 1 UNITS SC ×2 (05:37→12:04)
[2024-11-04] MEDS: KCL 270 MEQ IV (05:42)
[2024-11-04] MEDS: CALCIUM GLUCONATE 100 IV (05:42)
[2024-11-04] MEDS: MUCINEX 600 MG PO ×2 (08:03→20:57)
[2024-11-04] MEDS: LASIX 40 MG IV (08:03)
[2024-11-04] MEDS: PROTONIX IV 40 MG IV (08:03)
[2024-11-04] MEDS: SOLU-CORTEF 50 MG IV (08:03)
[2024-11-04] MEDS: NSS (PRESERVATIVE FREE) 10 ML IV (08:03)
[2024-11-04] MEDS: VENTOLIN NEBULES 1.25 MG INH ×2 (08:23→20:13)
[2024-11-04] MEDS: ATROVENT NEBULES 0.5 MG INH ×2 (08:23→20:13)
--- NOTE | 2024-11-04 08:56 | W.PN.ID1 ---
Date of Service
Date of Service: November 04, 2024
Today's Communication
Continue Unasyn and Micafungin.
Assessment / Plan
# Recent new dx Crohn's with long ileal stricture and SBO
# Perforated small bowel with peritonitis
# E. coli and Clostridium clostridioforme bacteremia from abd source
# Leukocytosis - on steroid
# Thrombocytopenia improved today
# s/p Septic shock
# s/p VDRF
Recommendations:
-Repeat bcx's neg.
- 10/28 s/p ex-lap abd washout, SBR w/o anastomosis, placement of temporary ABThera closure
- 10/31 s/p ex-lap abd washout, SBR, end ileostomy
OR cx yeast (on Zosyn at the time).
Spoke to micro to identify the yeast
- Continue [id number] IV q24 (d4)
- meropenem dc'd on 11/03, in case contributing to thrombocytopenia
- Continue Unasyn 3g IV q6 (d7 appropriate abx).
- Trend wbc, plt.
����������������������������������������������������������
Chief Complaint
-: Clinical Sepsis and Other (Perforated viscus)
Subjective / Review of Systems
Sitting up in chair. Comfortable.
Vital Signs / Physical Exam
Vital Signs
Vital Signs
Temp Pulse Resp BP Pulse Ox
98.6 F 101 18 111/76 96
11/04/24 08:12 11/04/24 08:38 11/04/24 08:38 11/04/24 08:03 11/04/24 08:38
Physical Exam
Constitutional: Comfortable
Cardiovascular: S1/S2 (tachycardic)
Pulmonary: Clear and Other
Gastrointestinal: Soft and Other (ostomy liquid dark fluid output)
Genito-Urinary: Negative Post or CVA Tenderness
Extremities: Edema (3+ BLE)
Neurological: AO x 3
Lines: CVP (RIJ no erythema)
Objective Data
Lab Data
Lab Results
11/04/24 03:51
11/04/24 03:51
ESR 11 mm/hour (0-20) 10/26/24 08:41
PT 15.1 Sec (11.4-14.6) H 11/02/24 04:30
INR 1.16 11/02/24 04:30
APTT 30.4 Sec (23.4-35.0) 11/02/24 04:30
Estimated Creat Clear 111 ml/min 11/04/24 03:51
Lactic Acid 1.3 mmol/L (0.7-2.0) 11/02/24 04:30
Total Bilirubin 2.4 mg/dl (0.2-1.3) H 11/01/24 11:28
AST 15 U/L (14-36) 11/01/24 11:28
ALT 26 U/L (0-35) 11/01/24 11:28
Alkaline Phosphatase 85 U/L (38-126) 11/01/24 11:28
C-Reactive Protein < 5.00 mg/L (0.0-10.00) 10/26/24 08:41
Most recent labs reviewed.
Micro Results:
10/28/24 20:16 Blood Culture - Preliminary
Blood/Venous Clostridium clostridioforme
Gram Stain - Preliminary
10/31/24 12:45 Blood Culture - Preliminary
Blood/Venous No Growth in 72 hours- Final report to follow
10/31/24 12:45 Blood Culture - Preliminary
Blood/Venous No Growth in 72 hours- Final report to follow
10/31/24 09:00 Anaerobic Culture - Preliminary
Abdomen Culture pending. Anaerobic cultures are examined after 3
days incubation. Additional information to follow.
10/31/24 09:20 Wound Culture - Preliminary
Abdomen Yeast
Gram Stain - Preliminary
10/28/24 20:16 Blood Culture - Preliminary
Blood/Venous Escherichia coli
Gram Stain - Preliminary
Imaging:
10/28/24 AXR: Concern for intraperitoneal free air, but limited by the portable supine technique.
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
[2024-11-04] MEDS: KLOR-CON 40 MEQ PO (09:22)
[2024-11-04] MEDS: MYCAMINE 105 MG IV (09:23)
--- NOTE | 2024-11-04 09:55 | W.PN.PUL3 ---
Today's Communication / Plan
-
Diurese
Serial CXR
Continue TPN
Defer diet to surgery
MAP >65
Aspiration precautions
Goal SpO2 >90-94%
Monitor platelet count and transfuse if needed to keep >10-20k; if bleeding or procedure pending then would transfuse to keep >50k
Pt stable for TRX out of IMU to telemetry. Pulmonary service will continue to follow along.
Assessment
-
Patient is a 48-year-old female who is critically ill and currently intubated, sedated and mechanically ventilated. History primarily obtained from records as well as discussion with other providers. Reportedly patient has history of Crohn's
disease with terminal ileitis with recurrent small bowel obstruction in the past. She was admitted to the hospital on 10/25 with similar complaints of abdominal pain concerning for small bowel obstruction. Patient was evaluated by GI and general
surgery service and currently was being managed conservatively. On 10/28, patient developed worsening abdominal pain and reported mottling of abdominal skin. Patient also developed hypotension. Stat abdominal x-ray was concerning for perforation
with intraperitoneal air. General surgery reviewed the films and patient was emergently taken to OR and had a laparotomy. Patient noted to have small bowel perforation. Patient had abdominal washout, small bowel resection and then was transferred
to ICU with open abdomen with VAC in place. Patient had been in severe shock on mechanical ventilation, multiple pressors. Binder Sorter consult was requested for further input.
#1. Shock, septic in the setting of perforated gut - shock state resolved since 11/01/2024
- Patient has made marked improvements, now extubated and off vasopressors
- Peritoneal culture sent from the OR on 10/31/2024 has grown yeast
-Blood culture from 10/28 has grown E. coli (sams-sensitive), with second blood culture from 10/28 growing Clostridium clostridioforme
- Keep MAP>65
- Continue weaning down stress dose steroids with last day today
- Off bicarb infusion now, developed anasarca, off IVF as well and we are diuresing
- Serial CXR and trend BNP
- Continue broad-spectrum antibiotics per ID --> currently on Unasyn s/p meropenem and ID added micafungin on 11/01
#2. Lactic acidosis
- Now normalized
- Was previously elevated due to severe shock and perforated gut
- s/p ex lap with abdominal washout and small bowel resection, initially left in discontinuity with open abdomen on 10/28/2024 --> ex lap with repeat abdominal washout with small bowel resection and end ileostomy performed on 10/31/2024 and abdomen
closed
#3. Acute surgical abdomen with small bowel perforation (10/28)
- s/p ex lap with abdominal washout and small bowel resection, initially left in discontinuity with open abdomen on 10/28/2024 --> ex lap with repeat abdominal washout with small bowel resection and end ileostomy performed on 10/31/2024 and abdomen
closed
- Continue with postoperative management as per surgery
- Diet as per surgery
- Started TPN on 11/01
- Monitor blood sugars with goal 140�180; patient previously required D10W due to hypoglycemia ---> D10W weaned off on 11/01
#4. Acute respiratory failure, ventilator dependent --> extubated on 11/01/2024
- Extubated to nasal cannula; patient was diuresed prior to extubation
- Serial imaging
- Continue diuresis given bilateral pleural effusions seen on CXR with weight up significantly
- Keep SpO2 >90-94%
- Aspiration precautions, keeping HOB >30-45�
- Encourage incentive spirometer use q1hr while awake
- PT/OT; of note, pt becomes tachycardic to 130-140s with physical exertion (i.e., getting out of bed and standing up to walk) --> this has improved
- Mucinex with oropharyngeal suctioning if needed; start nebulized 3% with albuterol/atrovent for pulmonary toilet purposes
#5. H/o Crohn's disease with terminal ileitis, fibrotic stricture
- Initial presentation with small bowel obstruction due to inflammatory strictures in distal ileum
- Had been on Solu-Medrol IV, currently on hydrocortisone stress dose --> being weaned to off over next few days
- Gastroenterology and GI service on case
- TPN
- Pt will likely need a biologic to be started by GI as an outpatient
#6. Hyponatremia --> now resolved
- Continue to monitor BMP daily
#7. Coagulopathy
- Due to sepsis
- Transfuse if needed to keep plt>10-20k; if going to OR then need to keep >50k; if bleeding then needs to be >50k
- Fibrinogen has been stable
- s/p vitamin K on 10/30/2024, s/p platelet infusions, fresh frozen plasma.
- HIT panel negative, hold subcu heparin considering platelet count is below 50,000
Other medical diagnoses:
- Rectal aphthous ulcer
- H/o Smoking
- Hepatic steatosis
DVT prophylaxis. SCDs
GI prophylaxis. IV Protonix
Updated at bedside
Pulmonary service will continue to follow along.
Data:
KUB 10/2024: Concern for intraperitoneal free air, but limited by the portable supine technique.
CXR 11/01/2024: Likely small/moderate bilateral pleural effusions with adjacent airspace opacities, similar to prior on 10/31/[address] A/P 10/2024: High-grade small bowel obstruction secondary to a long segment of narrowing of the terminal ileum, most suggestive of a stricture from a chronic inflammatory ileitis in the setting of the patient's known inflammatory bowel disease.
Mild abdominopelvic ascites.
Severe hepatic steatosis.
Colonoscopy 08/2024: Mildly nodular and altered vascular mucosa with few apthous ulcers
in the rectum, in the recto-sigmoid colon and in the sigmoid colon.
Biopsied.
- The examined portion of the ileum was normal. Was hard to intubate
the TI the ICV opening was narrow and colon was tortuous so only the
very distal part of TI was examined and appeared normal.
Total time spent today was 36 minutes for this encounter. Time includes reviewing laboratory test/imaging results, reviewing pertinent medical records, obtaining and reviewing medical history, performing an appropriate exam, ordering medications,
tests and procedures. Time also includes documentation of this encounter, coordinating patient care and communicating with other healthcare professionals. Total time does not include separately billed tests performed on this date of service.
Subjective Data
-
Date of Service:
Date of Service: November 04, 2024
Chief Complaint: Pulmonary Follow Up
Subjective:
Patient seen and evaluated today at bedside. Net -1.65 L last 24 hours. She is much more awake and alert and spry today. She currently denies shortness of breath. TPN is being infused. at bedside and all questions were answered.
Current heart rate 101, BP 109/85 and she is breathing comfortably on room air, saturating 94%.
Review of Systems
General: Other (Negative unless mentioned above)
Objective Data
Data Reviewed
Vital Signs / I&O / Oxygen:
Vital Signs
Temp Pulse Resp BP Pulse Ox
98.6 F 90 22 111/76 99
11/04/24 08:12 11/04/24 09:00 11/04/24 09:00 11/04/24 08:03 11/04/24 09:00
Intake and Output
11/03/24 11/04/24 11/05/24
06:59 06:59 06:59
Intake Total 2757.0 / 2812.0 2499.8 / 2824.8 780 / 780
Output Total 3500 / 3500 4150 / 4150 1440 / 1440
Balance -743.0 / -688.0 -1650.2 / -1325.2 -660 / -660
SaO2 [CPAP] 99
SaO2 [A/C] 100
SaO2 99
Nasal Cannula flow liters per 3
minute
Physical Exam
General: Respiratory Distress (negative), Comfortable, Chills (negative) and Sweats (negative)
HEENT: Normocephalic and Anicteric
Cardiovascular: S1-S2, Rub (negative) and Peripheral Edema (+3 lower extremity pitting edema bilaterally)
Respiratory: Wheeze (negative), Crackles (bibasilar), Rhonchi (negative), Non-Labored Respirations, Stridor (negative) and Other (Diminished breath sounds bilaterally in bases (R >L))
GI: Soft, Non Distended, Non Tender and Other (hypoactive bowel sounds)
Neurology: Awake, Alert and Tremors (negative)
Skin: Warm, Dry, Cyanosis (negative) and Jaundice (negative)
Labs/Micro/Reports
Lab Data
11/04/24 03:51
11/04/24 03:51
Microbiology
10/28/24 20:16 Blood/Venous Blood Culture - Preliminary
Clostridium clostridioforme
10/28/24 20:16 Blood/Venous Gram Stain - Preliminary
10/31/24 12:45 Blood/Venous Blood Culture - Preliminary
No Growth in 72 hours- Final report to follow
10/31/24 12:45 Blood/Venous Blood Culture - Preliminary
No Growth in 72 hours- Final report to follow
10/31/24 09:00 Abdomen Anaerobic Culture - Preliminary
Culture pending. Anaerobic cultures are examined after 3
days incubation. Additional information to follow.
10/31/24 09:20 Abdomen Wound Culture - Preliminary
Yeast
10/31/24 09:20 Abdomen Gram Stain - Preliminary
[2024-11-04] MEDS: POTASSIUM PHOSPHATE 259.0909 MEQ IV (09:58)
--- NOTE | 2024-11-04 10:38 | WOUNDNOTE ---
WO RN Note: Patient sitting in chair with air chair cushion. Stoma pink and budded approximately 1 1/2 inches diameter. Peristomal skin intact. Patient's and patient's mother present for ostomy change teaching. Instructed patient and family
pouch emptying and changing using [employer] wafer #[id number], Maikel seal and Mcnary pouch # [id number]. Ostomy supplies (Berta wafer # [id number], Maikel seals and Berta pouch #[id number]) and ileostomy teaching folder given. Patient signed [employer] ostomy
secure starter kit authorization fax form. Skin on heels blanchable red. Instructed patient pressure injury prevention measures. Next appliance change due Friday or Friday.
--- NOTE | 2024-11-04 10:52 | W.PN.HOSP.TC ---
Today's Communication/Plan
-
Antibiotics and antifungal. TPN. Electrolyte replacement
Assessment / Plan
Assessment / Plan
Physical exam:
General: Acutely ill
HEENT: Normocephalic, Atraumatic and dry mucous Membranes
Respiratory: Clear to Auscultation; Negative Wheezes, Rales or Rhonchi
Cardiac: Regular Rhythm and S1/S2
GI: Postop findings. Tenderness. Ostomy in place.
Musculoskeletal: No Clubbing, No Cyanosis and No Edema
Neuro: Lethargic, respond to verbal stimuli, generalized weakness.
A/P:
Septic shock due to perforated small bowel with peritonitis and E. coli bacteremia in the setting of Chron's:
Continue IV Unasyn and Micafungin
Yeast growing in cultures
Off pressors
On stress doses of steroids, IV hydrocortisone 50 mg once a day last dose today
TPN continued by surgery and started on full liquid diet
Discussed with at bedside again today on 11/04
Discussed with attending RN
Bilateral pleural effusions with volume overload:
Continue IV Lasix 40 mg daily
Monitor ins and outs and daily weight
Continue diuretics as much as she can tolerate
Hypokalemia:
Replete and trend
Coagulopathy due to DIC from sepsis:
Hold NSAIDs
Consider cryoprecipitate if bleeding and fibrinogen less than 150
Consider platelet transfusion if platelet count in the 10K range
Hyperphosphatemia:
Replete and trend
Other medical problems:
Acute respiratory failure, status post extubated
Hyponatremia, resolved
Leukocytosis
Anemia
Thrombocytopenia
Hypoalbuminemia
Hypophosphatemia
Hyperbilirubinemia
Chronic hypotension
Elevated LFTs
Hepatic steatosis
Lactic acidosis
DVT prophylaxis:
SCDs
CODE STATUS:
Full code
Total time spent on today's encounter was 55 minutes which included time spent in counseling the patient/family regarding diagnosis and treatment plan as listed above, goals of care, and symptom management. Case was discussed with nursing staff,
specialists, and care coordinators/case management. All labs and imaging personally reviewed by me. Remainder the time spent in detailed review of previous records, lab data, imaging, and other medical provider documentation.
Anticipated Discharge: > 48 hours
Subjective/Interval History
-
Date of Service: November 04, 2024
Patient feels better overall. No nausea or vomiting. Afebrile
Objective Data
-
Labs:
Laboratory Results
11/04/24 11/04/24
03:51 18:00
WBC 18.5 H
Hgb 8.6 L
Hct 25.4 L
Plt Count 41 L D
Sodium 141 Pending
Potassium 3.1 L Pending
Chloride 106 Pending
Carbon Dioxide 36 H Pending
BUN 15 Pending
Creatinine 0.2 L Pending
Glucose 157 H Pending
Calcium 7.4 L Pending
Vital Signs:
Vital Signs
Temp Pulse Resp BP Pulse Ox
98.6 F 103 24 104/80 95
11/04/24 08:12 11/04/24 10:00 11/04/24 10:00 11/04/24 10:00 11/04/24 10:00
I&O
11/03/24 11/04/24 11/05/24
06:59 06:59 06:59
Intake Total 2757.0 / 2812.0 2499.8 / 2824.8 899.7 / 899.7
Output Total 3500 / 3500 4150 / 4150 1665 / 1665
Balance -743.0 / -688.0 -1650.2 / -1325.2 -765.3 / -765.3
--- NOTE | 2024-11-04 11:04 | WOUNDNOTE ---
WOC RN note: Patient ordered a [place] ostomy starter kit.
--- NOTE | 2024-11-04 11:04 | W.PN.ONC2 ---
Today's Communication / Plan
-
Trend CBC
Order vitamin B-12 and folate to rule out other causes of thrombocytopenia given history of malabsorption due to Crohn's disease
Impression
Impression
# Sepsis
# SB perf, s/p, washout, small bowel resection for perforation
# E coli bacteremia
# Coagulopathy, thrombocytopenia-consistent with DIC
#Crohns disease
# Mild normocytic anemia
Plan
Plan
- Patient's clinical picture was consistent with DIC in the setting of bacteremia and sepsis. Platelet count 41, increased from 26 yesterday. Patient's platelet count likely to increase as she improves clinically. monitor CBC.
- To rule out other causes of thrombocytopenia, will order vitamin B12 and folate tests given history of malabsorption from Crohn's disease.
- Fibrinogen and coags have stabilized; fibrinogen today 356.
Subjective/Objective
Subjective
Patient states she feels well. No new complaints including bleeding.
Vital Signs:
Vital Signs
Temp Pulse Resp BP Pulse Ox
98.6 F 103 24 104/80 95
11/04/24 08:12 11/04/24 10:00 11/04/24 10:00 11/04/24 10:00 11/04/24 10:00
Lab Results:
Laboratory Data
WBC 18.5 10^3/uL (4.8-10.8) H 11/04/24 03:51
Hgb 8.6 g/dL (12.0-16.0) L 11/04/24 03:51
Plt Count 41 10^3/uL (130-400) L D 11/04/24 03:51
PT 15.1 Sec (11.4-14.6) H 11/02/24 04:30
INR 1.16 11/02/24 04:30
APTT 30.4 Sec (23.4-35.0) 11/02/24 04:30
eGFR > 60.00 11/04/24 03:51
Physical Exam
HEENT: Moist Mucous Membranes
Cardiology: Normal Sinus Rhythm, S1 and S2
Pulmonary: Clear
GI: Soft and Normal Bowel Sounds
Orders
Orders
Orders From Last 24 Hours
11/04/24 03:51
Fibrinogen IN AM
11/04/24 11:03
Folate Routine
Vitamin B12 Routine
--- NOTE | 2024-11-04 11:05 | W.PN.GS2 ---
Addendum entered and electronically signed by Ha Dorantes MD 11/04/24 11:33:
Patient seen and examined with surgical RECORDS MANAGER. Agree with documented progress note.
Patient comfortably sitting in chair at bedside. Her is present as well.
Postoperative incisional/abdominal pain stable and adequately controlled.
Appetite remains poor and has not returned yet. No nausea.
AF stable tachycardia, normotensive
NAD AAO x 3
ABD: Softly distended, mild tenderness. Midline incision inspected. [place] in place with minimal serous drainage between.
Left-sided ileostomy with healthy pink mucosa, expectedly edematous. Liquid succus and some air in appliance
A/P: Continue to monitor white blood cell count but hold on imaging at this point
Full liquid diet for comfort to give more selection but going slow with dietary advancement
Renew TPN
Original Note:
Today's Communication / Plan
-
Fulls as tolerated/continue TPN
Assessment / Plan
-
Assessment: 48-year-old female admitted with recurrent small bowel obstruction in the setting of recent diagnosis of Crohn's disease and tapering steroids. Her hospital course was complicated by septic shock and multiorgan failure secondary to a
perforated viscus with operative recovery complicated by DIC (hematology following)
POD #7 ex lap, small bowel resection, washout and left in discontinuity.
POD #4 RTOR for an ex lap, further small bowel resection and end ileostomy with abdominal wall closure.
WBC with slight uptrend today
H/H stable. Thrombocytopenia improving
Hypophosphatemia/hypokalemia present with volume shift/diuresis
Bacteremia with ecoli, and clostridium clostridioforme, f/u blood cx with no growth
Afebrile, mild tachycardia. BP stable
Voiding well, diuresing
Plan:
Being followed off steroids currently s/p taper
Okay for fulls for more PO options, will continue to go slow as an ileus is expected, though her ostomy is working.
Will continue TPN until on a more robust diet, tolerating very little intake thus far
Replace electrolytes
Routine ostomy care
Change midline dressing as needed
ABX as per ID
PT OT, out of bed and ambulate as able.
c/w PPI
Appreciate GI, ID, heme, nephrology and budget and policy analyst services
SCDs for VTE ppx, chemical ppx once deemed appropriate by hematology
Subjective Data
-
Date of Service: November 04, 2024
Pt seen and examined at bedside with Dr. Dorantes. OOB to chair. Notes poor appetite, tolerating PO without nausea but taking in very little. C/O sore throat. Pain present but manageable
Objective Data
-
Intake and Output
11/03/24 11/04/24 11/05/24
06:59 06:59 06:59
Intake Total 2757.0 / 2812.0 2499.8 / 2824.8 1019.4 / 1019.4
Output Total 3500 / 3500 4150 / 4150 1665 / 1665
Balance -743.0 / -688.0 -1650.2 / -1325.2 -645.6 / -645.6
Intake:
Oral fluids 510 / 510 480 / 480 240 / 240
IV fluids (Total) 270.0 / 270.0 254.8 / 254.8
KCL 270.0 / 270.0
NaPhos 254.8 / 254.8
IV piggybacks 912 / 912 445 / 715 504.4 / 504.4
TPN/PPN 1065 / 1120 1320 / 1375 275 / 275
Output:
Liquid stool amount 850 / 850 1125 / 1125 495 / 495
Ileostomy 850 / 850 1125 / 1125 495 / 495
Urine, Otero 2250 / 2250
Urine, Voided 0 / 0 3025 / 3025 1170 / 1170
Straight cath output 400 / 400
Other:
How many times incontinent 1
SMALL amount urine
Vital Signs
Temp Pulse Resp BP Pulse Ox
98.6 F 103 24 104/80 95
11/04/24 08:12 11/04/24 10:00 11/04/24 10:00 11/04/24 10:00 11/04/24 10:00
Lab Results
11/04/24 03:51
Calcium 7.4 mg/dl (8.4-10.2) L 11/04/24 03:51
Phosphorus 2.1 mg/dl (2.5-4.5) L 11/04/24 03:51
Magnesium 1.8 mg/dl (1.6-2.3) 11/04/24 03:51
Total Bilirubin 2.4 mg/dl (0.2-1.3) H 11/01/24 11:28
Direct Bilirubin 0.9 mg/dl (0.0-0.4) H 10/28/24 22:42
AST 15 U/L (14-36) 11/01/24 11:28
ALT 26 U/L (0-35) 11/01/24 11:28
Alkaline Phosphatase 85 U/L (38-126) 11/01/24 11:28
Total Protein 4.3 g/dl (6.3-8.2) L 11/01/24 11:28
Albumin 2.3 g/dl (3.5-5.0) L 11/01/24 11:28
Physical Exam
-
Gen: NAD
ABDOMEN: Soft, appropriately tender, mildly distended, ostomy is pink patent and productive of both gas and liquid brown output.
Extremities: Anasarca and edema noted, slightly improved from yesterday.
Incision: [place] intact, serous fluid on dressing
Patient has a otero catheter: No
Patient has a central line: Yes
--- NOTE | 2024-11-04 11:05 | PTCARENOTE ---
Rec'd care of patient at 0700. Alert and oriented. OOB x2 RW to chair at 0800. VSS. NSR/ST. +3 pitting edema in b/l LE. Pulse ox 92-93% on RA. Diminished throughout with inspiratory wheeze. RT at bedside to administer breathing treatment. Hypo BS.
Midline dressing intact. Ileostomy with liquid brown output. WOC RN at bedside for teaching. Voiding on BSC. TPN and electrolyte repletion infusing through RIJ. Repeat labs ordered for 1800.
--- NOTE | 2024-11-04 11:51 | PTCARENOTE ---
Patient downgraded to tele level.e
[2024-11-04 12:05] LABS: Glucose - Point of Care 164 mg/dl (70-99)
--- NOTE | 2024-11-04 15:04 | CM ---
POD#4 explor lap, intra-abdominal washout, Small bowel resection, ileostomy. IV/ AB/Lasix, TPN. Discharge POC: Therapy rec for acute rehab. Preference is [facility]. Referral forwarded. [employer] list provided to patient and .
Requested 2-3 additional preferences.
--- NOTE | 2024-11-04 17:11 | PTCARENOTE ---
Patient transported in bed to with belongings. present. TPN infusing.
--- NOTE | 2024-11-04 17:25 | PTCARENOTE ---
Received patient from ICU. Patient AAOx3, no c/o pain, call dunn in reach. Spouse at bedside. TPN infusing into Right IJ at 55ml/hr.
[2024-11-04 18:15] LABS: Glucose - Point of Care 146 mg/dl (70-99)
[2024-11-04] MEDS: NOVOLOG FLEXPEN-LOW RESISTANCE SC (18:38)
[2024-11-04 18:58] LABS: Venous Blood Gas B.E. 8.2 mmol/L (-4 to +4); Venous Blood Gas O2 Sat % 94.0 %
[2024-11-04 19:11] LABS: Blood Urea Nitrogen 14 mg/dl (7-17); Calcium 7.7 mg/dl (8.4-10.2); Carbon Dioxide 34 mmol/L (22-30); Chloride 104 mmol/L (98-107); Estimated Creatinine Clearance 111 ml/min; Glucose 128 mg/dl (70-99); Potassium 3.3 mmol/L (3.5-5.1); Sodium 138 mmol/L (135-145); eGFR > 60.00
[2024-11-04] MEDS: SODIUM CHLORIDE 3% FOR INHALATION 1 VIAL INH (20:13)
[2024-11-04 20:19] LABS: Folate 7.0 ng/ml (2.76-20); Vitamin B12 > 1000 pg/ml (239-931)
[2024-11-04] MEDS: Parenteral Nutrition, Central 1320 IV (20:53)
[2024-11-04] MEDS: KCL 100 IV (20:58)
[2024-11-04 23:43] LABS: Glucose - Point of Care 116 mg/dl (70-99)
[2024-11-05] VITALS (8 sets, daily range): BP systolic 82–107; BP diastolic 33–64; PULSE 110–113; O2SAT 97
[2024-11-05] MEDS: NOVOLOG FLEXPEN-LOW RESISTANCE SC ×4 (00:04→18:10)
[2024-11-05] MEDS: NOVOLOG FLEXPEN 3 UNITS SC ×4 (00:05→17:08)
[2024-11-05] MEDS: UNASYN IV ×2 (00:06→06:24)
[2024-11-05 06:20] LABS: Hematocrit 30.2 % (37.0-47.0); Hemoglobin 9.8 g/dL (12.0-16.0); Mean Corp Hgb Conc. 32.5 g/dL (33.0-37.0); Mean Corpuscular Volume 92.6 fL (81.0-99.0); Platelet Count 82 10^3/uL (130-400); Red Cell Dist. Width 13.5 % (11.5-14.5)
[2024-11-05 06:24] LABS: Glucose - Point of Care 117 mg/dl (70-99)
[2024-11-05 06:38] LABS: Blood Urea Nitrogen 16 mg/dl (7-17); Calcium 7.5 mg/dl (8.4-10.2); Carbon Dioxide 30 mmol/L (22-30); Chloride 107 mmol/L (98-107); Estimated Creatinine Clearance 111 ml/min; Glucose 109 mg/dl (70-99); Magnesium 1.8 mg/dl (1.6-2.3); Potassium 3.9 mmol/L (3.5-5.1); Sodium 136 mmol/L (135-145); eGFR > 60.00
[2024-11-05] MEDS: MORPHINE SULFATE 4 MG IV (08:20)
[2024-11-05] MEDS: LASIX 40 MG IV (08:20)
[2024-11-05] MEDS: NSS (PRESERVATIVE FREE) 10 ML IV (08:21)
[2024-11-05] MEDS: MUCINEX PO ×2 (08:21→21:04)
[2024-11-05] MEDS: PROTONIX IV 40 MG IV (08:21)
[2024-11-05] MEDS: SODIUM CHLORIDE 3% FOR INHALATION 1 VIAL INH (08:42)
[2024-11-05] MEDS: ATROVENT NEBULES 0.5 MG INH (08:43)
[2024-11-05] MEDS: VENTOLIN NEBULES 1.25 MG INH ×2 (08:43→20:10)
[2024-11-05] MEDS: MYCAMINE 105 MG IV (08:59)
[2024-11-05] MEDS: OMNIPAQUE 50 ML PO (08:59)
--- NOTE | 2024-11-05 09:42 | CM ---
Patient seen at bedside on 2 . Patient states she is exhausted, sitting at edge of the bed. Patient on TPN. CM will continue to follow for discharge planning needs.
Plan; acute rehab; pending medical treatment plan.
--- NOTE | 2024-11-05 10:25 | W.PN.HOSP.TC ---
Today's Communication/Plan
-
Antibiotics. TPN. Lasix
Assessment / Plan
Assessment / Plan
Physical exam:
General: Acutely ill
HEENT: Normocephalic, Atraumatic and dry mucous Membranes
Respiratory: Clear to Auscultation; Negative Wheezes, Rales or Rhonchi
Cardiac: Regular Rhythm and S1/S2
GI: Postop findings. Tenderness. Ostomy in place.
Musculoskeletal: No Clubbing, No Cyanosis and No Edema
Neuro: Lethargic, respond to verbal stimuli, generalized weakness.
A/P:
Septic shock due to perforated small bowel with peritonitis and E. coli bacteremia in the setting of Chron's:
Improving. Off pressors. Out of ICU/IMU.
Back on IV Zosyn and continue micafungin
Yeast growing in cultures
Off pressors
Finish course of stress doses of steroids
On full liquid diet
Defer TPN to surgery
Hypotension:
Typically runs low blood pressures except when she was on pressors or stress doses of steroids.
Continue to monitor closely
Bilateral pleural effusions with volume overload:
Continue IV Lasix 40 mg daily
Monitor ins and outs and daily weight
Continue diuretics as much as she can tolerate
Hypokalemia:
Potassium looks good this morning
Replete and trend
Coagulopathy due to DIC from sepsis:
Platelet count improved up to 82,000 today and fibrinogen up to 356 yesterday
Avoid NSAIDs
Hyperphosphatemia:
Phosphorus looks good this morning
Replete and trend
Other medical problems:
Acute respiratory failure, status post extubated
Hyponatremia, resolved
Leukocytosis
Anemia
Thrombocytopenia
Hypoalbuminemia
Hypophosphatemia
Hyperbilirubinemia
Chronic hypotension
Elevated LFTs
Hepatic steatosis
Lactic acidosis
DVT prophylaxis:
SCDs
CODE STATUS:
Full code
Time spent 35 minutes
Anticipated Discharge: > 48 hours
Subjective/Interval History
-
Date of Service: November 05, 2024
Patient with mild abdominal discomfort. No chest pain or shortness of breath. Afebrile
Objective Data
-
Labs:
Laboratory Results
11/05/24
05:51
WBC 23.1 H
Hgb 9.8 L
Hct 30.2 L
Plt Count 82 L D
Sodium 136
Potassium 3.9
Chloride 107
Carbon Dioxide 30
BUN 16
Creatinine 0.2 L
Glucose 109 H
Calcium 7.5 L
Vital Signs:
Vital Signs
Temp Pulse Resp BP Pulse Ox
99.1 F 99 18 88/59 95
11/05/24 07:15 11/05/24 08:46 11/05/24 08:46 11/05/24 07:15 11/05/24 08:46
I&O
11/04/24 11/05/24 11/06/24
06:59 06:59 06:59
Intake Total 2499.8 / 2824.8 1998.8 / 1997.8
Output Total 4150 / 4150 3515 / 3515 550 / 550
Balance -1650.2 / -1325.2 -1516.2 / -1516.2 -550 / -550
--- NOTE | 2024-11-05 11:00 | W.PN.PUL3 ---
Today's Communication / Plan
-
Continue incentive spirometry
Lung exam is clear, patient states that he does not have any secretions-hold 3% saline and [id number] nebulizers. Will only use as needed
Currently on room air- Not bronchospastic.
Physical therapy as able--Patient is debilitated.
Cautious diuresis
Nutritional support
Antibiotics per primary team and surgery
No additional pulmonary recommendation.
Sign off
Assessment
-
Patient is a 48-year-old female who is critically ill and currently intubated, sedated and mechanically ventilated. History primarily obtained from records as well as discussion with other providers. Reportedly patient has history of Crohn's
disease with terminal ileitis with recurrent small bowel obstruction in the past. She was admitted to the hospital on 10/25 with similar complaints of abdominal pain concerning for small bowel obstruction. Patient was evaluated by GI and general
surgery service and currently was being managed conservatively. On 10/28, patient developed worsening abdominal pain and reported mottling of abdominal skin. Patient also developed hypotension. Stat abdominal x-ray was concerning for perforation
with intraperitoneal air. General surgery reviewed the films and patient was emergently taken to OR and had a laparotomy. Patient noted to have small bowel perforation. Patient had abdominal washout, small bowel resection and then was transferred
to ICU with open abdomen with VAC in place. Patient had been in severe shock on mechanical ventilation, multiple pressors. Railway Equipment Operator consult was requested for further input.
Pulmonary now following for hypoxemia.
-
#1. Acute respiratory failure, ventilator dependent --> extubated on 11/01/2024
-Former smoker who quit 2 weeks ago.
- Extubated to nasal cannula; patient was diuresed prior to extubation
- Now patient on room air.
- Ongoing diuresis. Volume overload likely due to hypoalbuminemia(Anasarca). Also post IV fluid resuscitation
- Aspiration precautions, keeping HOB >30-45�
- Encourage incentive spirometer use q1hr while awake
- PT/OT; of note, pt becomes tachycardic to 130-140s with physical exertion (i.e., getting out of bed and standing up to walk) --> this has improved
-Denies any significant phlegm production, lung exam is clear, strong cough effort- Holdnebulized 3%-Will use DuoNeb only as needed.
-Continue incentive spirometry/Acapella device
#2. s/p Shock, septic in the setting of perforated gut - shock state resolved since 11/01/2024
- Patient has made marked improvements, now extubated and off vasopressors
- Peritoneal culture sent from the OR on 10/31/2024 has grown yeast
-Blood culture from 10/28 has grown E. coli (sams-sensitive), with second blood culture from 10/28 growing Clostridium clostridioforme
- Status post stress dose of steroids.
- Continue broad-spectrum antibiotics per ID --> currently on Unasyn s/p meropenem and ID added micafungin on 11/01
#3. Lactic acidosis- Resolved.
- s/p ex lap with abdominal washout and small bowel resection, initially left in discontinuity with open abdomen on 10/28/2024 --> ex lap with repeat abdominal washout with small bowel resection and end ileostomy performed on 10/31/2024 and abdomen
closed
#3. Acute surgical abdomen with small bowel perforation (10/28)
- s/p ex lap with abdominal washout and small bowel resection, initially left in discontinuity with open abdomen on 10/28/2024 --> ex lap with repeat abdominal washout with small bowel resection and end ileostomy performed on 10/31/2024 and abdomen
closed
- Diet as per surgery
- Started TPN on 11/01
- Monitor blood sugars with goal 140�180; patient previously required D10W due to hypoglycemia ---> D10W weaned off on 11/01
#4. H/o Crohn's disease with terminal ileitis, fibrotic stricture
- Initial presentation with small bowel obstruction due to inflammatory strictures in distal ileum
- Had been on Solu-Medrol IV, currently on hydrocortisone stress dose --> being weaned to off over next few days
- Gastroenterology and GI service on case
- TPN
- Pt will likely need a biologic to be started by GI as an outpatient
#7. Coagulopathy/Thrombocytopenia- Improving
- Due to sepsis
- Platelets recovering.HIT panel negative.
Other medical diagnoses:
- Rectal aphthous ulcer
- H/o Smoking - Quit 2 weeks ago
- Hepatic steatosis
DVT prophylaxis. SCDs
GI prophylaxis. IV Protonix
Updated at bedsideBy Dr. Salazar 11/05/2024.
No additional pulmonary recommendation
Sign off
Data:
KUB 10/2024: Concern for intraperitoneal free air, but limited by the portable supine technique.
CXR 11/01/2024: Likely small/moderate bilateral pleural effusions with adjacent airspace opacities, similar to prior on 10/31/[address] A/P 10/2024: High-grade small bowel obstruction secondary to a long segment of narrowing of the terminal ileum, most suggestive of a stricture from a chronic inflammatory ileitis in the setting of the patient's known inflammatory bowel disease.
Mild abdominopelvic ascites.
Severe hepatic steatosis.
Colonoscopy 08/2024: Mildly nodular and altered vascular mucosa with few apthous ulcers
in the rectum, in the recto-sigmoid colon and in the sigmoid colon.
Biopsied.
- The examined portion of the ileum was normal. Was hard to intubate
the TI the ICV opening was narrow and colon was tortuous so only the
very distal part of TI was examined and appeared normal.
Subjective Data
-
Date of Service:
Date of Service: November 05, 2024
Chief Complaint: Pulmonary Follow Up (Hypoxemic respiratory failure-volume overload)
Subjective:
Denies increased phlegm production or hemoptysis
Patient feels debilitated
Denies shortness of breath at rest
Review of Systems
General: Fever (n)
Cardiopulmonary: Dyspnea (n)
GI: Abdominal Pain
Neuro: Headache (n)
Objective Data
Data Reviewed
Vital Signs / I&O / Oxygen:
Vital Signs
Temp Pulse Resp BP Pulse Ox
99.1 F 99 18 88/59 95
11/05/24 07:15 11/05/24 08:46 11/05/24 08:46 11/05/24 07:15 11/05/24 08:46
Intake and Output
11/04/24 11/05/24 11/06/24
06:59 06:59 06:59
Intake Total 2499.8 / 2824.8 1997.8 / 1997.8
Output Total 4150 / 4150 3515 / 3515 550 / 550
Balance -1650.2 / -1325.2 -1516.2 / -1516.2 -550 / -550
SaO2 [CPAP] 99
SaO2 [A/C] 100
SaO2 95
Nasal Cannula flow liters per 3
minute
Physical Exam
General: Respiratory Distress (negative), Comfortable, Chills (negative) and Sweats (negative)
HEENT: Normocephalic and Anicteric
Cardiovascular: S1-S2, Rub (negative) and Peripheral Edema (+3 lower extremity pitting edema bilaterally)
Respiratory: Wheeze (negative), Crackles (bibasilar), Rhonchi (negative), Non-Labored Respirations, Stridor (negative) and Other (Diminished breath sounds bilaterally in bases (R >L))
GI: Soft, Non Distended, Non Tender and Other (hypoactive bowel sounds)
Neurology: Awake, Alert and Tremors (negative)
Skin: Warm, Dry, Cyanosis (negative) and Jaundice (negative)
Labs/Micro/Reports
Lab Data
11/05/24 05:51
11/05/24 05:51
Microbiology
10/31/24 09:00 Abdomen Anaerobic Culture - Preliminary
Culture pending. Anaerobic cultures are examined after 3
days incubation. Additional information to follow.
10/28/24 20:16 Blood/Venous Blood Culture - Final
Escherichia coli
10/28/24 20:16 Blood/Venous Gram Stain - Final
10/28/24 20:16 Blood/Venous Blood Culture - Final
Clostridium clostridioforme
10/28/24 20:16 Blood/Venous Gram Stain - Final
10/31/24 12:45 Blood/Venous Blood Culture - Preliminary
No Growth in 4 days- Final report to follow
10/31/24 12:45 Blood/Venous Blood Culture - Preliminary
No Growth in 4 days- Final report to follow
10/31/24 09:20 Abdomen Wound Culture - Preliminary
Yeast
10/31/24 09:20 Abdomen Gram Stain - Preliminary
--- NOTE | 2024-11-05 11:15 | W.PN.GS2 ---
Addendum entered and electronically signed by Darvin Montaño MD 11/05/24 13:00:
I saw and examined the patient.
The CHAIR PAD MAKER's note was reviewed and I agree with the note.
Comment: Able to tolerate limited PO, abd pain controlled, denies n/v, stoma PPV and putting out high volume liquid (1600cc / 24 hrs), mild intermittent tachycardia, 99.5F Tmax, WBC trending up, CT today with inflamed small bowel, free fluid but no
organized collection. Plan to cont IV abx, TPN, fulls for comfort
Original Note:
Today's Communication / Plan
-
Repeat CT imaging
c/w TPN
Assessment / Plan
-
Assessment: 48-year-old female admitted with recurrent small bowel obstruction in the setting of recent diagnosis of Crohn's disease and tapering steroids. Her hospital course was complicated by septic shock and multiorgan failure secondary to a
perforated viscus with operative recovery complicated by DIC (hematology following)
POD #8 ex lap, small bowel resection, washout and left in discontinuity.
POD #5 RTOR for an ex lap, further small bowel resection and end ileostomy with abdominal wall closure.
WBC continunes to trend up
H/H stable and trending up. Thrombocytopenia improving
Hypophosphatemia/hypokalemia resolved s/p repletion
Bacteremia with ecoli, and clostridium clostridioforme, OR cx with yeast/few gram variable rods, f/u blood cx with ngtd
Afebrile, mild intermittent tachycardia. BP low but stable
Voiding well
Plan:
Plan CT abd/pelvis with IV/Po contrast today given rising leukocytosis
Okay for fulls for more PO options, will continue to go slow as an ileus is expected, though her ostomy is working.
Will continue TPN until on a more robust diet, tolerating very little intake thus far
Routine ostomy care
Change midline dressing as needed
ABX as per ID
PT OT, out of bed and ambulate as able.
c/w PPI
Appreciate GI, ID, heme, nephrology and team supervisor services
SCDs for VTE ppx, chemical ppx once deemed appropriate by hematology
Subjective Data
-
Date of Service: November 05, 2024
Pt seen and examined at bedside with Dr. Montaño. Denies n/v. Poor po intake and poor appetite. Feels discomfort with eating still.
Objective Data
-
Intake and Output
11/04/24 11/05/24 11/06/24
06:59 06:59 06:59
Intake Total 2499.8 / 2824.8 1998.8 / 1998.8
Output Total 4150 / 4150 3515 / 3515 550 / 550
Balance -1650.2 / -1325.2 -1516.2 / -1516.2 -550 / -550
Intake:
Oral fluids 480 / 480 540 / 540
IV fluids (Total) 254.8 / 254.8
NaPhos 254.8 / 254.8
IV piggybacks 445 / 715 853.8 / 853.8
TPN/PPN 1320 / 1375 605 / 605
Output:
Liquid stool amount 1125 / 1125 1795 / 1795 550 / 550
Ileostomy 1125 / 1125 1795 / 1795 550 / 550
Urine, Voided 3025 / 3025 1720 / 1720
Other:
How many times incontinent 1
SMALL amount urine
Number of approximated LARGE 1
amounts of urine
Vital Signs
Temp Pulse Resp BP Pulse Ox
99.1 F 99 18 88/59 95
11/05/24 07:15 11/05/24 08:46 11/05/24 08:46 11/05/24 07:15 11/05/24 08:46
Lab Results
11/05/24 05:51
11/05/24 05:51
Calcium 7.5 mg/dl (8.4-10.2) L 11/05/24 05:51
Phosphorus 2.9 mg/dl (2.5-4.5) 11/05/24 05:51
Magnesium 1.8 mg/dl (1.6-2.3) 11/05/24 05:51
Total Bilirubin 2.4 mg/dl (0.2-1.3) H 11/01/24 11:28
Direct Bilirubin 0.9 mg/dl (0.0-0.4) H 10/28/24 22:42
AST 15 U/L (14-36) 11/01/24 11:28
ALT 26 U/L (0-35) 11/01/24 11:28
Alkaline Phosphatase 85 U/L (38-126) 11/01/24 11:28
Total Protein 4.3 g/dl (6.3-8.2) L 11/01/24 11:28
Albumin 2.3 g/dl (3.5-5.0) L 11/01/24 11:28
Physical Exam
-
Gen: NAD
ABDOMEN: Soft, appropriately tender, mildly distended, ostomy is pink patent and productive of both gas and liquid brown/watery output.
Extremities: Anasarca and edema noted, slightly improving
Incision: Sacha intact, serous fluid on dressing, no erythema
Patient has a otero catheter: No
Patient has a central line: Yes
[2024-11-05 12:47] LABS: Glucose - Point of Care 107 mg/dl (70-99)
[2024-11-05] MEDS: NOVOLOG FLEXPEN SC (12:54)
[2024-11-05] MEDS: ZOSYN 50 IV ×2 (13:28→17:08)
--- NOTE | 2024-11-05 13:33 | W.PN.ID1 ---
Date of Service
Date of Service: November 05, 2024
Today's Communication
Broaden Unasyn to Zosyn.
Assessment / Plan
# Recent new dx Crohn's with long ileal stricture and SBO
# Perforated small bowel with peritonitis
# E. coli and Clostridium clostridioforme bacteremia from abd source
# Leukocytosis - trending up
# Thrombocytopenia improving
# s/p Septic shock
# s/p VDRF
Recommendations:
-Repeat bcx's neg.
- 10/28 s/p ex-lap abd washout, SBR w/o anastomosis, placement of temporary ABThera closure
- 10/31 s/p ex-lap abd washout, SBR, end ileostomy
OR cx yeast (on Zosyn at the time).
Spoke to micro to identify the yeast
- 11/[address]: no abscess
- meropenem dc'd on 11/03, in case contributing to thrombocytopenia
- Broaden Unasyn (d2) to Zosyn due to worsening leukocytosis.
- Continue [id number] IV q24 (d5)
- Trend wbc, plt.
����������������������������������������������������������
Chief Complaint
-: Other (Perforated viscus)
Subjective / Review of Systems
No new complaints
Vital Signs / Physical Exam
Vital Signs
Vital Signs
Temp Pulse Resp BP Pulse Ox
98.7 F 95 18 107/64 96
11/05/24 11:25 11/05/24 11:25 11/05/24 11:25 11/05/24 11:11/05/24 11:25
Physical Exam
Constitutional: Comfortable
Cardiovascular: S1/S2 (tachycardic)
Pulmonary: Other (Decreased BS bases)
Gastrointestinal: Soft and Other (ostomy liquid dark fluid output)
Genito-Urinary: Negative Post or CVA Tenderness
Extremities: Edema (3+ BLE)
Neurological: AO x 3
Lines: CVP (RIJ no erythema)
Objective Data
Lab Data
Lab Results
11/05/24 05:51
11/05/24 05:51
ESR 11 mm/hour (0-20) 10/26/24 08:41
PT 15.1 Sec (11.4-14.6) H 11/02/24 04:30
INR 1.16 11/02/24 04:30
APTT 30.4 Sec (23.4-35.0) 11/02/24 04:30
Estimated Creat Clear 111 ml/min 11/05/24 05:51
Lactic Acid 1.3 mmol/L (0.7-2.0) 11/02/24 04:30
Total Bilirubin 2.4 mg/dl (0.2-1.3) H 11/01/24 11:28
AST 15 U/L (14-36) 11/01/24 11:28
ALT 26 U/L (0-35) 11/01/24 11:28
Alkaline Phosphatase 85 U/L (38-126) 11/01/24 11:28
C-Reactive Protein < 5.00 mg/L (0.0-10.00) 10/26/24 08:41
Most recent labs reviewed.
Micro Results:
10/31/24 12:45 Blood Culture - Final
Blood/Venous No Growth - Final Report
10/31/24 12:45 Blood Culture - Final
Blood/Venous No Growth - Final Report
10/31/24 09:00 Anaerobic Culture - Preliminary
Abdomen Culture pending. Anaerobic cultures are examined after 3
days incubation. Additional information to follow.
10/28/24 20:16 Blood Culture - Final
Blood/Venous Escherichia coli
Gram Stain - Final
10/28/24 20:16 Blood Culture - Final
Blood/Venous Clostridium clostridioforme
Gram Stain - Final
10/31/24 09:20 Wound Culture - Preliminary
Abdomen Yeast
Gram Stain - Preliminary
Imaging:
11/05/24 CT a/p: Large amount of ascites. Postsurgical mesenteric edema. A few tiny foci of gas are seen in the anterior midline and right paramidline upper abdomen related to recent surgical procedure. No large volume of free air, and no focal
collection identified at this time to suggest abscess formation.Numerous confluent segments of small bowel remain slightly distended with circumferential wall thickening and hypoenhancement, which may be related to postsurgical wall edema. An
ischemic etiology is not entirely excluded.
10/28/24 AXR: Concern for intraperitoneal free air, but limited by the portable supine technique.
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
[2024-11-05] MEDS: NSS 1000 IV (16:01)
[2024-11-05 18:04] LABS: Glucose - Point of Care 130 mg/dl (70-99)
[2024-11-05] MEDS: ANESTHETIC LOZENGE 1 LOZENGE PO (18:10)
[2024-11-05] MEDS: Parenteral Nutrition, Central 1320 IV (21:01)
[2024-11-06] VITALS (8 sets, daily range): BP systolic 84–96; BP diastolic 45–60; PULSE 108; BMI 28.0
[2024-11-06] MEDS: ZOSYN 50 IV ×5 (00:07→23:59)
[2024-11-06] MEDS: NOVOLOG FLEXPEN-LOW RESISTANCE SC ×4 (00:08→18:10)
[2024-11-06] MEDS: NOVOLOG FLEXPEN 3 UNITS SC ×5 (00:09→23:59)
[2024-11-06 00:12] LABS: Glucose - Point of Care 120 mg/dl (70-99)
--- NOTE | 2024-11-06 03:10 | PTCARENOTE ---
Pt continues with low blood pressures, asymptomatic at this time. Pt is a 2x assist, will continue to monitor for s/s hypotension with transfers
[2024-11-06 03:37] LABS: Hematocrit 26.4 % (37.0-47.0); Hemoglobin 8.8 g/dL (12.0-16.0); Mean Corp Hgb Conc. 33.3 g/dL (33.0-37.0); Mean Corpuscular Volume 92.0 fL (81.0-99.0); Platelet Count 90 10^3/uL (130-400); Red Cell Dist. Width 13.6 % (11.5-14.5)
[2024-11-06 03:57] LABS: Blood Urea Nitrogen 17 mg/dl (7-17); Calcium 7.4 mg/dl (8.4-10.2); Carbon Dioxide 28 mmol/L (22-30); Chloride 105 mmol/L (98-107); Estimated Creatinine Clearance 111 ml/min; Glucose 104 mg/dl (70-99); Magnesium 1.8 mg/dl (1.6-2.3); Potassium 3.9 mmol/L (3.5-5.1); Sodium 134 mmol/L (135-145); eGFR > 60.00
[2024-11-06 04:26] LABS: Cortisol, Random 16.8 ug/dl
[2024-11-06 05:46] LABS: Glucose - Point of Care 110 mg/dl (70-99)
[2024-11-06] MEDS: VENTOLIN NEBULES 1.25 MG INH ×2 (07:52→19:30)
--- NOTE | 2024-11-06 08:56 | W.PN.HOSP.TC ---
Today's Communication/Plan
-
IV antibiotics and antifungal. Start midodrine. TPN
Assessment / Plan
Assessment / Plan
Physical exam:
General: Acutely ill
HEENT: Normocephalic, Atraumatic and dry mucous Membranes
Respiratory: Clear to Auscultation; Negative Wheezes, Rales or Rhonchi
Cardiac: Regular Rhythm and S1/S2
GI: Postop findings. Distention. Mild Tenderness. Ostomy in place and functioning.
Musculoskeletal: No Clubbing, No Cyanosis and No Edema
Neuro: Alert oriented x 3, no neurological deficits appreciated.
A/P:
Septic shock due to perforated small bowel with peritonitis and E. coli bacteremia in the setting of Chron's:
Continue IV Zosyn and Micafungin
Yeast growing in cultures
Off pressors
On TPN
On full liquid diet
CT abdomen pelvis repeated by surgery yesterday on 11/05
Updated at bedside
Hypotension:
Typically runs low blood pressures except when she was on pressors or stress doses of steroids.
Will start her on low-dose of midodrine and consider IV albumin if persistent
Cortisol level 16.8 today but unreliable since she was on steroids over the last few days.
Continue to monitor closely
Worsening leukocytosis:
ID is checking C. difficile
Reviewed repeated CT of the abdomen
Continue to trend
Bilateral pleural effusions with volume overload:
Hold IV Lasix since patient hypotensive and she is not short of breath nor she is hypoxic. Will resume when able to tolerate.
Monitor ins and outs and daily weight
Anemia:
Probably a component of acute blood loss
Continue to monitor hemoglobin closely
Hypokalemia:
Potassium looks good this morning
Replete and trend
Coagulopathy due to DIC from sepsis:
Platelet count improved up to 90,000 today and fibrinogen up to 356 on 11/05
Avoid NSAIDs
Hyperphosphatemia:
Phosphorus looks good this morning
Replete and trend
Hyperglycemia:
Continue scheduled insulin while on TPN
Hyponatremia:
Monitor trend
Other medical problems:
Acute respiratory failure, status post extubated
Hyponatremia, resolved
Leukocytosis
Anemia
Thrombocytopenia
Hypoalbuminemia
Hypophosphatemia
Hyperbilirubinemia
Chronic hypotension
Elevated LFTs
Hepatic steatosis
Lactic acidosis
DVT prophylaxis:
SCDs
CODE STATUS:
Full code
Total time spent on today's encounter was 65 minutes which included time spent in counseling the patient/family regarding diagnosis and treatment plan as listed above, goals of care, and symptom management. Case was discussed with nursing staff,
specialists, and care coordinators/case management. All labs and imaging personally reviewed by me. Remainder the time spent in detailed review of previous records, lab data, imaging, and other medical provider documentation.
Anticipated Discharge: > 48 hours
Subjective/Interval History
-
Date of Service: November 06, 2024
Patient denies chest pain or shortness of breath. Patient denies lightheadedness. Afebrile
Objective Data
-
Labs:
Laboratory Results
11/06/24
03:14
WBC 30.0 H
Hgb 8.8 L
Hct 26.4 L
Plt Count 90 L
Sodium 134 L
Potassium 3.9
Chloride 105
Carbon Dioxide 28
BUN 17
Creatinine 0.3 L
Glucose 104 H
Calcium 7.4 L
Vital Signs:
Vital Signs
Temp Pulse Resp BP Pulse Ox
97.8 F 102 18 96/60 95
11/06/24 07:40 11/06/24 07:58 11/06/24 07:58 11/06/24 07:40 11/06/24 07:58
I&O
11/05/24 11/06/24 11/07/24
06:59 06:59 06:59
Intake Total 1997.8 / 1997.8 1959 / 1959
Output Total 3515 / 3515 1675 / 1675
Balance -1516.2 / -1516.2 285 / 285
--- NOTE | 2024-11-06 09:11 | W.PN.ID1 ---
Date of Service
Date of Service: November 06, 2024
Today's Communication
Check stool for C. diff.
Assessment / Plan
# Recent new dx Crohn's with long ileal stricture and SBO
# Perforated small bowel with peritonitis
# E. coli and Clostridium clostridioforme bacteremia from abd source
# Leukocytosis - trending up
# Thrombocytopenia improving
.meropenem dc'd on 11/03, in case contributing to thrombocytopenia. Plt improving since.
# s/p Septic shock
# s/p VDRF
Recommendations:
-Repeat bcx's neg.
- 10/28 s/p ex-lap abd washout, SBR w/o anastomosis, placement of temporary ABThera closure
- 10/31 s/p ex-lap abd washout, SBR, end ileostomy
OR cx yeast + anaerobes (on Zosyn at the time).
Spoke to micro to identify the yeast
- 11/[address]: no abscess
- Check stool
- Continue Zosyn
- Continue [id number] IV q24 (d6)
- Trend wbc, plt.
����������������������������������������������������������
Chief Complaint
-: Other (Perforated viscus)
Subjective / Review of Systems
No abd pain. + diarrhea via rectum.
Vital Signs / Physical Exam
Vital Signs
Vital Signs
Temp Pulse Resp BP Pulse Ox
97.8 F 102 18 96/60 95
11/06/24 07:40 11/06/24 07:58 11/06/24 07:58 11/06/24 07:40 11/06/24 07:58
Physical Exam
Constitutional: Comfortable
Cardiovascular: S1/S2 (tachycardic)
Pulmonary: Other (Decreased BS bases)
Gastrointestinal: Soft, Non Tender, Distended and Other (ostomy liquid dark fluid output)
Genito-Urinary: Negative Post or CVA Tenderness
Extremities: Edema (3+ BLE)
Neurological: AO x 3
Lines: CVP (RIJ no erythema)
Objective Data
Lab Data
Lab Results
11/06/24 03:14
11/06/24 03:14
ESR 11 mm/hour (0-20) 10/26/24 08:41
PT 15.1 Sec (11.4-14.6) H 11/02/24 04:30
INR 1.16 11/02/24 04:30
APTT 30.4 Sec (23.4-35.0) 11/02/24 04:30
Estimated Creat Clear 111 ml/min 11/06/24 03:14
Lactic Acid 1.3 mmol/L (0.7-2.0) 11/02/24 04:30
Total Bilirubin 2.4 mg/dl (0.2-1.3) H 11/01/24 11:28
AST 15 U/L (14-36) 11/01/24 11:28
ALT 26 U/L (0-35) 11/01/24 11:28
Alkaline Phosphatase 85 U/L (38-126) 11/01/24 11:28
C-Reactive Protein < 5.00 mg/L (0.0-10.00) 10/26/24 08:41
Most recent labs reviewed.
Micro Results:
10/31/24 09:20 Wound Culture - Preliminary
Abdomen Yeast
Gram Stain - Preliminary
10/31/24 09:00 Anaerobic Culture - Final
Abdomen Mobiluncus species
Bifidobacterium species
10/31/24 12:45 Blood Culture - Final
Blood/Venous No Growth - Final Report
10/31/24 12:45 Blood Culture - Final
Blood/Venous No Growth - Final Report
10/28/24 20:16 Blood Culture - Final
Blood/Venous Escherichia coli
Gram Stain - Final
10/28/24 20:16 Blood Culture - Final
Blood/Venous Clostridium clostridioforme
Gram Stain - Final
Imaging:
11/05/24 CT a/p: Large amount of ascites. Postsurgical mesenteric edema. A few tiny foci of gas are seen in the anterior midline and right paramidline upper abdomen related to recent surgical procedure. No large volume of free air, and no focal
collection identified at this time to suggest abscess formation.Numerous confluent segments of small bowel remain slightly distended with circumferential wall thickening and hypoenhancement, which may be related to postsurgical wall edema. An
ischemic etiology is not entirely excluded.
10/28/24 AXR: Concern for intraperitoneal free air, but limited by the portable supine technique.
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
[2024-11-06] MEDS: PROTONIX IV 40 MG IV (10:13)
[2024-11-06] MEDS: NSS (PRESERVATIVE FREE) 10 ML IV (10:15)
[2024-11-06] MEDS: MUCINEX 600 MG PO ×2 (10:15→21:46)
[2024-11-06] MEDS: MYCAMINE 105 MG IV (10:15)
[2024-11-06 12:02] LABS: Glucose - Point of Care 122 mg/dl (70-99)
[2024-11-06] MEDS: ZOFRAN 4 MG IV (14:04)
--- NOTE | 2024-11-06 14:07 | W.PN.GS2 ---
Addendum entered and electronically signed by Darvin Montaño MD 11/06/24 16:08:
I saw and examined the patient.
The Design Teacher's note was reviewed and I agree with the note.
Comment: Feels about the same, keyonna small PO intake, pain controlled, wbc rising, CT yesterday with free fluid but no drainable collection, cont abx for now and tpn
Original Note:
Today's Communication / Plan
-
TPN/FLD
ABX
Assessment / Plan
-
Assessment: 48-year-old female admitted with recurrent small bowel obstruction in the setting of recent diagnosis of Crohn's disease and tapering steroids. Her hospital course was complicated by septic shock and multiorgan failure secondary to a
perforated viscus with operative recovery complicated by DIC (hematology following)
POD #9 ex lap, small bowel resection, washout and left in discontinuity.
POD #6 RTOR for an ex lap, further small bowel resection and end ileostomy with abdominal wall closure.
WBC continues to trend up
H/H stable. Thrombocytopenia improving
Mild hyponatremia
Bacteremia with ecoli, and clostridium clostridioforme, OR cx with yeast/few gram variable rods, f/u blood cx with ngtd
CT a/p from 11/05 with large amount of ascites, no abscess. Still with sb distention/edema c/w ileus
Ostomy with liquid outputs
Afebrile, mild intermittent tachycardia. Hypotension which responded to fluid bolus, now stable
Plan:
Plan CT abd/pelvis with IV/Po contrast today given rising leukocytosis
Okay for fulls for more PO options, will continue to go slow given expected ileus
Will continue TPN until on a more robust diet, tolerating very little intake thus far
Routine ostomy care
Change midline dressing daily/as needed
ABX as per ID. changed to IV zosyn on 11/05, has been on micafungin
PT OT, out of bed and ambulate as able.
c/w PPI
SCDs for VTE ppx, chemical ppx once deemed appropriate by hematology
Subjective Data
-
Date of Service: November 06, 2024
Pt seen and examined at bedside with Dr. Montaño. Denies n/v. OOB to chair. Poor appetite. Passed some more stool rectally yesterday, none today. Minimal abdominal pain.
Objective Data
-
Intake and Output
11/05/24 11/06/24 11/07/24
06:59 06:59 06:59
Intake Total 1997.8 / 1997.8 1959 / 1959
Output Total 3515 / 3515 1675 / 1675 450 / 450
Balance -1516.2 / -1516.2 285 / 285 -450 / -450
Intake:
Oral fluids 540 / 540 1200 / 1200
IV piggybacks 853.8 / 853.8 100 / 100
TPN/PPN 605 / 605 660 / 660
Output:
Liquid stool amount 1795 / 1795 1225 / 1225 450 / 450
Ileostomy 1795 / 1795 1225 / 1225 450 / 450
Urine, Voided 1720 / 1720 450 / 450
Other:
Number of approximated SMALL 1 1
amounts of urine
Number of approximated MODERATE 1
amounts of urine
Number of approximated LARGE 1
amounts of urine
Vital Signs
Temp Pulse Resp BP Pulse Ox
98.7 F 106 16 90/58 99
11/06/24 11:30 11/06/24 11:30 11/06/24 11:30 11/06/24 11:30 11/06/24 11:30
Lab Results
11/06/24 03:14
11/06/24 03:14
Calcium 7.4 mg/dl (8.4-10.2) L 11/06/24 03:14
Phosphorus 3.1 mg/dl (2.5-4.5) 11/06/24 03:14
Magnesium 1.8 mg/dl (1.6-2.3) 11/06/24 03:14
Total Bilirubin 2.4 mg/dl (0.2-1.3) H 11/01/24 11:28
Direct Bilirubin 0.9 mg/dl (0.0-0.4) H 10/28/24 22:42
AST 15 U/L (14-36) 11/01/24 11:28
ALT 26 U/L (0-35) 11/01/24 11:28
Alkaline Phosphatase 85 U/L (38-126) 11/01/24 11:28
Total Protein 4.3 g/dl (6.3-8.2) L 11/01/24 11:28
Albumin 2.3 g/dl (3.5-5.0) L 11/01/24 11:28
Physical Exam
-
Gen: NAD, non-toxic appearing
ABDOMEN: Soft, appropriately tender, mildly distended (ascites present), ostomy is pink patent and productive of both gas and liquid brown/watery output.
Extremities: Anasarca and edema noted, improving
Incision: [place] intact, ss fluid on dressing, no erythema
Patient has a otero catheter: No
Patient has a central line: Yes
[2024-11-06 18:00] LABS: Glucose - Point of Care 113 mg/dl (70-99)
[2024-11-06] MEDS: MORPHINE SULFATE 4 MG IV (19:14)
[2024-11-06] MEDS: Parenteral Nutrition, Central 1330 IV (21:41)
[2024-11-06 23:59] LABS: Glucose - Point of Care 115 mg/dl (70-99)
[2024-11-07] VITALS (7 sets, daily range): BP systolic 82–131; BP diastolic 48–68; PULSE 74; BMI 27.7
[2024-11-07] MEDS: ZOSYN 50 IV ×4 (05:58→23:22)
[2024-11-07] MEDS: NOVOLOG FLEXPEN-LOW RESISTANCE SC ×4 (05:58→18:26)
[2024-11-07] MEDS: NOVOLOG FLEXPEN 3 UNITS SC ×3 (05:59→23:54)
[2024-11-07 06:08] LABS: Glucose - Point of Care 111 mg/dl (70-99)
[2024-11-07] MEDS: VENTOLIN NEBULES 1.25 MG INH ×2 (07:43→19:58)
[2024-11-07 07:56] LABS: Hematocrit 27.5 % (37.0-47.0); Hemoglobin 9.3 g/dL (12.0-16.0); Mean Corp Hgb Conc. 33.8 g/dL (33.0-37.0); Mean Corpuscular Volume 92.9 fL (81.0-99.0); Platelet Count 138 10^3/uL (130-400); Red Cell Dist. Width 14.0 % (11.5-14.5)
[2024-11-07 08:25] LABS: ALT (SGPT) 41 U/L (0-35); AST (SGOT) 26 U/L (14-36); Albumin 1.8 g/dl (3.5-5.0); Alkaline Phosphatase 113 U/L (38-126); Blood Urea Nitrogen 15 mg/dl (7-17); Calcium 7.3 mg/dl (8.4-10.2); Carbon Dioxide 25 mmol/L (22-30); Chloride 105 mmol/L (98-107); Estimated Creatinine Clearance 111 ml/min; Glucose 90 mg/dl (70-99); Potassium 4.1 mmol/L (3.5-5.1); Sodium 132 mmol/L (135-145); Total Protein 4.0 g/dl (6.3-8.2); eGFR > 60.00
[2024-11-07] MEDS: NSS (PRESERVATIVE FREE) 10 ML IV (08:45)
[2024-11-07] MEDS: PROTONIX IV 40 MG IV (08:45)
[2024-11-07] MEDS: MUCINEX 600 MG PO ×2 (08:45→20:16)
--- NOTE | 2024-11-07 09:45 | W.PN.ID1 ---
Date of Service
Date of Service: November 07, 2024
Today's Communication
Continue Zosyn and micafungin.
Assessment / Plan
# Recent new dx Crohn's with long ileal stricture and SBO
# Perforated small bowel with peritonitis
# E. coli and Clostridium clostridioforme bacteremia from abd source
# Leukocytosis - improved
# Thrombocytopenia improving
.meropenem dc'd on 11/03, in case contributing to thrombocytopenia. Plt improving since.
# s/p Septic shock
# s/p VDRF
Recommendations:
-Repeat bcx's neg.
- 10/28 s/p ex-lap abd washout, SBR w/o anastomosis, placement of temporary ABThera closure
- 10/31 s/p ex-lap abd washout, SBR, end ileostomy
OR cx yeast + anaerobes (on Zosyn at the time).
Spoke to micro to identify the yeast
- 11/[address]: no abscess
- Stool neg C.diff
- Continue Zosyn
- Continue [id number] IV q24 (d7)
- Trend wbc,
����������������������������������������������������������
Chief Complaint
-: Other (Perforated viscus)
Subjective / Review of Systems
Asking if she can dring Gatorade. No complaints.
Vital Signs / Physical Exam
Vital Signs
Vital Signs
Temp Pulse Resp BP Pulse Ox
99.4 F 64 18 86/50 97
11/07/24 07:35 11/07/24 07:46 11/07/24 07:46 11/07/24 07:35 11/07/24 07:46
Physical Exam
Constitutional: No Acute Distress and Comfortable
Pulmonary: Other (Decreased BS at bases)
Gastrointestinal: Soft, Non Tender, Distended, Normal Bowel Sounds and Other (ostomy dark brown liquid)
Extremities: Edema (BLE decreased)
Neurological: AO x 3
Lines: CVP (RIJ intact)
Objective Data
Lab Data
Lab Results
11/07/24 06:49
11/07/24 06:49
ESR 11 mm/hour (0-20) 10/26/24 08:41
PT 15.1 Sec (11.4-14.6) H 11/02/24 04:30
INR 1.16 11/02/24 04:30
APTT 30.4 Sec (23.4-35.0) 11/02/24 04:30
Estimated Creat Clear 111 ml/min 11/07/24 06:49
Lactic Acid 1.3 mmol/L (0.7-2.0) 11/02/24 04:30
Total Bilirubin 0.6 mg/dl (0.2-1.3) 11/07/24 06:49
AST 26 U/L (14-36) 11/07/24 06:49
ALT 41 U/L (0-35) H 11/07/24 06:49
Alkaline Phosphatase 113 U/L (38-126) 11/07/24 06:49
C-Reactive Protein < 5.00 mg/L (0.0-10.00) 10/26/24 08:41
Most recent labs reviewed.
Micro Results:
10/31/24 09:20 Wound Culture - Preliminary
Abdomen Yeast
Gram Stain - Preliminary
11/06/24 10:10 C. difficile GDH Antigen & Toxins - Final
Feces/Stool Negative for toxigenic C.difficile
10/31/24 09:00 Anaerobic Culture - Final
Abdomen Mobiluncus species
Bifidobacterium species
10/31/24 12:45 Blood Culture - Final
Blood/Venous No Growth - Final Report
10/31/24 12:45 Blood Culture - Final
Blood/Venous No Growth - Final Report
10/28/24 20:16 Blood Culture - Final
Blood/Venous Escherichia coli
Gram Stain - Final
10/28/24 20:16 Blood Culture - Final
Blood/Venous Clostridium clostridioforme
Gram Stain - Final
Imaging:
11/05/24 CT a/p: Large amount of ascites. Postsurgical mesenteric edema. A few tiny foci of gas are seen in the anterior midline and right paramidline upper abdomen related to recent surgical procedure. No large volume of free air, and no focal
collection identified at this time to suggest abscess formation.Numerous confluent segments of small bowel remain slightly distended with circumferential wall thickening and hypoenhancement, which may be related to postsurgical wall edema. An
ischemic etiology is not entirely excluded.
10/28/24 AXR: Concern for intraperitoneal free air, but limited by the portable supine technique.
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
[2024-11-07] MEDS: MYCAMINE 105 MG IV (11:38)
[2024-11-07 12:13] LABS: Glucose - Point of Care 96 mg/dl (70-99)
--- NOTE | 2024-11-07 12:44 | W.PN.HOSP.TC ---
Addendum entered and electronically signed by Enoc Bhatia MD 11/07/24 15:50:
Edema RLE--> check venous Doppler RLE.
Original Note:
Today's Communication/Plan
-
IV antibiotics and antifungals. IV albumin. Midodrine. Advancing diet.
Assessment / Plan
Assessment / Plan
Physical exam:
General: Acutely ill
HEENT: Normocephalic, Atraumatic and dry mucous Membranes
Respiratory: Decreased breath sounds in the bases bilaterally; Clear to Auscultation; Negative Wheezes, Rales or Rhonchi
Cardiac: Regular Rhythm and S1/S2
GI: Postop findings. No Distention. Mild Tenderness. Ostomy in place and functioning.
Musculoskeletal: No Clubbing, No Cyanosis. Bilateral lower extremity edema
Neuro: Alert oriented x 3, no neurological deficits appreciated.
A/P:
Septic shock due to perforated small bowel with peritonitis and E. coli and Clostridium bacteremia in the setting of Chron's:
Improving
Continue IV Zosyn and Micafungin
[place] albicans growing in cultures
WBC trending down today from 30 yesterday to 21.5 today
C. difficile negative
Blood cultures no growth since 10/31
Off pressors
On TPN
On full liquid diet planning to advance to low residue diet today
Reviewed CT abdomen pelvis repeated by surgery on 11/05
Updated at bedside today 11/07
Hypotension:
Typically runs low blood pressures except when she was on pressors or stress doses of steroids.
Increase midodrine to 10 mg p.o. 3 times daily (started yesterday)
Will also give today 1 dose of IV albumin, 25 g (hypoalbuminemia with albumin levels today 1.8)
Cortisol level 16.8 but unreliable since she was on steroids over the last few days.
Continue to monitor closely
Bilateral pleural effusions with volume overload:
Hold IV Lasix since patient hypotensive and she is not short of breath nor she is hypoxic. Will resume when able to tolerate.
Monitor ins and outs and daily weight
Repeat chest x-ray tomorrow
Anemia:
Probably a component of acute blood loss but currently stable
Continue to monitor hemoglobin closely
Hypokalemia:
Potassium looks good this morning
Replete and trend
Coagulopathy due to DIC from sepsis:
Improving
Platelet count improved up to normal 138,000 today and fibrinogen up to 356 on 11/05
Avoid NSAIDs
Hypophosphatemia:
Up to normal yesterday
Hyperglycemia:
Continue scheduled insulin while on TPN
Continue to monitor blood sugars
Hyponatremia:
Monitor trend
DVT prophylaxis:
SCDs. Might be able to start pharmacological DVT prophylaxis soon.
CODE STATUS:
Full code
Total time spent on today's encounter was 55 minutes which included time spent in counseling the patient/family regarding diagnosis and treatment plan as listed above, goals of care, and symptom management. Case was discussed with nursing staff,
specialists, and care coordinators/case management. All labs and imaging personally reviewed by me. Remainder the time spent in detailed review of previous records, lab data, imaging, and other medical provider documentation.
Anticipated Discharge: > 48 hours
Subjective/Interval History
-
Date of Service: November 07, 2024
Patient with mild abdominal soreness. No chest pain or shortness of breath. She has some nausea on and off. No vomiting. Tolerating liquid diet. Afebrile
Objective Data
-
Labs:
Laboratory Results
11/07/24
06:49
WBC 21.5 H
Hgb 9.3 L
Hct 27.5 L
Plt Count 138 D
Sodium 132 L
Potassium 4.1
Chloride 105
Carbon Dioxide 25
BUN 15
Creatinine 0.4 L
Glucose 90
Calcium 7.3 L
Total Bilirubin 0.6
AST 26
ALT 41 H
Alkaline Phosphatase 113
Vital Signs:
Vital Signs
Temp Pulse Resp BP Pulse Ox
98 F 96 16 88/57 100
11/07/24 11:20 11/07/24 11:20 11/07/24 11:20 11/07/24 11:20 11/07/24 11:20
I&O
11/06/24 11/07/24 11/08/24
06:59 06:59 06:59
Intake Total 1959 / 1959 2920 / 2920
Output Total 1675 / 1675 1900 / 1900 750 / 750
Balance 285 / 285 1020 / 1020 -750 / -750
[2024-11-07] MEDS: NOVOLOG FLEXPEN SC (13:20)
--- NOTE | 2024-11-07 14:07 | W.PN.GS2 ---
Addendum entered and electronically signed by Darvin Montaño MD 11/07/24 18:18:
I saw and examined the patient.
The Print Production Manager's note was reviewed and I agree with the note.
Comment: Feels improved, belly soft and nt, WBC improving, plan to cont fulls, TPN, cottage cheese OK per pt request
Original Note:
Today's Communication / Plan
-
TPN, diet as tolerated
Assessment / Plan
-
Assessment: 48-year-old female admitted with recurrent small bowel obstruction in the setting of recent diagnosis of Crohn's disease and tapering steroids. Her hospital course was complicated by septic shock and multiorgan failure secondary to a
perforated viscus with operative recovery complicated by DIC (hematology following)
POD #10 ex lap, small bowel resection, washout and left in discontinuity.
POD #7 RTOR for an ex lap, further small bowel resection and end ileostomy with abdominal wall closure.
WBC now trending down
H/H stable. Thrombocytopenia improving
Mild hyponatremia
Bacteremia with ecoli, and clostridium clostridioforme, OR cx with yeast/few gram variable rods, f/u blood cx with ngtd
CT a/p from 11/05 with large amount of ascites, no abscess. Still with sb distention/edema c/w ileus
Ostomy with liquid outputs, poor PO intake
Afebrile, mild intermittent tachycardia. Hypotension which responded to fluid bolus, now stable
Plan:
LRD for more PO options, advised to continue to go slow given expected ileus.
Will continue TPN until on a more robust diet, tolerating very little intake thus far
Routine ostomy care
Change midline dressing daily/as needed
ABX as per ID. changed to IV zosyn on 11/05, has been on micafungin
PT OT, out of bed and ambulate as able.
c/w PPI
SCDs for VTE ppx, chemical ppx once deemed appropriate by hematology
Subjective Data
-
Date of Service: November 07, 2024
Pt seen and examined at bedside with Dr. Montaño. Denies n/v. Tolerating some fulls but eggs made her a little nauseated. Wants to try cottage cheese. Feels better and better each day but still with poor PO intake d/t discomfort.
Objective Data
-
Intake and Output
11/06/24 11/07/24 11/08/24
06:59 06:59 06:59
Intake Total 1960 / 1960 2920 / 2920
Output Total 1675 / 1675 1900 / 1900 750 / 750
Balance 285 / 285 1020 / 1020 -750 / -750
Intake:
Oral fluids 1200 / 1200 1200 / 1200
IV piggybacks 100 / 100 400 / 400
TPN/PPN 660 / 660 1320 / 1320
Output:
Liquid stool amount 1225 / 1225 1900 / 1900 750 / 750
Ileostomy 1225 / 1225 1900 / 1900 750 / 750
Urine, Voided 450 / 450
Other:
Number of approximated SMALL 1 1 1
amounts of urine
Number of approximated MODERATE 1 1
amounts of urine
Number of approximated LARGE 2
amounts of urine
Vital Signs
Temp Pulse Resp BP Pulse Ox
98 F 96 16 88/57 100
11/07/24 11:20 11/07/24 11:20 11/07/24 11:20 11/07/24 11:20 11/07/24 11:20
Lab Results
11/07/24 06:49
11/07/24 06:49
Calcium 7.3 mg/dl (8.4-10.2) L 11/07/24 06:49
Phosphorus 3.1 mg/dl (2.5-4.5) 11/06/24 03:14
Magnesium 1.8 mg/dl (1.6-2.3) 11/06/24 03:14
Total Bilirubin 0.6 mg/dl (0.2-1.3) 11/07/24 06:49
Direct Bilirubin 0.4 mg/dl (0.0-0.4) 11/07/24 06:49
AST 26 U/L (14-36) 11/07/24 06:49
ALT 41 U/L (0-35) H 11/07/24 06:49
Alkaline Phosphatase 113 U/L (38-126) 11/07/24 06:49
Total Protein 4.0 g/dl (6.3-8.2) L 11/07/24 06:49
Albumin 1.8 g/dl (3.5-5.0) L 11/07/24 06:49
Physical Exam
-
Gen: NAD, non-toxic appearing
ABDOMEN: Soft, appropriately tender, mildly distended (ascites present), ostomy is pink patent and productive of both gas and liquid brown/watery output.
Extremities: Anasarca and edema noted, improving
Incision: [place] intact, ss fluid on dressing, no erythema
Patient has a otero catheter: No
Patient has a central line: Yes
[2024-11-07] MEDS: FLEXBUMIN 100 IV (15:18)
[2024-11-07 18:20] LABS: Glucose - Point of Care 124 mg/dl (70-99)
[2024-11-07] MEDS: Parenteral Nutrition, Central 1330 IV (21:00)
[2024-11-07 23:39] LABS: Glucose - Point of Care 115 mg/dl (70-99)
[2024-11-08] VITALS (8 sets, daily range): BP systolic 89–97; BP diastolic 40–61; BMI 25.8
[2024-11-08 04:54] LABS: Hematocrit 23.3 % (37.0-47.0); Hemoglobin 7.8 g/dL (12.0-16.0); Mean Corp Hgb Conc. 33.5 g/dL (33.0-37.0); Mean Corpuscular Volume 91.0 fL (81.0-99.0); Platelet Count 192 10^3/uL (130-400); Red Cell Dist. Width 13.8 % (11.5-14.5)
[2024-11-08] MEDS: ZOSYN 50 IV ×3 (05:00→17:55)
[2024-11-08 05:22] LABS: ALT (SGPT) 32 U/L (0-35); AST (SGOT) 24 U/L (14-36); Albumin 1.9 g/dl (3.5-5.0); Alkaline Phosphatase 82 U/L (38-126); Blood Urea Nitrogen 13 mg/dl (7-17); Calcium 7.4 mg/dl (8.4-10.2); Carbon Dioxide 25 mmol/L (22-30); Chloride 106 mmol/L (98-107); Estimated Creatinine Clearance 111 ml/min; Glucose 105 mg/dl (70-99); Magnesium 2.0 mg/dl (1.6-2.3); Potassium 4.2 mmol/L (3.5-5.1); Sodium 132 mmol/L (135-145); Total Protein 4.1 g/dl (6.3-8.2); Triglycerides 76 mg/dl (10-149); eGFR > 60.00
[2024-11-08 06:17] LABS: Glucose - Point of Care 111 mg/dl (70-99)
[2024-11-08] MEDS: NOVOLOG FLEXPEN-LOW RESISTANCE SC ×4 (06:18→17:54)
[2024-11-08] MEDS: NOVOLOG FLEXPEN 3 UNITS SC ×3 (06:35→17:54)
[2024-11-08] MEDS: VENTOLIN NEBULES 1.25 MG INH (07:46)
[2024-11-08] MEDS: MUCINEX 600 MG PO ×2 (09:15→19:49)
[2024-11-08] MEDS: PROTONIX IV 40 MG IV (09:16)
[2024-11-08] MEDS: NSS (PRESERVATIVE FREE) 10 ML IV (09:16)
[2024-11-08] MEDS: DIFLUCAN 200 MG PO (09:26)
--- NOTE | 2024-11-08 09:31 | CM ---
Patient seen at bedside on . Patient stated that she was having some issues this am and was doing OK. CM will continue to follow for discharge planning needs. Plan is for home with no needs/ watch for possible VN supports needed closer to
discharge. CM will continue to follow for discharge planning needs.
Plan; home with VN vs SNF
--- NOTE | 2024-11-08 09:42 | W.PN.ONC2 ---
Today's Communication / Plan
-
Platelet count 192 yesterday, Hgb 7.8 today.
Trend CBC
Impression
Impression
# Sepsis
# SB perf, s/p, washout, small bowel resection for perforation
# E coli bacteremia
# Coagulopathy, thrombocytopenia-consistent with DIC
# Crohns disease
# Mild normocytic anemia
Plan
Plan
- Patient's clinical picture was consistent with DIC in the setting of bacteremia and sepsis. Platelet count has significantly 192, which is increased from 41 on 11/04/24.
- Hgb 7.8, slightly decreased from prior days. Trend CBC.
- To rule out other causes of thrombocytopenia, and given history of Crohn's disease/malabsorption, Vitamin B12/folate levels not decreased.
- Fibrinogen and coags have stabilized; fibrinogen 356 on 11/04/24
Subjective/Objective
Subjective
Patient is slightly out of breath given working with OT/PT in the room. She states she otherwise feels okay. No bleeding or other complaints.
Vital Signs:
Vital Signs
Temp Pulse Resp BP Pulse Ox
98.8 F 97 16 96/40 97
11/08/24 08:05 11/08/24 09:15 11/08/24 08:05 11/08/24 09:15 11/08/24 08:05
Lab Results:
Laboratory Data
WBC 17.0 10^3/uL (4.8-10.8) H 11/08/24 04:42
Hgb 7.8 g/dL (12.0-16.0) L 11/08/24 04:42
Plt Count 192 10^3/uL (130-400) D 11/08/24 04:42
PT 15.1 Sec (11.4-14.6) H 11/02/24 04:30
INR 1.16 11/02/24 04:30
APTT 30.4 Sec (23.4-35.0) 11/02/24 04:30
eGFR > 60.00 11/08/24 04:40
Physical Exam
HEENT: Moist Mucous Membranes
Cardiology: Normal Sinus Rhythm, S1 and S2
Pulmonary: Clear
GI: Soft and Normal Bowel Sounds
--- NOTE | 2024-11-08 11:04 | WOUNDNOTE ---
WON RN NOTE: Patient assessed with nurse while patient ambulated back to bed. Sacrum and buttocks with blanchable pink skin, few dry excoriated areas, suspect friction/shearing. Patient states the foam dressing that is on her buttocks and heels are
bothering her. Heels blanchable pink, able to turns self to side. Kept foams off at patient's request, recommended to nurse to apply A&D ointment to buttocks instead of foam. Nurse also applied air overlay to Accumax bed, air chair cushion in use.
Palm check done, adequate inflation noted. Pressure ulcer prevention measures reviewed with patient and spouse at bedside, states they understand. Patient remains on TPN, poor appetite. Patient said she does not like the food here, to bring
in food from home. Appliance changed and continued teaching with patient and , emptied approximately 300ml of green liquid. Answered all questions and will order additional [place] wafer's and pouches. Updated nurse and will follow as
needed.
--- NOTE | 2024-11-08 11:30 | W.PN.GS2 ---
Today's Communication / Plan
-
Possible IR drainage
TPN/Diet as tolerated
Assessment / Plan
-
Assessment: 48-year-old female admitted with recurrent small bowel obstruction in the setting of recent diagnosis of Crohn's disease and tapering steroids. Her hospital course was complicated by septic shock and multiorgan failure secondary to a
perforated viscus with operative recovery complicated by DIC (hematology following)
POD #11 ex lap, small bowel resection, washout and left in discontinuity.
POD #8 RTOR for an ex lap, further small bowel resection and end ileostomy with abdominal wall closure.
AFVSS
WBC now trending down
Hemoglobin drifting down
Thrombocytopenia resolved
Mild hyponatremia, TPN being adjusted
Bacteremia with ecoli, and clostridium clostridioforme, OR cx with yeast/few gram variable rods, f/u blood cx with ngtd
CT a/p from 11/05 with large amount of ascites, no abscess. Still with sb distention/edema c/w ileus
Ostomy with liquid outputs, poor PO intake but improving
Plan:
Consult placed to IR for drainage of intraabdominal fluid/ascites, will send cx
LRD for more PO options, advised to continue to go slow given expected ileus.
Will continue TPN until on a more robust diet, tolerating very little intake thus far
Routine ostomy care
Change midline dressing daily/as needed
ABX as per ID. changed to IV zosyn on 11/05, has been on micafungin
PT OT, out of bed and ambulate as able.
c/w PPI
SCDs for VTE ppx, chemical ppx once deemed appropriate by hematology
Subjective Data
-
Date of Service: November 08, 2024
Pt seen and examined at bedside with Dr. Rodriguez. Klever n/v. Tolerating more PO intake. Abdominal discomfort continues to improve.
Objective Data
-
Intake and Output
11/07/24 11/08/24 11/09/24
06:59 06:59 06:59
Intake Total 2920 / 2920 720 / 720
Output Total 1900 / 1899 2375 / 237
Balance 1020 / 1020 -1655 / -1655
Intake:
Oral fluids 1200 / 1200 720 / 720
IV piggybacks 400 / 400
TPN/PPN 1320 / 1320
Output:
Liquid stool amount 1899
Ileostomy 1899
Urine, Voided 300 / 300
Other:
Number of approximated SMALL 1 1
amounts of urine
Number of approximated MODERATE 1 3
amounts of urine
Number of approximated LARGE 2
amounts of urine
Vital Signs
Temp Pulse Resp BP Pulse Ox
98.8 F 97 16 96/40 97
11/08/24 08:05 11/08/24 09:15 11/08/24 08:05 11/08/24 09:15 11/08/24 08:05
Lab Results
11/08/24 04:40
Calcium 7.4 mg/dl (8.4-10.2) L 11/08/24 04:40
Phosphorus 3.2 mg/dl (2.5-4.5) 11/08/24 04:40
Magnesium 2.0 mg/dl (1.6-2.3) 11/08/24 04:40
Total Bilirubin 0.8 mg/dl (0.2-1.3) 11/08/24 04:40
Direct Bilirubin 0.4 mg/dl (0.0-0.4) 11/07/24 06:49
AST 24 U/L (14-36) 11/08/24 04:40
ALT 32 U/L (0-35) 11/08/24 04:40
Alkaline Phosphatase 82 U/L (38-126) 11/08/24 04:40
Total Protein 4.1 g/dl (6.3-8.2) L 11/08/24 04:40
Albumin 1.9 g/dl (3.5-5.0) L 11/08/24 04:40
Physical Exam
-
Gen: NAD, non-toxic appearing
ABDOMEN: Soft, appropriately tender, mildly distended (ascites present), ostomy is pink patent and productive of both gas and liquid green/watery output.
Extremities: Anasarca and edema noted, improving
Incision: Cosmo intact, fibrinous debris cleaned out from between cosmo and areas packed, dressing changed, no erythema
Patient has a otero catheter: No
Patient has a central line: Yes
--- NOTE | 2024-11-08 11:47 | W.PN.HOSP.TC ---
Today's Communication/Plan
-
Continue with current antibiotics and antifungal.
Continue diet per surgery
Continue with therapies
Assessment / Plan
Assessment / Plan
A/P:
Septic shock due to perforated small bowel with peritonitis and E. coli and Clostridium bacteremia in the setting of Chron's:
Resolved
Continue IV Zosyn and Micafungin
Lorraine albicans growing in cultures
WBC trending down today
C. difficile negative
Blood cultures no growth since 10/31
Off pressors
On TPN
On full liquid diet planning to advance to low residue diet per surgery
Reviewed CT abdomen pelvis repeated by surgery on 11/05
Updated at bedside today
Hypotension:
Typically runs low blood pressures
Asymptomatic. Systolic blood pressure in 90s.
Continue midodrine to 10 mg p.o. 3 times daily
Cortisol level 16.8
Continue to monitor closely
Bilateral pleural effusions with volume overload:
Hold IV Lasix since patient hypotensive and she is not short of breath nor she is hypoxic. Weight is down currently.
On room air.
Anemia:
Probably a component of acute blood loss but currently stable
Continue to monitor hemoglobin closely
Coagulopathy due to DIC from sepsis:
Platelets normalized.
Avoid NSAIDs
Hyperglycemia:
Continue scheduled insulin while on TPN
Continue to monitor blood sugars
Hyponatremia:
Monitor trend
DVT prophylaxis:
SCDs. Might be able to start pharmacological DVT prophylaxis soon.
CODE STATUS:
Full code
Continue PT OT treatments ;would need rehab once medically cleared
Anticipated Discharge: > 48 hours
Subjective/Interval History
-
Date of Service: November 08, 2024
Tolerating full liquid diet.
Denies any chest pain, shortness of breath or dizziness.
Objective Data
-
Labs:
Laboratory Results
11/08/24 11/08/24 11/08/24
04:40 04:42 13:00
WBC 17.0 H Pending
Hgb 7.8 L Pending
Hct 23.3 L Pending
Plt Count 192 D Pending
Sodium 132 L
Potassium 4.2
Chloride 106
Carbon Dioxide 25
BUN 13
Creatinine 0.3 L
Glucose 105 H
Calcium 7.4 L
Total Bilirubin 0.8
AST 24
ALT 32
Alkaline Phosphatase 82
Vital Signs:
Vital Signs
Temp Pulse Resp BP Pulse Ox
98.5 F 92 16 94/44 96
11/08/24 11:41 11/08/24 11:41 11/08/24 11:41 11/08/24 11:41 11/08/24 11:41
I&O
11/07/24 11/08/24 11/09/24
06:59 06:59 06:59
Intake Total 2920 / 2920 720 / 720
Output Total 1900 / 1900 2375 / 2375
Balance 1020 / 1020 -1655 / -1655
Physical Exam
-
General: Comfortable
Respiratory: Non Labored Respirations; Negative Accessory Resp Muscle Use
Cardiac: Regular Rhythm and S1/S2
Musculoskeletal: Edema, Right Lower Extrem and Edema, Left Lower Extrem
Neuro: AO x 3
Psych: Calm
Data Reviewed
-
Labs: Labs Reviewed by me (CBC pending)
--- NOTE | 2024-11-08 11:53 | W.PN.ID1 ---
Date of Service
Date of Service: November 08, 2024
Today's Communication
Zosyn + po fluconazole x 3 more days.
Assessment / Plan
# Recent new dx Crohn's with long ileal stricture and SBO
# Perforated small bowel with peritonitis
# E. coli and Clostridium clostridioforme bacteremia from abd source
# Leukocytosis - improving
# Thrombocytopenia improving
.meropenem dc'd on 11/03, in case contributing to thrombocytopenia. Plt improving since.
# s/p Septic shock
# s/p VDRF
Recommendations:
-Repeat bcx's neg.
- 10/28 s/p ex-lap abd washout, SBR w/o anastomosis, placement of temporary ABThera closure
- 10/31 s/p ex-lap abd washout, SBR, end ileostomy
OR cx C. albicans + anaerobes (on Zosyn at the time).
- 11/[address]: no abscess
- Stool neg C.diff
- Continue IV Zosyn x 3 more days.
- De-escalate [id number] IV q24 (had 7 doses) to fluconazole 200mg po qd x 3 more days.
- Trend wbc
����������������������������������������������������������
Chief Complaint
-: Other (Perforated viscus)
Subjective / Review of Systems
Getting stronger.
Vital Signs / Physical Exam
Vital Signs
Vital Signs
Temp Pulse Resp BP Pulse Ox
98.5 F 92 16 94/44 96
11/08/24 11:41 11/08/24 11:41 11/08/24 11:41 11/08/24 11:41 11/08/24 11:41
Physical Exam
Constitutional: No Acute Distress and Comfortable
Eyes: Sclera Anicteric
Gastrointestinal: Soft, Non Tender, Distended, Normal Bowel Sounds and Other (ostomy dark brown liquid)
Extremities: Edema (BLE decreased)
Neurological: AO x 3
Lines: CVP (RIJ intact)
Objective Data
Lab Data
Lab Results
11/08/24 04:40
ESR 11 mm/hour (0-20) 10/26/24 08:41
PT 15.1 Sec (11.4-14.6) H 11/02/24 04:30
INR 1.16 11/02/24 04:30
APTT 30.4 Sec (23.4-35.0) 11/02/24 04:30
Estimated Creat Clear 111 ml/min 11/08/24 04:40
Lactic Acid 1.3 mmol/L (0.7-2.0) 11/02/24 04:30
Total Bilirubin 0.8 mg/dl (0.2-1.3) 11/08/24 04:40
AST 24 U/L (14-36) 11/08/24 04:40
ALT 32 U/L (0-35) 11/08/24 04:40
Alkaline Phosphatase 82 U/L (38-126) 11/08/24 04:40
C-Reactive Protein < 5.00 mg/L (0.0-10.00) 10/26/24 08:41
Most recent labs reviewed.
Micro Results:
10/31/24 09:20 Wound Culture - Final
Abdomen Lorraine albicans
Gram Stain - Final
11/06/24 10:10 C. difficile GDH Antigen & Toxins - Final
Feces/Stool Negative for toxigenic C.difficile
10/31/24 09:00 Anaerobic Culture - Final
Abdomen Mobiluncus species
Bifidobacterium species
10/31/24 12:45 Blood Culture - Final
Blood/Venous No Growth - Final Report
10/31/24 12:45 Blood Culture - Final
Blood/Venous No Growth - Final Report
10/28/24 20:16 Blood Culture - Final
Blood/Venous Escherichia coli
Gram Stain - Final
10/28/24 20:16 Blood Culture - Final
Blood/Venous Clostridium clostridioforme
Gram Stain - Final
Imaging:
11/05/24 CT a/p: Large amount of ascites. Postsurgical mesenteric edema. A few tiny foci of gas are seen in the anterior midline and right paramidline upper abdomen related to recent surgical procedure. No large volume of free air, and no focal
collection identified at this time to suggest abscess formation.Numerous confluent segments of small bowel remain slightly distended with circumferential wall thickening and hypoenhancement, which may be related to postsurgical wall edema. An
ischemic etiology is not entirely excluded.
10/28/24 AXR: Concern for intraperitoneal free air, but limited by the portable supine technique.
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
[2024-11-08 12:27] LABS: Glucose - Point of Care 114 mg/dl (70-99)
[2024-11-08 13:15] LABS: Hematocrit 26.7 % (37.0-47.0); Hemoglobin 8.9 g/dL (12.0-16.0); Mean Corp Hgb Conc. 33.3 g/dL (33.0-37.0); Mean Corpuscular Volume 90.5 fL (81.0-99.0); Platelet Count 265 10^3/uL (130-400); Red Cell Dist. Width 13.8 % (11.5-14.5)
[2024-11-08] MEDS: MORPHINE SULFATE 2 MG IV (14:03)
[2024-11-08 17:55] LABS: Glucose - Point of Care 105 mg/dl (70-99)
--- NOTE | 2024-11-08 18:17 | PTCARENOTE ---
Pt arrived back from IR with right abd drain. Anu fluid output. Bed locked and in lowest position. Care ongoing.
[2024-11-08] MEDS: Parenteral Nutrition, Central 1340 IV (21:27)
[2024-11-08 23:56] LABS: Glucose - Point of Care 116 mg/dl (70-99)
[2024-11-09] VITALS (7 sets, daily range): BP systolic 89–101; BP diastolic 54–61; PULSE 108; BMI 25.9
[2024-11-09] MEDS: NOVOLOG FLEXPEN-LOW RESISTANCE SC ×4 (00:12→18:26)
[2024-11-09] MEDS: ZOSYN 50 IV ×2 (00:13→05:00)
[2024-11-09] MEDS: NOVOLOG FLEXPEN 3 UNITS SC ×4 (00:14→18:26)
[2024-11-09 06:10] LABS: Glucose - Point of Care 114 mg/dl (70-99)
[2024-11-09 06:12] LABS: Hematocrit 25.0 % (37.0-47.0); Hemoglobin 8.4 g/dL (12.0-16.0); Mean Corp Hgb Conc. 33.6 g/dL (33.0-37.0); Mean Corpuscular Volume 91.2 fL (81.0-99.0); Platelet Count 331 10^3/uL (130-400); Red Cell Dist. Width 13.7 % (11.5-14.5)
[2024-11-09 06:16] LABS: Blood Urea Nitrogen 9 mg/dl (7-17); Calcium 7.1 mg/dl (8.4-10.2); Carbon Dioxide 26 mmol/L (22-30); Chloride 105 mmol/L (98-107); Estimated Creatinine Clearance 97 ml/min; Glucose 107 mg/dl (70-99); Potassium 4.3 mmol/L (3.5-5.1); Sodium 130 mmol/L (135-145); eGFR > 60.00
[2024-11-09] MEDS: MUCINEX 600 MG PO ×2 (08:57→20:08)
[2024-11-09] MEDS: NSS (PRESERVATIVE FREE) 10 ML IV (08:57)
[2024-11-09] MEDS: DIFLUCAN 200 MG PO (08:57)
[2024-11-09] MEDS: PROTONIX IV 40 MG IV (08:57)
--- NOTE | 2024-11-09 10:34 | W.PN.ID1 ---
Date of Service
Date of Service: November 09, 2024
Today's Communication
Continue fluconazole 200mg po qd x 2 more days.
Transition IV Zosyn to Augmentin 875mg po bid through 11/14/24.
Assessment / Plan
# Recent new dx Crohn's with long ileal stricture and SBO
# Perforated small bowel with peritonitis
# E. coli and Clostridium clostridioforme bacteremia from abd source
# Leukocytosis - improving
# Thrombocytopenia resolved
.meropenem dc'd on 11/03, in case contributing to thrombocytopenia. Plt improving since.
# s/p Septic shock
# s/p VDRF
Recommendations:
-Repeat bcx's neg.
- 10/28 s/p ex-lap abd washout, SBR w/o anastomosis, placement of temporary ABThera closure
- 10/31 s/p ex-lap abd washout, SBR, end ileostomy
OR cx C. albicans + anaerobes (on Zosyn at the time).
- 11/[address]: no abscess
- Stool neg C.diff
- 11/08 s/p paracentesis/drain placement. Ascites fluid neg to date.
- s/p [id number] IV q24 (7 doses)
Continue fluconazole 200mg po qd x 2 more days.
- Transition IV Zosyn to Augmentin 875mg po bid through 11/14/24.
- Trend wbc
����������������������������������������������������������
Chief Complaint
-: Other (Perforated viscus)
Subjective / Review of Systems
Tolerating soft diet.
Vital Signs / Physical Exam
Vital Signs
Vital Signs
Temp Pulse Resp BP Pulse Ox
98.5 F 101 18 92/62 98
11/09/24 07:40 11/09/24 08:57 11/09/24 07:40 11/09/24 08:57 11/09/24 07:40
Physical Exam
Constitutional: No Acute Distress and Comfortable
Eyes: Sclera Anicteric
Gastrointestinal: Soft, Non Tender, Distended, Normal Bowel Sounds and Other (ostomy dark brown liquid)
Genito-Urinary: Negative CVA Tenderness
Extremities: Edema (BLE decreasing)
Neurological: AO x 3
Lines: CVP (RIJ intact)
Objective Data
Lab Data
Lab Results
11/09/24 05:35
11/09/24 05:35
ESR 11 mm/hour (0-20) 10/26/24 08:41
PT 15.1 Sec (11.4-14.6) H 11/02/24 04:30
INR 1.16 11/02/24 04:30
APTT 30.4 Sec (23.4-35.0) 11/02/24 04:30
Estimated Creat Clear 97 ml/min 11/09/24 05:35
Lactic Acid 1.3 mmol/L (0.7-2.0) 11/02/24 04:30
Total Bilirubin 0.8 mg/dl (0.2-1.3) 11/08/24 04:40
AST 24 U/L (14-36) 11/08/24 04:40
ALT 32 U/L (0-35) 11/08/24 04:40
Alkaline Phosphatase 82 U/L (38-126) 11/08/24 04:40
C-Reactive Protein < 5.00 mg/L (0.0-10.00) 10/26/24 08:41
Most recent labs reviewed.
Micro Results:
11/08/24 14:15 Body Fluid Culture - Preliminary
Fluid No Growth After 18-24 Hours
Gram Stain - Preliminary
10/31/24 09:20 Wound Culture - Final
Abdomen Lorraine albicans
Gram Stain - Final
11/06/24 10:10 C. difficile GDH Antigen & Toxins - Final
Feces/Stool Negative for toxigenic C.difficile
10/31/24 09:00 Anaerobic Culture - Final
Abdomen Mobiluncus species
Bifidobacterium species
10/31/24 12:45 Blood Culture - Final
Blood/Venous No Growth - Final Report
10/31/24 12:45 Blood Culture - Final
Blood/Venous No Growth - Final Report
10/28/24 20:16 Blood Culture - Final
Blood/Venous Escherichia coli
Gram Stain - Final
10/28/24 20:16 Blood Culture - Final
Blood/Venous Clostridium clostridioforme
Gram Stain - Final
Imaging:
11/05/24 CT a/p: Large amount of ascites. Postsurgical mesenteric edema. A few tiny foci of gas are seen in the anterior midline and right paramidline upper abdomen related to recent surgical procedure. No large volume of free air, and no focal
collection identified at this time to suggest abscess formation.Numerous confluent segments of small bowel remain slightly distended with circumferential wall thickening and hypoenhancement, which may be related to postsurgical wall edema. An
ischemic etiology is not entirely excluded.
10/28/24 AXR: Concern for intraperitoneal free air, but limited by the portable supine technique.
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
[2024-11-09 12:07] LABS: Glucose - Point of Care 123 mg/dl (70-99)
--- NOTE | 2024-11-09 12:12 | W.PN.ONC2 ---
Documented by User: Una Hebert MD, Resident 11/15/24 13:55
Today's Communication / Plan
-
Agree with resuming heparin this PM.
Trend CBC to monitor for thrombocytopenia.
Impression
Impression
# Sepsis
# SB perf, s/p, washout, small bowel resection for perforation
# E coli bacteremia
# Coagulopathy, thrombocytopenia-consistent with DIC
# Crohns disease
# Mild normocytic anemia
Plan
Plan
- Patient's clinical picture was consistent with DIC in the setting of bacteremia and sepsis. Platelet count has significantly improved- 331 today, which is increased from 41 on 11/04/24.
- Fibrinogen and coags have stabilized; fibrinogen 356 on 11/04/24
- Hgb 8.1, slightly increased from 7.8 yesterday. Vitals stable, no concern for acute bleed. Trend CBC.
- Agree with primary team to resume heparin this PM.
- Advised against hormonal contraception as patient states she is due for her Depo-Provera shot early November as it can increase risk of clotting.
Subjective/Objective
Subjective
Patient feels well. No new complaints including bleeding or leg pain. Patient feeling less short of breath while ambulating with PT this AM.
Vital Signs:
Vital Signs
Temp Pulse Resp BP Pulse Ox
98.3 F 106 18 93/55 100
11/09/24 11:25 11/09/24 11:25 11/09/24 11:25 11/09/24 11:25 11/09/24 11:25
Lab Results:
Laboratory Data
WBC 15.6 10^3/uL (4.8-10.8) H 11/09/24 05:35
Hgb 8.4 g/dL (12.0-16.0) L 11/09/24 05:35
Plt Count 331 10^3/uL (130-400) D 11/09/24 05:35
PT 15.1 Sec (11.4-14.6) H 11/02/24 04:30
INR 1.16 11/02/24 04:30
APTT 30.4 Sec (23.4-35.0) 11/02/24 04:30
eGFR > 60.00 11/09/24 05:35
Physical Exam
HEENT: Moist Mucous Membranes
Cardiology: Normal Sinus Rhythm, S1 and S2
Pulmonary: Clear
GI: Soft and Normal Bowel Sounds

Documented by User: BRENDEN Blair 11/09/24 15:39
Today's Communication / Plan
-
Agree with resuming heparin this PM.
Trend CBC to monitor for thrombocytopenia.
Pt seen and examined with R1 Dr. Hebert
Denies bleeding, pain controlled, ambulating
A&O3, speech clear, breathing unlabored, ab with surgical dressing and ostomy.
DIC resolved
Hgb stable
DVT ppx resumption noted
Reviewed VTE prevention including but not limited to adequate hydration, avoid immobility, avoid tobacco use, avoid hormone use
Pt at bedside provided updates and questions answered
No further inpt hematology recommendations, hematology will sign off, please reach out with any further questions or concerns
Maggy WILCOX
[2024-11-09] MEDS: AUGMENTIN 875 MG/125 MG 1 TABLET PO ×2 (12:32→20:10)
--- NOTE | 2024-11-09 13:19 | W.PN.HOSP.TC ---
Today's Communication/Plan
-
Check D-dimer
Low residue diet
Assessment / Plan
Assessment / Plan
A/P:
Septic shock due to perforated small bowel with peritonitis and E. coli and Clostridium bacteremia in the setting of Chron's:
Resolved
Continue antibiotics per ID-changed to oral today; finish course of Diflucan per ID
Lorraine albicans growing in cultures
WBC trending down today
C. difficile negative
Blood cultures no growth since 10/31
Off pressors
On TPN
Diet advanced to low residue diet today
Reviewed CT abdomen pelvis repeated by surgery on 11/05
Updated at bedside today
Hypotension:
Typically runs low blood pressures
Asymptomatic. Systolic blood pressure in 90s.
Continue midodrine to 10 mg p.o. 3 times daily
Cortisol level 16.8
Continue to monitor closely
Sinus tachycardia-noted both at rest and higher with exertion. Ultrasound the leg shows no evidence of DVT. I suspect this may be secondary to deconditioning than the medical issues. Patient is not on subcu heparin. She is recovering from,
cytopenia. check a D-dimer and if higher will get a CT chest to rule out PE.
Bilateral pleural effusions with volume overload:
Hold IV Lasix since patient hypotensive and she is not short of breath nor she is hypoxic. Weight is down currently.
On room air.
Anemia:
Probably a component of acute blood loss but currently stable
Continue to monitor hemoglobin closely
Coagulopathy due to DIC from sepsis:
Platelets normalized.
Avoid NSAIDs
Hyperglycemia:
Continue scheduled insulin while on TPN
Continue to monitor blood sugars
Hyponatremia:
Monitor trend
DVT prophylaxis:
SCDs. Might be able to start pharmacological DVT prophylaxis soon.
CODE STATUS:
Full code
Will consider discharge when okay from surgical standpoint. She was just placed on low-dose residue diet today
Anticipated Discharge: 24 - 48 hours
Subjective/Interval History
-
Date of Service: November 09, 2024
Patient now placed on solid diet which she has been tolerating.
Denies any fever or chills.
Denies any shortness of breath to chest pain.
Ambulating with physical therapy.
Objective Data
-
Labs:
Laboratory Results
11/09/24
05:35
WBC 15.6 H
Hgb 8.4 L
Hct 25.0 L
Plt Count 331 D
Sodium 130 L
Potassium 4.3
Chloride 105
Carbon Dioxide 26
BUN 9
Creatinine 0.3 L
Glucose 107 H
Calcium 7.1 L
Vital Signs:
Vital Signs
Temp Pulse Resp BP Pulse Ox
98.3 F 112 18 96/61 100
11/09/24 11:25 11/09/24 12:51 11/09/24 11:25 11/09/24 12:51 11/09/24 11:25
I&O
11/08/24 11/09/24 11/10/24
06:59 06:59 06:59
Intake Total 720 / 720 3032 / 3032 240 / 240
Output Total 2375 / 2375 2325 / 2325 450 / 450
Balance -1655 / -1655 707 / 707 -210 / -210
Physical Exam
-
General: No Apparent Distress
Respiratory: Non Labored Respirations and Accessory Resp Muscle Use
Cardiac: Regular Rhythm, S1/S2 and Tachycardic
GI: Soft and Nontender
Neuro: AO x 3
Psych: Calm
Data Reviewed
-
Labs: Labs Reviewed by me
[2024-11-09 13:58] LABS: D-Dimer 3.57 ug/mlFEU (0.00-0.50)
--- NOTE | 2024-11-09 15:34 | W.PN.GS2 ---
Today's Communication / Plan
-
-- LRD with supplement shakes, may need to add Metamucil pending ostomy outputs
-- No further TPN
Assessment / Plan
-
Assessment: 48-year-old female admitted with recurrent small bowel obstruction in the setting of recent diagnosis of Crohn's disease and tapering steroids. Her hospital course was complicated by septic shock and multiorgan failure secondary to a
perforated viscus with operative recovery complicated by DIC (hematology following)
POD #12 ex lap, small bowel resection, washout and left in discontinuity.
POD #9 RTOR for an ex lap, further small bowel resection and end ileostomy with abdominal wall closure.
Bacteremia with ecoli, and clostridium clostridioforme, OR cx with yeast/few gram variable rods, f/u blood cx with ngtd
CT A/P (11/05) with large amount of ascites, no abscess. Still with sb distention/edema c/w ileus
IR Drain (11/08) with clear ascites
AFVSS
WBC now trending down
Hemoglobin stable
Thrombocytopenia resolved
Hyponatremia
Tolerating LRD, no further TPN. Supplement shakes added. Will need to monitor for high ileostomy output, discussed potential need for fiber supplementation.
Plan:
-- LRD with supplement shakes, may need to add Metamucil pending ostomy outputs
-- No further TPN
-- Routine ostomy care
-- Change midline dressing daily/as needed, can pack small openings with corner of gauze
-- Abx: per ID. changed to PO Augmentin, has been on Zosyn and Micafungin
-- PT OT, out of bed and ambulate as able.
-- GI: PPI
-- DVT: SCDs, SQH
Subjective Data
-
Date of Service: November 09, 2024
No major complaints. Denies any nausea or vomiting. Denies any gross abdominal pain. Afebrile.
Objective Data
-
Intake and Output
11/08/24 11/09/24 11/10/24
06:59 06:59 06:59
Intake Total 720 / 720 3032 / 3032 240 / 240
Output Total 2375 / 2375 2325 / 2325 450 / 450
Balance -1655 / -1655 707 / 707 -210 / -210
Intake:
Oral fluids 720 / 720 1520 / 1520 240 / 240
IV fluids (Total) 90 / 90
IV piggybacks 200 / 200
TPN/PPN 1222 / 1222
Output:
Liquid stool amount 2074 1175 / 1175 450 / 450
Ileostomy 2074 1175 / 1175 450 / 450
Drain Output (Total) 1150 / 1150
Right Abdomen Placed in IR 1150 / 1150
Urine, Voided 300 / 300
Other:
How many times incontinent 2
MODERATE amount urine
Number of approximated SMALL 1
amounts of urine
Number of approximated MODERATE 3 1
amounts of urine
Number of approximated LARGE 2 1
amounts of urine
Vital Signs
Temp Pulse Resp BP Pulse Ox
98.3 F 112 18 96/61 100
11/09/24 11:25 11/09/24 12:51 11/09/24 11:25 11/09/24 12:51 11/09/24 11:25
Lab Results
11/09/24 05:35
11/09/24 05:35
Calcium 7.1 mg/dl (8.4-10.2) L 11/09/24 05:35
Phosphorus 3.2 mg/dl (2.5-4.5) 11/08/24 04:40
Magnesium 2.0 mg/dl (1.6-2.3) 11/08/24 04:40
Total Bilirubin 0.8 mg/dl (0.2-1.3) 11/08/24 04:40
Direct Bilirubin 0.4 mg/dl (0.0-0.4) 11/07/24 06:49
AST 24 U/L (14-36) 11/08/24 04:40
ALT 32 U/L (0-35) 11/08/24 04:40
Alkaline Phosphatase 82 U/L (38-126) 11/08/24 04:40
Total Protein 4.1 g/dl (6.3-8.2) L 11/08/24 04:40
Albumin 1.9 g/dl (3.5-5.0) L 11/08/24 04:40
Physical Exam
-
Gen: NAD
Abd: soft, NT, mild/moderate distension, non-peritoneal, IR drain with serous output, ostomy PPV, thin bilious/watery output, midline incision with stapples intact, small areas of opening no significant drainage, no erythema, or ecchymosis
Patient has a otero catheter: No
Patient has a central line: Yes
--- NOTE | 2024-11-09 16:09 | CM ---
Reviewed the chart notes and spoke with RN. Patient off unit for testing. Tonight will be last TPN dose. Patient tolerating low residue diet. CM continues to be available to patient/family and is monitoring medical plan for needs at discharge.
Plan: Discharge plans will depend on the patient's progress. PT recommending acute rehab. PMR consult would be beneficial. Precert would be required.
[2024-11-09] MEDS: HEPARIN 5000 UNITS SC (16:17)
--- NOTE | 2024-11-09 16:36 | PTCARENOTE ---
Pt tachy after PT. Pt laying in bed and HR in the 100's. D-dimer ordered and chest CT. Care ongoing.
[2024-11-09 18:07] LABS: Glucose - Point of Care 125 mg/dl (70-99)
[2024-11-10] VITALS (7 sets, daily range): BP systolic 88–101; BP diastolic 52–60; PULSE 99; O2SAT 100; BMI 23.1
[2024-11-10 00:12] LABS: Glucose - Point of Care 87 mg/dl (70-99)
[2024-11-10] MEDS: HEPARIN 5000 UNITS SC ×4 (00:47→23:48)
[2024-11-10] MEDS: NOVOLOG FLEXPEN SC (01:43)
[2024-11-10] MEDS: NOVOLOG FLEXPEN-LOW RESISTANCE SC (01:44)
[2024-11-10 06:56] LABS: Blood Urea Nitrogen 8 mg/dl (7-17); Calcium 7.6 mg/dl (8.4-10.2); Carbon Dioxide 24 mmol/L (22-30); Chloride 105 mmol/L (98-107); Estimated Creatinine Clearance 97 ml/min; Glucose 77 mg/dl (70-99); Potassium 4.4 mmol/L (3.5-5.1); Sodium 131 mmol/L (135-145); eGFR > 60.00
[2024-11-10 07:01] LABS: Hematocrit 26.0 % (37.0-47.0); Hemoglobin 8.8 g/dL (12.0-16.0); Mean Corp Hgb Conc. 33.8 g/dL (33.0-37.0); Mean Corpuscular Volume 91.2 fL (81.0-99.0); Platelet Count 478 10^3/uL (130-400); Red Cell Dist. Width 13.7 % (11.5-14.5)
[2024-11-10 07:06] LABS: Glucose - Point of Care 78 mg/dl (70-99)
[2024-11-10] MEDS: PROTONIX IV 40 MG IV (07:39)
[2024-11-10] MEDS: NSS (PRESERVATIVE FREE) 10 ML IV (07:39)
[2024-11-10] MEDS: AUGMENTIN 875 MG/125 MG 1 TABLET PO ×2 (07:39→20:46)
[2024-11-10] MEDS: MUCINEX 600 MG PO ×2 (07:39→20:46)
[2024-11-10] MEDS: DIFLUCAN 200 MG PO (07:40)
--- NOTE | 2024-11-10 10:01 | W.PN.ID1 ---
Date of Service
Date of Service: November 10, 2024
Today's Communication
Last day of fluconazole 200mg po qd
Continue Augmentin 875mg po bid through 11/14/24.
ID will sign off. Call prn.
Assessment / Plan
# Recent new dx Crohn's with long ileal stricture and SBO
# Perforated small bowel with peritonitis
# E. coli and Clostridium clostridioforme bacteremia from abd source
# Leukocytosis - improved
# Thrombocytopenia resolved
.meropenem dc'd on 11/03, in case contributing to thrombocytopenia.
# s/p Septic shock
# s/p VDRF
Recommendations:
-Repeat bcx's neg.
- 10/28 s/p ex-lap abd washout, SBR w/o anastomosis, placement of temporary ABThera closure
- 10/31 s/p ex-lap abd washout, SBR, end ileostomy
OR cx C. albicans + anaerobes (on Zosyn at the time).
- 11/[address]: no abscess
- Stool neg C.diff
- 11/08 s/p paracentesis/drain placement. Ascites fluid neg.
- s/p [id number] IV q24 (7 doses)
Last day of fluconazole 200mg po qd
- s/p Zosyn
Continue Augmentin 875mg po bid through 11/14/24.
ID will sign off.
����������������������������������������������������������
Chief Complaint
-: Other (Perforated viscus)
Subjective / Review of Systems
Tolerated rice last night. Feels well.
Vital Signs / Physical Exam
Vital Signs
Vital Signs
Temp Pulse Resp BP Pulse Ox
97.6 F 103 22 88/52 97
11/10/24 07:43 11/10/24 07:45 11/10/24 07:43 11/10/24 07:45 11/10/24 07:43
Physical Exam
Constitutional: No Acute Distress and Comfortable
Eyes: Sclera Anicteric
Gastrointestinal: Soft, Non Tender, Distended, Normal Bowel Sounds and Other (ostomy intact; R abd drain minimal output)
Genito-Urinary: Negative CVA Tenderness
Extremities: Edema (1+ BLE)
Neurological: AO x 3
Lines: CVP (RIJ intact)
Objective Data
Lab Data
Lab Results
11/10/24 05:56
11/10/24 05:56
ESR 11 mm/hour (0-20) 10/26/24 08:41
PT 15.1 Sec (11.4-14.6) H 11/02/24 04:30
INR 1.16 11/02/24 04:30
APTT 30.4 Sec (23.4-35.0) 11/02/24 04:30
Estimated Creat Clear 97 ml/min 11/10/24 05:56
Lactic Acid 1.3 mmol/L (0.7-2.0) 11/02/24 04:30
Total Bilirubin 0.8 mg/dl (0.2-1.3) 11/08/24 04:40
AST 24 U/L (14-36) 11/08/24 04:40
ALT 32 U/L (0-35) 11/08/24 04:40
Alkaline Phosphatase 82 U/L (38-126) 11/08/24 04:40
C-Reactive Protein < 5.00 mg/L (0.0-10.00) 10/26/24 08:41
Most recent labs reviewed.
Micro Results:
11/08/24 14:15 Body Fluid Culture - Preliminary
Fluid No Growth After 48 Hours
Gram Stain - Preliminary
10/31/24 09:20 Wound Culture - Final
Abdomen Lorraine albicans
Gram Stain - Final
11/06/24 10:10 C. difficile GDH Antigen & Toxins - Final
Feces/Stool Negative for toxigenic C.difficile
10/31/24 09:00 Anaerobic Culture - Final
Abdomen Mobiluncus species
Bifidobacterium species
10/31/24 12:45 Blood Culture - Final
Blood/Venous No Growth - Final Report
10/31/24 12:45 Blood Culture - Final
Blood/Venous No Growth - Final Report
10/28/24 20:16 Blood Culture - Final
Blood/Venous Escherichia coli
Gram Stain - Final
10/28/24 20:16 Blood Culture - Final
Blood/Venous Clostridium clostridioforme
Gram Stain - Final
Imaging:
11/05/24 CT a/p: Large amount of ascites. Postsurgical mesenteric edema. A few tiny foci of gas are seen in the anterior midline and right paramidline upper abdomen related to recent surgical procedure. No large volume of free air, and no focal
collection identified at this time to suggest abscess formation.Numerous confluent segments of small bowel remain slightly distended with circumferential wall thickening and hypoenhancement, which may be related to postsurgical wall edema. An
ischemic etiology is not entirely excluded.
10/28/24 AXR: Concern for intraperitoneal free air, but limited by the portable supine technique.
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
Care Review
Plan reviewed with: Physician (Dr. Charly Bains)
[2024-11-10] MEDS: NSS 500 IV (10:31)
[2024-11-10] MEDS: METAMUCIL, KONSYL 1 PACKET PO (10:31)
--- NOTE | 2024-11-10 10:56 | CM ---
Reviewed the chart notes and spoke with the patient and spouse at the bedside. Patient's TPN discontinued. Per patient, she is up walking around. Discussed VN services. Patient agreeable to VN. Referral sent in [facility]. continues to be
available to patient/family and is monitoring medical plan for needs at discharge.
Plan: Discharge to home with VN services.
--- NOTE | 2024-11-10 11:31 | W.PN.GS2 ---
Today's Communication / Plan
-
CT
bulking agents
bolus IVF
Assessment / Plan
-
Assessment: 48-year-old female admitted with recurrent small bowel obstruction in the setting of recent diagnosis of Crohn's disease and tapering steroids. Her hospital course was complicated by septic shock and multiorgan failure secondary to a
perforated viscus with operative recovery complicated by DIC (hematology following)
POD #13 ex lap, small bowel resection, washout and left in discontinuity.
POD #10 RTOR for an ex lap, further small bowel resection and end ileostomy with abdominal wall closure.
Bacteremia with ecoli, and clostridium clostridioforme, OR cx with yeast/few gram variable rods, f/u blood cx with ngtd
CT A/P (11/05) with large amount of ascites, no abscess. Still with sb distention/edema c/w ileus
IR Drain (11/08) with clear ascites
AF, tachy and borderline hypotensive
WBC with only slight downward trend
Hemoglobin stable
Thrombocytopenia resolved
Hyponatremia ongoing
High output stoma (2600cc)
Tolerating LRD but poor intake. Supplement shakes. Concern for high volume fluid losses and hemodynamic changes.
Plan:
-- Rpt CT A/P
-- Bolus 1L NS
-- LRD with supplement shakes, add Metamucil and 2 jumbo marshmellows
-- Routine ostomy care
-- Change midline dressing daily/as needed, pack openings with gauze
-- Abx: per ID. changed to PO Augmentin,
-- PT OT, out of bed and ambulate as able.
-- GI: PPI
-- DVT: SCDs, SQH
-- Dispo pending improvement in stoma output and hemodynamics and CT findings today
Subjective Data
-
Date of Service: November 10, 2024
Tachycardia, borderline hypotension, afebrile, pain controlled, OOBTC, keyonna liquids, has not tried solid food, denies n/v
Objective Data
-
Intake and Output
11/09/24 11/10/24 11/11/24
06:59 06:59 06:59
Intake Total 3032 / 3032 2280 / 2280
Output Total 2325 / 2325 1600 / 1600 1000 / 1000
Balance 707 / 707 680 / 680 -1000 / -1000
Intake:
Oral fluids 1520 / 1520 1440 / 1440
IV fluids (Total) 90 / 90
IV piggybacks 200 / 200
TPN/PPN 1222 / 1222 840 / 840
Output:
Liquid stool amount 1175 / 1175 1600 / 1600 1000 / 1000
Ileostomy 1175 / 1175 1600 / 1600 1000 / 1000
Drain Output (Total) 1150 / 1150
Right Abdomen Placed in IR 1150 / 1150
Other:
How many times incontinent 2 1
MODERATE amount urine
Number of approximated MODERATE 1 1
amounts of urine
Number of approximated LARGE 2 1
amounts of urine
Number of unmeasured liquid
stools
Ileostomy 1
Vital Signs
Temp Pulse Resp BP Pulse Ox
97.6 F 103 22 88/52 97
11/10/24 07:43 11/10/24 07:45 11/10/24 07:43 11/10/24 07:45 11/10/24 07:43
Lab Results
11/10/24 05:56
11/10/24 05:56
Calcium 7.6 mg/dl (8.4-10.2) L 11/10/24 05:56
Phosphorus 3.2 mg/dl (2.5-4.5) 11/08/24 04:40
Magnesium 2.0 mg/dl (1.6-2.3) 11/08/24 04:40
Total Bilirubin 0.8 mg/dl (0.2-1.3) 11/08/24 04:40
Direct Bilirubin 0.4 mg/dl (0.0-0.4) 11/07/24 06:49
AST 24 U/L (14-36) 11/08/24 04:40
ALT 32 U/L (0-35) 11/08/24 04:40
Alkaline Phosphatase 82 U/L (38-126) 11/08/24 04:40
Total Protein 4.1 g/dl (6.3-8.2) L 11/08/24 04:40
Albumin 1.9 g/dl (3.5-5.0) L 11/08/24 04:40
Physical Exam
-
Gen: NAD
Abd: soft, mild ttp, mild distention, midline incision open in 2 areas with seropurulent drainage, IR drain serous and clear
Patient has a otero catheter: No
Patient has a central line: Yes
[2024-11-10 11:57] LABS: Glucose - Point of Care 74 mg/dl (70-99)
--- NOTE | 2024-11-10 13:05 | W.PN.HOSP.TC ---
Today's Communication/Plan
-
Follow CT of abdomen pelvis
DC planning
Assessment / Plan
Assessment / Plan
A/P:
Septic shock due to perforated small bowel with peritonitis and E. coli and Clostridium bacteremia in the setting of Chron's:
Resolved
Continue antibiotics per ID-changed to oral ; finish course of Diflucan per ID
Lorarine albicans growing in cultures
WBC trending down
C. difficile negative
Blood cultures no growth since 10/31
Off pressors
Off TPN
Diet advanced to low residue diet
Reviewed CT abdomen pelvis repeated by surgery on 11/05
Hypotension:
Typically runs low blood pressures
Asymptomatic. Systolic blood pressure in 90s.
Continue midodrine to 10 mg p.o. 3 times daily
Cortisol level 16.8
Continue to monitor closely
Sinus tachycardia-noted both at rest and higher with exertion. Ultrasound the leg shows no evidence of DVT. CT chest shows no PE but bilateral small to moderate pleural effusion with adjacent atelectasis. Small areas of minor parenchymal opacity
in the upper lobes are noted which seem nonspecific as she has no cough or respiratory symptoms. I suspect this may be secondary to deconditioning than the medical issues. General surgery requesting a CT abdomen pelvis in view of persistent
tachycardia.
Bilateral pleural effusions with volume overload:
Hold IV Lasix since patient hypotensive and she is not short of breath nor she is hypoxic. Weight is down currently.
On room air.
Anemia:
Probably a component of acute blood loss but currently stable
Continue to monitor hemoglobin closely
Coagulopathy due to DIC from sepsis:
Platelets normalized.
Avoid NSAIDs
Hyperglycemia:
Improved off TPN. Will DC scheduled insulin
Hyponatremia:
Monitor trend
DVT prophylaxis:
SCDs. Might be able to start pharmacological DVT prophylaxis soon.
CODE STATUS:
Full code
DC home with VN when ok from surgical standpoint
Anticipated Discharge: 24 - 48 hours
Subjective/Interval History
-
Date of Service: November 10, 2024
Patient tolerating a low residue diet.
Denies any shortness of breath or chest pain.
Patient is feeling improved and wants to go home. She knows that PT recommendations are rehab but she wants to go home as she thinks that she will do better as her spirits will be better at home
Objective Data
-
Labs:
Laboratory Results
11/10/24
05:56
WBC 15.5 H
Hgb 8.8 L
Hct 26.0 L
Plt Count 478 H D
Sodium 131 L
Potassium 4.4
Chloride 105
Carbon Dioxide 24
BUN 8
Creatinine 0.3 L
Glucose 77
Calcium 7.6 L
Vital Signs:
Vital Signs
Temp Pulse Resp BP Pulse Ox
98.0 F 95 18 99/56 97
11/10/24 11:15 11/10/24 12:03 11/10/24 11:15 11/10/24 12:03 11/10/24 11:15
I&O
11/09/24 11/10/24 11/11/24
06:59 06:59 06:59
Intake Total 3032 / 3032 2280 / 2280 480 / 480
Output Total 2325 / 2325 1600 / 1600 1000 / 1000
Balance 707 / 707 680 / 680 -520 / -520
Physical Exam
-
General: Comfortable
Respiratory: Clear to Auscultation and Non Labored Respirations; Negative Accessory Resp Muscle Use
Cardiac: Regular Rhythm, S1/S2 and Tachycardic
GI: Soft, Nontender, Ostomy and Other (rt abdo HILDA site)
Neuro: AO x 3
Psych: Calm
Data Reviewed
-
Labs: Labs Reviewed by me
[2024-11-10 17:11] LABS: Glucose - Point of Care 85 mg/dl (70-99)
[2024-11-10 21:49] LABS: Glucose - Point of Care 89 mg/dl (70-99)
[2024-11-11] VITALS (7 sets, daily range): BP systolic 86–103; BP diastolic 54–65; PULSE 103; BMI 24.5; BMI 24.6
--- NOTE | 2024-11-11 05:29 | PTCARENOTE ---
RLQ IR drained maintained, dsg CDI, scant serous output in bag.
[2024-11-11 07:39] LABS: Hematocrit 29.3 % (37.0-47.0); Hemoglobin 9.7 g/dL (12.0-16.0); Mean Corp Hgb Conc. 33.1 g/dL (33.0-37.0); Mean Corpuscular Volume 89.3 fL (81.0-99.0); Platelet Count 680 10^3/uL (130-400); Red Cell Dist. Width 13.7 % (11.5-14.5)
[2024-11-11 08:00] LABS: Blood Urea Nitrogen 8 mg/dl (7-17); Calcium 7.8 mg/dl (8.4-10.2); Carbon Dioxide 22 mmol/L (22-30); Chloride 103 mmol/L (98-107); Estimated Creatinine Clearance 97 ml/min; Glucose 68 mg/dl (70-99); Potassium 4.6 mmol/L (3.5-5.1); Sodium 130 mmol/L (135-145); eGFR > 60.00
--- NOTE | 2024-11-11 08:15 | W.PN.GS2 ---
Addendum entered and electronically signed by Ha Dorantes MD 11/11/24 11:33:
I was physically present and personally performed the mandujano portions of the surgical evaluation and/or procedure with the resident. I discussed the findings, reviewed the resident�s note, and confirmed the medical decision-making. I provided direct
supervision as required and agree with the assessment and plan as documented with the following additions/corrections:
Patient seen and examined. was on speaker phone throughout first portion of evaluation and our discussions.
Nursing at bedside
Patient denies abdominal pain, tolerating dietary intake. No nausea or vomiting. Ostomy outputs remain high and liquid.
AF VSS (borderline low BP and mild low-grade tachycardia)
NAD AAO x 3
ABD: Soft, nondistended, no significant tenderness on palpation
Left-sided ostomy with large quantity of liquid succus entericus; not formed
CT imaging obtained yesterday 11/10. Images reviewed as well as radiologist report. Widespread areas of fluid collections throughout the abdominal cavity which seem to likely communicate with each other. Residual inflammation of distal ileum and
cecum/ascending colon but no organizing focal fluid collection around these areas or signs of stump leak. IR drain currently in place located right lower quadrant without residual undrained fluid collection.
WBC rebounded again today to 20. Stable hyponatremia at 130.
Assessment/plan: -Start loperamide 4 mg p.o. x 1 now followed by 2 mg every 6 hours in an effort to significantly reduce high ileostomy output leading to relative hypovolemia/hypotension/tachycardia/hyponatremia
At this point would hold on additional drainage of rather diffuse fluid collections throughout the abdominal cavity
Leukocytosis may reflect residual Crohn's inflammation from distal ileum rather than ongoing infectious process as clinically patient appears to be continuing to improve
Original Note:
Today's Communication / Plan
-
starting Loperamide 2mg PO q6h
dispo pending improvement in stoma output and hemodynamics
Assessment / Plan
-
Assessment: 48-year-old female admitted with recurrent small bowel obstruction in the setting of recent diagnosis of Crohn's disease and tapering steroids. Her hospital course was complicated by septic shock and multiorgan failure secondary to a
perforated viscus with operative recovery complicated by DIC (hematology following)
POD #14 ex lap, small bowel resection, washout and left in discontinuity.
POD #11 RTOR for an ex lap, further small bowel resection and end ileostomy with abdominal wall closure.
Bacteremia with ecoli, and clostridium clostridioforme, OR cx with yeast/few gram variable rods, f/u blood cx with ngtd
CT A/P (11/05) with large amount of ascites, no abscess. Still with sb distention/edema c/w ileus
IR Drain (11/08) with clear ascites
AF, tachy and borderline hypotensive
WBC was on downward trend. up to 20.2 today
Hemoglobin low, but stable
Thrombocytopenia resolved
Hyponatremia ongoing
High output stoma (2950)
Tolerating LRD but poor intake. Supplement shakes. Concern for high volume fluid losses and hemodynamic changes.
repeat CT scan (11/10/2024) showing free fluid is seen within the abdomen and pelvis, greater within the pelvis. There are several regions of mild wall thickening and enhancement of the periphery of these fluid collections
Plan:
-- repeat CT showing free fluid, mild wall thickening-- in correlation to patient's improving clinical picture, likely related to post-operative physiologic changes from local tissue trauma/inflammation/capillary leak.
-- starting Loperamide 2mg PO q6h
-- LRD with supplement shakes, add Metamucil and 2 jumbo marshmellows
-- Routine ostomy care
-- Change midline dressing daily/as needed, pack openings with gauze
-- Abx: per ID. on PO Augmentin,
-- PT OT, out of bed and ambulate as able.
-- GI: PPI
-- DVT: SCDs, SQH
-- Dispo pending improvement in stoma output and hemodynamics
Subjective Data
-
Date of Service: November 11, 2024
The patient denies nausea, vomiting, fever, dizziness, palpitations.
Objective Data
-
Intake and Output
11/10/24 11/11/24 11/12/24
06:59 06:59 06:59
Intake Total 2280 / 2280 960 / 960
Output Total 1600 / 1600 2950 / 2950
Balance 680 / 680 -1989 /
Intake:
Oral fluids 1440 / 1440 960 / 960
TPN/PPN 840 / 840
Output:
Liquid stool amount 1600 / 1600 2900 / 2900
Ileostomy 1600 / 1600 2900 / 2900
Drain Output (Total) 50 / 50
Right Abdomen Placed in IR 50 / 50
Other:
How many times incontinent 1
MODERATE amount urine
Number of approximated MODERATE 1 1
amounts of urine
Number of approximated LARGE 1
amounts of urine
Number of unmeasured liquid
stools
Ileostomy 1
Vital Signs
Temp Pulse Resp BP Pulse Ox
98.4 F 98 16 92/58 97
11/11/24 03:20 11/11/24 03:20 11/11/24 03:20 11/11/24 03:20 11/11/24 03:20
Lab Results
11/11/24 06:46
11/11/24 06:46
Calcium 7.8 mg/dl (8.4-10.2) L 11/11/24 06:46
Phosphorus 3.2 mg/dl (2.5-4.5) 11/08/24 04:40
Magnesium 2.0 mg/dl (1.6-2.3) 11/08/24 04:40
Total Bilirubin 0.8 mg/dl (0.2-1.3) 11/08/24 04:40
Direct Bilirubin 0.4 mg/dl (0.0-0.4) 11/07/24 06:49
AST 24 U/L (14-36) 11/08/24 04:40
ALT 32 U/L (0-35) 11/08/24 04:40
Alkaline Phosphatase 82 U/L (38-126) 11/08/24 04:40
Total Protein 4.1 g/dl (6.3-8.2) L 11/08/24 04:40
Albumin 1.9 g/dl (3.5-5.0) L 11/08/24 04:40
Physical Exam
-
Gen: NAD
Cardio: Regular rate and rhythm
Lungs: Non-labored breathing
Abdomen: soft, non-tender, non-distended. (+) midline incision with cosmo, minimal drainage. (+) minimal drainage from drain , (+) ileostomy stoma pink, moist, protruding, peristomal skin intact, output: liquid green brown.
Ext: (-) edema
Patient has a otero catheter: No
Patient has a central line: No
[2024-11-11] MEDS: PROTONIX 40 MG PO (09:17)
[2024-11-11] MEDS: MUCINEX 600 MG PO ×2 (09:17→19:46)
[2024-11-11] MEDS: HEPARIN 5000 UNITS SC ×2 (09:18→16:24)
[2024-11-11] MEDS: AUGMENTIN 875 MG/125 MG 1 TABLET PO ×2 (09:18→19:46)
[2024-11-11] MEDS: METAMUCIL, KONSYL PO (09:25)
--- NOTE | 2024-11-11 09:59 | WOUNDNOTE ---
WO RN note: Patient's stoma pink and budded. Peristomal skin intact. Patient stated she is independent in pouch emptying. Instructed patient appliance change using Berta wafer # [id number] and Perry pouch # [id number]. Patient's sacrum blanchable red
with peeling skin. Skin on heels blanchable red. Barrier ointment applied to sacrum. Patient positioned on her L side. She is mobile. Plan is home with VN when discharged. Ostomy supplies in room. Next appliance change due early next week. Patient
has a static air overlay and air chair cushions. Instructed patient pressure injury prevention measures. Heels off bed with pillow.
--- NOTE | 2024-11-11 10:38 | CM ---
Reviewed the chart notes. CM continues to be available to patient/family and is monitoring medical plan for needs at discharge.
Plan: Discharge to home with VN services when medically stable. VN accepted in [facility].
[2024-11-11] MEDS: IMODIUM 4 MG PO (10:58)
--- NOTE | 2024-11-11 11:25 | W.PN.UPDATE ---
Update Note
Progress Note Update
Abdominal ascitic fluid + yeast. Resume fluconazole at 400mg po daily x 10 days.
d/w Dr. Bains
--- NOTE | 2024-11-11 11:55 | VNURNOTE ---
Home Health Liaison met with patient and spouse at bedside to discuss [facility] nurse/therapy, visits, schedule and homebound status. Patient is agreeable and understands that visits at home will be 2-3 x per week to assess and teach medical, drain,
and ileostomy management.
Patient is aware that [facility] will contact them for start of care in 1-2 days after discharge from . Provided contact number for [facility]. Walker to be provided by PT prior to DC.
[facility] referral accepted in [facility].
[2024-11-11] MEDS: DIFLUCAN 400 MG PO (12:31)
--- NOTE | 2024-11-11 12:37 | W.PN.HOSP.TC ---
Today's Communication/Plan
-
Imodium started for increased ostomy output. Follow response of Imodium.
Follow WBC.
Assessment / Plan
Assessment / Plan
A/P:
Septic shock due to perforated small bowel with peritonitis and E. coli and Clostridium bacteremia in the setting of Chron's:
Status post ex lap, small bowel resection, washout and left in discontinuity.
Status post RTOR for an ex lap, further small bowel resection and end ileostomy with abdominal wall closure.
Resolved shock
Increased ostomy output noted-patient started on Imodium today. Follow response of ostomy output.
Continue antibiotics per ID-changed to oral ; finish course of Diflucan per ID-now changed to 400 mg for 10 days
Lorraine albicans growing in cultures
WBC trending down
C. difficile negative
Blood cultures no growth since 10/31
Off pressors
Off TPN
Diet advanced to low residue diet
CT abdomen pelvis 11/10 report noted-no indication for any surgical interventions.
Continue to follow white count which may be reactive at this point.
Hypotension:
Typically runs low blood pressures
Asymptomatic. Systolic blood pressure in 90s.
Continue midodrine to 10 mg p.o. 3 times daily
Cortisol level 16.8
Continue to monitor closely
Sinus tachycardia-noted both at rest and higher with exertion. Ultrasound the leg shows no evidence of DVT. CT chest shows no PE but bilateral small to moderate pleural effusion with adjacent atelectasis. Small areas of minor parenchymal opacity
in the upper lobes are noted which seem nonspecific as she has no cough or respiratory symptoms. I suspect this may be secondary to deconditioning than the medical issues. Make sure iron dose or even.
Bilateral pleural effusions with volume overload:
Hold IV Lasix since patient hypotensive and she is not short of breath nor she is hypoxic. Weight is down currently.
On room air.
Anemia:
Probably a component of acute blood loss but currently stable
Continue to monitor hemoglobin closely
Coagulopathy due to DIC from sepsis:
Platelets normalized.
Avoid NSAIDs
Hyponatremia:
Suspect hypovolemic hyponatremia
Monitor trend
DVT prophylaxis:
SCDs. Might be able to start pharmacological DVT prophylaxis soon.
CODE STATUS:
Full code
Anticipated Discharge: > 48 hours
Subjective/Interval History
-
Date of Service: November 11, 2024
Tolerating oral diet but increased ostomy output. Denies any abdominal pain. No nausea vomiting. No fever or chills. Denies shortness of breath.
Objective Data
-
Labs:
Laboratory Results
11/11/24
06:46
WBC 20.2 H
Hgb 9.7 L
Hct 29.3 L
Plt Count 680 H D
Sodium 130 L
Potassium 4.6
Chloride 103
Carbon Dioxide 22
BUN 8
Creatinine 0.4 L
Glucose 68 L
Calcium 7.8 L
Vital Signs:
Vital Signs
Temp Pulse Resp BP Pulse Ox
98.5 F 112 16 85/54 97
11/11/24 12:00 11/11/24 12:30 11/11/24 12:00 11/11/24 12:30 11/11/24 12:00
I&O
11/10/24 11/11/24 11/12/24
06:59 06:59 06:59
Intake Total 2280 / 2280 960 / 960
Output Total 1600 / 1600 2950 / 2950 370 / 370
Balance 680 / 680 -1989 / -1989 -370 / -370
Physical Exam
-
General: Comfortable
Respiratory: Non Labored Respirations; Negative Accessory Resp Muscle Use
Cardiac: Regular Rhythm, S1/S2 and Tachycardic
GI: Soft, Nontender, Ostomy (With liquid stool) and Other (Right abdomen HILDA drain noted)
Psych: Calm
Data Reviewed
-
Labs: Labs Reviewed by me
[2024-11-11] MEDS: IMODIUM 2 MG PO ×2 (16:24→21:42)
[2024-11-12] VITALS (8 sets, daily range): BP systolic 92–98; BP diastolic 58–64; BMI 21.7
[2024-11-12] MEDS: HEPARIN 5000 UNITS SC ×4 (00:11→23:59)
[2024-11-12] MEDS: IMODIUM 2 MG PO ×4 (03:04→21:01)
[2024-11-12 08:04] LABS: Hematocrit 27.7 % (37.0-47.0); Hemoglobin 9.2 g/dL (12.0-16.0); Mean Corp Hgb Conc. 33.2 g/dL (33.0-37.0); Mean Corpuscular Volume 90.2 fL (81.0-99.0); Platelet Count 784 10^3/uL (130-400); Red Cell Dist. Width 13.8 % (11.5-14.5)
[2024-11-12 08:25] LABS: Blood Urea Nitrogen 7 mg/dl (7-17); Calcium 7.7 mg/dl (8.4-10.2); Carbon Dioxide 23 mmol/L (22-30); Chloride 103 mmol/L (98-107); Estimated Creatinine Clearance 97 ml/min; Glucose 83 mg/dl (70-99); Potassium 4.5 mmol/L (3.5-5.1); Sodium 130 mmol/L (135-145); eGFR > 60.00
[2024-11-12] MEDS: AUGMENTIN 875 MG/125 MG 1 TABLET PO ×2 (08:32→21:02)
[2024-11-12] MEDS: DIFLUCAN 400 MG PO (08:32)
[2024-11-12] MEDS: MUCINEX 600 MG PO ×2 (08:33→21:02)
[2024-11-12] MEDS: PROTONIX 40 MG PO (08:33)
--- NOTE | 2024-11-12 09:22 | W.PN.GS2 ---
Today's Communication / Plan
-
IR for drain repositioning/placement
Regular diet
Assessment / Plan
-
Assessment: 48-year-old female admitted with recurrent small bowel obstruction in the setting of recent diagnosis of Crohn's disease and tapering steroids. Her hospital course was complicated by septic shock and multiorgan failure secondary to a
perforated viscus with operative recovery complicated by DIC (hematology following)
POD #15 ex lap, small bowel resection, washout and left in discontinuity.
POD #12 RTOR for an ex lap, further small bowel resection and end ileostomy with abdominal wall closure.
Bacteremia with ecoli, and clostridium clostridioforme, OR cx with yeast/few gram variable rods, f/u blood cx with ngtd
CT A/P (11/05) with large amount of ascites, no abscess. Still with sb distention/edema c/w ileus
IR Drain (11/08) with clear ascites, minimal outputs currently, Cx + yeast
CT A/P (11/10) showing free fluid, mild wall thickening-- in correlation to patient's improving clinical picture, likely related to post-operative physiologic changes
Afebrile, tachy and borderline hypotensive
WBC was on downward trend; up to 20.2 11/11, now down to 18.5
Fluconazole resumed on 11/11
Hemoglobin low, but stable
Thrombocytosis present
Hyponatremia ongoing
High output stoma (2950) now decreased (1395) on loperamide q6h
Tolerating LRD but poor intake. Supplement shakes. Concern for high volume fluid losses and hemodynamic changes.
repeat CT scan (11/10/2024) showing free fluid is seen within the abdomen and pelvis, greater within the pelvis. There are several regions of mild wall thickening and enhancement of the periphery of these fluid collections
Plan:
-- IR today for drain repositioning
-- Continue Loperamide 2mg PO q6h and marshmallow
-- Regular diet with supplement shakes
-- Routine ostomy care
-- Change midline dressing daily & as needed, pack openings with gauze
-- Abx: per ID, currently on on PO Augmentin through 11/14, fluconazole through 11/21
-- PT OT, out of bed and ambulate as able.
-- GI: PPI
-- DVT: SCDs, SQH
-- Dispo pending improvement in continued improvement in stoma output, leukocytosis, and hemodynamics, likely home with drain
Subjective Data
-
Date of Service: November 12, 2024
Pt seen and examined at bedside with Dr. Rodriguez. Rejiies n/v. Tolerating diet and starting to have more of an appetite. Low intake but increasing from prior. Denies pain.
Objective Data
-
Intake and Output
11/11/24 11/12/24 11/13/24
06:59 06:59 06:59
Intake Total 960 / 960 1200 / 1200
Output Total 2950 / 2950 1395 / 1395
Balance -1989 / -1989 -195 / -195
Intake:
Oral fluids 960 / 960 1200 / 1200
Output:
Liquid stool amount 2900 / 2900 1395 / 1395
Ileostomy 2900 / 2900 1395 / 1395
Drain Output (Total) 50 / 50
Right Abdomen Placed in IR 50 / 50
Other:
Number of approximated MODERATE 1 2
amounts of urine
Vital Signs
Temp Pulse Resp BP Pulse Ox
99.0 F 97 16 96/58 97
11/12/24 07:14 11/12/24 08:33 11/12/24 07:14 11/12/24 08:33 11/12/24 07:14
Lab Results
11/12/24 06:58
11/12/24 06:58
Calcium 7.7 mg/dl (8.4-10.2) L 11/12/24 06:58
Phosphorus 3.2 mg/dl (2.5-4.5) 11/08/24 04:40
Magnesium 2.0 mg/dl (1.6-2.3) 11/08/24 04:40
Total Bilirubin 0.8 mg/dl (0.2-1.3) 11/08/24 04:40
Direct Bilirubin 0.4 mg/dl (0.0-0.4) 11/07/24 06:49
AST 24 U/L (14-36) 11/08/24 04:40
ALT 32 U/L (0-35) 11/08/24 04:40
Alkaline Phosphatase 82 U/L (38-126) 11/08/24 04:40
Total Protein 4.1 g/dl (6.3-8.2) L 11/08/24 04:40
Albumin 1.9 g/dl (3.5-5.0) L 11/08/24 04:40
Physical Exam
-
Gen: NAD
Cardio: Regular rate and rhythm
Lungs: Non-labored breathing
Abdomen: soft, non-tender, non-distended. (+) midline incision with cosmo, minimal ss drainage. (+) minimal serous drainage from drain , (+) ileostomy stoma pink, moist, protruding, peristomal skin intact, output: liquid green brown.
Ext: (-) edema
Patient has a otero catheter: No
Patient has a central line: No
--- NOTE | 2024-11-12 10:00 | CM ---
Reviewed the chart notes. Per notes, IR today for drain repositioning. Patient's diet changed to regular today. CM continues to be available to patient/family and is monitoring medical plan for needs at discharge.
Plan: Discharge to home with [facility] services.
--- NOTE | 2024-11-12 10:26 | PTCARENOTE ---
Patient transported by stretcher to IR @10:25.
--- NOTE | 2024-11-12 11:45 | PTCARENOTE ---
Patient returned from IR via stretcher @11:45; report received from Magi Guerrier that 'patient's drain upsized to 10fr, placed in same exact spot, drained approximately 150mls clear anisa fluid, sent cx, VSS'.
--- NOTE | 2024-11-12 13:20 | W.PN.HOSP.TC ---
Today's Communication/Plan
-
Continue with regular diet
Continue as planned with antibiotics and antifungals.
Follow white count.
Assessment / Plan
Assessment / Plan
A/P:
Septic shock due to perforated small bowel with peritonitis and E. coli and Clostridium bacteremia in the setting of Chron's:
Status post ex lap, small bowel resection, washout and left in discontinuity.
Status post RTOR for an ex lap, further small bowel resection and end ileostomy with abdominal wall closure.
Resolved shock
Increased ostomy output noted-patient started on Imodium 11/11. Follow response of ostomy output.
Continue antibiotics per ID-changed to oral ; finish course of Diflucan per ID-now changed to 400 mg for 10 days
Lorraine albicans growing in cultures
WBC trending down today
C. difficile negative
Blood cultures no growth since 10/31
Off pressors
Off TPN
Diet advanced to regular diet
CT abdomen pelvis 11/10 report noted--sent to IR for repositioning of her abdominal drain
Hypotension:
Typically runs low blood pressures
Asymptomatic. Systolic blood pressure in 90s.
Continue midodrine to 10 mg p.o. 3 times daily
Cortisol level 16.8
Continue to monitor closely
Sinus tachycardia-noted both at rest and higher with exertion. Ultrasound the leg shows no evidence of DVT. CT chest shows no PE but bilateral small to moderate pleural effusion with adjacent atelectasis. Small areas of minor parenchymal opacity
in the upper lobes are noted which seem nonspecific as she has no cough or respiratory symptoms. I suspect this may be secondary to deconditioning than the medical issues.
Bilateral pleural effusions with volume overload:
Hold IV Lasix since patient hypotensive and she is not short of breath nor she is hypoxic. Weight is down currently.
On room air.
Anemia:
Probably a component of acute blood loss but currently stable
Continue to monitor hemoglobin closely
Coagulopathy due to DIC from sepsis:
Platelets normalized and in fact on the higher side which may be reactive to her abdominal collections.
Avoid NSAIDs
Hyponatremia:
Suspect hypovolemic hyponatremia
Encourage oral intake and continue to monitor
DVT prophylaxis:
SCDs. Might be able to start pharmacological DVT prophylaxis soon.
CODE STATUS:
Full code
Anticipated Discharge: > 48 hours
Subjective/Interval History
-
Date of Service: November 12, 2024
Back from IR after abdominal drain manipulation and repositioning.
No nausea vomiting. Hungry. Tolerating diet. Currently cleared for regular diet. Denies shortness of breath.
Objective Data
-
Labs:
Laboratory Results
11/12/24
06:58
WBC 18.5 H
Hgb 9.2 L
Hct 27.7 L
Plt Count 784 H
Sodium 130 L
Potassium 4.5
Chloride 103
Carbon Dioxide 23
BUN 7
Creatinine 0.4 L
Glucose 83
Calcium 7.7 L
Vital Signs:
Vital Signs
Temp Pulse Resp BP Pulse Ox
98.1 F 108 18 92/61 98
11/12/24 11:45 11/12/24 11:45 11/12/24 11:45 11/12/24 11:45 11/12/24 11:45
I&O
11/11/24 11/12/24 11/13/24
06:59 06:59 06:59
Intake Total 960 / 960 1200 / 1200
Output Total 2950 / 2950 1395 / 1395 225 / 225
Balance -1989 / -1989 - / - - /
Physical Exam
-
General: Comfortable
HEENT: Moist Mucous Membranes
Respiratory: Non Labored Respirations and Accessory Resp Muscle Use
Cardiac: Regular Rhythm and S1/S2; Negative Tachycardic
GI: Soft, Ostomy and Other (HILDA drain in situ)
Neuro: AO x 3
Psych: Calm
Data Reviewed
-
Labs: Labs Reviewed by me
[2024-11-13 03:43] VITALS: BP 99/58
[2024-11-13] MEDS: IMODIUM 2 MG PO ×4 (04:02→22:12)
[2024-11-13 06:00] VITALS: BMI 22.2
[2024-11-13 06:54] LABS: Hematocrit 26.3 % (37.0-47.0); Hemoglobin 8.7 g/dL (12.0-16.0); Mean Corp Hgb Conc. 33.1 g/dL (33.0-37.0); Mean Corpuscular Volume 89.2 fL (81.0-99.0); Platelet Count 824 10^3/uL (130-400); Red Cell Dist. Width 13.7 % (11.5-14.5)
[2024-11-13 07:09] LABS: Blood Urea Nitrogen 6 mg/dl (7-17); Calcium 7.8 mg/dl (8.4-10.2); Carbon Dioxide 23 mmol/L (22-30); Chloride 104 mmol/L (98-107); Estimated Creatinine Clearance 97 ml/min; Glucose 83 mg/dl (70-99); Potassium 4.6 mmol/L (3.5-5.1); Sodium 131 mmol/L (135-145); eGFR > 60.00
[2024-11-13 08:00] VITALS: BP 95/58
[2024-11-13] MEDS: MUCINEX 600 MG PO ×2 (08:32→20:09)
[2024-11-13] MEDS: DIFLUCAN 400 MG PO (08:32)
[2024-11-13] MEDS: AUGMENTIN 875 MG/125 MG 1 TABLET PO ×2 (08:33→20:09)
[2024-11-13] MEDS: HEPARIN 5000 UNITS SC ×2 (08:33→16:19)
[2024-11-13] MEDS: PROTONIX 40 MG PO (08:33)
[2024-11-13 11:20] VITALS: BP 104/58
--- NOTE | 2024-11-13 11:53 | W.PN.HOSP.TC ---
Today's Communication/Plan
-
Continue with Imodium and follow ostomy output
Continue with antibiotics and antifungal as planned before
Follow CBC
DC planning
Assessment / Plan
Assessment / Plan
A/P:
Septic shock due to perforated small bowel with peritonitis and E. coli and Clostridium bacteremia in the setting of Chron's:
Status post ex lap, small bowel resection, washout and left in discontinuity.
Status post RTOR for an ex lap, further small bowel resection and end ileostomy with abdominal wall closure.
Resolved shock
Increased ostomy output noted-patient started on Imodium 11/11. Follow response of ostomy output.
Continue antibiotics per ID-changed to oral ; finish course of Diflucan per ID-now changed to 400 mg for total of 10 days
Lorraine albicans growing in cultures
WBC trending down today
C. difficile negative
Blood cultures no growth since 10/31
Off pressors
Off TPN
Diet advanced to regular diet
CT abdomen pelvis 11/10 report noted--status post repositioning of her abdominal drain 11/29 with increased output improving white count
Hypotension:
Typically runs low blood pressures
Asymptomatic. Systolic blood pressure in 90s.
Continue midodrine to 10 mg p.o. 3 times daily
Cortisol level 16.8
Continue to monitor closely
Sinus tachycardia-noted both at rest and higher with exertion. Ultrasound the leg shows no evidence of DVT. CT chest shows no PE but bilateral small to moderate pleural effusion with adjacent atelectasis. Small areas of minor parenchymal opacity
in the upper lobes are noted which seem nonspecific as she has no cough or respiratory symptoms. I suspect this may be secondary to deconditioning than the medical issues. Improved
Bilateral pleural effusions with volume overload:
Hold IV Lasix since patient hypotensive and she is not short of breath nor she is hypoxic. Weight is down currently.
On room air.
Anemia:
Probably a component of acute blood loss but currently stable
Continue to monitor hemoglobin closely
Coagulopathy due to DIC from sepsis:
Platelets normalized and in fact on the higher side which may be reactive to her abdominal collections.
Avoid NSAIDs
Hyponatremia:
Suspect hypovolemic hyponatremia-improved
Encourage oral intake and continue to monitor
DVT prophylaxis:
SCDs. Might be able to start pharmacological DVT prophylaxis soon.
CODE STATUS:
Full code
Anticipated Discharge: 24 - 48 hours
Subjective/Interval History
-
Date of Service: November 13, 2024
Tolerating diet without nausea or vomiting.
Denies any shortness of breath or chest pain.
Objective Data
-
Labs:
Laboratory Results
11/13/24
06:14
WBC 16.0 H
Hgb 8.7 L
Hct 26.3 L
Plt Count 824 H
Sodium 131 L
Potassium 4.6
Chloride 104
Carbon Dioxide 23
BUN 6 L
Creatinine 0.4 L
Glucose 83
Calcium 7.8 L
Vital Signs:
Vital Signs
Temp Pulse Resp BP Pulse Ox
98.1 F 96 16 95/58 97
11/13/24 08:00 11/13/24 08:32 11/13/24 08:00 11/13/24 08:32 11/13/24 08:00
I&O
11/12/24 11/13/24 11/14/24
06:59 06:59 06:59
Intake Total 1200 / 1200
Output Total 1395 / 1395 1175 / 1175
Balance -195 / -195 -1175 / -1175
Physical Exam
-
General: Comfortable
Respiratory: Non Labored Respirations; Negative Accessory Resp Muscle Use
Cardiac: Regular Rhythm, S1/S2 and Tachycardic (Less)
GI: Soft and Ostomy
Genito-urinary: Other (Right abdominal HILDA drain)
Neuro: AO x 3
Psych: Calm
Data Reviewed
-
Labs: Labs Reviewed by me
--- NOTE | 2024-11-13 12:17 | W.PN.GS2 ---
Addendum entered and electronically signed by Justus Collins MD 11/13/24 15:13:
I saw and examined the patient.
The [employer]'s note was reviewed and I agree with the note.
�Continue regular diet with Imodium 2 mg Q6
� Trend WBC, leukocytosis improving; continue Augmentin and fluconazole, appreciate ID
Original Note:
Today's Communication / Plan
-
Trend labs and stoma outputs
C/w drain
Assessment / Plan
-
Assessment: 48-year-old female admitted with recurrent small bowel obstruction in the setting of recent diagnosis of Crohn's disease and tapering steroids. Her hospital course was complicated by septic shock and multiorgan failure secondary to a
perforated viscus with operative recovery complicated by DIC (hematology following)
POD #16 ex lap, small bowel resection, washout and left in discontinuity.
POD #13 RTOR for an ex lap, further small bowel resection and end ileostomy with abdominal wall closure.
Bacteremia with ecoli, and clostridium clostridioforme, OR cx with yeast/few gram variable rods, f/u blood cx with ngtd
CT A/P (11/05) with large amount of ascites, no abscess. Still with sb distention/edema c/w ileus
IR Drain (11/08) with clear ascites, minimal outputs currently, Cx + yeast
CT A/P (11/10) showing free fluid, mild wall thickening-- in correlation to patient's improving clinical picture, likely related to post-operative physiologic changes
Fluconazole resumed on 11/11 for +yeast from IR drainage
IR drain repositioned (11/12)
Afebrile, tachy and borderline hypotensive
WBC was on downward trend; up to 20.2 11/11, now down to 16
Hemoglobin low, but stable
Thrombocytosis present
Hyponatremia ongoing, improved
Stoma outputs improved on loperamide, appetite improving
Tolerating more PO intake, appetite returning
Plan:
-- Continue IR drain
-- Continue Loperamide 2mg PO q6h and marshmallow
-- Regular diet with supplement shakes
-- Routine ostomy care
-- Change midline dressing daily & as needed, pack openings with gauze
-- Abx: per ID, currently on on PO Augmentin through 11/14, fluconazole through 11/21
-- PT OT, out of bed and ambulate as able.
-- GI: PPI
-- DVT: SCDs, SQH
-- Dispo pending continued improvement in stoma output, leukocytosis, and hemodynamics, likely home with drain
Subjective Data
-
Date of Service: November 13, 2024
Pt seen and examined at bedside with Dr. Collins. Denies n/v Tolerating diet, increasing appetite. Fluctuations in stoma output between liquid and more mushy outputs. Pain improving. More energy today.
Objective Data
-
Intake and Output
11/12/24 11/13/24 11/14/24
06:59 06:59 06:59
Intake Total 1200 / 1200
Output Total 1395 / 1395 1175 / 1175
Balance -195 / -195 -1175 / -1175
Intake:
Oral fluids 1200 / 1200
Output:
Liquid stool amount 1395 / 1395 850 / 850
Ileostomy 1395 / 1395 850 / 850
Drain Output (Total) 325 / 325
Right Abdomen Placed in IR 325 / 325
Other:
Number of approximated MODERATE 2
amounts of urine
Number of unmeasured liquid
stools
Ileostomy 50
Vital Signs
Temp Pulse Resp BP Pulse Ox
97.9 F 102 16 104/58 97
11/13/24 11:20 11/13/24 11:20 11/13/24 11:20 11/13/24 11:20 11/13/24 11:20
Lab Results
11/13/24 06:14
11/13/24 06:14
Calcium 7.8 mg/dl (8.4-10.2) L 11/13/24 06:14
Phosphorus 3.2 mg/dl (2.5-4.5) 11/08/24 04:40
Magnesium 2.0 mg/dl (1.6-2.3) 11/08/24 04:40
Total Bilirubin 0.8 mg/dl (0.2-1.3) 11/08/24 04:40
Direct Bilirubin 0.4 mg/dl (0.0-0.4) 11/07/24 06:49
AST 24 U/L (14-36) 11/08/24 04:40
ALT 32 U/L (0-35) 11/08/24 04:40
Alkaline Phosphatase 82 U/L (38-126) 11/08/24 04:40
Total Protein 4.1 g/dl (6.3-8.2) L 11/08/24 04:40
Albumin 1.9 g/dl (3.5-5.0) L 11/08/24 04:40
Physical Exam
-
Gen: NAD
Cardio: Regular rate and rhythm
Lungs: Non-labored breathing
Abdomen: soft, non-tender, non-distended
midline incision with cosmo, minimal ss drainage.
Drain with serous/ascitic fluid, ileostomy stoma pink, moist, protruding, peristomal skin intact, output: liquid to soft green outputs
Ext: (-) edema
Patient has a otero catheter: No
Patient has a central line: No
[2024-11-13 15:55] VITALS: BP 86/64
[2024-11-13 19:35] VITALS: BP 88/59
[2024-11-13 23:45] VITALS: BP 93/51
[2024-11-14] VITALS (8 sets, daily range): BP systolic 76–94; BP diastolic 52–62; PULSE 91; O2SAT 98; BMI 20.8
[2024-11-14] MEDS: HEPARIN 5000 UNITS SC ×3 (00:16→16:05)
[2024-11-14] MEDS: IMODIUM 2 MG PO ×4 (04:28→22:01)
[2024-11-14 08:16] LABS: Blood Urea Nitrogen 4 mg/dl (7-17); Calcium 7.9 mg/dl (8.4-10.2); Carbon Dioxide 26 mmol/L (22-30); Chloride 102 mmol/L (98-107); Estimated Creatinine Clearance 97 ml/min; Glucose 82 mg/dl (70-99); Potassium 4.9 mmol/L (3.5-5.1); Sodium 132 mmol/L (135-145); eGFR > 60.00
[2024-11-14] MEDS: MUCINEX 600 MG PO ×2 (08:20→22:01)
[2024-11-14] MEDS: DIFLUCAN 400 MG PO (08:21)
[2024-11-14] MEDS: PROTONIX 40 MG PO (08:21)
[2024-11-14 08:25] LABS: Hematocrit 27.0 % (37.0-47.0); Hemoglobin 8.9 g/dL (12.0-16.0); Mean Corp Hgb Conc. 33.0 g/dL (33.0-37.0); Mean Corpuscular Volume 91.8 fL (81.0-99.0); Platelet Count 989 10^3/uL (130-400); Red Cell Dist. Width 13.9 % (11.5-14.5)
--- NOTE | 2024-11-14 10:07 | W.PN.GS2 ---
Addendum entered and electronically signed by Justus Collins MD 11/14/24 18:47:
I saw and examined the patient.
The [employer]'s note was reviewed and I agree with the note.
Original Note:
Today's Communication / Plan
-
Trend labs/stoma outputs
Dispo planning
Assessment / Plan
-
Assessment: 48-year-old female admitted with recurrent small bowel obstruction in the setting of recent diagnosis of Crohn's disease and tapering steroids. Her hospital course was complicated by septic shock and multiorgan failure secondary to a
perforated viscus with operative recovery complicated by DIC (hematology following)
POD #17 ex lap, small bowel resection, washout and left in discontinuity.
POD #14 RTOR for an ex lap, further small bowel resection and end ileostomy with abdominal wall closure.
Bacteremia with ecoli initially. OR cx with yeast/few gram variable rods, f/u blood cx with ngtd
CT A/P (11/05) with large amount of ascites, no abscess. Still with sb distention/edema c/w ileus
IR Drain (11/08) with clear ascites, minimal outputs currently, Cx + yeast
CT A/P (11/10) showing free fluid, mild wall thickening
Fluconazole resumed on 11/11 for +yeast from IR drainage
IR drain repositioned (11/12)
Afebrile, HR wnl, but still borderline hypotensive
WBC was on downward trend; up to 20.2 11/11, now down to 12.6
Hemoglobin low, but stable
Thrombocytosis present
Hyponatremia ongoing
Stoma outputs improved on loperamide, appetite improved
Plan:
-- Continue IR drain
-- Continue Loperamide 2mg PO q6h and marshmallow
-- Regular diet with supplement shakes
-- Routine ostomy care
-- Change midline dressing daily & as needed, pack openings with gauze
-- Abx: per ID, currently on on PO Augmentin through 11/14, fluconazole through 11/21
-- PT OT, out of bed and ambulate as able.
-- GI: PPI
-- DVT: SCDs, SQH
Dispo pending continued improvement in stoma output, leukocytosis, and hemodynamics, likely home with drain tomorrow
Subjective Data
-
Date of Service: November 14, 2024
Pt seen and examined at bedside. Denies n/v. Tolerating PO intake. Denies pain. Eager to go home.
Objective Data
-
Intake and Output
11/13/24 11/14/24 11/15/24
06:59 06:59 06:59
Output Total 1175 / 1175 875 / 875
Balance -1175 / -1175 -875 / -875
Output:
Liquid stool amount 850 / 850 725 / 725
Ileostomy 850 / 850 725 / 725
Drain Output (Total) 325 / 325 150 / 150
Right Abdomen Placed in IR 325 / 325 150 / 150
Other:
Number of unmeasured liquid
stools
Ileostomy 50
Vital Signs
Temp Pulse Resp BP Pulse Ox
97.8 F 95 16 86/53 97
11/14/24 07:15 11/14/24 08:21 11/14/24 07:15 11/14/24 08:21 11/14/24 07:15
Lab Results
11/14/24 07:19
11/14/24 07:19
Calcium 7.9 mg/dl (8.4-10.2) L 11/14/24 07:19
Phosphorus 3.2 mg/dl (2.5-4.5) 11/08/24 04:40
Magnesium 2.0 mg/dl (1.6-2.3) 11/08/24 04:40
Total Bilirubin 0.8 mg/dl (0.2-1.3) 11/08/24 04:40
Direct Bilirubin 0.4 mg/dl (0.0-0.4) 11/07/24 06:49
AST 24 U/L (14-36) 11/08/24 04:40
ALT 32 U/L (0-35) 11/08/24 04:40
Alkaline Phosphatase 82 U/L (38-126) 11/08/24 04:40
Total Protein 4.1 g/dl (6.3-8.2) L 11/08/24 04:40
Albumin 1.9 g/dl (3.5-5.0) L 11/08/24 04:40
Physical Exam
-
Gen: NAD
Cardio: Regular rate and rhythm
Lungs: Non-labored breathing
Abdomen: soft, non-tender, non-distended
midline incision with cosmo, minimal ss drainage.
Drain with serous/ascitic fluid, ileostomy stoma pink, moist, protruding, peristomal skin intact, output: liquid to soft green outputs
Ext: (-) edema
Patient has a otero catheter: No
Patient has a central line: No
--- NOTE | 2024-11-14 10:37 | W.PN.HOSP.TC ---
Today's Communication/Plan
-
Consent with regular diet.
Continue with Imodium.
Follow CBC. Consult hematology. Check iron studies.
Assessment / Plan
Assessment / Plan
A/P:
Septic shock due to perforated small bowel with peritonitis and E. coli and Clostridium bacteremia in the setting of Chron's:
Status post ex lap, small bowel resection, washout and left in discontinuity.
Status post RTOR for an ex lap, further small bowel resection and end ileostomy with abdominal wall closure.
Resolved shock
Increased ostomy output noted-patient started on Imodium 11/11. Follow response of ostomy output.
Finished antibiotic course. Continue with Diflucan 400 mg for total of 10 days
Lorraine albicans growing in cultures
WBC trending down today
C. difficile negative
Blood cultures no growth since 10/31
Off pressors
Off TPN
Diet advanced to regular diet
CT abdomen pelvis 11/10 report noted--status post repositioning of her abdominal drain 11/29 with increased output improving white count
Thrombocytosis
Worsening thrombocytosis despite improving antibiotics. Suspect reactive to underlying collections. Rule out iron deficiency. Today there are 9 [id number]-will consult hematology if there is any role of aspirin.
Hypotension:
Typically runs low blood pressures
Asymptomatic. Systolic blood pressure in 90s.
Continue midodrine to 10 mg p.o. 3 times daily
Cortisol level 16.8
Continue to monitor closely
Sinus tachycardia-noted both at rest and higher with exertion. Ultrasound the leg shows no evidence of DVT. CT chest shows no PE but bilateral small to moderate pleural effusion with adjacent atelectasis. Small areas of minor parenchymal opacity
in the upper lobes are noted which seem nonspecific as she has no cough or respiratory symptoms. I suspect this may be secondary to deconditioning than the medical issues. Improved
Bilateral pleural effusions with volume overload:
Hold IV Lasix since patient hypotensive and she is not short of breath nor she is hypoxic. Weight is down currently.
On room air.
Anemia:
Probably a component of acute blood loss but currently stable
Continue to monitor hemoglobin closely
Coagulopathy due to DIC from sepsis:
Platelets normalized and in fact on the higher side which may be reactive to her abdominal collections.
Avoid NSAIDs
Hyponatremia:
Suspect hypovolemic hyponatremia-improved
Encourage oral intake and continue to monitor
DVT prophylaxis:
SCDs. Might be able to start pharmacological DVT prophylaxis soon.
CODE STATUS:
Full code
Anticipated Discharge: 24 - 48 hours
Subjective/Interval History
-
Date of Service: November 14, 2024
Progress manage for nausea vomiting. Denies any abdominal pain.
Denies any fever or chills.
Denies any shortness of breath.
Objective Data
-
Labs:
Laboratory Results
11/14/24
07:19
WBC 12.6 H
Hgb 8.9 L
Hct 27.0 L
Plt Count 989 H D
Sodium 132 L
Potassium 4.9
Chloride 102
Carbon Dioxide 26
BUN 4 L
Creatinine 0.5 L
Glucose 82
Calcium 7.9 L
Vital Signs:
Vital Signs
Temp Pulse Resp BP Pulse Ox
97.8 F 95 16 86/53 97
11/14/24 07:15 11/14/24 08:21 11/14/24 07:15 11/14/24 08:21 11/14/24 07:15
I&O
11/13/24 11/14/24 11/15/24
06:59 06:59 06:59
Output Total 1175 / 1175 875 / 875
Balance -1175 / -1175 -875 / -875
Physical Exam
-
General: Comfortable
Respiratory: Non Labored Respirations; Negative Accessory Resp Muscle Use
Cardiac: Regular Rhythm, S1/S2 and Tachycardic (Less)
GI: Soft, Ostomy and Other (Right abdominal HILDA drain in place)
Neuro: AO x 3
Data Reviewed
-
Labs: Labs Reviewed by me
[2024-11-14 10:44] LABS: Reticulocyte Count 2.4 % (0.4-2.8)
[2024-11-14 11:00] LABS: Iron < 20 ug/dl (37-170)
[2024-11-14 11:07] LABS: Total Iron Binding Capacity 163 ug/dl (265-497)
[2024-11-14 11:54] LABS: Ferritin 137.0 ng/ml (6.24-137)
--- NOTE | 2024-11-14 13:42 | CON.ONC ---
Consultation
-
Date Consultation Requested: 11/14/24
Date Consultation Performed: 11/14/24
Requesting Provider: Herson
Performing Provider: pascual
Reason for Consultation: elevated platelets
Impression
Impression
# Thrombocytosis
# Sepsis
# SB perf, s/p, washout, small bowel resection for perforation
# E coli bacteremia
# DIC- resolved
# Crohns disease
# Mild normocytic anemia
Plan
Plan
- pt has had complicated medical course with bowel obstruction, perforation -> septic bacteremia, DIC -> now recovery. Platelet count has shown drastic variability through out this stay with prior high values on last admission, this initial visit
likely in setting of inflammation, dehydration then drop to 20-30K during acute illness with DIC. Platelets since recovery from infection with marked rebound up into 900K range. WBC slowly improving.
- suspect now thrombocytosis represents rebound after suppression in addition to reactive to iron deficiency with undetectable iron. ferritin 137 ng/ml however in the setting of ongoing inflammation this is inappropriately normal and likely
administrative representative of depleted stores. Ordered for IV iron while in-pt then recommend she take PO iron supplement every other day on discharge until hgb and plts normalized.
- recommend repeat CBC with her PCP in 1-2 weeks. if plts do not show down trend despite further recovery from hospital stay, iron repletion she should be referred to hematology for outpt evaluation.
Patient History
History of Present Illness
pauline is a 48 yo F with newly diagnosed IBD in who was admitted to on 10/25 with worsening abdominal pain and hardening. CT showed 'High-grade small bowel obstruction secondary to a long segment of narrowing of the terminal ileum,
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 she was taken to OR on 10/28, found to have bowel perforation and underwent
washout, SB resection and left open with wound vac. She was in the ICU with sepsis due to e coli bacteremia for several days and our team was actually consulted at that time for anemia, thrombocytopenia with drop in plts to 20-30K likely from
infection, abx and DIC. She recovered from this and was taken back to OR on 10/31 for additional bowel resection, washout and end ileostomy formation. She was taken back to OR again on 11/02 for repeat procedure. Her platelets began to slowly
recovered as infection cleared, abx modified and normalized on 11/07 however since that time have continued to climb and are now elevated at 989K. She has developed new anemia throughout this hospital stay in setting of surgeries, infection with hgb
consistently in ~ 8-9 g/dl range, 8.9 g/dl today. WBC was also high in setting of infection and has been slowly down trending, 12.6 g/dl today. Pt denies fevers, chills, abdominal pain, GALLEGOS, chest pain, bruising, bleeding. ostomy output stable
without hina blood. She is eager to get home soon.
Past-Medical/Surgical History
- Inflammatory bowel disease
Patient Medication
�Medication �Instructions �Recorded �Confirmed �Last Taken �Type
prednisone 20 mg tablet 10 mg PO .TAPER Anti-Inflammatory 10/25/24 10/28/24 Unknown History
Active Medications
Generic Name Dose Route Start Last Admin
Trade Name Freq PRN Reason Stop Dose Admin
Acetaminophen 650 mg 11/10/24 13:10
Acetaminophen 325 Mg Tablet PO 12/08/24 13:09
Q4HPRN PRN
mild pain /fever >100.4
Benzocaine/Menthol 1 lozenge 11/03/24 13:52 11/05/24 18:10
Benzocaine/Menthol Lozenge PO 12/01/24 13:51 1 lozenge
Q4HPRN PRN Administration
sore throat
Fluconazole 400 mg 11/11/24 12:00 11/14/24 08:21
Fluconazole 200 Mg Tablet PO 11/20/24 08:01 400 mg
DAILY TOMASZ Administration
Guaifenesin 600 mg 11/03/24 10:00 11/14/24 08:20
Guaifenesin 600 Mg Extended Release Tablet PO 12/01/24 09:59 600 mg
Q12 TOMASZ Administration
Heparin Sodium 5,000 units 11/09/24 16:00 11/14/24 08:21
Heparin 5,000 Units/Ml 1 Ml Vial SC 12/07/24 15:59 5,000 units
Q8 TOMASZ Administration
Loperamide HCl 2 mg 11/11/24 16:00 11/14/24 08:23
Loperamide 2 Mg Capsule PO 12/09/24 15:59 2 mg
Q6H TOMASZ Administration
Midodrine 10 mg 11/06/24 18:14 11/14/24 13:24
Midodrine 5 Mg Tablet PO 12/04/24 12:59 10 mg
TID@0800,1300,1800 TOMASZ Administration
Morphine Sulfate 4 mg 11/01/24 10:33 11/06/24 19:14
Morphine 4 Mg/Ml Injection IV 11/15/24 10:32 4 mg
Q4HPRN PRN Administration
Severe pain
Ondansetron HCl 4 mg 10/28/24 16:53 11/06/24 14:04
Ondansetron 4 Mg/2 Ml Vial IV 11/25/24 16:52 4 mg
Q6HPRN PRN Administration
nausea/vomiting
Pantoprazole Sodium 40 mg 11/11/24 08:00 11/14/24 08:21
Pantoprazole 40 Mg Delayed Release Tablet PO 12/09/24 07:59 40 mg
DAILY TOMASZ Administration
Sodium Chloride 0 flush 10/25/24 23:00 11/02/24 07:58
Sodium Chloride 0.9% (Flush) Syringe IV 11/22/24 22:59 4 flush
PER PROTOCOL TOMASZ Administration
Tramadol HCl 50 mg 11/10/24 13:10
Tramadol Hcl 50 Mg Tablet PO 12/08/24 13:09
Q6HPRN PRN
Moderate pain
Review of Systems
-
History Source: Patient and Family
Constitutional: Reports Fatigue; Denies Fever
EENT: Denies Bloody Nose
Respiratory: Denies Cough or Trouble Breathing
Cardiac: Denies Chest Pain or Palpitations
GI: Reports Bloated; Denies Abdominal Pain, Bloody Stools or Hemetemesis
: Denies Bleeding
Skin: Denies Itching or Rash
Neuro: Denies Headache
Hematologic/Lymphatic: Denies Bleeding, Bruising or Blood Clots
Physical Exam
-
General: Well Developed and No Apparent Distress; Negative Respiratory Distress
HEENT: Negative Jaundice
Cardiology: Normal Sinus Rhythm
Pulmonary: Clear
GI: Soft, Distended and Other (ostomy site w/ thin brown stool. no erythema or tenderness )
Musculoskeletal: No Edema
Neurology: Non Focal and No Lateralizing Symptoms
Labs
Lab Results
WBC 12.6 10^3/uL (4.8-10.8) H 11/14/24 07:19
RBC 2.94 10^6/uL (4.20-5.40) L 11/14/24 07:19
Hgb 8.9 g/dL (12.0-16.0) L 11/14/24 07:19
Hct 27.0 % (37.0-47.0) L 11/14/24 07:19
MCV 91.8 fL (81.0-99.0) 11/14/24 07:19
MCH 30.3 pg (27.0-31.0) 11/14/24 07:19
MCHC 33.0 g/dL (33.0-37.0) 11/14/24 07:19
RDW 13.9 % (11.5-14.5) 11/14/24 07:19
Plt Count 989 10^3/uL (130-400) H D 11/14/24 07:19
MPV 9.8 fL (7.4-10.4) 11/14/24 07:19
Abs Immat Gran (auto) 0.6 10^3/uL (0-0.05) H 11/01/24 04:57
Absolute Neuts (auto) 21.1 10^3/uL (1.4-6.5) H 11/01/24 04:57
Absolute Lymphs (auto) 0.7 10^3/uL (1.2-3.4) L 11/01/24 04:57
Absolute Monos (auto) 0.3 10^3/uL (0.1-0.6) 11/01/24 04:57
Absolute Eos (auto) 0.1 10^3/uL (0-0.7) 11/01/24 04:57
Absolute Basos (auto) 0.2 10^3/uL (0-0.2) 11/01/24 04:57
Immature Gran % 2.7 % (0-0.5) H 11/01/24 04:57
Neutrophils % 92.1 % (42.2-75.2) H 11/01/24 04:57
Lymphocytes % 3.0 % (20.5-51.1) L 11/01/24 04:57
Monocytes % 1.1 % (1.7-9.3) L 11/01/24 04:57
Eosinophils % 0.4 % (0-6) 11/01/24 04:57
Basophils % 0.7 % (0-2) 11/01/24 04:57
Creatinine 0.5 mg/dL (0.6-1.0) L 11/14/24 07:19
Vital Signs
Vital Signs
Temp Pulse Resp BP Pulse Ox
97.8 F 95 16 90/62 97
11/14/24 07:15 11/14/24 13:24 11/14/24 07:15 11/14/24 13:24 11/14/24 07:15
[2024-11-14] MEDS: FERRLECIT 110 MG IV (14:19)
[2024-11-15] VITALS (11 sets, daily range): BP systolic 85–105; BP diastolic 52–68; BMI 20.7
[2024-11-15] MEDS: HEPARIN 5000 UNITS SC ×3 (00:03→23:43)
[2024-11-15] MEDS: IMODIUM 2 MG PO ×3 (03:05→17:48)
[2024-11-15 08:18] LABS: Hematocrit 29.9 % (37.0-47.0); Hemoglobin 9.5 g/dL (12.0-16.0); Mean Corp Hgb Conc. 31.8 g/dL (33.0-37.0); Mean Corpuscular Volume 91.7 fL (81.0-99.0); Platelet Count 1136 10^3/uL (130-400); Red Cell Dist. Width 14.0 % (11.5-14.5)
[2024-11-15 08:23] LABS: Blood Urea Nitrogen 4 mg/dl (7-17); Calcium 8.2 mg/dl (8.4-10.2); Carbon Dioxide 26 mmol/L (22-30); Chloride 103 mmol/L (98-107); Estimated Creatinine Clearance 97 ml/min; Glucose 92 mg/dl (70-99); Potassium 4.7 mmol/L (3.5-5.1); Sodium 133 mmol/L (135-145); eGFR > 60.00
--- NOTE | 2024-11-15 09:49 | CM ---
Reviewed the chart notes and spoke with the patient and spouse at the bedside. CM continues to be available to patient/family and is monitoring medical plan for needs at discharge.
Plan: Discharge to home with [facility] services. Spouse will provide transportation.
--- NOTE | 2024-11-15 10:19 | W.PN.GS2 ---
Today's Communication / Plan
-
CT w/ IV contrast
Loperamide 2mg PO q6h; if patient stays today, increase HS dose to 4mg.
Trend labs/stoma outputs
Dispo planning
Assessment / Plan
-
Assessment: 48-year-old female admitted with recurrent small bowel obstruction in the setting of recent diagnosis of Crohn's disease and tapering steroids. Her hospital course was complicated by septic shock and multiorgan failure secondary to a
perforated viscus with operative recovery complicated by DIC (hematology following)
POD #18 ex lap, small bowel resection, washout and left in discontinuity.
POD #15 RTOR for an ex lap, further small bowel resection and end ileostomy with abdominal wall closure.
Bacteremia with ecoli initially. OR cx with yeast/few gram variable rods, f/u blood cx with ngtd
CT A/P (11/05) with large amount of ascites, no abscess. Still with sb distention/edema c/w ileus
IR Drain (11/08) with clear ascites, minimal outputs currently, Cx + yeast
CT A/P (11/10) showing free fluid, mild wall thickening
Fluconazole resumed on 11/11 for +yeast from IR drainage
IR drain repositioned (11/12)
Afebrile, HR wnl, borderline hypotensive--but noted to be similar to patient's baseline
WBC was on downward trend; up to 20.2 11/11, now down to 12.7
Hemoglobin low, but stable
Thrombocytosis present-- on Iron Infusions
Hyponatremia ongoing
Stoma outputs improved on loperamide, appetite improved
The patient and her expressed some frustration with delay and miscommunication in regards discharge due to work and family obligations; discussed downtrending, but continued leukocytosis, need for repeat CT, and adjustment of loperamide to
reduce ileostomy output. Explained that these steps may delay discharge, but team will work to expedite care as realistically able. Also discussed stoma care and continuity of care after discharge. Questions answered in length. Patient and her
verbalized understanding.
Plan:
---CT abdomen/pelvis with IV contrast
-- Continue IR drain
-- Continue Loperamide 2mg PO q6h; if patient stays today, increase HS dose to 4mg.
-- Regular diet with supplement shakes
-- Routine ostomy care
-- Change midline dressing daily & as needed, pack openings with gauze
-- Abx: per ID, currently on fluconazole through 11/21
-- PT OT, out of bed and ambulate as able.
-- GI: PPI
-- DVT: SCDs, SQH
Dispo pending continued improvement in stoma output, leukocytosis, and hemodynamics.
Subjective Data
-
Date of Service: November 15, 2024
The patient denied abdominal pain, fever, nausea, and vomiting. She stopped eating marshmallows and is now eating more PB crackers, saltines, and bananas. She and her expressed wanting to go home as soon as possible due to work and family
reasons; and expressed some frustration regarding the delays.
Objective Data
-
Intake and Output
11/14/24 11/15/24 11/16/24
06:59 06:59 06:59
Intake Total 920 / 920
Output Total 875 / 875 785 / 785 175 / 175
Balance -875 / -875 135 / 135 -175 / -175
Intake:
Oral fluids 920 / 920
Output:
Liquid stool amount 725 / 725 205 / 205 175 / 175
Ileostomy 725 / 725 205 / 205 175 / 175
Drain Output (Total) 150 / 150 580 / 580
Right Abdomen Placed in IR 150 / 150 580 / 580
Other:
Number of approximated SMALL 1
amounts of urine
Number of approximated MODERATE 1
amounts of urine
Vital Signs
Temp Pulse Resp BP Pulse Ox
97.9 F 89 16 94/63 97
11/15/24 08:11 11/15/24 08:11 11/15/24 08:11 11/15/24 08:11 11/15/24 08:11
Lab Results
11/15/24 07:39
11/15/24 07:39
Calcium 8.2 mg/dl (8.4-10.2) L 11/15/24 07:39
Phosphorus 3.2 mg/dl (2.5-4.5) 11/08/24 04:40
Magnesium 2.0 mg/dl (1.6-2.3) 11/08/24 04:40
Total Bilirubin 0.8 mg/dl (0.2-1.3) 11/08/24 04:40
Direct Bilirubin 0.4 mg/dl (0.0-0.4) 11/07/24 06:49
AST 24 U/L (14-36) 11/08/24 04:40
ALT 32 U/L (0-35) 11/08/24 04:40
Alkaline Phosphatase 82 U/L (38-126) 11/08/24 04:40
Total Protein 4.1 g/dl (6.3-8.2) L 11/08/24 04:40
Albumin 1.9 g/dl (3.5-5.0) L 11/08/24 04:40
Physical Exam
-
General: NAD
Lungs: Non-labored breathing
GI: Soft, non-distended, non-tender abdomen, (+) midline well healing incision with minimal drainage, (+) left sided stoma varying between applesauce to watery consistency
(+) percutaneous drain with clear, yellow fluid
Ext: (-) edema
Patient has a otero catheter: No
Patient has a central line: No
[2024-11-15] MEDS: IMODIUM PO (11:02)
[2024-11-15] MEDS: MUCINEX 600 MG PO ×2 (11:11→20:22)
[2024-11-15] MEDS: DIFLUCAN 400 MG PO (11:11)
[2024-11-15] MEDS: PROTONIX 40 MG PO (11:12)
--- NOTE | 2024-11-15 12:03 | WOUNDNOTE ---
WON RN NOTE: Appliance changed this morning by patient with minimal assistance. Stoma pink and budded, slight mucocutaneous separation lateral edge at 3 O clock. Nurse reports patient emptied on own also with assist of staff. Encouraged patient to
empty on toilet before discharge. Praise support and encouragement given. at bedside, answered all questions. Additional supplies ordered, nurse aware.
[2024-11-15] MEDS: HEPARIN SC (12:09)
--- NOTE | 2024-11-15 13:45 | W.PN.ONC2 ---
Today's Communication / Plan
-
Trend CBC.
Patient to go on oral iron every other day after discharge.
Repeat CBC in 1-2 weeks with PCP after discharge.
Impression
Impression
# Thrombocytosis
# Sepsis
# SB perf, s/p, washout, small bowel resection for perforation
# E coli bacteremia
# DIC- resolved
# Crohns disease
# Mild normocytic anemia
Plan
Plan
- Patient's medical course included bowel obstruction which led to perforation, septic bacteremia, DIC.
- Variable platelet count throughout current admission. Initially, counts were 20-30K during acute illness with DIC. Since surgery and recovery from infection, platelet count has trended up. Platelet count today 1136. This is likely rebound
thrombocytosis due to infection/formation/major surgery + reactive to iron deficiency.
- Patient was given IV iron then recommended PO iron supplement every other day upon discharge until Hgb and platelets stabilized.
- WBC count slowly improving, 12.7 today.
- Recommend repeat CBC with PCP in 1 to 2 weeks. If platelets do not trend down thereafter, iron repletion should be referred to hematology for outpatient evaluation.
Subjective/Objective
Subjective
Upon examination today, patient is feeling well. No new complaints.
Vital Signs:
Vital Signs
Temp Pulse Resp BP Pulse Ox
98.2 F 84 16 85/52 97
11/15/24 12:05 11/15/24 12:05 11/15/24 12:05 11/15/24 12:05 11/15/24 12:05
Lab Results:
Laboratory Data
WBC 12.7 10^3/uL (4.8-10.8) H 11/15/24 07:39
Hgb 9.5 g/dL (12.0-16.0) L 11/15/24 07:39
Plt Count 1136 10^3/uL (130-400) H 11/15/24 07:39
PT 15.1 Sec (11.4-14.6) H 11/02/24 04:30
INR 1.16 11/02/24 04:30
APTT 30.4 Sec (23.4-35.0) 11/02/24 04:30
eGFR > 60.00 11/15/24 07:39
Physical Exam
HEENT: Moist Mucous Membranes
Cardiology: Normal Sinus Rhythm, S1 and S2
Pulmonary: Clear
GI: Soft and Normal Bowel Sounds
[2024-11-15] MEDS: FLUSH (NSS) 1 FLUSH IV (14:12)
[2024-11-15] MEDS: FERRLECIT 110 MG IV (14:13)
--- NOTE | 2024-11-15 14:30 | W.PN.HOSP.TC ---
Today's Communication/Plan
-
Assessment / Plan
Assessment / Plan
General: No Apparent Distress, Comfortable and Conversant
HEENT: NormoCephalic, Moist mucous membranes, Atraumatic
Respiratory: Clear and Non Labored Respirations
Cardiac: S1/S2 and Regular Rhythm; No Rub or Gallop
GI: Soft, Non Tender, right sided surgical drain in place, healthy appearing left-sided ostomy with liquid brown output
Musculoskeletal: No Edema, no deformity
: NO Post
Neuro: Awake, Alert, Nonfocal/grossly intact
Psych: Calm and cooperative
A/P:
Septic shock due to perforated small bowel with peritonitis and E. coli and Clostridium bacteremia in the setting of Chron's:
Status post ex lap, small bowel resection, washout and left in discontinuity.
Status post RTOR for an ex lap, further small bowel resection and end ileostomy with abdominal wall closure.
Resolved shock, off pressors, TPN discontinued, diet advanced to regular
Increased ostomy output noted-patient started on Imodium 11/11. Follow response of ostomy output.
Finished antibiotic course. Continue with Diflucan 400 mg for total of 10 days
Lorraine albicans growing in body fluid cultures, blood cultures negative since 10/31, C. difficile negative
WBC stable at 12.[address] abdomen pelvis today 11/15 showing acute infectious peritonitis and severe acute enterocolitis, also severe bilateral lower lobe pneumonia
Thrombocytosis
Worsening thrombocytosis despite clinical improvement.
- Suspect reactive to underlying collections following initial DIC which has resolved.
- Hematology following, recommend repeat CBC in 1 to 2 weeks and outpatient hematology follow-up if not improved
Hypotension:
Typically runs low blood pressures
Asymptomatic. Systolic blood pressure in 90s.
Continue midodrine to 10 mg p.o. 3 times daily
Cortisol level 16.8
Continue to monitor closely
Sinus tachycardia
-noted both at rest and higher with exertion.
- Ultrasound the leg shows no evidence of DVT. CT chest shows no PE but bilateral small to moderate pleural effusion with adjacent atelectasis. Small areas of minor parenchymal opacity in the upper lobes are noted which seem nonspecific as she has
no cough or respiratory symptoms.
- Suspect this may be secondary to deconditioning in addition to acute illness. Improved
Bilateral pleural effusions with volume overload:
Hold IV Lasix since patient hypotensive and she is not short of breath nor she is hypoxic. Weight is down currently.
On room air.
Anemia:
Probably a component of acute blood loss but currently stable
Continue to monitor hemoglobin closely
Coagulopathy due to DIC from sepsis:
Platelets normalized and she has not developed thrombocytosis which may be reactive to her abdominal collections.
Avoid NSAIDs
- Hematology following
Hyponatremia:
Suspect hypovolemic hyponatremia-improved
Encourage oral intake and continue to monitor
DVT prophylaxis: Subcu heparin
CODE STATUS:
Full code
Anticipated Discharge: 24 - 48 hours
Subjective/Interval History
-
Date of Service: November 15, 2024
Patient was seen and examined at bedside this morning. Currently comfortable. Awaiting results of repeat CT imaging.
Objective Data
-
Labs:
Laboratory Results
11/15/24
07:39
WBC 12.7 H
Hgb 9.5 L
Hct 29.9 L
Plt Count 1136 H
Sodium 133 L
Potassium 4.7
Chloride 103
Carbon Dioxide 26
BUN 4 L
Creatinine 0.4 L
Glucose 92
Calcium 8.2 L
Vital Signs:
Vital Signs
Temp Pulse Resp BP Pulse Ox
98.2 F 93 16 105/56 97
11/15/24 12:05 11/15/24 14:13 11/15/24 12:05 11/15/24 14:13 11/15/24 12:05
I&O
11/14/24 11/15/24 11/16/24
06:59 06:59 06:59
Intake Total 920 / 920 720 / 720
Output Total 875 / 875 785 / 785 425 / 425
Balance -875 / -875 135 / 135 295 / 295
Review of Systems
-
History Source: Patient
All other systems: Reviewed and negative
Physical Exam
-
General: No Apparent Distress
--- NOTE | 2024-11-15 18:37 | W.PN.ID1 ---
Date of Service
Date of Service: November 15, 2024
Today's Communication
Continue Diflucan. See below�
Assessment / Plan
# Recent new dx Crohn's with long ileal stricture and SBO
# Perforated small bowel with peritonitis
# E. coli and Clostridium clostridioforme bacteremia from abd source
# Leukocytosis -overall improved
# Thrombocytosis; s/p prior thrombocytopenia
# s/p Septic shock
# s/p VDRF
Recommendations:
-Repeat bcx's neg.
- 10/28 s/p ex-lap abd washout, SBR w/o anastomosis, placement of temporary ABThera closure
- 10/31 s/p ex-lap abd washout, SBR, end ileostomy
OR cx C. albicans + anaerobes (on Zosyn at the time).
- 11/[address]: no abscess
- Stool neg C.diff
- 11/08 s/p paracentesis/drain placement. Ascites fluid neg.
- s/p micafungin
Continue fluconazole (d#8)
- s/p Zosyn
Completed Augmentin 11/14/24.
Follow pending cultures. Given overall improved WBC, will hold on broadening antibiotic coverage at present.
����������������������������������������������������������
Chief Complaint
-: Other (Perforated viscus)
Subjective / Review of Systems
Patient seen and examined. Previously signed off, but asked to reevaluate patient secondary to rising platelet count. Last evaluated on 11/10/2024 at which time the patient was continuing on Augmentin through 11/14/2024. On 11/11 fluid cultures
revealed ongoing presence of yeast, and fluconazole was continued for an additional 10 days.
Over the past several days, platelet count has been noted to be rising. CT of the abdomen performed today showed a moderate loculated rim-enhancing peritoneal fluid throughout the abdomen, along with severe acute enterocolitis.
Patient is currently status post additional drain placement and repositioning of one of the drains.
Review of Systems: No Fever, No Chills and No Abdominal Pain
Vital Signs / Physical Exam
Vital Signs
Vital Signs
Temp Pulse Resp BP Pulse Ox
98.2 F 91 16 103/68 96
11/15/24 17:45 11/15/24 17:47 11/15/24 17:45 11/15/24 17:47 11/15/24 17:45
Physical Exam
Constitutional: No Acute Distress and Comfortable
Eyes: Sclera Anicteric
Gastrointestinal: Soft, Non Tender, Distended, Normal Bowel Sounds and Other (ostomy intact; (R) abd drain with cloudy fluid; (L) abdominal drain also with cloudy fluid)
Genito-Urinary: Negative CVA Tenderness
Extremities: Edema (1+ BLE)
Neurological: AO x 3
Lines: CVP (RIJ intact)
Objective Data
Lab Data
Lab Results
11/15/24 07:39
11/15/24 07:39
ESR 11 mm/hour (0-20) 10/26/24 08:41
PT 15.1 Sec (11.4-14.6) H 11/02/24 04:30
INR 1.16 11/02/24 04:30
APTT 30.4 Sec (23.4-35.0) 11/02/24 04:30
Estimated Creat Clear 97 ml/min 11/15/24 07:39
Lactic Acid 1.3 mmol/L (0.7-2.0) 11/02/24 04:30
Total Bilirubin 0.8 mg/dl (0.2-1.3) 11/08/24 04:40
AST 24 U/L (14-36) 11/08/24 04:40
ALT 32 U/L (0-35) 11/08/24 04:40
Alkaline Phosphatase 82 U/L (38-126) 11/08/24 04:40
C-Reactive Protein < 5.00 mg/L (0.0-10.00) 10/26/24 08:41
Most recent labs reviewed.
Micro Results:
11/12/24 08:10 Wound Culture - Final
Abdomen No growth
Gram Stain - Final
11/08/24 14:15 Body Fluid Culture - Final
Fluid Yeast
Gram Stain - Final
10/31/24 09:20 Wound Culture - Final
Abdomen Lorraine albicans
Gram Stain - Final
11/06/24 10:10 C. difficile GDH Antigen & Toxins - Final
Feces/Stool Negative for toxigenic C.difficile
10/31/24 09:00 Anaerobic Culture - Final
Abdomen Mobiluncus species
Bifidobacterium species
10/31/24 12:45 Blood Culture - Final
Blood/Venous No Growth - Final Report
10/31/24 12:45 Blood Culture - Final
Blood/Venous No Growth - Final Report
10/28/24 20:16 Blood Culture - Final
Blood/Venous Escherichia coli
Gram Stain - Final
10/28/24 20:16 Blood Culture - Final
Blood/Venous Clostridium clostridioforme
Gram Stain - Final
Imaging:
11/15/2024 CT abdomen/pelvis with contrast: There is a large amount of smooth diffuse peritoneal hyperenhancement throughout the abdomen and pelvis suggesting severe peritonitis. There is a moderate volume of loculated ascites in the left side of the
midabdomen which extends medially into the mesentery, measuring 19.0 x 12.5 x 12.0 cm in AP, transverse, and craniocaudal dimensions. This loculated peritoneal fluid is in communication with a large amount of rim-enhancing loculated peritoneal fluid
in the right side of the pelvis which extends superiorly into the right subhepatic space and medially around ileal small bowel loops, measuring 20.7 x 20.5 x 11.1 cm in AP, transverse, and craniocaudal dimensions. There is a peritoneal drainage
catheter in the right paracolic gutter.
11/05/24 CT a/p: Large amount of ascites. Postsurgical mesenteric edema. A few tiny foci of gas are seen in the anterior midline and right paramidline upper abdomen related to recent surgical procedure. No large volume of free air, and no focal
collection identified at this time to suggest abscess formation.Numerous confluent segments of small bowel remain slightly distended with circumferential wall thickening and hypoenhancement, which may be related to postsurgical wall edema. An
ischemic etiology is not entirely excluded.
10/28/24 AXR: Concern for intraperitoneal free air, but limited by the portable supine technique.
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
[2024-11-15] MEDS: IMODIUM 4 MG PO (21:23)
[2024-11-16 03:18] VITALS: BP 92/61
[2024-11-16 05:32] VITALS: BMI 20.4
[2024-11-16 07:00] VITALS: BP 86/56
[2024-11-16 07:26] LABS: Hematocrit 26.4 % (37.0-47.0); Hemoglobin 8.7 g/dL (12.0-16.0); Mean Corp Hgb Conc. 33.0 g/dL (33.0-37.0); Mean Corpuscular Volume 91.3 fL (81.0-99.0); Platelet Count 1134 10^3/uL (130-400); Red Cell Dist. Width 14.1 % (11.5-14.5)
[2024-11-16 07:49] LABS: Blood Urea Nitrogen 5 mg/dl (7-17); Calcium 8.0 mg/dl (8.4-10.2); Carbon Dioxide 24 mmol/L (22-30); Chloride 103 mmol/L (98-107); Estimated Creatinine Clearance 97 ml/min; Glucose 80 mg/dl (70-99); Potassium 4.7 mmol/L (3.5-5.1); Sodium 132 mmol/L (135-145); eGFR > 60.00
--- NOTE | 2024-11-16 09:02 | W.PN.GS2 ---
Today's Communication / Plan
-
Dispo plan
Assessment / Plan
-
Assessment: 48-year-old female admitted with recurrent small bowel obstruction in the setting of recent diagnosis of Crohn's disease and tapering steroids. Her hospital course was complicated by septic shock and multiorgan failure secondary to a
perforated viscus with operative recovery complicated by DIC (hematology following)
POD #19 ex lap, small bowel resection, washout and left in discontinuity.
POD #16 RTOR for an ex lap, further small bowel resection and end ileostomy with abdominal wall closure.
Bacteremia with ecoli initially. OR cx with yeast/few gram variable rods, f/u blood cx with ngtd
CT A/P (11/05) with large amount of ascites, no abscess. Still with sb distention/edema c/w ileus
IR Drain (11/08) with clear ascites, minimal outputs currently, Cx + yeast
CT A/P (11/10) showing free fluid, mild wall thickening
Fluconazole resumed on 11/11 for +yeast from IR drainage
IR drain repositioned (11/12, 11/16)
Left lower quadrant IR drain placed 11/16
Afebrile, HR wnl, borderline hypotensive--but noted to be similar to patient's baseline
WBC still slightly elevated at 13
Hemoglobin low, but stable
Thrombocytosis present-- on Iron Infusions
Hyponatremia ongoing
Stoma outputs improved on loperamide, appetite improved
The patient and her expressed some frustration with delay and miscommunication in regards discharge due to work and family obligations; discussed downtrending, but continued leukocytosis, need for repeat CT, and adjustment of loperamide to
reduce ileostomy output. Explained that these steps may delay discharge, but team will work to expedite care as realistically able. Also discussed stoma care and continuity of care after discharge. Questions answered in length. Patient and her
verbalized understanding.
Plan:
-Cleared for discharge from a general surgery perspective.
Regular diet with supplement shakes
Antibiotics per ID
Home health care for management of her ostomy, midline wound and IR drains.
Stoma care: See discharge instructions. Please send with a 90-day prescription of loperamide. Patient to adjust as needed, 2 mg every 6, 4 mg at night.
She will need to follow-up with me in 1 week for staple removal and follow-up.
Time Spent
Total Time Spent with Patient (in minutes): 20
Subjective Data
-
Date of Service: November 16, 2024
Interval Events:
No acute events overnight. Slept well. Pain Controlled. Denies Nausea/Vomiting, +bowel function. Tolerating diet. Reports ostomy output consistency to be similar to applesauce
Objective Data
-
Intake and Output
11/15/24 11/16/24 11/17/24
06:59 06:59 06:59
Intake Total 920 / 920 1850 / 1850
Output Total 785 / 785 1405 / 1405
Balance 135 / 135 445 / 445
Intake:
Oral fluids 920 / 920 1680 / 1680
IV piggybacks 150 / 150
Amount instilled into Drain (
Total)
Left Lower Abdomen B Placed in
IR
Right Abdomen Placed in IR
Output:
Liquid stool amount 1075 / 1075
Ileostomy 1075 / 1075
Drain Output (Total) 580 / 580 330 / 330
Left Wilfredo-Valdovinos B 90 / 90
Left Lower Abdomen B Placed in 30 / 30
IR
Right Abdomen Placed in IR 580 / 580 90 / 90
Right Wilfredo-Valdovinos A 120 / 120
Other:
Number of approximated SMALL 1
amounts of urine
Number of approximated MODERATE 1
amounts of urine
Vital Signs
Temp Pulse Resp BP Pulse Ox
98.0 F 80 16 86/56 98
11/16/24 07:00 11/16/24 07:00 11/16/24 07:00 11/16/24 07:00 11/16/24 07:00
Lab Results
11/16/24 06:51
11/16/24 06:51
Calcium 8.0 mg/dl (8.4-10.2) L 11/16/24 06:51
Phosphorus 3.2 mg/dl (2.5-4.5) 11/08/24 04:40
Magnesium 2.0 mg/dl (1.6-2.3) 11/08/24 04:40
Total Bilirubin 0.8 mg/dl (0.2-1.3) 11/08/24 04:40
Direct Bilirubin 0.4 mg/dl (0.0-0.4) 11/07/24 06:49
AST 24 U/L (14-36) 11/08/24 04:40
ALT 32 U/L (0-35) 11/08/24 04:40
Alkaline Phosphatase 82 U/L (38-126) 11/08/24 04:40
Total Protein 4.1 g/dl (6.3-8.2) L 11/08/24 04:40
Albumin 1.9 g/dl (3.5-5.0) L 11/08/24 04:40
Physical Exam
-
GENERAL/NEURO: Awake, Alert, no distress
CHEST: Unlabored breathing on RA
ABDOMEN: Soft, Non-Tender, Non-Distended, incision clean dry. Sacha in place. Ostomy is pink patent and productive of mushy green effluent. Drains serous
Patient has a otero catheter: No
Patient has a central line: No
--- NOTE | 2024-11-16 09:09 | W.PN.ONC2 ---
Today's Communication / Plan
-
repeat CBC with PCP in 1 to 2 weeks. If platelets do not trend down thereafter, iron repletion should be referred to hematology for outpatient evaluation
No further IP recommendations, hematology will sign off
Impression
Impression
# Thrombocytosis -Variable platelet count throughout current admission. Initially, counts were 20-30K during acute illness with DIC. Since surgery and recovery from infection, platelet count has trended up to 1134. This is likely rebound
thrombocytosis due to infection/formation/major surgery + reactive to iron deficiency.
# Sepsis
# SB perf, s/p, washout, small bowel resection for perforation
# E coli bacteremia
# DIC- resolved
# Crohns disease
# Mild normocytic anemia
Plan
Plan
- Patient's medical course included bowel obstruction which led to perforation, septic bacteremia, DIC.
- Patient was given IV iron then recommended PO iron supplement every other day upon discharge until Hgb stabilized.
- Recommend repeat CBC with PCP in 1 to 2 weeks. If platelets do not trend down thereafter, iron repletion should be referred to hematology for outpatient evaluation.
Subjective/Objective
Subjective
no new complaints
Soft BP noted, afebrile, no hypoxia
Vital Signs:
Vital Signs
Temp Pulse Resp BP Pulse Ox
98.0 F 80 16 86/56 98
11/16/24 07:00 11/16/24 07:00 11/16/24 07:00 11/16/24 07:00 11/16/24 07:00
Lab Results:
Laboratory Data
WBC 13.1 10^3/uL (4.8-10.8) H 11/16/24 06:51
Hgb 8.7 g/dL (12.0-16.0) L 11/16/24 06:51
Plt Count 1134 10^3/uL (130-400) H 11/16/24 06:51
PT 15.1 Sec (11.4-14.6) H 11/02/24 04:30
INR 1.16 11/02/24 04:30
APTT 30.4 Sec (23.4-35.0) 11/02/24 04:30
eGFR > 60.00 11/16/24 06:51
Physical Exam
A&O3, speech clear
breathing unlabored
Soft, Non-Tender, Non-Distended, incision clean dry. Sacha in place. Ostomy is pink with mushy green stool. HILDA drain with serosang output
ext + pulses
no jaundice
[2024-11-16] MEDS: IMODIUM 2 MG PO ×2 (09:17→13:21)
[2024-11-16] MEDS: PROTONIX 40 MG PO (09:18)
[2024-11-16] MEDS: DIFLUCAN 400 MG PO (09:18)
[2024-11-16] MEDS: MUCINEX 600 MG PO (09:18)
[2024-11-16] MEDS: HEPARIN SC (09:19)
--- NOTE | 2024-11-16 10:05 | W.PN.ID1 ---
Date of Service
Date of Service: November 16, 2024
Today's Communication
Continue fluconazole.
Assessment / Plan
# Recent new dx Crohn's with long ileal stricture and SBO
# Recent Perforated small bowel with peritonitis
# Recent E. coli and Clostridium clostridioforme bacteremia from abd source
# Leukocytosis -overall improved
. Suspect residual leukocytosis from underlying IBD
# Thrombocytosis; s/p prior thrombocytopenia
. Per Hem/Onc rebound phenomena
# s/p Septic shock
# s/p VDRF
Recommendations:
-bcx's neg.
- 10/28 s/p ex-lap abd washout, SBR w/o anastomosis, placement of temporary ABThera closure
- 10/31 s/p ex-lap abd washout, SBR, end ileostomy
OR cx C. albicans + anaerobes (on Zosyn at the time).
- 11/[address]: no abscess
- Stool neg C.diff
- 11/08 s/p paracentesis/drain placement RUQ Ascites fluid: + yeast
- 11/12 RUQ catheter upsized and repositioned. Cx: No growth
- 11/15/24 s/p Left abd drain placment. Gram stain: no organism. Cx: pending
- s/p prolonged Zosyn followed by 5d Augmentin completed 11/14/24.
- s/p micafungin x 7d
Continue fluconazole 400mg po daily through 11/22/24
- Follow pending cultures. will hold on adding antibiotic coverage at present.
����������������������������������������������������������
Chief Complaint
-: Other (Perforated viscus)
Subjective / Review of Systems
She is feeling well today.
Vital Signs / Physical Exam
Vital Signs
Vital Signs
Temp Pulse Resp BP Pulse Ox
98.0 F 80 16 86/56 98
11/16/24 07:00 11/16/24 07:00 11/16/24 07:00 11/16/24 07:00 11/16/24 07:00
Physical Exam
Constitutional: No Acute Distress and Comfortable
Eyes: No Conjunctival Hemorrhage and Sclera Anicteric
Cardiovascular: Regular Rate and S1/S2
Pulmonary: Clear
Gastrointestinal: Soft, Non Tender, Distended (mild) and No Guarding (ostomy liquid brown stool. Left HILDA drain: clear yellow serous fluid. Right abd HILDA drain: clear yellow serous fluid)
Genito-Urinary: Negative CVA Tenderness
Extremities: Negative Edema
Neurological: AO x 3
Objective Data
Lab Data
Lab Results
11/16/24 06:51
11/16/24 06:51
ESR 11 mm/hour (0-20) 10/26/24 08:41
PT 15.1 Sec (11.4-14.6) H 11/02/24 04:30
INR 1.16 11/02/24 04:30
APTT 30.4 Sec (23.4-35.0) 11/02/24 04:30
Estimated Creat Clear 97 ml/min 11/16/24 06:51
Lactic Acid 1.3 mmol/L (0.7-2.0) 11/02/24 04:30
Total Bilirubin 0.8 mg/dl (0.2-1.3) 11/08/24 04:40
AST 24 U/L (14-36) 11/08/24 04:40
ALT 32 U/L (0-35) 11/08/24 04:40
Alkaline Phosphatase 82 U/L (38-126) 11/08/24 04:40
C-Reactive Protein < 5.00 mg/L (0.0-10.00) 10/26/24 08:41
Most recent labs reviewed.
Micro Results:
11/15/24 16:40 Wound Culture - Pending
Abscess Gram Stain - Preliminary
11/12/24 08:10 Wound Culture - Final
Abdomen No growth
Gram Stain - Final
11/08/24 14:15 Body Fluid Culture - Final
Fluid Yeast
Gram Stain - Final
10/31/24 09:20 Wound Culture - Final
Abdomen Lorraine albicans
Gram Stain - Final
11/06/24 10:10 C. difficile GDH Antigen & Toxins - Final
Feces/Stool Negative for toxigenic C.difficile
10/31/24 09:00 Anaerobic Culture - Final
Abdomen Mobiluncus species
Bifidobacterium species
10/31/24 12:45 Blood Culture - Final
Blood/Venous No Growth - Final Report
10/31/24 12:45 Blood Culture - Final
Blood/Venous No Growth - Final Report
10/28/24 20:16 Blood Culture - Final
Blood/Venous Escherichia coli
Gram Stain - Final
10/28/24 20:16 Blood Culture - Final
Blood/Venous Clostridium clostridioforme
Gram Stain - Final
Imaging:
11/15/2024 CT abdomen/pelvis with contrast: There is a large amount of smooth diffuse peritoneal hyperenhancement throughout the abdomen and pelvis suggesting severe peritonitis. There is a moderate volume of loculated ascites in the left side of the
midabdomen which extends medially into the mesentery, measuring 19.0 x 12.5 x 12.0 cm in AP, transverse, and craniocaudal dimensions. This loculated peritoneal fluid is in communication with a large amount of rim-enhancing loculated peritoneal fluid
in the right side of the pelvis which extends superiorly into the right subhepatic space and medially around ileal small bowel loops, measuring 20.7 x 20.5 x 11.1 cm in AP, transverse, and craniocaudal dimensions. There is a peritoneal drainage
catheter in the right paracolic gutter.
11/05/24 CT a/p: Large amount of ascites. Postsurgical mesenteric edema. A few tiny foci of gas are seen in the anterior midline and right paramidline upper abdomen related to recent surgical procedure. No large volume of free air, and no focal
collection identified at this time to suggest abscess formation.Numerous confluent segments of small bowel remain slightly distended with circumferential wall thickening and hypoenhancement, which may be related to postsurgical wall edema. An
ischemic etiology is not entirely excluded.
10/28/24 AXR: Concern for intraperitoneal free air, but limited by the portable supine technique.
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
--- NOTE | 2024-11-16 10:35 | W.DCSUMMARY ---
Discharge Summary
Discharge Data
Date of Admission: 10/25/24
Date of Discharge: 11/16/24
Total time spent discharging patient (in min): 48
-
Pending Results: No
Hospital Course
Ms. Strickland is a 48-year-old female with a medical history of Crohn's disease/ulcerative colitis who presented at the urging of her outpatient plating engineer due to hardened and distended abdomen. She was found to have a small bowel obstruction
secondary to a stricture of a long segment of her terminal ileum due to chronic ileitis from her inflammatory bowel disease. She later suffered a bowel perforation and developed septic shock with peritonitis and bacteremia (E. coli and
Clostridium). She underwent exploratory laparotomy with washout and small bowel resection on 10/28/2024 with temporary ABThera closure at that time. She returned to the OR on 10/31/2024 for further washout, small bowel resection, and end ileostomy.
OR cultures grew Lorraine albicans and anaerobes. She was treated aggressively with antibiotics and antifungals with clinical improvement. Her antibiotics were switched from Zosyn to Augmentin and she completed the course on 11/14/2024. Her
antifungal treatment was switched from micafungin to fluconazole, which she will continue through 11/22/2024.
She was treated with TPN for some time which was later able to be discontinued when she was tolerating a p.o. diet. Her shock resolved and she was able to be weaned off of vasopressors. She was continued on scheduled midodrine however for
borderline low blood pressures, which the patient reports is somewhat chronic for her. Her a.m. cortisol level was 16.8. She will need to follow-up with her primary plating engineer and PCP regarding potential need for steroids in the future
considering her inflammatory bowel disease.
She developed bilateral pleural effusions likely due to aggressive fluid resuscitation. Her weight ultimately came down and she was breathing comfortably on room air.
On 11/08/2024 she underwent paracentesis with right-sided drain placement. She later had her right-sided drain upsized and repositioned by IR on 11/15/2024 at which time a left-sided drain was also placed. She will need to follow-up with general
surgery in their outpatient clinic for monitoring of her drain outputs and discontinuation when appropriate.
She developed thrombocytopenia with disseminated intravascular coagulation due to her presenting septic shock. Her platelet levels recovered and she later developed a thrombocytosis. Hematology was following and recommended monitoring for now with
a repeat CBC in 1 to 2 weeks and outpatient hematology follow-up if her platelet levels had not improved. She should avoid NSAIDs. She had a mild hyponatremia that remained stable and appears to be at least somewhat chronic. She should monitor
this on repeat labs in the outpatient setting. This potentially may be related to some degree of renal insufficiency, however would avoid steroid treatment until she has completed treatment for her intra-abdominal infection.
At the time of hospital discharge she was medically stable. She will need close follow-up with general surgery, her primary care physician, and gastroenterology.
General: No Apparent Distress, Comfortable and Conversant
HEENT: NormoCephalic, Moist mucous membranes, Atraumatic
Respiratory: Clear and Non Labored Respirations
Cardiac: S1/S2 and Regular Rhythm; No Rub or Gallop
GI: Soft, Non Tender, right and left sided surgical drains in place, healthy appearing left-sided ostomy with light brown output
Musculoskeletal: No Edema, no deformity
: NO Post
Neuro: Awake, Alert, Nonfocal/grossly intact
Psych: Calm and cooperative
Discharge Plan
-
Patient Disposition: Home with Home Care
Discharge Diagnosis/Procedures: Septic shock due to perforated small bowel with peritonitis and bacteremia
Diet: Regular
Activity: No strenuous activity
Additional Activity: Do not lift over 20lbs for the next 4-6 weeks
Bathing Restrictions: OK to Shower
Wound Care: Sacha will be removed 3 weeks after your last surgery date. Cover your incision with dry gauze dressing and change daily and as needed for drainage. Ok to remove dressing for showers. Ok to leave dressing off once drainage no longer
noted.
Please call your surgeon if you have a fever >100.5, nausea with vomiting or ostomy outputs consistently >1liter over the course of 24 hours.
Take loperamide on a scheduled basis to keep your stools near the texture of applesauce. Start at 2mg three times a day before meals and 4mg at night before bed. Increase your dose as needed if you are having liquid stools/higher outputs with a goal
of <800ml output per day (do not exceed 8 capsules).
Activity Restrictions/Additional Instructions:
Ileostomy supplies: [place] wafer # [id number] and [place] pouch #[id number]. Change 2 times a week and as needed for leakage. If leakage becomes a problem, try adding an Maikel seal. If leakage still becomes a problem, try [place] cut to fit soft convex
wafer # [id number] instead with an Maikel seal.
Call [employer] (list in folder provided) for monthly Ostomy supplies after discharge (ask VN to order supplies while on service).
Follow up with surgeon.
Call [facility] RN nurse for ostomy pouching concerns or leakage problems [phone] or [phone] or [phone].
Surgery Patient Discharge Instructions
Activity level: Avoid heavy lifting for the next 4 weeks or until cleared to do so at follow-up appointment. To expand on this, no straining, lifting, pushing, pulling greater than 15 lbs during this time frame. Do not engage in any activities
that would engage your core/abdominal muscles. No running, jumping, etc. Otherwise activity as tolerated by comfort level. It is OK to walk, and you should be encouraged to walk frequently.
Diet: Regular diet. You should try and drink 1 liter of fluids daily.
Bowel Medications: You should try to avoid overly loose stools/output from the ostomy. If you have over 1.5 L out in a given day more than 2 days in a row please contact our office. If you notice decreased urine output or dry mouth these are signs
that you may be dehydrated. You have been prescribed Imodium to slow down your bowels 2-4 mg 4 times a day, these may need to be increased or decreased depending on the consistency and quantity of your ostomy output.
Driving: No driving while still taking opioid pain medications (wait at least 6-8 hours since last dose). No driving if you are still sore from surgery as it may limit your ability to react quickly if necessary.
Shower: You may shower and get incision(s) wet. No bathing. Pat dry immediately following. Do not scrub them vigorously for the next 2-3 weeks. Do not soak incision(s) for the next 4 weeks (i.e. soaking in bath or swimming) as this may promote a
wound infection. Place a new ostomy appliance after the shower.
Wound Care: Remove gauze dressing if applied over wound. Wash incision with soap and water, pat dry, and leave open to air. You may cover with gauze as needed to prevent incision rubbing on clothes or for any seepage. If you have skin sacha or
sutures please call the office number below to schedule a follow-up appointment in 1 weeks.
Pain Medication: Tylenol should be used as primary [id number] pain reliever; 650mg every 6 hours as needed. Do not exceed 3000mg in 24 hours. Ibuprofen may also be used and dosed at 600mg every 6 hours as well and should be taken with food.
Alternate these two medications every three hours around the clock. ex. Tylenol 9am, Ibuprofen 12-noon, Tylenol 3pm, Ibuprofen 6pm, etc. Ibuprofen should only be used for a maximum of 2 weeks post-operatively. In addition to these medications,
non-opioid therapies and non-pharmacologic modalities such as heating pad, ice, and activity modification are recommended as appropriate for adjunct treatment of your pain.
For break through pain management, you are also being prescribed a prescription opioid for the treatment of acute post-operative pain related to surgery. You have been advised to take the smallest dose possible to control your pain and as your pain
improves, please take smaller doses and increase the time between doses.
Follow up Appointments/Questions: Please call [phone] to schedule/confirm your follow-up visit time

Call your doctor if:
- You develop any of the following sings or symptoms of infection:
- Redness or swelling of your incision (some mild redness around the incision and the staple sites is normal)
- Drainage or bleeding from your incision
- Fever over 100.5 F
- Increased pain or discomfort at the incision site
- Persistent nausea and/or vomiting or the inability to keep foods or fluids down in a 24 hour period.
- Signs or symptoms of dehydration:
- Dry mouth, lightheadedness
- Dark, concentrated urine, or lack of urine
- Any other concerning sign or symptom such as shortness or breath, chest pain, pain with urination or other signs of urinary tract infection (UTI), or new leg pain/swelling. Also, please call if you develop increasing abdominal pain, increasing
abdominal pain, abdominal firmness, if you stop passing gas or stool for an extended period of time, or bloody bowel movements/vomitting.
Patients with Ileostomy/Colostomy please call your excelsior machine tender or Doctor if:
Change in Color: The stoma should always be pink or red in color. Should the color change to white, blue or black, medical notification is required.
Bleeding: It is common and normal for the stoma to bleed minimally during gentle washing. Blood found in the pouch requires medical notification.
Prolapse: The term implies that the stoma now extends further from the skin surface than it did at discharge from the hospital. An increase of one inch or more requires medical notification. Pain may or may not accompany a prolapse.
Retraction: This term implies that the bowel has slightly fallen back into the abdominal cavity. It may become flush with or recessed below the skin. A good seal with the pouch is difficult.
Herniation: This term implies that the muscular area in which the stoma is sewn has lost its tone and the entire area, including skin and surrounding stoma now protrudes beyond the normal skin surface.
Irritated Skin: Irritated skin can quickly worsen to a difficult to manage situation. Treat irritated skin as you have been taught. If it has not cleared up after one week call your ostomy nurse.
Leaky Pouch: If you are having to change the pouch every other day or more frequently due to leakage it is reasonable for you to give your Ostomy Nurse a call.
Ostomy Resources:
Ostomy.org: [employer] - includes a video 'Living with an Ostomy'
[employer] [place]: www.uoaa.org
[employer] [employer]: www.fascrs.org/patients/treatments_and_screening/ostomy/
[employer]: YouTube: 'FACS Ostomy Education'
- Helping your with home care
- Your Ostomy
- Your Operation
- Pouching systems
- Emptying a Pouch
- Changing a Pouch
- Problem Solving
- Emergencies
- Knowledge check
- Ostomy skills (all modules, 27 minutes)
These videos are also on Youtube: search for '[employer] Ostomy Education Skills'
Below is a list of garment websites other ostomates have found helpful. We do not endorse or have any financial relationship with any of them
- [employer] - custom neoprene swimming belts.
- [employer] - 'stylish ostomy underwear and ostomy undergarments'
- [employer] - 'Dont' feel Different . . . FEEL CONFIDENT.'
Stand Alone Forms: Return to Work
Referrals:
Felicia Cunningham MD [Family Provider, Internal Medicine]
Devon Freitas MD [Active, Pulmonary Medicine] - in three to four weeks
Manuela Andrew MD [Active, Gastroenterology] - in two to three weeks
Referral Note: call to arrange GI follow up to discuss treatment for Crohns disease when recovered from surgery
Ernesto Rodriguez MD [Active, Surgical] - in one to two weeks
Prescriptions:
New
loperamide 2 mg capsule
2 mg PO QID PRN (Reason: loose stool) Qty: 60 0RF
Rx Instructions:
Increase to 4mg if stool outputs >800ml over 24hours or watery stool from stoma
loperamide 2 mg Capsule
4 mg PO HS 30 Days Qty: 60 0RF
loperamide 2 mg Capsule
2 mg PO AC 30 Days Qty: 90 0RF
fluconazole 200 mg Tablet
400 mg PO DAILY 7 Days Qty: 14 0RF
midodrine 5 mg Tablet
10 mg PO TID@0800,1300,1800 30 Days Qty: 180 0RF
pantoprazole 40 mg Tablet,Delayed Release (Dr/Ec)
40 mg PO DAILY 30 Days Qty: 30 0RF
Discontinued
prednisone 20 mg tablet
10 mg PO .TAPER
Rx Instructions:
40 mg for 1 week, 30 mg for 1 week, 20 mg for 1 week and 10 mg for 1 week.
Discharge Orders:
Discharge Patient (As Directed); Ordered 11/16/24
Ordered By: Colt Berry
Discharge Date and Time
Print Language: SERBIAN
--- NOTE | 2024-11-16 10:43 | CM ---
Reviewed the chart notes. Patient for discharge today. Spouse will provide transportation. CM continues to be available to patient/family and is monitoring medical plan for needs at discharge.
Plan: Discharge to home with [facility] services.
[2024-11-16 11:00] VITALS: BP 98/59
--- NOTE | 2024-11-16 11:30 | WOUNDNOTE ---
WON RN NOTE: Patient for discharge today. Asked by patient to answer a few questions before discharge. Answered all questions, patient has plenty of supplies to take home upon discharge. Support and encouragement given, aware ostomy nurse available
by phone if have any issues at home.
== END 2024-11-16 14:56 | disposition home health service (06) | DRG 329 ==
LOC: 2 SOUTH 22:02
PROVIDERS: Emergency Medicine; Hospitalist; Internal Medicine; Internal Medicine Critical Care Medicine; Nurse Practitioner Acute Care; Nurse Practitioner Adult Health; Nurse Practitioner Family; Nurse Practitioner Primary Care; Radiology Diagnostic Radiology; Radiology Vascular & Interventional Radiology; Registered Nurse; Specialist; Surgery; ADMITTING PHYSICIAN Internal Medicine; ATTENDING PHYSICIAN Internal Medicine; CONSULT PHYSICIAN Internal Medicine; CONSULT PHYSICIAN Internal Medicine Nephrology; CONSULT PHYSICIAN Specialist; CONSULT PHYSICIAN Surgery; EMERGENCY PHYSICIAN Emergency Medicine; FAMILY PHYSICIAN Hospitalist; OTHER PHYSICIAN Internal Medicine Hematology & Oncology; OTHER PHYSICIAN Internal Medicine Infectious Disease
PROC: 0D9670Z Drainage of Stomach with Drainage Device, Via Natural or Artificial Opening (ICD-10-PCS; 2024-10-25)
PROC: 0DB80ZZ Excision of Small Intestine, Open Approach (ICD-10-PCS; 2024-10-28)
PROC: 0W9G0ZZ Drainage of Peritoneal Cavity, Open Approach (ICD-10-PCS; 2024-10-28)
PROC: 0BH17EZ Insertion of Endotracheal Airway into Trachea, Via Natural or Artificial Opening (ICD-10-PCS; 2024-10-29)
PROC: 5A1945Z Respiratory Ventilation, 24-96 Consecutive Hours (ICD-10-PCS; 2024-10-29)
PROC: 30233R1 Transfusion of Nonautologous Platelets into Peripheral Vein, Percutaneous Approach (ICD-10-PCS; 2024-10-31)
PROC: 30233K1 Transfusion of Nonautologous Frozen Plasma into Peripheral Vein, Percutaneous Approach (ICD-10-PCS; 2024-10-31)
PROC: 0D1B0Z4 Bypass Ileum to Cutaneous, Open Approach (ICD-10-PCS; 2024-10-31)
PROC: 30233N1 Transfusion of Nonautologous Red Blood Cells into Peripheral Vein, Percutaneous Approach (ICD-10-PCS; 2024-10-31)
PROC: 3E0436Z Introduction of Nutritional Substance into Central Vein, Percutaneous Approach (ICD-10-PCS; 2024-11-01)
PROC: 0W9G30Z Drainage of Peritoneal Cavity with Drainage Device, Percutaneous Approach (ICD-10-PCS; 2024-11-08)
PROC: 0W2GX0Z Change Drainage Device in Peritoneal Cavity, External Approach (ICD-10-PCS; 2024-11-12)
PROC: BW111ZZ Fluoroscopy of Abdomen and Pelvis using Low Osmolar Contrast (ICD-10-PCS; 2024-11-15)
DX: K50.012 Crohn's disease of small intestine with intestinal obstruction (principal); A41.51 Sepsis due to Escherichia coli [E. coli]; K63.1 Perforation of intestine (nontraumatic); R65.21 Severe sepsis with septic shock; K65.9 Peritonitis, unspecified; D65 Disseminated intravascular coagulation [defibrination syndrome]; J96.01 Acute respiratory failure with hypoxia; K65.1 Peritoneal abscess; K55.019 Acute (reversible) ischemia of small intestine, extent unspecified; E87.1 Hypo-osmolality and hyponatremia; R18.8 Other ascites; K62.6 Ulcer of anus and rectum; E87.20 Acidosis, unspecified; Z99.11 Dependence on respirator [ventilator] status; J90 Pleural effusion, not elsewhere classified; D62 Acute posthemorrhagic anemia; E83.42 Hypomagnesemia; E83.51 Hypocalcemia; R74.01 Elevation of levels of liver transaminase levels; B37.9 Candidiasis, unspecified; D72.829 Elevated white blood cell count, unspecified; E83.39 Other disorders of phosphorus metabolism; E86.1 Hypovolemia; E16.2 Hypoglycemia, unspecified; E88.09 Other disorders of plasma-protein metabolism, not elsewhere classified; F17.200 Nicotine dependence, unspecified, uncomplicated; K76.0 Fatty (change of) liver, not elsewhere classified; D50.9 Iron deficiency anemia, unspecified; R73.9 Hyperglycemia, unspecified; D75.839 Thrombocytosis, unspecified; E87.6 Hypokalemia; Z83.79 Family history of other diseases of the digestive system
CPT/HCPCS: 49406; 49423; 71045; 71275; 74018; 74177; 75984; 80048; 80053; 80076; 82248; 82330; 82533; 82607; 82728; 82746; 82805; 82962; 83540; 83550; 83605; 83690; 83735; 83880; 83930; 83935; 83993; 84100; 84132; 84295; 84300; 84302; 84443; 84478; 84484; 84703; 85025; 85027; 85045; 85379; 85384; 85610; 85652; 85730; 86022; 86140; 86850; 86900; 86901; 86920; 86927; 87015; 87040; 87070; 87075; 87076; 87077; 87106; 87154; 87186; 87205; 87324; 87449; 88307; 93005; 93306; 93971; 94002; 94003; 94640; 94667; 94668; 96360; 96361; 97110; 97112; 97116; 97163; 97167; 97530; 97535; 99152; 99285; C1729; C1769; C1776; C1887; J2185; J2916; J3480; P9016; P9045; P9047; P9059; P9073; Q9967